=== PATIENT | female | born 1940 | race Caucasian/White ===

== ENCOUNTER → 2017-02-08 | Outpatient (CLI) | payer MEDICARE ==
[~2017-02-08] MED LIST: ACET325T49 PO; ALLP100T PO; ASPI81TA57 PO; ATOV750O PO; AZIT-21 PO; BACL10TA PO; CALC-80 PO; CHOL500019 PO; CYAN100053 IJ; CYCL25CA11 PO; CYCL50CA3 PO; DCS100C PO; DIPH25TA82 PO; EYE DROPS OU; FISH400C2 PO; FURO20TA4 PO; GEMF600T3 PO; GLUC-113 PO; HDRL25T GT; HYDR-3714 PO; INSU100I14 SQ; LEVE1U SQ; LEVO75TA6 PO; LISI20TA PO; LVT.05T PO; MAG355OR22 PO; MECL-124 PO; METF-144 PO; METO-272 PO; METO50TA2 PO; MTF500T PO; MULT-974 PO; NIAC-4 PO; ONDA-42 SL; PANT40TA PO; POTA25TA PO; PRED20TA PO; PRED50TA PO; PROC-1 PO; PSYL1PAC10 PO; VITAMINS
--- NOTE | 2017-02-08 20:09 | Diagnostic Imaging Report ---
EXAMINATION: DEXA scan. INDICATION: osteopenia TECHNIQUE: Bone mineral density estimated based on dual energy radiography over the lumbar spine and femoral necks, was performed. FINDINGS: The lumbar spine T-score is 3. This is exaggerated by the sclerotic degenerative changes. This is 1.6% decreased measurement density from 12/10/14. T score over the left femoral neck is -1.3 and on the right side is -1.1. This is 2.2% decreased density measurement compared to 2015. IMPRESSION: Osteopenia. Dictated by: Dictated on workstation # [id number]
== END ==
LOC: RAD 10:02
PROVIDERS: ATTEND Internal Medicine
DX: M85.80 Other specified disorders of bone density and structure, unspecified site (principal); Z79.52 Long term (current) use of systemic steroids
CPT/HCPCS: 77080

== ENCOUNTER → 2018-11-28 | Outpatient (CLI) | payer MEDICARE ==
--- NOTE | 2018-11-28 18:54 | Diagnostic Imaging Report ---
INDICATION: Routine screening. COMPARISON: Comparison is made with prior mammograms from 10/14/2013 and 10/11/2012. TECHNIQUE: 2-D and 3-D bilateral screening mammography was performed. The current study was also evaluated with a Computer Aided Detection (CAD) system. 3-D tomosynthesis was also performed and reviewed. FINDINGS: Both breasts remain heterogeneously dense, limiting the sensitivity of mammography. Benign calcifications are noted. No mass or malignant-appearing microcalcifications are seen. The axillae are unremarkable. IMPRESSION: No mammographic features suspicious for malignancy are identified. ACR BI-RADS Category 2: Benign findings. Result letter will be mailed to the patient. Note: At least 10% of breast cancer is not imaged by mammography. Dictated by: Dictated on workstation # [id number]
== END ==
LOC: RAD 10:41
PROVIDERS: ATTEND Internal Medicine
DX: Z12.31 Encounter for screening mammogram for malignant neoplasm of breast (principal)
CPT/HCPCS: 77067

== ENCOUNTER 2018-12-11 11:11 | Inpatient (IN) | payer MEDICARE | END 2018-12-14 09:31 | LOC: ER 11:11 → 4TH 13:31 | PROC: 0SSB34Z Reposition Left Hip Joint with Internal Fixation Device, Percutaneous Approach (ICD-10-PCS; principal; 2018-12-12 16:26) | DX: S72.142A Displaced intertrochanteric fracture of left femur, initial encounter for closed fracture (principal); W01.0XXA Fall on same level from slipping, tripping and stumbling without subsequent striking against object, initial encounter; Y92.008 Other place in unspecified non-institutional (private) residence as the place of occurrence of the external cause; M31.7 Microscopic polyangiitis; I12.9 Hypertensive chronic kidney disease with stage 1 through stage 4 chronic kidney disease, or unspecified chronic kidney disease; N18.4 Chronic kidney disease, stage 4 (severe); R07.81 Pleurodynia; E11.9 Type 2 diabetes mellitus without complications; E78.00 Pure hypercholesterolemia, unspecified; G47.30 Sleep apnea, unspecified; R42 Dizziness and giddiness; M06.9 Rheumatoid arthritis, unspecified; M19.91 Primary osteoarthritis, unspecified site; M10.9 Gout, unspecified; E03.9 Hypothyroidism, unspecified; Z98.1 Arthrodesis status; Z79.899 Other long term (current) drug therapy; K21.9 Gastro-esophageal reflux disease without esophagitis ==

== ENCOUNTER 2018-12-14 09:20 | Inpatient (IN) | payer MEDICARE ==
[~2018-12-14] VITALS: Ht 170.2 cm; Wt 86.0 kg
[~2018-12-14 09:20] MED LIST changes: +ACET-2267 PO; +ACETAMINOPHEN 500 MG TAB (TYLENOL) PO PRN; +ALLO100T PO; +ALPRAZolam 0.25 MG (XANAX) TAB PO PRN; +CALC300T4 PO; +CALCIUM CARBONATE 500 MG (TUMS) TAB.CHEW PO PRN; +CHOL10007 PO; +CNC1KV IM; +DIPH25CA79 PO; +DOCUSATE SODIUM 100 MG (COLACE) CAP PO PRN; +HYDROcodone/APAP 5 MG/325 MG (LORTAB) TAB PO PRN; +INSU100I29 SC; +LOPERAMIDE 2 MG (IMODIUM) TABLET PO PRN; +MELA3TAB PO; +MELATONIN 3 MG TABLET PO PRN; +METO-333 PO; +ONDA4TAB11 PO; +ONDANSETRON 4 MG (ZOFRAN) ORAL DISSOLVE TAB PO PRN; +PANT40TA3 PO; +RTX10V10 IV; +SENN-109 PO; +SODI650T PO; +VITA1CAP19 PO; +diphenhydrAMINE 25 MG TAB (BENADRYL) PO PRN
--- NOTE | 2018-12-14 09:20 | NUR ---
Admitted to room 228, with an admitting diagnosis of debility, on 12-14-18 from 4th via , accompanied by therapy and ].CASH LACEY introduced to surroundings, call light, bed controls, phone, TV, temperature control, lights, meal times, smoking policy, visitor policy, side rail policy, bathrooms and showers. Patient Rights given to patient in the handbook.CASH LACEY verbalizes understanding that [facility] is not responsible for the loss or damage to any personal effects or valuables that are kept in the patients posession during their hospitalization. The following Patient Care Plans were discussed with the : Discharge Planning, ,, and . CASH LACEY verbalizes understanding of Interdisciplinary Patient Education. Patient and/or family were informed about the Rapid Response Team and its purpose. Patient received Patient Rights Booklet, which includes Privacy Act Statement and Data Collection Information Summary.
[2018-12-14] MEDS: SENNA W/DOCUSATE (SENOKOT S) TABLET PO SCH ×2 (10:01→21:33)
--- NOTE | 2018-12-14 10:44 | Occupational Therapy Eval ---
OT Evaluation-General/PLF Medical Diagnosis Admission Date Dec 14, 2018 at 09:20 Medical Diagnosis: left hip fracture Onset Date: Dec 11, 2018 Therapy Diagnosis Therapy Diagnosis: decreased self care skills Height/Weight Height (Feet): 5 Height (Inches): 7.00 Weight (Pounds): 190 Weight (Ounces): 9.6 Weight Bear Status Weight Bearing Restriction: Weight Bearing/Tolerated Medical History Pertinent Medical History: DM, GERD, HTN, Hypothroidism, Rheumatoid Arthritis Additional Medical History chronic kidney disease, high cholesterol Current History pt had fall resulting in left hip fracture. Now s/p surgical fixation Social History Home: Single Level Current Living Status: Spouse ADL-Prior Level of Function Therapy Code Descriptions/Definitions Functional [place] Measure: 0=Not Assessed/NA 4=Minimal Assistance 1=Total Assistance 5=Supervision or Setup 2=Maximal Assistance 6=Modified [place] 3=Moderate Assistance 7=Complete [place] Therapy Quality Codes: 6 Independent with activity with or without an assistive device 5 Patient requires set up or clean up by helper. Patient completes activity by themselves 4 Supervision or touching assist (CGA). [place] provide cues , steadying assist 3 The helper provides less than half the effort to complete the activity 2 The helper provides more than half the effort to complete the activity 1 Dependent. The helper does all the effort to complete an activity 7 Patient refused to complete or attempt activity 9 The patient did not perform the activity before the current illness or injury 88 Not attempted due to Medical conditions or safety concerns Functional Abilities and Goals: Independent: Patient completed the activities by him/herself, with or without an assistive device, with no assistance from a helper. Needed Some Help: Patient needed partial assistance from another person to complete activities. Dependent: A helper completed the activities for the patient. Unknown: Not Applicable: ADL PLOF Comments Pt reports being independent prior to fall. Uses 4WW or cane for mobility. Has director data processing 6 hrs/wk Self Care: Independent DME/Equipment: Bath Chair, Grab Bars, Shower, Tall Toilet Drive Self: Yes OT Current Status Subjective Pt agreeable to therapy. Reports 8/10 left hip pain with movement. Mental Status/Objective Patient Orientation: Person, Place, Situation Current Glasses/Contacts: Yes Hearing Aids: No Dentures/Partials: No Hand Dominance: Right Upper Extremity ROM Grossly WFL Upper Extremity Coordination Intact Upper Extremity Sensation Intact per pt report Upper Extremity Strength Grossly 4/5 ADL-Treatment ADL-Current Total assist required to don socks. Pt completed grooming tasks while seated at sink. Pt brushed teeth, combed hair, and washed face with set up. Transfer to [facility] over toilet with mod assist and increased time. Pt has difficulty advancing left LE, requires assist. Skilled cues for transfer technique and safety. Pt required assist to manage Depends up/down and to complete toileting hygiene. Pt moves very slowly and requires increased time for mobility tasks. Fatigues with activity and requires rest breaks. Pt declined dressing at this time, states she does not have clothes here, but spouse will bring some later today. Pt sitting in w/c with needs met and spouse present after session. Eating (FIM): 7 (Pt reports feeding self and managing containers without assist.) Eating (QC): 6 Grooming (FIM): 5 Oral Hygiene (QC): 5 On/Off Footwear (QC): 1 Toileting (FIM): 1 Toilet/Commode Transfer (FIM): 3 Toilet Transfer (QC): 3 Education OT Patient Education: Rehab process Teaching Recipient: Patient Teaching Methods: Discussion Response to Teaching: Verbalize Understanding OT Short Term Goals Short Term Goals Time Frame: Dec 21, 2018 Bathing(FIM): 4 Lower Body Dressing(FIM): 3 Toileting(FIM): 3 Toilet/Commode Transfer(FIM): 4 Additional Short Term Goals: 1-Demonstrate ADL Tasks, 2-Verbalize Understanding, 3-ImproveStrength/Lucy 1=Demonstrate adherence to instructed precautions during ADL tasks. 2=Patient will verbalize/demonstrate understanding of assistive devices/modifications for ADL. 3=Patient will improve strength/tolerance for activity to enable patient to perform ADL's. OT Field Observer Goals Snf Goals Time Frame: Jan 04, 2019 Eating (FIM): 7 Eating (QC): 6 Groomin Oral Hygiene (QC): 6 Bathing(FIM): 5 Shower/Bathe Self (QC): 5 Upper Body Dressing(FIM): 6 Upper Body Dressing (QC): 6 Lower Body Dressing(FIM): 5 Lower Body Dressing (QC): 5 On/Off Footwear (QC): 5 Toileting(FIM): 6 Toileting Hygiene (QC): 6 Toilet/Commode Transfer(FIM): 6 Toilet/Commode Transfer (QC): 6 Shower Transfer(FIM): 5 Additional Goals: 1-Demonstrate ADL Tasks, 2-Verbalize Understanding, 3- ImproveStrength/Lucy 1=Demonstrate adherence to instructed precautions during ADL tasks. 2=Patient will verbalize/demonstrate understanding of assistive devices/modifications for ADL. 3=Patient will improve strength/tolerance for activity to enable patient to perform ADL's. OT Education/Plan Problem List/Assessment Assessment: Decreased Activ Tolerance, Decreased UE Strength, Dependent Transfers, Impaired I ADL's, Impaired Self-Care Skills Pt admitted to ARU after fall resulting in left hip fracture. S/p surgical intervention. Pt demonstrates decreased mobility, strength, activity tolerance, and ADL functioning. Pt to benefit from skilled OT intervention for ADL training, transfers, strengthening, adaptive equipment training, and home safety education to increase level of independence and allow safe discharge home. Discharge Recommendations Plan/Recommendations: Continue POC Treatment Plan/Plan of Care Treatment,Training & Education: Yes Patient would benefit from OT for education, treatment and training to promote independence in ADL's, mobility, safety and/or upper extremity function for ADL's. Plan of Care: ADL Retraining, Functional Mobility, Group Exercise/Act as Ind, UE Funct Exercise/Act Treatment Duration: Jan 04, 2019 Frequency: At least 5 of 7 days/Wk (IRF) Estimated Hrs Per Day: 1.5 hours per day Rehab Potential: Fair Time/GCodes Start Time: 09:30 Stop Time: 10:00 Total Time Billed (hr/min): 30 Billed Treatment Time 1 visit, EVM(10minutes), ADL(20minutes) MARCIA ALAMO OT Dec 14, 2018 10:44
[2018-12-14] MEDS ORDERED: SENNA W/DOCUSATE (SENOKOT S) TABLET PO ONE (11:45)
[2018-12-14] MEDS ORDERED: POLYETHYLENE GLYCOL 17 GM (MIRALAX) PACK PO ONE (11:45)
[2018-12-14] MEDS ORDERED: CATHETER FLUSH 10 ML SYR IV PRN (11:45)
[2018-12-14] MEDS ORDERED: ONDANSETRON 4 MG (ZOFRAN) ORAL DISSOLVE TAB PO PRN (11:45)
[2018-12-14] MEDS ORDERED: MELATONIN 3 MG TABLET PO PRN (11:45)
[2018-12-14] MEDS ORDERED: diphenhydrAMINE 25 MG TAB (BENADRYL) PO PRN (11:45)
[2018-12-14] MEDS ORDERED: BACLOFEN 10 MG (LIORESAL) TAB PO PRN (11:45)
[2018-12-14] MEDS ORDERED: BISACODYL 10 MG SUPP (DULCOLAX) PR PRN (11:45)
[2018-12-14] MEDS ORDERED: ONDANSETRON 4 MG/2 ML (SDV) Z0FRAN IV PRN (11:45)
--- NOTE | 2018-12-14 12:23 | PM&R H&P / Post Admit Assess ---
History of Present Illness HPI/Chief Complaint Chief complaint: Debility following left intertrochanteric hip fracture History of present illness: This is a 70-year-old white female clinic patient of Dr. Wills who presents following a fall at home resulted in intertrochanteric left hip fracture undergoing an uncomplicated repair the following day. 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 Her hemoglobin remains low at 7.7 but did not require a transfusion while on fourth floor. She has not had a bowel movement since she was admitted. Most medications from home were restarted and at this current time her son and bulk receiver are at the bedside. Apparently she was at home and went out to get her mail when 1 of her dogs knocked her over. She sees a transportation maintenance specialist at . She is insulin-dependent for her diabetes management. We took care of her for 3 weeks in inpatient rehab following an elective right shoulder replacement so she is familiar with the routine of rehab and will be monitored closely considering her significant comorbidities. Her prior level of functioning is sometimes use of a cane but is independent with her ADLs at home. Source: patient, old records Exam Limitations: no limitations Date Seen 12/14/18 Time Seen by a Provider: 12:10 Attending Physician Mayelin Hardy Mark D MD Referring Physician Date of Admission Dec 14, 2018 at 09:20 Home Medications & Allergies Home Medications Reviewed patient Home Medication Reconciliation performed by pharmacy medication reconciliations pipe organ technician and/or nursing. Patients Allergies have been reviewed. Allergies Allergies Coded Allergies Iodinated Contrast- Oral and IV Dye (Verified Allergy, Unknown, 12/11/18) Past [id number]-Jjayad Hx Past Med/Social Hx: Reviewed Nursing Past Med/Soc Hx, Reviewed and Corrections made Patient Social History Marrital Status: Employed/Student: retired Smoking Status: Never a Smoker Recent Foreign Travel: No Contact w/other who traveled: No Recent Infectious Disease Expo: No Immunizations Up To Date Tetanus Booster (TDap): Unknown Date of Pneumonia Vaccine: Feb 10, 2015 Date of Influenza Vaccine: Feb 19, 2014 Past Medical History Surgeries: Eye Surgery, Gallbladder, Hysterectomy, Orthopedic Cardiac: High Cholesterol, Hypertension Neurological: Vertigo Reproductive: No Gastrointestinal: Gastroesophageal Reflux Musculoskeletal: Arthritis, Rheumatoid Arthritis, Gout polyangitis Endocrine: Hypothyroidsim, Diabetes, Non-Insulin dep HEENT: Cataract History of Blood Disorders: No Adverse Reaction to Blood [place]: No Family History Patient reports no known family medical history. Review of Systems Constitutional: see HPI, weakness EENTM: no symptoms reported Respiratory: no symptoms reported Cardiovascular: no symptoms reported Gastrointestinal: constipation Genitourinary: no symptoms reported Musculoskeletal: joint pain (left leg) Skin: no symptoms reported Psychiatric/Neurological: No Symptoms Reported All Other Systems Reviewed Negative Unless Noted: Yes Physical Exam Exam Vital Signs Vital Signs Date Time Temp Pulse Resp B/P (MAP) Pulse Ox O2 Delivery O2 Flow Rate FiO2 12/14/18 17:12 101.0 105 18 189/70 (109) 95 Room Air Capillary Refill : General Appearance: No Apparent Distress, WD/WN, Chronically ill HEENT: PERRL/EOMI, Normal ENT Inspection, Pharynx Normal, Moist Mucous Membranes Neck: Full Range of Motion, Normal Inspection, Non Tender, Supple Respiratory: Chest Non Tender, Lungs Clear, Normal Breath Sounds, No Accessory Muscle Use, No Respiratory Distress Cardiovascular: Regular Rate, Rhythm, No Edema, No Gallop, No JVD, No Murmur Gastrointestinal: Normal Bowel Sounds, No Organomegaly, No Pulsatile Mass, Non Tender, Soft Back: Normal Inspection, No CVA Tenderness, No Vertebral Tenderness Extremity: Normal Capillary Refill, Normal Inspection, Normal Range of Motion (limited ROM left leg), Non Tender, No Calf Tenderness, No Pedal Edema Neurologic/Psychiatric: Alert, Oriented x3, No Motor/Sensory Deficits, Normal Mood/Affect, line producer II-XII Norm as Tested, Abnormal Gait Skin: Normal Color, Warm/Dry Lymphatic: No Adenopathy Results Results/Procedures Labs Patient resulted labs reviewed. 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 (4) CKD (chronic kidney disease) stage 4, GFR 15-29 ml/min Status: Chronic (5) MPA (microscopic polyangiitis) Status: Chronic (6) Type 2 diabetes mellitus Status: Chronic (7) GERD (gastroesophageal reflux disease) Status: Chronic (8) Essential hypertension Status: Chronic (9) Gout Status: Chronic (10) Constipation Status: Acute (11) CHF (congestive heart failure) Status: Acute (12) Anemia Status: Acute Post Admission Physician Asses Date seen by provider: Dec 14, 2018 Time seen by provider: 12:10 Admisison Dx: (1) Intertrochanteric fracture of left hip Status: Acute The preadmission screen agrees with the post admission assessment that the patient is a good candidate for inpatient rehabilitation. The patient will have a comprehensive program of inpatient rehabilitation with a goal of maximizing level of functional independence prior to discharge home with family. The patient will have PT/OT ninety minutes per day, each discipline, five days a week for gait, strengthening, conditioning, balance, ADLs, any patient/family/caregiver training as necessary. Speech therapy to do cognitive assessment and treat as indicated. Rehabilitation nursing to assist with bowel, bladder, skin, wound care, medication administration, pain management. Advertising Specialist to assist with discharge planning, community reentry. SCD's for DVT prophylaxis. She appears to be well motivated to participate in three hours of therapy a day. She should be able to tolerate three hours of therapy a day from a medical standpoint. She should benefit from the three hours of therapy a day. She has a reasonable discharge plan, reasonable discharge rehabilitation goals and a supportive family. She has various comorbidities that need to be closely monitored with medications and treatments adjusted on a daily basis as needed. These include: see list Barriers to discharge for this patient who had been independent prior to this are for her to be modified independent to supervision for ADLs and mobility skills prior to discharge home with family, so as to lessen the burden of the caregivers. Risks for this patient include: 1. Fall 2. Fracture 3. DVT 4. Pulmonary embolism 5. Wound infection 6. Skin breakdown 7. Contractures 8. Poorly controlled pain 9. Urinary retention 10. UTI 11. Respiratory infection 12. Aspiration Estimated Length of Stay: 14 days Prognosis: Rehab prognosis appears good for goal of discharge home with family modified independent to supervision for ADLs and mobility skills. MAYELIN HARDY DO Dec 14, 2018 12:23
--- NOTE | 2018-12-14 12:31 | Physical Therapy Evaluation ---
PT Evaluation-General Medical Diagnosis Admission Date Dec 14, 2018 at 09:20 Medical Diagnosis: left hip fracture Onset Date: Dec 11, 2018 Therapy Diagnosis Therapy Diagnosis: abnormal gait Height/Weight Height (Feet): 5 Height (Inches): 0.00 Weight (Pounds): 180 Weight (Ounces): 0.0 Precautions Precautions/Isolations: Standard Precautions Weight Bear Status Right Lower Extremity: Right Full Weight Bearing Left Lower Extremity: Left Weight Bearing/Tolerated Referral Physician: Antony Reason for Referral: Evaluation/Treatment Medical History Pertinent Medical History: DM, GERD, HTN, Hypothroidism, Rheumatoid Arthritis Additional Medical History Acute renal failure--CKD; acute respiratory failure, microscopic polyangitis Current History Pt tripped over her dog on 12/11/18 and sustained a left hip fx; repaired with IM nail Reviewed History: Yes Social History Home: Single Level Current Living Status: Spouse Prior/Core FIM Prior Level of Function Therapy Code Descriptions/Definitions Functional [place] Measure: 0=Not Assessed/NA 4=Minimal Assistance 1=Total Assistance 5=Supervision or Setup 2=Maximal Assistance 6=Modified [place] 3=Moderate Assistance 7=Complete [place] Therapy Quality Codes: 6 Independent with activity with or without an assistive device 5 Patient requires set up or clean up by helper. Patient completes activity by themselves 4 Supervision or touching assist (CGA). [place] provide cues , steadying assist 3 The helper provides less than half the effort to complete the activity 2 The helper provides more than half the effort to complete the activity 1 Dependent. The helper does all the effort to complete an activity 7 Patient refused to complete or attempt activity 9 The patient did not perform the activity before the current illness or injury 88 Not attempted due to Medical conditions or safety concerns Functional Abilities and Goals: Independent: Patient completed the activities by him/herself, with or without an assistive device, with no assistance from a helper. Needed Some Help: Patient needed partial assistance from another person to complete activities. Dependent: A helper completed the activities for the patient. Unknown: Not Applicable: Bed Mobility: 7 Transfers (B,C,W/C) (FIM): 7 Gait: 6 (occas use of walker or cane) Stairs: 6 Indoor Mobility (Ambulation): Independent Stairs: Independent Prior Devices Use: Walker (and/or cane) pt was mod indep with mobility and a community ambulator. PT Evaluation-Current Subjective Agrees to PT. Reports she knows she is allowed to put weight through her left LE but reports she is having difficulty doing so. Pain Numeric Pain Scale: 6 Location: Left Location Body Site: Hip Pain Description: Ache Pt/Family Goals Return home with spouse when able to care for herself. Objective Patient Orientation: Person, Place, Time, Situation ROM/Strength ROM Lower Extremities WFL Strenght Lower Extremities Right LE WFL Left LE grossly 3/5 ; limited by painful movement. Integumentary/Posture Integumentary intact Bowel Incontinence: No Bladder Incontinence: No Posture slightly rounded shoulders. Neuromuscular (Tone, Coordination, Reflexes) intact and functional Sensory Vision: Wears Glasses Hearing: Functional Hand Dominance: Right Sensation Right Lower Extremit: Intact Sensation Left Lower Extremity: Intact Transfers Therapy Code Descriptions/Definitions Functional [place] Measure: 0=Not Assessed/NA 4=Minimal Assistance 1=Total Assistance 5=Supervision or Setup 2=Maximal Assistance 6=Modified [place] 3=Moderate Assistance 7=Complete [place] Therapy Quality Codes: 6 Independent with activity with or without an assistive device 5 Patient requires set up or clean up by helper. Patient completes activity by themselves 4 Supervision or touching assist (CGA). [place] provide cues , steadying assist 3 The helper provides less than half the effort to complete the activity 2 The helper provides more than half the effort to complete the activity 1 Dependent. The helper does all the effort to complete an activity 7 Patient refused to complete or attempt activity 9 The patient did not perform the activity before the current illness or injury 88 Not attempted due to Medical conditions or safety concerns Transfers (B, C, W/C) (FIM): 2 Scootin Rollin Roll Left to Right (QC): 3 Supine to/from Sit: 3 (assist with both legs and light assist with trunk to steady her during transisiton. ) Sit to/from Stand: 2 (max assist to come to astand with cues for sequencing. ) Sit to Lying (QC): 3 Lying to Sitting/Side of Bed(Q: 3 Sit to Stand (QC): 2 Chair/Cbk-hs-Wexri Xfer(QC): 3 (mod assist; assist to weight shift and take steps to turn) Car Transfer (QC): 88 (unable to tolerate attempting this visit) Gait Does the Patient Walk?: No and Walking Goal IS indicated Mode of Locomotion: Walk Anticipated Mode of Locomotion: Walk Gait (FIM): 0 Distance (FIM): 0=does not occure Walk 10 feet (QC): 88 Walk 50 ft with 2 Turns(QC): 88 Walk 150 ft (QC): 88 Walking 10ft/uneven surface-QC: 88 Gait Assistive Device: FWW Comments/Gait Description Pt only able to perform SPT at this time and requires assist to weight shift for the transfer; difficulty WB through the left LE due to pain and guarding. Wheelchair Training Does the Pt Use a Wheelchair?: No Stairs Stairs (FIM): 0 1 Step (curb) (QC): 88 4 Steps (QC): 88 12 Steps (QC): 88 If not tested on admit;explain Pt unable to effectively walk at this time; therefore unable to attempt steps Balance Sitting Static: Good Sitting Dynamic: Good Standing Static: Fair Standing Dynamic: Fair Picking up an Object (QC): 88 Assessment/Needs POst fall that resulted in a left hip fracture. She demonstrates decreased ability to perform functional transfers and bed mobility and is unable to effectively ambulate at this time. She will benefit from skilled PT to address functional mobility and progress her gait and transfers to a mod indep level. She is slow with transitional movements at this time and transfers due to guarding and pain. Rehab Potential: Good PT Short Term Goals Short Term Goals Time Frame: Dec 25, 2018 Transfers (B,C,W/C) (FIM): 4 Gait (FIM): 4 PT Fci Goals Fci Goals PT Client Services Manager Goals Time Frame: Jan 03, 2019 Transfers (B,C,W/C) (FIM): 7 Sit to Lying (QC): 6 Lying-Sitting on Side/Bed(QC): 6 Sit to Stand (QC): 6 Roll Left to Right (QC): 6 Chair/Okj-uz-Lqcdj Xfer(QC): 6 Car Transfer (QC): 6 Does the Patient Walk: Yes Gait (FIM): 6 Gait distance (FIM): 3=150 ft Walk 10 feet (QC): 6 Walk 10ft-Uneven Surface(QC): 6 Walk 50ft with 2 Turns (QC): 6 Walk 150 ft (QC): 6 Gait Assistive Device: FWW Does the Pt use WC or Scooter?: No Stairs (FIM): 5 # of Steps: 4 (household distance) 1 Step (curb) (QC): 6 4 Steps (QC): 6 12 Steps (QC): 6 Picking up an Object (QC): 88 PT Plan Problem List Problem List: Activity Tolerance, Functional Strength, Safety, Balance, Gait, Transfer, Bed Mobility Treatment/Plan Treatment Plan: Continue Plan of Care Treatment Plan: Bed Mobility, Education, Functional Activity Lucy, Functional Strength, Group Therapy, Gait, Safety, Therapeutic Exercise, Transfers Treatment Duration: Jan 03, 2019 Frequency: At least 5 of 7 days/Wk (IRF) Estimated Hrs Per Day: 1.5 hours per day Patient and/or Family Agrees t: Yes Safety Risks/Education Patient Education: Gait Training, Safety Issues Teaching Recipient: Patient Teaching Methods: Demonstration, Discussion Response to Teaching: Reinforcement Needed Discharge Recommendations Therapy D/C Recommendations: Physical Therapy Home Care Time/GCodes Time In: 920 Time Out: 930 Total Billed Treatment Time: 10 Total Billed Treatment visit EVM 10 MEHRAN MARTINEZ PT Dec 14, 2018 12:31
--- NOTE | 2018-12-14 12:40 | Physical Therapy Daily Note ---
PT Daily Note-Current Subjective Requests to return to bed. Transfers Therapy Code Descriptions/Definitions Functional [place] Measure: 0=Not Assessed/NA 4=Minimal Assistance 1=Total Assistance 5=Supervision or Setup 2=Maximal Assistance 6=Modified [place] 3=Moderate Assistance 7=Complete [place] Therapy Quality Codes: 6 Independent with activity with or without an assistive device 5 Patient requires set up or clean up by helper. Patient completes activity by themselves 4 Supervision or touching assist (CGA). [place] provide cues , steadying assist 3 The helper provides less than half the effort to complete the activity 2 The helper provides more than half the effort to complete the activity 1 Dependent. The helper does all the effort to complete an activity 7 Patient refused to complete or attempt activity 9 The patient did not perform the activity before the current illness or injury 88 Not attempted due to Medical conditions or safety concerns Weight Bearing Right Lower Extremity: Right Full Weight Bearing Left Lower Extremity: Left Weight Bearing/Tolerated Treatments Sit to stand with mod assist and SPT wc to bed with mod assist with FWW WBAT with heavy cues for sequencing and assist to weight shift. Mod assist sit to supine. Pt in bed with left heel elevated and SCD's in place post treatment. Assessment New admit to this unit. will benefit from aggressive skilled intervention to allow her to return home as before. PT Short Term Goals Short Term Goals Time Frame: Dec 25, 2018 Transfers (B,C,W/C) (FIM): 4 Gait (FIM): 4 PT Frozen Food Department Manager Goals Frozen Food Department Manager Goals PT [facility] Goals Time Frame: Jan 03, 2019 Transfers (B,C,W/C) (FIM): 7 Sit to Lying (QC): 6 Lying-Sitting on Side/Bed(QC): 6 Sit to Stand (QC): 6 Rollin Roll Left to Right (QC): 6 Chair/Rlp-ve-Scvpu Xfer(QC): 6 Car Transfer (QC): 6 Does the Patient Walk: Yes Gait (FIM): 6 Gait distance (FIM): 3=150 ft Walk 10 feet (QC): 6 Walk 10ft-Uneven Surface(QC): 6 Walk 50ft with 2 Turns (QC): 6 Walk 150 ft (QC): 6 Gait Assistive Device: FWW Does the Pt use WC or Scooter?: No Stairs (FIM): 5 # of Steps: 4 (household distance) 1 Step (curb) (QC): 6 4 Steps (QC): 6 12 Steps (QC): 6 Picking up an Object (QC): 88 PT Plan Problem List Problem List: Activity Tolerance, Functional Strength, Safety, Balance, Gait, Transfer, Bed Mobility Treatment/Plan Treatment Plan: Continue Plan of Care Treatment Plan: Bed Mobility, Education, Functional Activity Lucy, Functional Strength, Group Therapy, Gait, Safety, Therapeutic Exercise, Transfers Treatment Duration: Jan 03, 2019 Frequency: At least 5 of 7 days/Wk (IRF) Estimated Hrs Per Day: 1.5 hours per day Patient and/or Family Agrees t: Yes Safety Risks/Education Patient Education: Transfer Techniques Teaching Recipient: Patient Teaching Methods: Demonstration, Discussion Response to Teaching: Reinforcement Needed Time/GCodes Time In: 1105 Time Out: 1130 Total Billed Treatment Time: 25 Total Billed Treatment visit FA 25 MEHRAN MARTINEZ PT Dec 14, 2018 12:39
[2018-12-14 12:43] VITALS: BP 129/72
[2018-12-14] MEDS: inSUlin ASPART (NovoLOG) 1 UNIT/0.01 ML (CHARGE PER UNIT) SC SCH ×2 (16:45→21:00)
[2018-12-14 17:12] VITALS: BP 189/70
[2018-12-14] MEDS: SODIUM BICARBONATE 650 MG TABLET (NON-FORMULARY) PO SCH (18:30)
[2018-12-14] MEDS: ACETAMINOPHEN 325 MG TABLET PO PRN (18:30)
--- NOTE | 2018-12-14 19:16 | NUR ---
bedside report received from ANTONIO CHINCHILLA, assume care of pt
[2018-12-14 21:30] VITALS: BP 161/71
[2018-12-14] MEDS: PANTOPRAZOLE 40 MG (PROTONIX) TAB PO SCH (21:33)
[2018-12-14] MEDS: meTOprolol TARTRATE 25 MG (LOPRESSOR) TABLET PO SCH (21:34)
[2018-12-14] MEDS: DOCUSATE SODIUM 100 MG (COLACE) CAP PO SCH (21:34)
--- NOTE | 2018-12-14 21:34 | NUR ---
c/o pain level 8/10 on numeric scale, oxyir 5mg po given
--- NOTE | 2018-12-14 21:34 | NUR ---
pt took Colace & Senokot 1 tab refused miralax, fsbs 186 no ss insulin req
--- NOTE | 2018-12-14 21:35 | NUR ---
assessments & interventions completed see assessments & interventions
[2018-12-14] MEDS: POLYETHYLENE GLYCOL 17 GM (MIRALAX) PACK PO SCH (21:36)
--- NOTE | 2018-12-14 22:15 | NUR ---
resting quietly in bed, pain level 0/10 on flacc scale
[2018-12-15 06:00] VITALS: BP 154/72
[2018-12-15] MEDS: inSUlin ASPART (NovoLOG) 1 UNIT/0.01 ML (CHARGE PER UNIT) SC SCH ×4 (06:00→21:00)
[2018-12-15 06:01] LABS: BASOPHILS % (AUTO) 0 % (0-10); EOSINOPHILS # (AUTO) 0.2 10^3/uL (0.0-0.3); EOSINOPHILS % (AUTO) 3 % (0-10); HEMATOCRIT 23 % (35-52); HEMOGLOBIN 7.3 G/DL (11.5-16.0); LYMPHOCYTES # (AUTO) 0.9 X 10^3 (1.0-4.0); LYMPHOCYTES % (AUTO) 12 % (12-44); MEAN CORPUSCULAR HEMOGLOBIN 32 PG (25-34); MEAN CORPUSCULAR HGB CONC 32 G/DL (32-36); MEAN CORPUSCULAR VOLUME 100 FL (80-99); MEAN PLATELET VOLUME 10.5 FL (7.4-10.4); MONOCYTES % (AUTO) 13 % (0-12); NEUTROPHILS # (AUTO) 5.3 X 10^3 (1.8-7.8); NEUTROPHILS % (AUTO) 72 % (42-75); PLATELET COUNT 161 10^3/uL (130-400); RED CELL DISTRIBUTION WIDTH 13.8 % (10.0-14.5); WHITE BLOOD COUNT 7.4 10^3/uL (4.3-11.0)
[2018-12-15 06:30] LABS: ALANINE AMINOTRANSFERASE < 6 U/L (0-55); ALBUMIN 3.2 GM/DL (3.2-4.5); ALKALINE PHOSPHATASE 102 U/L (40-136); BILIRUBIN,TOTAL 0.5 MG/DL (0.1-1.0); BUN/CREATININE RATIO 15; CALCIUM 9.1 MG/DL (8.5-10.1); CARBON DIOXIDE 19 MMOL/L (21-32); CHLORIDE 106 MMOL/L (98-107); CREATININE SERUM 2.62 MG/DL (0.60-1.30); GFR ESTIMATED 18; GLUCOSE 114 MG/DL (70-105); POTASSIUM 3.7 MMOL/L (3.6-5.0); SODIUM 139 MMOL/L (135-145); TOTAL PROTEIN 5.6 GM/DL (6.4-8.2)
[2018-12-15] MEDS: LEVOTHYROXINE 75 MCG (LEVOTHROID) TABLET PO SCH (06:39)
[2018-12-15] MEDS: SODIUM BICARBONATE 650 MG TABLET (NON-FORMULARY) PO SCH ×2 (06:40→16:45)
--- NOTE | 2018-12-15 06:40 | NUR ---
c/o pain level 8/10 on numeric scale, oxyir 5mg po given
--- NOTE | 2018-12-15 07:23 | NUR ---
rates pain level 2/10 on numeric scale, bedside report given to ИВАН CHINCHILLA
[2018-12-15] MEDS: ALLOPURINOL 100 MG (ZYLOPRIM) TAB PO SCH (09:42)
[2018-12-15] MEDS: SENNA W/DOCUSATE (SENOKOT S) TABLET PO SCH ×2 (09:42→21:54)
[2018-12-15] MEDS: PANTOPRAZOLE 40 MG (PROTONIX) TAB PO SCH ×2 (09:43→21:54)
[2018-12-15] MEDS: meTOprolol TARTRATE 25 MG (LOPRESSOR) TABLET PO SCH ×2 (09:43→21:54)
[2018-12-15] MEDS: DOCUSATE SODIUM 100 MG (COLACE) CAP PO SCH ×2 (09:44→21:57)
[2018-12-15] MEDS: FUROSEMIDE 40 MG (LASIX) TAB PO SCH (09:44)
[2018-12-15] MEDS: POLYETHYLENE GLYCOL 17 GM (MIRALAX) PACK PO SCH ×2 (09:44→21:57)
[2018-12-15] MEDS ORDERED: BISACODYL 10 MG SUPP (DULCOLAX) PR ONE (11:45)
[2018-12-15] MEDS ORDERED: IRON SUCROSE 200 MG/10 ML (VENOFER) VIAL IV ONE (11:45)
--- NOTE | 2018-12-15 12:00 | PM&R Progress Note ---
Subjective HPI/CC On Admission Date Seen by Provider: Dec 15, 2018 Time Seen by Provider: 11:45 Chief complaint: Debility following left intertrochanteric hip fracture History of present illness: This is a 70-year-old white female clinic patient of Dr. Wills who presents following a fall at home resulted in intertrochanteric left hip fracture undergoing an uncomplicated repair the following day. 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 Her hemoglobin remains low at 7.7 but did not require a transfusion while on fourth floor. She has not had a bowel movement since she was admitted. Most medications from home were restarted and at this current time her son and jalousie installer are at the bedside. Apparently she was at home and went out to get her mail when 1 of her dogs knocked her over. She sees a rug cutter helper at . She is insulin-dependent for her diabetes management. We took care of her for 3 weeks in inpatient rehab following an elective right shoulder replacement so she is familiar with the routine of rehab and will be monitored closely considering her significant comorbidities. Her prior level of functioning is sometimes use of a cane but is independent with her ADLs at home. Subjective/Events-last exam Patient doing better Her sister is at the bedside visiting Htg 7.7 and her normal hgb is 10 so will check iron level and start Venofer every other day and she agrees with the plan No BM yet and she reports this in no unusual and she is not eating well so I suggested her to work on her nutrition and she agrees Suppository will be ordered Checked meds and labs Conferred with RN Reviewed therapy notes Review of Systems General: Fatigue Gastrointestinal: Constipation Musculoskeletal: leg pain Objective Exam Vital Signs Vital Signs Date Time Temp Pulse Resp B/P (MAP) Pulse Ox O2 Delivery O2 Flow Rate FiO2 12/15/18 06:00 99.1 89 18 154/72 (99) 96 Room Air Capillary Refill : Less Than 3 Seconds General Appearance: No Apparent Distress, WD/WN, Chronically ill HEENT: PERRL/EOMI, Normal ENT Inspection, Pharynx Normal, Moist Mucous Membranes Neck: Full Range of Motion, Normal Inspection, Non Tender, Supple Respiratory: Chest Non Tender, Lungs Clear, Normal Breath Sounds, No Accessory Muscle Use, No Respiratory Distress Cardiovascular: Regular Rate, Rhythm, No Edema, No Gallop, No JVD, No Murmur Gastrointestinal: Normal Bowel Sounds, No Organomegaly, No Pulsatile Mass, Non Tender, Soft Back: Normal Inspection, No CVA Tenderness, No Vertebral Tenderness Extremity: Normal Capillary Refill, Normal Inspection, Normal Range of Motion (limited ROM left leg), Non Tender, No Calf Tenderness, No Pedal Edema Neurologic/Psychiatric: Alert, Oriented x3, No Motor/Sensory Deficits, Normal Mood/Affect, boat cleaning supervisor II-XII Norm as Tested, Abnormal Gait Skin: Normal Color, Warm/Dry Lymphatic: No Adenopathy Results/Procedures Lab Laboratory Tests 12/15/18 05:50 Patient resulted labs reviewed. FIM Transfers Therapy Code Descriptions/Definitions Functional [place] Measure: 0=Not Assessed/NA 4=Minimal Assistance 1=Total Assistance 5=Supervision or Setup 2=Maximal Assistance 6=Modified [place] 3=Moderate Assistance 7=Complete [place] Therapy Quality Codes: 6 Independent with activity with or without an assistive device 5 Patient requires set up or clean up by helper. Patient completes activity by themselves 4 Supervision or touching assist (CGA). [place] provide cues , steadying assist 3 The helper provides less than half the effort to complete the activity 2 The helper provides more than half the effort to complete the activity 1 Dependent. The helper does all the effort to complete an activity 7 Patient refused to complete or attempt activity 9 The patient did not perform the activity before the current illness or injury 88 Not attempted due to Medical conditions or safety concerns Transfers (B, C, W/C) (FIM): 2 Scootin Rollin Roll Left to Right (QC): 3 Supine to/from Sit: 3 (assist with both legs and light assist with trunk to steady her during transisiton. ) Sit to/from Stand: 2 (max assist to come to astand with cues for sequencing. ) Sit to Lying (QC): 3 Sit to Stand (QC): 2 Chair/Qat-fe-Uqwok Xfer(QC): 3 (mod assist; assist to weight shift and take steps to turn) Car Transfer (QC): 88 (unable to tolerate attempting this visit) Gait Training Does the Patient Walk?: No and Walking Goal IS indicated Gait (FIM): 0 Distance (FIM): 0=does not occure Walk 10 feet (QC): 88 Walk 50 ft with 2 Turns(QC): 88 Walk 150 ft (QC): 88 Walking 10ft/uneven surface-QC: 88 Gait Assistive Device: FWW Wheelchair Training Does the Pt Use a Wheelchair?: No Stair Training Stairs (FIM): 0 1 Step (curb) (QC): 88 4 Steps (QC): 88 12 Steps (QC): 88 Balance Picking up an Object (QC): 88 ADL-Treatment Feedin (Pt reports feeding self and managing containers without assist.) Eating (QC): 6 Groomin Oral Hygiene (QC): 5 On/Off Footwear (QC): 1 Toiletin Toilet/Commode Transfer: 3 Toilet Transfer (QC): 3 Assessment/Plan Assessment and Plan Assess & Plan/Chief Complaint Plan: IRF protocol Pain meds to continue BM regimen to intensify Home meds Monitor for fever IS DM management ADA diet Heparin for DVT PPx Venofer Iron level drawn (1) Intertrochanteric fracture of left femur Status: Acute (2) Fall from ground level Status: Acute (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
[2018-12-15] MEDS: ACETAMINOPHEN 325 MG TABLET PO PRN (16:43)
[2018-12-15 17:24] VITALS: BP 192/76
--- NOTE | 2018-12-15 19:18 | NUR ---
bedside report received from ИВАН CHINCHILLA, assume care of pt
[2018-12-15 21:50] VITALS: BP 161/73
--- NOTE | 2018-12-15 21:54 | NUR ---
c/o pain level 5/10 on numeric scale, oxyir 5mg po given, pt requesting only 1 Senokot & refused Colace & miralax, fsbs 180 no ss insulin required
--- NOTE | 2018-12-15 21:55 | NUR ---
assessments & interventions completed, see assessments & interventions
--- NOTE | 2018-12-15 22:35 | NUR ---
resting quietly in bed, pain level 0/10 on flacc scale
[2018-12-16 05:19] VITALS: BP 153/72
[2018-12-16 05:23] LABS: BASOPHILS % (AUTO) 0 % (0-10); EOSINOPHILS # (AUTO) 0.2 10^3/uL (0.0-0.3); EOSINOPHILS % (AUTO) 3 % (0-10); HEMATOCRIT 23 % (35-52); HEMOGLOBIN 7.2 G/DL (11.5-16.0); LYMPHOCYTES # (AUTO) 0.9 X 10^3 (1.0-4.0); LYMPHOCYTES % (AUTO) 13 % (12-44); MEAN CORPUSCULAR HEMOGLOBIN 32 PG (25-34); MEAN CORPUSCULAR HGB CONC 32 G/DL (32-36); MEAN CORPUSCULAR VOLUME 100 FL (80-99); MONOCYTES % (AUTO) 14 % (0-12); NEUTROPHILS # (AUTO) 4.7 X 10^3 (1.8-7.8); NEUTROPHILS % (AUTO) 70 % (42-75); PLATELET COUNT 175 10^3/uL (130-400); RED CELL DISTRIBUTION WIDTH 13.6 % (10.0-14.5); WHITE BLOOD COUNT 6.8 10^3/uL (4.3-11.0)
[2018-12-16 05:49] LABS: ALBUMIN 3.2 GM/DL (3.2-4.5); BILIRUBIN,TOTAL 0.6 MG/DL (0.1-1.0); CALCIUM 9.2 MG/DL (8.5-10.1); CREATININE SERUM 2.5 MG/DL (0.60-1.30); TOTAL PROTEIN 5.5 GM/DL (6.4-8.2)
[2018-12-16] MEDS: inSUlin ASPART (NovoLOG) 1 UNIT/0.01 ML (CHARGE PER UNIT) SC SCH ×4 (06:00→22:18)
[2018-12-16] MEDS: LEVOTHYROXINE 75 MCG (LEVOTHROID) TABLET PO SCH (06:47)
[2018-12-16] MEDS: SODIUM BICARBONATE 650 MG TABLET (NON-FORMULARY) PO SCH ×2 (06:48→17:43)
--- NOTE | 2018-12-16 06:48 | NUR ---
c/o pain level 4/10 on numeric scale, oxyir 5mg po given
--- NOTE | 2018-12-16 07:28 | NUR ---
bedside report given to TERA CHINCHILLA
[2018-12-16 08:00] VITALS: BP 161/74
--- NOTE | 2018-12-16 08:04 | PM&R Progress Note ---
Subjective HPI/CC On Admission Date Seen by Provider: Dec 16, 2018 Time Seen by Provider: 08:00 Chief complaint: Debility following left intertrochanteric hip fracture History of present illness: This is a 70-year-old white female clinic patient of Dr. Wills who presents following a fall at home resulted in intertrochanteric left hip fracture undergoing an uncomplicated repair the following day. 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 Her hemoglobin remains low at 7.7 but did not require a transfusion while on fourth floor. She has not had a bowel movement since she was admitted. Most medications from home were restarted and at this current time her son and pole inspector are at the bedside. Apparently she was at home and went out to get her mail when 1 of her dogs knocked her over. She sees a education managers at . She is insulin-dependent for her diabetes management. We took care of her for 3 weeks in inpatient rehab following an elective right shoulder replacement so she is familiar with the routine of rehab and will be monitored closely considering her significant comorbidities. Her prior level of functioning is sometimes use of a cane but is independent with her ADLs at home. Subjective/Events-last exam Bowels are now moving Low grade fever as expected Hgb remains 7.[address] Rebolledo for Aranesp she has had that in the past Venefor for Iron deficiency started Pain is much improved Appetite is improving Bowels moved two time yesterday Checked meds and labs Conferred with RN Reviewed therapy notes Review of Systems General: Fatigue Musculoskeletal: leg pain Objective Exam Vital Signs Vital Signs Date Time Temp Pulse Resp B/P (MAP) Pulse Ox O2 Delivery O2 Flow Rate FiO2 12/16/18 18:00 99.6 97 20 174/79 (110) 99 Room Air Capillary Refill : Less Than 3 Seconds General Appearance: No Apparent Distress, WD/WN, Chronically ill HEENT: PERRL/EOMI, Normal ENT Inspection, Pharynx Normal, Moist Mucous Membranes Neck: Full Range of Motion, Normal Inspection, Non Tender, Supple Respiratory: Chest Non Tender, Lungs Clear, Normal Breath Sounds, No Accessory Muscle Use, No Respiratory Distress Cardiovascular: Regular Rate, Rhythm, No Edema, No Gallop, No JVD, No Murmur Gastrointestinal: Normal Bowel Sounds, No Organomegaly, No Pulsatile Mass, Non Tender, Soft Back: Normal Inspection, No CVA Tenderness, No Vertebral Tenderness Extremity: Normal Capillary Refill, Normal Inspection, Normal Range of Motion (limited ROM left leg), Non Tender, No Calf Tenderness, No Pedal Edema Neurologic/Psychiatric: Alert, Oriented x3, No Motor/Sensory Deficits, Normal Mood/Affect, literacy coach II-XII Norm as Tested, Abnormal Gait Skin: Normal Color, Warm/Dry Lymphatic: No Adenopathy Results/Procedures Lab Laboratory Tests 12/16/18 04:43 12/16/18 04:45 Patient resulted labs reviewed. FIM Transfers Therapy Code Descriptions/Definitions Functional [place] Measure: 0=Not Assessed/NA 4=Minimal Assistance 1=Total Assistance 5=Supervision or Setup 2=Maximal Assistance 6=Modified [place] 3=Moderate Assistance 7=Complete [place] Therapy Quality Codes: 6 Independent with activity with or without an assistive device 5 Patient requires set up or clean up by helper. Patient completes activity by themselves 4 Supervision or touching assist (CGA). [place] provide cues , steadying assist 3 The helper provides less than half the effort to complete the activity 2 The helper provides more than half the effort to complete the activity 1 Dependent. The helper does all the effort to complete an activity 7 Patient refused to complete or attempt activity 9 The patient did not perform the activity before the current illness or injury 88 Not attempted due to Medical conditions or safety concerns Transfers (B, C, W/C) (FIM): 2 Scootin Rollin Roll Left to Right (QC): 3 Supine to/from Sit: 3 (assist with both legs and light assist with trunk to steady her during transisiton. ) Sit to/from Stand: 2 (max assist to come to astand with cues for sequencing. ) Sit to Lying (QC): 3 Sit to Stand (QC): 2 Chair/Cyy-fx-Vthmc Xfer(QC): 3 (mod assist; assist to weight shift and take steps to turn) Car Transfer (QC): 88 (unable to tolerate attempting this visit) Gait Training Does the Patient Walk?: No and Walking Goal IS indicated Gait (FIM): 0 Distance (FIM): 0=does not occure Walk 10 feet (QC): 88 Walk 50 ft with 2 Turns(QC): 88 Walk 150 ft (QC): 88 Walking 10ft/uneven surface-QC: 88 Gait Assistive Device: FWW Wheelchair Training Does the Pt Use a Wheelchair?: No Stair Training Stairs (FIM): 0 1 Step (curb) (QC): 88 4 Steps (QC): 88 12 Steps (QC): 88 Balance Picking up an Object (QC): 88 ADL-Treatment Feedin (Pt reports feeding self and managing containers without assist.) Eating (QC): 6 Groomin Oral Hygiene (QC): 5 On/Off Footwear (QC): 1 Toiletin Toilet/Commode Transfer: 3 Toilet Transfer (QC): 3 Assessment/Plan Assessment and Plan Assess & Plan/Chief Complaint Plan: IRF protocol Pain meds to continue BM regimen to be maintained Home meds Monitor for fever recurrence IS DM management ADA diet Heparin for DVT PPx Venofer Iron level drawn Consult Dr Rebolledo for Aranesp? 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
--- NOTE | 2018-12-16 08:13 | NUR ---
REVIEWED MED REC IT WAS REPORTED UPON ADMISSION TO 4TH FLOOR. NO CHANGES WERE MADE WHEN THE PATIENT DISCHARGED TO REHAB.
--- NOTE | 2018-12-16 08:48 | ST Cognitive Linguistic Eval ---
Speech Evaluation-General Medical Diagnosis left hip fracture Onset Date: Dec 11, 2018 Therapy Diagnosis Therapy Diagnosis: Cognitive-communication Precautions Precautions: Fall Precautions/Isolations: Fall Prevention, Standard Precautions Referral Referring Physician: Dr. Hardy Reason for Referral: Evaluation/Treatment Medical History Pertinent Medical History: DM, GERD, HTN, Hypothroidism, Rheumatoid Arthritis DM, RA, HTN, GERD and Hypothyroidism Current History Left hip fracture Reviewed History: Yes Social History Home: Single Level Current Living Status: Spouse Speech PLF-Current Status Prior Level of Function Patient lives at home with her . She was independent within the home for her daily needs prior to this accident. Subjective The patient was very pleasant and cooperative with the evaluation. Language Eval: Auditory Comprehends Simple Yes/No Ques: Functional Indent/Objects [place]: Functional Ident/Pics in [place]: Functional Follows 1-Step Commands: Functional Follows Complex Directions: Functional Follows General Conversations: Functional Language Eval: Verbal Language Completes Spontaneous Greeting: Functional Produces Auto, Serial Info: Functional Imitates Simple Words/Phrases: Functional Word Finding: Functional Requests Basic Needs: Functional States Basic Personal Info: Functional Expresses Complex Ideas: Mild Objective Cognitive Domain Attention: WNL Memory: WNL Problem Solving: Functional Executive Functions: WNL Visuospatial Skills: WNL Composite Severity Rating: WNL Clock Drawing Severity Rating: WNL Score: 28/30 Range: Normal Objective Formal/Standardized Tests [facility] Results 28/30, within normal range of function Oral Motor/Speech Production Within Functional Limits Impression The patient is a pleasant 78 year old female who was admitted to the ARU s/p fractured hip from a fall. The patient was given the SLUMS at bedside with scores in the normal range. The patient does not require skilled ST at this time. Communication/Social Cognition Comprehension: 7 Expression: 7 Social Interaction: 7 Problem Solvin Memory: 7 Speech Patient Assess Expression of Ideas/Wants: Expression (4) Understanding Verbal Content: Understands (4) Brief Interview-Mental Status: Yes Repetition of Three Words: Three (3) Temporal Orientation: Year: Correct (3) Temporal Orientation: Month: Accurate within 5 days(2) Temporal Orientation: Day: Correct (1) Recall : Wear to say "Sock": Yes, no cue required (2) Recall : Color: Yes, after cueing (1) Recall : Bed: Yes,after cueing (1) Memory/Recall Ability: Current season, Location of own room, That he or she is in a hsp/hsp unit Speech-Plan Patient/Family Goals Patient/Family Goals: The patient plans on returning home post rehab. Treatment Plan Speech Therapy Treatment Plan: Discontinue ST The patient does not require skilled ST at this time. Treatment Duration: Dec 16, 2018 Frequency: 1 time per week Estimated Hrs Per Day: .25 hour per day Rehab Potential: Good Barriers to Learning: None identified Pt/Family Agrees to Plan: Yes Safety Risks/Education Teaching Recipient: Patient Teaching Methods: Discussion Response to Teaching: Verbalize Understanding Education Topics Provided: Safety within her room and communication of wants/needs Time Speech Therapy Time In: 08:30 Speech Therapy Time Out: 08:45 Total Billed Time: 15 Billed Treatment Time 1, ZACH Paula Dec 16, 2018 08:48
[2018-12-16] MEDS: PANTOPRAZOLE 40 MG (PROTONIX) TAB PO SCH ×2 (08:57→22:18)
[2018-12-16] MEDS: FUROSEMIDE 40 MG (LASIX) TAB PO SCH (08:57)
[2018-12-16] MEDS: meTOprolol TARTRATE 25 MG (LOPRESSOR) TABLET PO SCH ×2 (08:57→22:17)
[2018-12-16] MEDS: ALLOPURINOL 100 MG (ZYLOPRIM) TAB PO SCH (08:57)
[2018-12-16] MEDS: SENNA W/DOCUSATE (SENOKOT S) TABLET PO SCH ×2 (09:02→22:17)
[2018-12-16] MEDS: POLYETHYLENE GLYCOL 17 GM (MIRALAX) PACK PO SCH ×2 (09:02→21:00)
[2018-12-16] MEDS: DOCUSATE SODIUM 100 MG (COLACE) CAP PO SCH ×2 (09:03→21:00)
--- NOTE | 2018-12-16 09:49 | Occupational Ther Daily Note ---
OT Current Status-Daily Note Subjective Pt laying in bed at start of session, agreed to OT tx focusing on ADLS. Pt reported pain in L hip / post ADLs Mental Status/Objective Therapy Code Descriptions/Definitions Functional Shoshone Measure: 0=Not Assessed/NA 4=Minimal Assistance 1=Total Assistance 5=Supervision or Setup 2=Maximal Assistance 6=Modified Shoshone 3=Moderate Assistance 7=Complete Shoshone Attachments: IV ADL-Treatment Therapy Code Descriptions/Definitions Functional [place]one Measure: 0=Not Assessed/NA 4=Minimal Assistance 1=Total Assistance 5=Supervision or Setup 2=Maximal Assistance 6=Modified [place]one 3=Moderate Assistance 7=Complete Shoshone Therapy Quality Codes: 6 Independent with activity with or without an assistive device 5 Patient requires set up or clean up by helper. Patient completes activity by themselves 4 Supervision or touching assist (CGA). [place] provide cues , steadying assist 3 The helper provides less than half the effort to complete the activity 2 The helper provides more than half the effort to complete the activity 1 Dependent. The helper does all the effort to complete an activity 7 Patient refused to complete or attempt activity 9 The patient did not perform the activity before the current illness or injury 88 Not attempted due to Medical conditions or safety concerns Grooming (FIM): 5 (Set up, pt completed task seated in w/c at sink. Pt brushed hair/teeth, washed face and hands.) Oral Hygiene (QC): 5 Bathing (FIM): 5 (10/30 complete. Pt performed sponge bath, seated on commode over toilet.) Bathing Location: L Arm, R Arm, L Upper Leg, R Upper Leg, Chest, Abdomen, Perineal Area Shower/Bathe Self (QC): 3 Upper Body (FIM): 5 (set up assist, pt able to doff/don bra and machine puller shirt.) Upper Body Dressing (QC): 5 Lower Body Dressing (FIM): 2 (Pt completed 05/31 parts. OT educated pt on using boardmarker & sock aid. Pt attempted to use boardmarker to hayes underwear/pants but required assistance threading LLE into underwear & pant leg, pt able to thread RLE. Pt required assistance pulling up pants/underwear once standing. Pt able to thread sock onto sock aid but required assistance threading onto L foot. ) Lower Body Dressing (QC): 2 On/Off Footwear (QC): 2 Toileting (FIM): 1 (0/3 complete, pt required assistance managing pants up/down and with hygiene.) Toileting Hygiene (QC): 1 Transfers (B, C, W/C) (FIM): 3 (Mod A sit to/from stand from bed & w/c. Mod A bed mobility sit to supine & supine to sit. Pt required assistance advancing LLE during stand pivot transfers.) Toilet/Commode Transfer (FIM): 3 (Mod A, pt able to lower self to toilet but required assistance standing.) Toilet Transfer (QC): 3 Other Treatment Pt transferred to w/c and then to commode over toilet. Pt completed toileting, sponge bath, and dressing on toilet. Pt transferred back to w/c to complete grooming sitting at sink. Pt taken to therapy gym in w/c. In order to increase UE strength and endurance for ADLs and functional activities, pt completed arm bike X10 mins, mod resistance. Pt returned to room where she transferred back to bed. Pt laying in bed, call light in reach and needs met at end of session. Education OT Patient Education: Correct positioning, Energy conservation, Exercise program, Modified ADL techniques, Progress toward Goal/Update tx plan, Purpose of tx/functional activities, Transfer techniques, Use of adapted equipment Teaching Recipient: Patient Teaching Methods: Demonstration, Discussion Response to Teaching: Verbalize Understanding, Return Demonstration OT Short Term Goals Short Term Goals Time Frame: Dec 21, 2018 Bathing(FIM): 4 Lower Body Dressing(FIM): 3 Toileting(FIM): 3 Transfers (B,C,W/C) (FIM): 4 Toilet/Commode Transfer(FIM): 4 Additional Short Term Goals: 1-Demonstrate ADL Tasks, 2-Verbalize Understanding, 3-ImproveStrength/Lucy 1=Demonstrate adherence to instructed precautions during ADL tasks. 2=Patient will verbalize/demonstrate understanding of assistive devices/modifications for ADL. 3=Patient will improve strength/tolerance for activity to enable patient to perform ADL's. OT Nursing Home Goals Adjunct Trainer Goals Time Frame: Jan 04, 2019 Eating (FIM): 7 Eating (QC): 6 Groomin Oral Hygiene (QC): 6 Bathing(FIM): 5 Shower/Bathe Self (QC): 5 Upper Body Dressing(FIM): 6 Upper Body Dressing (QC): 6 Lower Body Dressing(FIM): 5 Lower Body Dressing (QC): 5 On/Off Footwear (QC): 5 Toileting(FIM): 6 Toileting Hygiene (QC): 6 Toilet/Commode Transfer(FIM): 6 Toilet/Commode Transfer (QC): 6 Shower Transfer(FIM): 5 Additional Goals: 1-Demonstrate ADL Tasks, 2-Verbalize Understanding, 3- ImproveStrength/Lucy 1=Demonstrate adherence to instructed precautions during ADL tasks. 2=Patient will verbalize/demonstrate understanding of assistive devices/modifications for ADL. 3=Patient will improve strength/tolerance for activity to enable patient to perform ADL's. OT Education/Plan Problem List/Assessment Assessment: Decreased Activ Tolerance, Decreased UE Strength, Impaired Funct Balance, Impaired I ADL's, Impaired Self-Care Skills Pt admitted to ARU after fall resulting in left hip fracture. S/p surgical intervention. Pt demonstrates decreased mobility, strength, activity tolerance, and ADL functioning. Pt to benefit from skilled OT intervention for ADL training, transfers, strengthening, adaptive equipment training, and home safety education to increase level of independence and allow safe discharge home. Discharge Recommendations Plan/Recommendations: Continue POC Treatment Plan/Plan of Care Patient would benefit from OT for education, treatment and training to promote independence in ADL's, mobility, safety and/or upper extremity function for ADL's. Plan of Care: ADL Retraining, Functional Mobility, Group Exercise/Act as Ind, UE Funct Exercise/Act Treatment Duration: Jan 04, 2019 Frequency: At least 5 of 7 days/Wk (IRF) Estimated Hrs Per Day: 1.5 hours per day Rehab Potential: Good Time/GCodes Start Time: 09:00 Stop Time: 10:00 Total Time Billed (hr/min): 60 Billed Treatment Time 1, ADL 3 X50 min, EX X10 min YOLANDE COURTNEY OT Dec 16, 2018 09:49
--- NOTE | 2018-12-16 09:50 | NUR ---
DR. LOPEZ NOTIFIED OF CONSULT. PATIENT STATES PAIN ADEQUATELY CONTROLLED WITH PAIN MEDIATION AND FEELS APPETITE IS IMPROVED. AT BEDSIDE.
--- NOTE | 2018-12-16 12:05 | Physical Therapy Daily Note ---
PT Daily Note-Current Subjective Patient is in bed and reluctantly agrees to PT. Pain Numeric Pain Scale: 8 Location: Left Location Body Site: Hip Pain Description: Acute Mental Status Patient Orientation: Normal For Age Transfers Therapy Code Descriptions/Definitions Functional [place] Measure: 0=Not Assessed/NA 4=Minimal Assistance 1=Total Assistance 5=Supervision or Setup 2=Maximal Assistance 6=Modified Ke[place] 3=Moderate Assistance 7=Complete Keo Therapy Quality Codes: 6 Independent with activity with or without an assistive device 5 Patient requires set up or clean up by helper. Patient completes activity by themselves 4 Supervision or touching assist (CGA). [place] provide cues , steadying assist 3 The helper provides less than half the effort to complete the activity 2 The helper provides more than half the effort to complete the activity 1 Dependent. The helper does all the effort to complete an activity 7 Patient refused to complete or attempt activity 9 The patient did not perform the activity before the current illness or injury 88 Not attempted due to Medical conditions or safety concerns Transfers (B, C, W/C) (FIM): 4 Scootin Supine to/from Sit: 4 Sit to/from Stand: 4 Sit to Lying (QC): 4 Sit to Stand (QC): 4 Chair/Qgr-hv-Giuis Xfer(QC): 4 Bed to/from Chair: 4 Weight Bearing Right Lower Extremity: Right Full Weight Bearing Left Lower Extremity: Left Weight Bearing/Tolerated Gait Training Does the Patient Walk?: No and Walking Goal IS indicated Gait (FIM): 1 Distance (FIM): 1=up to 49 ft Distance: 15' x 4 Walk 10 feet (QC): 4 Gait Level of Assist: 3 Gait Persons Needed: 1 Gait Assistive Device: FWW PT advanced patient's left LE 80% of time during gait training. Patient resists all left LE mobility due to pain Exercises Supine Ex: Ankle pumps, Quad Set, Heel Slides, Short Arc Quads, Straight leg raise (right LE only) Supine Reps: 15 (2 sets) Seated Therapy Exercises: Ankle pumps, Long arc quads Seated Reps: 15 (2 sets) NuStep Minutes: 15 NuStep Workload: 4 (to increase strength and mobility) Assessment Patient is very emotional during treatment due to left hip pain with meds issued. Patient demonstrates ability to ambulate, however, does appear to self limit due to anxiety with pain. PT to increase activity as patient tolerates. PT Short Term Goals Short Term Goals Time Frame: Dec 25, 2018 Transfers (B,C,W/C) (FIM): 4 Gait (FIM): 4 PT Intermediate Goals Recycle Coordinator Goals PT Recycle Coordinator Goals Time Frame: Jan 03, 2019 Transfers (B,C,W/C) (FIM): 7 Sit to Lying (QC): 6 Lying-Sitting on Side/Bed(QC): 6 Sit to Stand (QC): 6 Rollin Roll Left to Right (QC): 6 Chair/Hlw-ku-Epfek Xfer(QC): 6 Car Transfer (QC): 6 Does the Patient Walk: Yes Gait (FIM): 6 Gait distance (FIM): 3=150 ft Walk 10 feet (QC): 6 Walk 10ft-Uneven Surface(QC): 6 Walk 50ft with 2 Turns (QC): 6 Walk 150 ft (QC): 6 Gait Assistive Device: FWW Does the Pt use WC or Scooter?: No Stairs (FIM): 5 # of Steps: 4 (household distance) 1 Step (curb) (QC): 6 4 Steps (QC): 6 12 Steps (QC): 6 Picking up an Object (QC): 88 PT Plan Treatment/Plan Treatment Plan: Continue Plan of Care Treatment Plan: Bed Mobility, Education, Functional Activity Lucy, Functional Strength, Group Therapy, Gait, Safety, Therapeutic Exercise, Transfers Treatment Duration: Jan 03, 2019 Frequency: At least 5 of 7 days/Wk (IRF) Estimated Hrs Per Day: 1.5 hours per day Patient and/or Family Agrees t: Yes Time/GCodes Time In: 1100 Time Out: 1202 Total Billed Treatment Time: 62 Total Billed Treatment 1 visit GT x 2 32 min EX x 2 30 min TERRENCE ORTEGA PT Dec 16, 2018 12:05
--- NOTE | 2018-12-16 12:58 | NUR ---
CASE MANAGEMENT ASSOCIATE met with patient to complete initial assessment. Patient is known to CASE MANAGEMENT ASSOCIATE as her was an ARU patient in September 2018. Patient was alert and oriented and agreeable to assessment. Patient admitted to ARU from internally with debility following a L hip fracture. Fracture was sustained after her dog ran at full speed into her and knocked her over. Prior to hospitalization patient and spouse reside in a one level, entry level paralegal home in [place], [place]. The home is handicap accessible. Patient possess a single-point cane, standard walker, Rollator walker and shower chair. Primary contact identified as spouse, RODOLFO at [phone] and secondary contact as son, Manny at [phone]. PCP identified as Dr. Greg Wills, business development manager as Dr. Garcia of [facility] in [place], grain sampler as Dr. Christie and new establishment with Dr. Raya for acute anemia . Insurance verified as Medicare and BCBS with [employer] prescription coverage and preferred pharmacy as [facility] CASE MANAGEMENT ASSOCIATE reviewed typical ARU length of stay and weekly team conferences. Patient and family expressed no other concerns at this time. CASE MANAGEMENT ASSOCIATE will continue to follow.
--- NOTE | 2018-12-16 13:16 | Physical Therapy Daily Note ---
PT Daily Note-Current Subjective Patient continues to c/o 11/30 left hip pain. RN notified. Pain Numeric Pain Scale: 8 Location: Left Location Body Site: Hip Pain Description: Acute Mental Status Patient Orientation: Normal For Age Transfers Therapy Code Descriptions/Definitions Functional [place] Measure: 0=Not Assessed/NA 4=Minimal Assistance 1=Total Assistance 5=Supervision or Setup 2=Maximal Assistance 6=Modified [place] 3=Moderate Assistance 7=Complete [place] Therapy Quality Codes: 6 Independent with activity with or without an assistive device 5 Patient requires set up or clean up by helper. Patient completes activity by themselves 4 Supervision or touching assist (CGA). [place] provide cues , steadying assist 3 The helper provides less than half the effort to complete the activity 2 The helper provides more than half the effort to complete the activity 1 Dependent. The helper does all the effort to complete an activity 7 Patient refused to complete or attempt activity 9 The patient did not perform the activity before the current illness or injury 88 Not attempted due to Medical conditions or safety concerns Transfers (B, C, W/C) (FIM): 4 Scootin Sit to/from Stand: 4 Sit to Stand (QC): 4 Weight Bearing Right Lower Extremity: Right Full Weight Bearing Left Lower Extremity: Left Weight Bearing/Tolerated Exercises Seated Therapy Exercises: Ankle pumps, Long arc quads, Hip flexion Seated Reps: 15 (2 sets) NuStep Minutes: 12 NuStep Workload: 4 Assessment Patient tolerated treatment well and remains up in w/c for OT. Patient continues have difficulty with advancing left LE with mobility due to pain. PT Short Term Goals Short Term Goals Time Frame: Dec 25, 2018 Transfers (B,C,W/C) (FIM): 4 Gait (FIM): 4 PT Mcc Goals Mcc Goals PT Mcc Goals Time Frame: Jan 03, 2019 Transfers (B,C,W/C) (FIM): 7 Sit to Lying (QC): 6 Lying-Sitting on Side/Bed(QC): 6 Sit to Stand (QC): 6 Rollin Roll Left to Right (QC): 6 Chair/Xau-bv-Ezcql Xfer(QC): 6 Car Transfer (QC): 6 Does the Patient Walk: Yes Gait (FIM): 6 Gait distance (FIM): 3=150 ft Walk 10 feet (QC): 6 Walk 10ft-Uneven Surface(QC): 6 Walk 50ft with 2 Turns (QC): 6 Walk 150 ft (QC): 6 Gait Assistive Device: FWW Does the Pt use WC or Scooter?: No Stairs (FIM): 5 # of Steps: 4 (household distance) 1 Step (curb) (QC): 6 4 Steps (QC): 6 12 Steps (QC): 6 Picking up an Object (QC): 88 PT Plan Treatment/Plan Treatment Plan: Continue Plan of Care Treatment Plan: Bed Mobility, Education, Functional Activity Lucy, Functional Strength, Group Therapy, Gait, Safety, Therapeutic Exercise, Transfers Treatment Duration: Jan 03, 2019 Frequency: At least 5 of 7 days/Wk (IRF) Estimated Hrs Per Day: 1.5 hours per day Patient and/or Family Agrees t: Yes Time/GCodes Time In: 1240 Time Out: 1310 Total Billed Treatment Time: 30 Total Billed Treatment 1 visit EX x 2 30 min TERRENCE ORTEGA PT Dec 16, 2018 13:16
--- NOTE | 2018-12-16 13:23 | Occupational Ther Daily Note ---
OT Current Status-Daily Note Subjective Pt upright in w/c in therapy gym post PT session. Pt agreed to OT tx, stated her pain in L hip is 8/10 Mental Status/Objective Patient Orientation: Normal For Age Therapy Code Descriptions/Definitions Functional [place] Measure: 0=Not Assessed/NA 4=Minimal Assistance 1=Total Assistance 5=Supervision or Setup 2=Maximal Assistance 6=Modified [place] 3=Moderate Assistance 7=Complete Ellis ADL-Treatment Therapy Code Descriptions/Definitions Functional [place] Measure: 0=Not Assessed/NA 4=Minimal Assistance 1=Total Assistance 5=Supervision or Setup 2=Maximal Assistance 6=Modified Ellis 3=Moderate Assistance 7=Complete Ellis Therapy Quality Codes: 6 Independent with activity with or without an assistive device 5 Patient requires set up or clean up by helper. Patient completes activity by themselves 4 Supervision or touching assist (CGA). [place] provide cues , steadying assist 3 The helper provides less than half the effort to complete the activity 2 The helper provides more than half the effort to complete the activity 1 Dependent. The helper does all the effort to complete an activity 7 Patient refused to complete or attempt activity 9 The patient did not perform the activity before the current illness or injury 88 Not attempted due to Medical conditions or safety concerns Transfers (B, C, W/C) (FIM): 3 (Mod A sit to stand from w/c, and Mod A bed mobility.) Other Treatment In order to increase UE strength and endurance for ADLs and functional activities, pt completed the followin) arm bike X10 mins, mod resistance. 2) Pegboard, X64 pegs, alternating R/L hand in 6 mins. Pt returned to room, transferred to bed. Post OT session, pt laying in bed, call light and phone in reach and needs met. Education OT Patient Education: Correct positioning, Energy conservation, Exercise program, Progress toward Goal/Update tx plan, Purpose of tx/functional activities, Transfer techniques Teaching Recipient: Patient Teaching Methods: Demonstration OT Short Term Goals Short Term Goals Time Frame: Dec 21, 2018 Bathing(FIM): 4 Lower Body Dressing(FIM): 3 Toileting(FIM): 3 Transfers (B,C,W/C) (FIM): 4 Toilet/Commode Transfer(FIM): 4 Additional Short Term Goals: 1-Demonstrate ADL Tasks, 2-Verbalize Understanding, 3-ImproveStrength/Lucy 1=Demonstrate adherence to instructed precautions during ADL tasks. 2=Patient will verbalize/demonstrate understanding of assistive de vices/modifications for ADL. 3=Patient will improve strength/tolerance for activity to enable patient to perform ADL's. OT Experimental Machining Lab Manager Goals Experimental Machining Lab Manager Goals Time Frame: Jan 04, 2019 Eating (FIM): 7 Eating (QC): 6 Groomin Oral Hygiene (QC): 6 Bathing(FIM): 5 Shower/Bathe Self (QC): 5 Upper Body Dressing(FIM): 6 Upper Body Dressing (QC): 6 Lower Body Dressing(FIM): 5 Lower Body Dressing (QC): 5 On/Off Footwear (QC): 5 Toileting(FIM): 6 Toileting Hygiene (QC): 6 Toilet/Commode Transfer(FIM): 6 Toilet/Commode Transfer (QC): 6 Shower Transfer(FIM): 5 Additional Goals: 1-Demonstrate ADL Tasks, 2-Verbalize Understanding, 3- ImproveStrength/Lucy 1=Demonstrate adherence to instructed precautions during ADL tasks. 2=Patient will verbalize/demonstrate understanding of assistive devices/modifications for ADL. 3=Patient will improve strength/tolerance for activity to enable patient to perform ADL's. OT Education/Plan Problem List/Assessment Assessment: Decreased Activ Tolerance, Decreased UE Strength, Impaired Funct Balance, Impaired Self-Care Skills Pt admitted to ARU after fall resulting in left hip fracture. S/p surgical intervention. Pt demonstrates decreased mobility, strength, activity tolerance, and ADL functioning. Pt to benefit from skilled OT intervention for ADL training, transfers, strengthening, adaptive equipment training, and home safety education to increase level of independence and allow safe discharge home. Discharge Recommendations Plan/Recommendations: Continue POC Treatment Plan/Plan of Care Treatment,Training & Education: Yes Patient would benefit from OT for education, treatment and training to promote independence in ADL's, mobility, safety and/or upper extremity function for ADL's. Plan of Care: ADL Retraining, Functional Mobility, Group Exercise/Act as Ind, UE Funct Exercise/Act Treatment Duration: Jan 04, 2019 Frequency: At least 5 of 7 days/Wk (IRF) Estimated Hrs Per Day: 1.5 hours per day Rehab Potential: Good Time/GCodes Start Time: 13:10 Stop Time: 13:40 Total Time Billed (hr/min): 30 Billed Treatment Time 1, EX X10min, FA X20min YOLANDE COURTNEY OT Dec 16, 2018 13:23
[2018-12-16] MEDS ORDERED: CATHETER FLUSH 10 ML SYR IV PRN (14:00)
[2018-12-16] MEDS: CATHETER FLUSH 10 ML SYR IV SCH ×2 (15:21→22:29)
--- NOTE | 2018-12-16 16:30 | NUR ---
DR. LOPEZ HERE TO SEE PATIENT.
--- NOTE | 2018-12-16 17:00 | NUR ---
[facility] WILL NOT SCAN OR LET NURSE PUT IN BAR CODE. PHARMACY NOTIFIED AND STATES WILL WORK ON IT.
[2018-12-16 18:00] VITALS: BP 174/79
--- NOTE | 2018-12-16 18:05 | Consultation ---
HPI History of Present Illness: HPI/Chief Complaint Chief complaint: Debility following left intertrochanteric hip fracture History of present illness: This is a 70-year-old white female clinic patient of Dr. Wills who presents following a fall at home resulted in intertrochanteric left hip fracture undergoing an uncomplicated repair the following day. 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 Her hemoglobin remains low at 7.7 but did not require a transfusion while on fourth floor. She has not had a bowel movement since she was admitted. Most medications from home were restarted and at this current time her son and engine repairer production are at the bedside. Apparently she was at home and went out to get her mail when 1 of her dogs knocked her over. She sees a roughing mill operator at . She is insulin-dependent for her diabetes management. We took care of her for 3 weeks in inpatient rehab following an elective right shoulder replacement so she is familiar with the routine of rehab and will be monitored closely considering her significant comorbidities. Her prior level of functioning is sometimes use of a cane but is independent with her ADLs at home. Date Seen 12/16/18 Attending Physician Mayelin Hardy Mark D MD Referring Physician Date of Admission Dec 14, 2018 at 09:20 Home Medications & Allergies Home Medications Reviewed patient Home Medication Reconciliation performed by pharmacy medication reconciliations geological technician and/or nursing. Patients Allergies have been reviewed. Allergies Allergies Coded Allergies Iodinated Contrast- Oral and IV Dye (Verified Allergy, Unknown, 12/11/18) Past Acehcsi-Eijoay-Zmhshy Hx Past Med/Social Hx: Reviewed Nursing Past Med/Soc Hx, Reviewed and Corrections made Patient Social History Marrital Status: Number of Children: 2 Number of living children: 2 Employed/Student: retired Alcohol Use: Denies Use Recreational Drug Use: No Smoking Status: Never a Smoker Physical Abuse Screen: No Sexual Abuse: No Recent Foreign Travel: No Contact w/other who traveled: No Recent Hopitalizations: Yes Recent Infectious Disease Expo: No Social History Patient denies any alcohol use, tobacco use, and recreational drug use. Patient was employed previously at a [employer] with no exposure to inks, dyes, or chemicals. Patient denies other occupational exposures to chemicals and pesticides. Patient is currently and has two living children. Immunizations Up To Date Tetanus Booster (TDap): Unknown Pediatric: Yes Date of Pneumonia Vaccine: Feb 10, 2015 Date of Influenza Vaccine: Feb 19, 2014 Seasonal Allergies Seasonal Allergies: Yes Past Medical History Surgeries: Dialysis (Patient was put on dialysis after episode of renal failure secondary to microscopic polyangitis in 2014), Eye Surgery, Gallbladder, Hysterectomy, Orthopedic Currently Using CPAP: Yes Currently Using BIPAP: No Cardiac: High Cholesterol, Hypertension Neurological: Vertigo : No Reproductive: No Hysterectomy Gastrointestinal: Gastroesophageal Reflux, Diverticulosis Musculoskeletal: Arthritis, Rheumatoid Arthritis, Fractures, Gout polyangitis Endocrine: Diabetes, Insulin dep, Hypothyroidsim Are Your Blood Sugars Over 250: No HEENT: Cataract Hearing Impairment: Denies History of Blood Disorders: No Adverse Reaction to Blood Jiménez: No 78 year old female patient with PMH of microscopic polyangiitis that caused secondary renal failure requiring dialysis in 2014, insulin dependent diabetes for over 15 years, and diverticulosis that has resulted in two episodes of diverticulitis with no further flare ups or complications. Patient underwent hysterectomy many years ago. Patient denies history of cancer or chemical exposure. Patient is currently on Rituxan q6mo to treat her vasculitis. CBC is monitored every 4 weeks with a target hemoglobin of 10g/dL. Family History Patient reports no known family medical history. Review of Systems Constitutional: see HPI Physical Exam Physical Exam Vital Signs Vital Signs - First Documented 12/14/18 12/14/18 12:43 17:12 Temp 99.9 Pulse 108 Resp 18 B/P (MAP) 129/72 Pulse Ox 95 O2 Delivery Room Air Capillary Refill : Less Than 3 Seconds Height, Weight, BMI Height: 5'7.00" Weight: 183lbs. 1.6oz. 83.318273av; 35.2 BMI Method:Stated General Appearance: No Apparent Distress, WD/WN, Chronically ill HEENT: PERRL/EOMI, Normal ENT Inspection, Pharynx Normal, Moist Mucous Membranes Neck: Full Range of Motion, Normal Inspection, Non Tender, Supple Respiratory: Chest Non Tender, Lungs Clear, Normal Breath Sounds, No Accessory Muscle Use, No Respiratory Distress Cardiovascular: Regular Rate, Rhythm, No Edema, No Gallop, No JVD, No Murmur Gastrointestinal: Normal Bowel Sounds, No Organomegaly, No Pulsatile Mass, Non Tender, Soft Back: Normal Inspection, No CVA Tenderness, No Vertebral Tenderness Extremity: Normal Capillary Refill, Normal Inspection, Normal Range of Motion (limited ROM left leg), Non Tender, No Calf Tenderness, No Pedal Edema Neurologic/Psychiatric: Alert, Oriented x3, No Motor/Sensory Deficits, Normal Mood/Affect, cable tower operator II-XII Norm as Tested, Abnormal Gait Skin: Normal Color, Warm/Dry Lymphatic: No Adenopathy Results Results/Procedures Labs Laboratory Tests 12/16/18 04:43 12/16/18 04:45 12/17/18 04:48 Patient resulted labs reviewed. Assessment/Plan Assessment and Plan Assess & Plan/Chief Complaint Impressions 1. L intratrochanteric fracture after fall. Status post repair. Patient underwent closed reduction and cephalomedullary nail placement on December 12, 2018. 2. Anemia of chronic disease secondary to chronic kidney disease stage IV with current eGFR of 19 mL/min 3. Other comorbidities include insulin dependent diabetes. Recommendation 1. Rehabilitation 2. Will start on 50 mcg weekly of Aranesp with weekly CBC monitoring. Target hemoglobin will be between 10-11 g/dL 3. Continue all medical care 4. Follow up to clinic Clinical Quality Measures DVT/VTE Risk/Contraindication: Risk Factor Score Per Nursin RFS Level Per Nursing on Admit: 4+=Very High Supervisory-Addendum Brief Verification & Attestation Participated in pt care: history Personally performed: other Care discussed with: Medical Student Procedures: n/a Results interpretation: Verified all documentation / SAMUEL LUNA Dec 16, 2018 18:05
--- NOTE | 2018-12-16 19:23 | NUR ---
bedside report received from TERA CHINCHILLA, assume care of pt
--- NOTE | 2018-12-16 20:53 | Individualized Plan of Care ---
Individualized Plan of Care Rehab Nursing IPOC Order Admission Date Dec 14, 2018 at 09:20 Current Orders Orders Admission Order(Inpt,Obs,Sdc) (12/13/18 21:13) Vital Signs: Per Unit Policy ( 08,16,00 (12/13/18 21:13) Tube Pusher-Inpt Rehab Con (12/13/18 21:13) Rehab Nursing Orders-Ipoc (12/13/18 21:13) Physical Therapy Rehab Orders (12/13/18 21:13) Occupational Therapy Rehab Ord (12/13/18 21:13) Speech Therapy Rehab Orders (12/13/18 21:13) General/Regular (12/14/18 Breakfast) Intake & Output 06,14,22 (12/13/18 21:13) Precautions (Aru) (12/13/18 21:13) Weekly Weight (Lbs) WEEK (12/13/18 21:13) Rehab-Intensity Of Therapy (12/13/18 21:13) Initiate Admission Nursing Pro .admission (12/13/18 21:13) Initiate Admission Nursing Pro .admission (12/13/18 21:13) Acetaminophen Tablet (Tylenol Tablet) (12/13/18 21:15) Alprazolam Tablet (Xanax Tablet) (12/13/18 21:15) Calcium Carbonate Chew Tablet (Antacid C (12/13/18 21:15) Diphenhydramine Tablet (Benadryl Tablet) (12/13/18 21:15) Docusate Sodium Capsule (Colace Capsule) (12/13/18 21:15) Hydrocodone/Apap 5/325 Tablet (Lortab 5 (12/13/18 21:15) Loperamide Tablet (Imodium Tablet) (12/13/18 21:15) Melatonin Tablet (Melatonin Tablet) (12/13/18 21:15) Ondansetron Oral Dissolve Tab (Zofran (12/13/18 21:15) Senna S Tablet (Senokot S Tablet) (12/14/18 09:00) Patient Visit (12/14/18 ) Pt Eval Moderate Complexity (12/14/18 ) Functional Activities, Ea 15 (12/14/18 ) Code/Resuscitation (12/14/18 11:36) Accucheck Achs ACHS (12/14/18 11:36) Iv Maintain (Order) (12/14/18 11:36) Incentive Spirometry (Nursing) Q2H (12/14/18 11:36) Initiate Admission Nursing Pro .admission (12/14/18 11:36) Oxygen-Administer (12/14/18 11:36) Sequential Compression Device (12/14/18 11:36) Fredi Hose (12/14/18 11:36) Acetaminophen Tablet/Caplet (Tylenol T (12/14/18 11:45) Allopurinol Tablet (Zyloprim Tablet) (12/15/18 09:00) Baclofen Tablet (Lioresal Tablet) (12/14/18 11:45) Bisacodyl Suppository (Dulcolax Supposit (12/14/18 11:45) Docusate Sodium Capsule (Colace Capsule) (12/14/18 21:00) Furosemide Tablet (Lasix Tablet) (12/15/18 09:00) Heparin Injection (Heparin Injection) (12/14/18 15:00) Levothyroxine Tablet (Synthroid Tablet) (12/15/18 06:30) Melatonin Tablet (Melatonin Tablet) (12/14/18 11:45) Ondansetron Injection (Zofran Injectio (12/14/18 11:45) Ondansetron Oral Dissolve Tab (Zofran (12/14/18 11:45) Pantoprazole Tablet (Protonix Tablet) (12/14/18 21:00) Senna S Tablet (Senokot S Tablet) (12/14/18 11:45) Sodium Bicarbonate Tablet (Nf) (Sodium B (12/14/18 17:00) Sodium Chloride Flush (Catheter Flush Sy (12/14/18 11:45) Diphenhydramine Tablet (Benadryl Tablet) (12/14/18 11:45) Insulin Aspart (Novolog) (Novolog (Charg (12/14/18 16:00) Insulin Determir (Per Unit) (Levemir (Pe (12/15/18 09:00) Metoprolol Tartrate (Ir) Tab (Lopressor (12/14/18 21:00) Oxycodone Immediate Rel Tablet (Oxyir Ta (12/14/18 11:45) Consult Orthopedic Surgery (12/14/18 11:36) Incentive Spirometry Initial (12/14/18 11:36) Oxygen Delivery Set Up (12/14/18 11:36) Pt Evaluate/Treat Request (12/14/18 11:36) Physical Therapy Order (12/14/18 11:36) Request Ot Evaluate & Treat (12/14/18 11:36) Incentive Spirometry Initial (12/14/18 11:36) Incentive Spirometry (Nursing) Q2H (12/14/18 11:36) Polyethylene Glycol Powder Pkt (Miralax (12/14/18 11:45) Polyethylene Glycol Powder Pkt (Miralax (12/14/18 21:00) Cbc With Automated Diff (12/15/18 06:00) Comprehensive Metabolic Panel (12/15/18 06:00) Bisacodyl Suppository (Dulcolax Supposit (12/15/18 11:45) Iron Test (Fe) (12/15/18 11:33) Iron Sucrose Injection (Venofer Injectio (12/15/18 11:45) Iron Sucrose Injection (Venofer Injectio (12/17/18 09:00) Cbc With Automated Diff (12/16/18 06:00) Comprehensive Metabolic Panel (12/16/18 06:00) Consult Oncology/Hematology (12/16/18 09:48) Sodium Chloride Flush (Catheter Flush Sy (12/16/18 14:00) Sodium Chloride Flush (Catheter Flush Sy (12/16/18 14:00) Patient Visit (12/16/18 ) Gait Training, Ea 15 Min (12/16/18 ) Exercise Therap, Ea 15 Min (12/16/18 ) Patient Visit (12/16/18 ) Speech Sound Lang Comp (12/16/18 ) Darbepoetin Noel (Hospital) (Aranesp Non (12/17/18 09:00) Darbepoetin Noel (Hospital) (Aranesp Non (12/17/18 09:00) Cbc No Diff (12/17/18 06:00) Amlodipine Tablet (Norvasc Tablet) (12/17/18 09:00) Venous Access Request Order (12/17/18 11:49) Patient Visit (12/17/18 ) Gait Training, Ea 15 Min (12/17/18 ) Exercise Therap, Ea 15 Min (12/17/18 ) Rehab Nursing Orders: Ongoing Assess. of Cognitive Status, Ongoing Assess. of F unction Status, Bowel Training, Disease Management & Educaiton, DVT Prophylaxis, Fall Prevention, Fluid/Electrolyte/Nutrition Mgmt, Infection Prevention, Medication Management & Education, Management of Risks & Complications, Management of Skin Intergrity, Nutrition Management, Pain Management, Patient/Family Support, Safety Management Intensity of Therapy to be met Patient to be seen: Min.3h per day/5 of 7d PT IPOC Problem List: Activity Tolerance, Functional Strength, Safety, Balance, Gait, Transfer, Bed Mobility Treatment Plan: Continue Plan of Care Bed Mobility, Education, Functional Activity Lucy, Functional Strength, Group Therapy, Gait, Safety, Therapeutic Exercise, Transfers Treatment Duration: Jan 03, 2019 Frequency: At least 5 of 7 days/Wk (IRF) Estimated Hrs Per Day: 1.5 hours per day OT IPOC Problems: Decreased Activ Tolerance, Decreased UE Strength, Impaired Funct Balance, Impaired Self-Care Skills OT Treatment, Training and Edu: Yes OT Problems Pt admitted to ARU after fall resulting in left hip fracture. S/p surgical intervention. Pt demonstrates decreased mobility, strength, activity tolerance, and ADL functioning. Pt to benefit from skilled OT intervention for ADL training, transfers, strengthening, adaptive equipment training, and home safety education to increase level of independence and allow safe discharge home. Plan of Care: ADL Retraining, Functional Mobility, Group Exercise/Act as Ind, UE Funct Exercise/Act Treatment Duration: Jan 04, 2019 Frequency: At least 5 of 7 days/Wk (IRF) Estimated Hrs Per Day: 1.[address] IPOC Speech Therapy Treatment Plan: Discontinue ST Treatment Duration: Dec 16, 2018 Frequency: 1 time per week Estimated Hrs Per Day: .25 hour per day Tube Pusher/Case Mgmt Tube Pusher/Case Managemen: Discharge Planning Dietitian/Promotions Associate Dietitian/Promotions Associate to monitor nutritional status and make changes and/or recommendations as needed and work with speech pathology on dietary upgrades as the occur. 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
--- NOTE | 2018-12-16 22:15 | NUR ---
assessments & interventions completed, see assessments & interventions
--- NOTE | 2018-12-16 22:18 | NUR ---
c/o pain level 4/10 on numeric scale, oxyir 5mg po, pt took Senokot 1 tab refused miralax & Colace, fsbs 227 NovoLog 3 units given
--- NOTE | 2018-12-16 23:00 | NUR ---
resting quietly in bed, pain level 0/10 on flacc scale
[2018-12-17 05:25] LABS: HEMOGLOBIN 7.2 G/DL (11.5-16.0); MEAN PLATELET VOLUME 10.8 FL (7.4-10.4); RED CELL DISTRIBUTION WIDTH 13.8 % (10.0-14.5); WHITE BLOOD COUNT 6.7 10^3/uL (4.3-11.0)
[2018-12-17 06:00] VITALS: BP 162/71
[2018-12-17] MEDS: CATHETER FLUSH 10 ML SYR IV SCH ×3 (06:00→22:10)
[2018-12-17] MEDS: inSUlin ASPART (NovoLOG) 1 UNIT/0.01 ML (CHARGE PER UNIT) SC SCH ×4 (06:00→21:54)
[2018-12-17] MEDS: LEVOTHYROXINE 75 MCG (LEVOTHROID) TABLET PO SCH (06:33)
[2018-12-17] MEDS: SODIUM BICARBONATE 650 MG TABLET (NON-FORMULARY) PO SCH ×2 (06:34→18:18)
--- NOTE | 2018-12-17 06:35 | NUR ---
c/o pain level 5/10 on numeric scale, oxyir 5mg po given
--- NOTE | 2018-12-17 07:15 | NUR ---
rates pain at 2/10 on numeric scale
--- NOTE | 2018-12-17 07:30 | NUR ---
bedside report given to BETTY CHINCHILLA
--- NOTE | 2018-12-17 08:43 | PM&R Progress Note ---
Subjective HPI/CC On Admission Date Seen by Provider: Dec 17, 2018 Time Seen by Provider: 08:30 Chief complaint: Debility following left intertrochanteric hip fracture History of present illness: This is a 70-year-old white female clinic patient of Dr. Wills who presents following a fall at home resulted in intertrochanteric left hip fracture undergoing an uncomplicated repair the following day. 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 Her hemoglobin remains low at 7.7 but did not require a transfusion while on fourth floor. She has not had a bowel movement since she was admitted. Most medications from home were restarted and at this current time her son and machinist class b are at the bedside. Apparently she was at home and went out to get her mail when 1 of her dogs knocked her over. She sees a eyelet operator at . She is insulin-dependent for her diabetes management. We took care of her for 3 weeks in inpatient rehab following an elective right shoulder replacement so she is familiar with the routine of rehab and will be monitored closely considering her significant comorbidities. Her prior level of functioning is sometimes use of a cane but is independent with her ADLs at home. Subjective/Events-last exam Pt much improved. Appetite is improved. Dr. Raya was consulted and will initiate Aranesp. Checked meds and labs. Bowels are moving. Hip pain is improved. Really liked to work the recumbent bike. Less short of breath. Hgb stable. Conferred with RN Reviewed therapy notes Review of Systems General: Fatigue Musculoskeletal: leg pain Objective Exam Vital Signs Vital Signs Date Time Temp Pulse Resp B/P (MAP) Pulse Ox O2 Delivery O2 Flow Rate FiO2 12/17/18 17:53 100.4 90 18 157/75 (102) 94 Room Air Capillary Refill : Less Than 3 Seconds General Appearance: No Apparent Distress, WD/WN, Chronically ill HEENT: PERRL/EOMI, Normal ENT Inspection, Pharynx Normal, Moist Mucous Membranes Neck: Full Range of Motion, Normal Inspection, Non Tender, Supple Respiratory: Chest Non Tender, Lungs Clear, Normal Breath Sounds, No Accessory Muscle Use, No Respiratory Distress Cardiovascular: Regular Rate, Rhythm, No Edema, No Gallop, No JVD, No Murmur Gastrointestinal: Normal Bowel Sounds, No Organomegaly, No Pulsatile Mass, Non Tender, Soft Back: Normal Inspection, No CVA Tenderness, No Vertebral Tenderness Extremity: Normal Capillary Refill, Normal Inspection, Normal Range of Motion (limited ROM left leg), Non Tender, No Calf Tenderness, No Pedal Edema Neurologic/Psychiatric: Alert, Oriented x3, No Motor/Sensory Deficits, Normal Mood/Affect, child specialist II-XII Norm as Tested, Abnormal Gait Skin: Normal Color, Warm/Dry Lymphatic: No Adenopathy Results/Procedures Lab Laboratory Tests 12/17/18 04:48 Patient resulted labs reviewed. FIM Transfers Therapy Code Descriptions/Definitions Functional Glynn Measure: 0=Not Assessed/NA 4=Minimal Assistance 1=Total Assistance 5=Supervision or Setup 2=Maximal Assistance 6=Modified Glynn 3=Moderate Assistance 7=Complete Glynn Therapy Quality Codes: 6 Independent with activity with or without an assistive device 5 Patient requires set up or clean up by helper. Patient completes activity by themselves 4 Supervision or touching assist (CGA). [place] provide cues , steadying assist 3 The helper provides less than half the effort to complete the activity 2 The helper provides more than half the effort to complete the activity 1 Dependent. The helper does all the effort to complete an activity 7 Patient refused to complete or attempt activity 9 The patient did not perform the activity before the current illness or injury 88 Not attempted due to Medical conditions or safety concerns Transfers (B, C, W/C) (FIM): 3 (Mod A sit to stand from w/c, and Mod A bed mobility.) Scootin Rollin Roll Left to Right (QC): 3 Supine to/from Sit: 4 Sit to/from Stand: 4 Sit to Lying (QC): 4 Sit to Stand (QC): 4 Chair/[id number] Xfer(QC): 4 Bed to/from Chair: 4 Car Transfer (QC): 88 (unable to tolerate attempting this visit) Gait Training Does the Patient Walk?: No and Walking Goal IS indicated Gait (FIM): 1 Distance (FIM): 1=up to 49 ft Distance: 15' x 4 Walk 10 feet (QC): 4 Walk 50 ft with 2 Turns(QC): 88 Walk 150 ft (QC): 88 Walking 10ft/uneven surface-QC: 88 Gait Level of Assist: 3 Gait Persons Needed: 1 Gait Assistive Device: FWW Wheelchair Training Does the Pt Use a Wheelchair?: No Stair Training Stairs (FIM): 0 1 Step (curb) (QC): 88 4 Steps (QC): 88 12 Steps (QC): 88 Balance Picking up an Object (QC): 88 Mental Status/Objective Comprehension: 7 Expression: 7 Social Interaction: 7 Problem Solvin Memory: 7 ADL-Treatment Feedin (Pt reports feeding self and managing containers without assist.) Eating (QC): 6 Groomin (Set up, pt completed task seated in w/c at sink. Pt brushed hair/teeth, washed face and hands.) Oral Hygiene (QC): 5 Bathin (10/30 complete. Pt performed sponge bath, seated on commode over toilet.) Bathing Location: L Arm, R Arm, L Upper Leg, R Upper Leg, Chest, Abdomen, Perineal Area Shower/Bathe Self (QC): 3 Upper Extremity Dressin (set up assist, pt able to doff/don bra and tub puller shirt.) Upper Body Dressing (QC): 5 Lower Extremity Dressin (Pt completed 05/31 parts. OT educated pt on using event organizer & sock aid. Pt attempted to use event organizer to hayes underwear/pants but required assistance threading LLE into underwear & pant leg, pt able to thread RLE. Pt required assistance pulling up pants/underwear once standing. Pt able to thread sock onto sock aid but required assistance threading onto L foot. ) Lower Body Dressing (QC): 2 On/Off Footwear (QC): 2 Toiletin (0/3 complete, pt required assistance managing pants up/down and with hygiene.) Toileting Hygiene (QC): 1 Toilet/Commode Transfer: 3 (Mod A, pt able to lower self to toilet but required assistance standing.) Toilet Transfer (QC): 3 Assessment/Plan Assessment and Plan Assess & Plan/Chief Complaint Plan: IRF protocol Pain meds to continue BM regimen to be maintained Home meds Monitor for fever recurrence IS DM management ADA diet Heparin for DVT PPx Venofer Iron level drawn Consult Dr Rebolledo for Araindyp and his expertise is appreciated (1) Intertrochanteric fracture of left femur Status: Acute (2) Fall from ground level Status: Acute (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
[2018-12-17] MEDS ORDERED: DARBEPOETIN 100 MCG/ML (ARANESP) 1 ML HOSPITAL SC SCH (09:00)
[2018-12-17] MEDS: POLYETHYLENE GLYCOL 17 GM (MIRALAX) PACK PO SCH ×2 (09:00→22:11)
--- NOTE | 2018-12-17 10:07 | Occupational Ther Daily Note ---
OT Current Status-Daily Note Subjective Pt laying in bed at start of session, agreeable to OT tx. Pt reported having a "little bit" of pain in her L hip today, and that she "feels good today". Mental Status/Objective Patient Orientation: Normal For Age Therapy Code Descriptions/Definitions Functional [place] Measure: 0=Not Assessed/NA 4=Minimal Assistance 1=Total Assistance 5=Supervision or Setup 2=Maximal Assistance 6=Modified [place] 3=Moderate Assistance 7=Complete [place] Attachments: IV ADL-Treatment Therapy Code Descriptions/Definitions Functional [place] Measure: 0=Not Assessed/NA 4=Minimal Assistance 1=Total Assistance 5=Supervision or Setup 2=Maximal Assistance 6=Modified [place] 3=Moderate Assistance 7=Complete [place] Therapy Quality Codes: 6 Independent with activity with or without an assistive device 5 Patient requires set up or clean up by helper. Patient completes activity by themselves 4 Supervision or touching assist (CGA). [place] provide cues , steadying assist 3 The helper provides less than half the effort to complete the activity 2 The helper provides more than half the effort to complete the activity 1 Dependent. The helper does all the effort to complete an activity 7 Patient refused to complete or attempt activity 9 The patient did not perform the activity before the current illness or injury 88 Not attempted due to Medical conditions or safety concerns Grooming (FIM): 5 (set up, seated in w/c at sink. Pt combed hair, brushed teeth, washed hands, and washed face.) Oral Hygiene (QC): 5 Bathing (FIM): 3 (Pt completed sponge bath, seated on commode over toilet. Pt able to wash all parts, although Mod A required while standing at GB and FWW. OT educated pt on using long handled sponge, and pt was able to demo use to wash lower legs/feet.) Bathing Location: L Arm, R Arm, L Upper Leg, R Upper Leg, L Lower Leg (including foot), R Lower Leg (including foot), Chest, Abdomen, Buttocks, Perineal Area Shower/Bathe Self (QC): 3 Upper Body (FIM): 5 (set up, pt able to don/doff bra and trap puller shirt) Upper Body Dressing (QC): 5 Lower Body Dressing (FIM): 3 (Pt completed 6/8 parts. Pt required assistance threading LLE into underwear and assistance donning L sock. Pt required Mod A for balance standing at GB and FWW. Min verbal cues required to use lead oracle developer and sock aid.) Lower Body Dressing (QC): 3 On/Off Footwear (QC): 3 Toileting (FIM): 3 (Pt able to complete 3/3 parts, required Mod A for balance standing at GB/FWW during clothing management.) Toileting Hygiene (QC): 3 Transfers (B, C, W/C) (FIM): 3 (Mod A stand from bed & w/c. Pt is able to lower self ) Toilet/Commode Transfer (FIM): 3 (Mod A required standing from toilet using GB and FWW. Pt is able to lower herself to the toilet using GB.) Toilet Transfer (QC): 3 Other Treatment Pt completed ADLs in room then taken to therapy gym in w/c. In order to increase UE strength/endurance and fine motor strength for ADLs and functional activities, pt completed the followin) arm bike X15 min, mod resistance 2) peg board. Pt placed X100 pegs in 6 mins, 51 seconds. Pt taken back to room. Post OT session, pt upright in w/c, call light and phone in reach and all needs met. Education OT Patient Education: Correct positioning, Energy conservation, Exercise program, Modified ADL techniques, Progress toward Goal/Update tx plan, Purpose of tx/functional activities, Transfer techniques, Use of adapted equipment (long handled sponge, sock aid, lead oracle developer,) Teaching Recipient: Patient Teaching Methods: Demonstration, Discussion Response to Teaching: Verbalize Understanding, Return Demonstration OT Short Term Goals Short Term Goals Time Frame: Dec 21, 2018 Bathing(FIM): 4 Lower Body Dressing(FIM): 3 Toileting(FIM): 3 Transfers (B,C,W/C) (FIM): 4 Toilet/Commode Transfer(FIM): 4 Additional Short Term Goals: 1-Demonstrate ADL Tasks, 2-Verbalize Understanding, 3-ImproveStrength/Lucy 1=Demonstrate adherence to instructed precautions during ADL tasks. 2=Patient will verbalize/demonstrate understanding of assistive devices/modifications for ADL. 3=Patient will improve strength/tolerance for activity to enable patient to perform ADL's. OT Field Sales Specialist Goals Care Home Goals Time Frame: Jan 04, 2019 Eating (FIM): 7 Eating (QC): 6 Groomin Oral Hygiene (QC): 6 Bathing(FIM): 5 Shower/Bathe Self (QC): 5 Upper Body Dressing(FIM): 6 Upper Body Dressing (QC): 6 Lower Body Dressing(FIM): 5 Lower Body Dressing (QC): 5 On/Off Footwear (QC): 5 Toileting(FIM): 6 Toileting Hygiene (QC): 6 Toilet/Commode Transfer(FIM): 6 Toilet/Commode Transfer (QC): 6 Shower Transfer(FIM): 5 Additional Goals: 1-Demonstrate ADL Tasks, 2-Verbalize Understanding, 3- ImproveStrength/Lucy 1=Demonstrate adherence to instructed precautions during ADL tasks. 2=Patient will verbalize/demonstrate understanding of assistive devices/modifications for ADL. 3=Patient will improve strength/tolerance for activity to enable patient to perform ADL's. OT Education/Plan Problem List/Assessment Assessment: Decreased Activ Tolerance, Decreased UE Strength, Impaired Funct Balance, Impaired I ADL's, Impaired Self-Care Skills Pt admitted to ARU after fall resulting in left hip fracture. S/p surgical intervention. Pt demonstrates decreased mobility, strength, activity tolerance, and ADL functioning. Pt to benefit from skilled OT intervention for ADL training, transfers, strengthening, adaptive equipment training, and home safety education to increase level of independence and allow safe discharge home. Discharge Recommendations Plan/Recommendations: Continue POC Equpiment Recommendations-D/C: Hip Kit Treatment Plan/Plan of Care Patient would benefit from OT for education, treatment and training to promote independence in ADL's, mobility, safety and/or upper extremity function for ADL's. Plan of Care: ADL Retraining, Functional Mobility, Group Exercise/Act as Ind, UE Funct Exercise/Act Treatment Duration: Jan 04, 2019 Frequency: At least 5 of 7 days/Wk (IRF) Estimated Hrs Per Day: 1.5 hours per day Rehab Potential: Good Time/GCodes Start Time: 08:45 Stop Time: 10:15 Total Time Billed (hr/min): 90 Billed Treatment Time 1, ADL 4 X60 mins, FA X10 min, EX X20 min YOLANDE COURTNEY OT Dec 17, 2018 10:07
--- NOTE | 2018-12-17 10:35 | NUR ---
Pastoral care visit, pt shared she was member of local [employer] and [employer] is supportive.
[2018-12-17] MEDS: FUROSEMIDE 40 MG (LASIX) TAB PO SCH (10:54)
[2018-12-17] MEDS: meTOprolol TARTRATE 25 MG (LOPRESSOR) TABLET PO SCH ×2 (10:54→22:01)
[2018-12-17] MEDS: DOCUSATE SODIUM 100 MG (COLACE) CAP PO SCH ×2 (10:54→22:01)
[2018-12-17] MEDS: ALLOPURINOL 100 MG (ZYLOPRIM) TAB PO SCH (10:54)
[2018-12-17] MEDS: PANTOPRAZOLE 40 MG (PROTONIX) TAB PO SCH ×2 (10:54→22:01)
[2018-12-17] MEDS: amLODIPine 5 MG (NORVASC) TAB PO SCH (10:54)
[2018-12-17] MEDS: IRON SUCROSE 200 MG/10 ML (VENOFER) VIAL IV SCH ×2 (10:55→16:13)
[2018-12-17] MEDS: SENNA W/DOCUSATE (SENOKOT S) TABLET PO SCH ×2 (10:55→22:01)
[2018-12-17] MEDS: DARBEPOETIN 25 MCG/ML (ARANESP) 1 ML HOSPITAL SC SCH (11:06)
--- NOTE | 2018-12-17 12:15 | Physical Therapy Daily Note ---
PT Daily Note-Current Subjective Patient agrees to PT. Pain Numeric Pain Scale: 8 Location: Left Location Body Site: Hip Pain Description: Acute Comment: pain meds issued Mental Status Patient Orientation: Normal For Age Transfers Therapy Code Descriptions/Definitions Functional [place] Measure: 0=Not Assessed/NA 4=Minimal Assistance 1=Total Assistance 5=Supervision or Setup 2=Maximal Assistance 6=Modified [place] 3=Moderate Assistance 7=Complete [place] Therapy Quality Codes: 6 Independent with activity with or without an assistive device 5 Patient requires set up or clean up by helper. Patient completes activity by themselves 4 Supervision or touching assist (CGA). [place] provide cues , steadying assist 3 The helper provides less than half the effort to complete the activity 2 The helper provides more than half the effort to complete the activity 1 Dependent. The helper does all the effort to complete an activity 7 Patient refused to complete or attempt activity 9 The patient did not perform the activity before the current illness or injury 88 Not attempted due to Medical conditions or safety concerns Transfers (B, C, W/C) (FIM): 4 Scootin Sit to/from Stand: 4 Sit to Stand (QC): 4 Chair/Vjv-nr-Xtijh Xfer(QC): 4 Bed to/from Chair: 4 Car Transfer (QC): 4 assist with left LE Weight Bearing Right Lower Extremity: Right Full Weight Bearing Left Lower Extremity: Left Weight Bearing/Tolerated Gait Training Does the Patient Walk?: Yes Gait (FIM): 1 Distance (FIM): 1=up to 49 ft Distance: 20' x 4 Walk 10 feet (QC): 4 Walk 50 ft with 2 Turns(QC): 88 Walk 150 ft (QC): 88 Gait Level of Assist: 4 Gait Assistive Device: FWW very slow, antalgic gait/patient requires time to complete this task due to pain left LE Exercises Seated Therapy Exercises: Ankle pumps, Long arc quads, Hip flexion Seated Reps: 15 (3 sets) NuStep Minutes: 15 NuStep Workload: 4 (to increase strength and mobility) Assessment Patient is improving slowly with treatment with noted increase in ambulation. Patient does appear to self limit due to left LE pain. PT to increase activity as patient tolerates and allows. PT Short Term Goals Short Term Goals Time Frame: Dec 25, 2018 Transfers (B,C,W/C) (FIM): 4 Gait (FIM): 4 PT [facility] Goals [facility] Goals PT Sustainability Engineer Goals Time Frame: Jan 03, 2019 Transfers (B,C,W/C) (FIM): 7 Sit to Lying (QC): 6 Lying-Sitting on Side/Bed(QC): 6 Sit to Stand (QC): 6 Rollin Roll Left to Right (QC): 6 Chair/Pqa-pq-Oaphm Xfer(QC): 6 Car Transfer (QC): 6 Does the Patient Walk: Yes Gait (FIM): 6 Gait distance (FIM): 3=150 ft Walk 10 feet (QC): 6 Walk 10ft-Uneven Surface(QC): 6 Walk 50ft with 2 Turns (QC): 6 Walk 150 ft (QC): 6 Gait Assistive Device: FWW Does the Pt use WC or Scooter?: No Stairs (FIM): 5 # of Steps: 4 (household distance) 1 Step (curb) (QC): 6 4 Steps (QC): 6 12 Steps (QC): 6 Picking up an Object (QC): 88 PT Plan Treatment/Plan Treatment Plan: Continue Plan of Care Treatment Plan: Bed Mobility, Education, Functional Activity Lucy, Functional Strength, Group Therapy, Gait, Safety, Therapeutic Exercise, Transfers Treatment Duration: Jan 03, 2019 Frequency: At least 5 of 7 days/Wk (IRF) Estimated Hrs Per Day: 1.5 hours per day Patient and/or Family Agrees t: Yes Time/GCodes Time In: 1100 Time Out: 1200 Total Billed Treatment Time: 60 Total Billed Treatment 1 visit GT x 2 33 min EX x 2 27 min TERRENCE ORTEGA PT Dec 17, 2018 12:15
--- NOTE | 2018-12-17 13:03 | Physical Therapy Daily Note ---
PT Daily Note-Current Subjective Patient agrees to PT. Patient reports extreme fatigue. Pain Numeric Pain Scale: 8 Location: Left Location Body Site: Hip Pain Description: Acute Mental Status Patient Orientation: Normal For Age Transfers Therapy Code Descriptions/Definitions Functional [place] Measure: 0=Not Assessed/NA 4=Minimal Assistance 1=Total Assistance 5=Supervision or Setup 2=Maximal Assistance 6=Modified [place] 3=Moderate Assistance 7=Complete [place] Therapy Quality Codes: 6 Independent with activity with or without an assistive device 5 Patient requires set up or clean up by helper. Patient completes activity by themselves 4 Supervision or touching assist (CGA). [place] provide cues , steadying assist 3 The helper provides less than half the effort to complete the activity 2 The helper provides more than half the effort to complete the activity 1 Dependent. The helper does all the effort to complete an activity 7 Patient refused to complete or attempt activity 9 The patient did not perform the activity before the current illness or injury 88 Not attempted due to Medical conditions or safety concerns Transfers (B, C, W/C) (FIM): 3 Scootin Supine to/from Sit: 3 Sit to/from Stand: 4 Sit to Lying (QC): 3 Sit to Stand (QC): 4 Chair/Zbf-wu-Iqgoi Xfer(QC): 4 Bed to/from Chair: 4 assist with bilateral LE with bed mobility Weight Bearing Right Lower Extremity: Right Full Weight Bearing Left Lower Extremity: Left Weight Bearing/Tolerated Exercises Supine Ex: Ankle pumps, Quad Set, Heel Slides Supine Reps: 10 Seated Therapy Exercises: Ankle pumps, Long arc quads Seated Reps: 15 Assessment Patient appears very fatigued and returned to bed. SCD's placed bilaterally. PT to increase activity as tolerated by patient. PT Short Term Goals Short Term Goals Time Frame: Dec 25, 2018 Transfers (B,C,W/C) (FIM): 4 Gait (FIM): 4 PT Wind Turbine Design Engineer Goals Wind Turbine Design Engineer Goals PT Long-Term Goals Time Frame: Jan 03, 2019 Transfers (B,C,W/C) (FIM): 7 Sit to Lying (QC): 6 Lying-Sitting on Side/Bed(QC): 6 Sit to Stand (QC): 6 Rollin Roll Left to Right (QC): 6 Chair/Nxo-cd-Eydeh Xfer(QC): 6 Car Transfer (QC): 6 Does the Patient Walk: Yes Gait (FIM): 6 Gait distance (FIM): 3=150 ft Walk 10 feet (QC): 6 Walk 10ft-Uneven Surface(QC): 6 Walk 50ft with 2 Turns (QC): 6 Walk 150 ft (QC): 6 Gait Assistive Device: FWW Does the Pt use WC or Scooter?: No Stairs (FIM): 5 # of Steps: 4 (household distance) 1 Step (curb) (QC): 6 4 Steps (QC): 6 12 Steps (QC): 6 Picking up an Object (QC): 88 PT Plan Treatment/Plan Treatment Plan: Continue Plan of Care Treatment Plan: Bed Mobility, Education, Functional Activity Lucy, Functional Strength, Group Therapy, Gait, Safety, Therapeutic Exercise, Transfers Treatment Duration: Jan 03, 2019 Frequency: At least 5 of 7 days/Wk (IRF) Estimated Hrs Per Day: 1.5 hours per day Patient and/or Family Agrees t: Yes Time/GCodes Time In: 1230 Time Out: 1300 Total Billed Treatment Time: 30 Total Billed Treatment 1 visit EX 16 min GT 14 min TERRENCE ORTEGA PT Dec 17, 2018 13:03
--- NOTE | 2018-12-17 16:52 | Progress Note ---
Standard Progress Note Progress Notes/Assess & Plan Date Seen by a Provider: Dec 17, 2018 Time Seen by a Provider: 16:48 Progress/Assessment & Plan 78-year-old female admitted with left intertrochanteric fracture, status post closed reduction and nail placement. She was noted to have anemia of chronic disease with chronic kidney disease stage IV. 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 She was noted to have significant anemia during the current admission and hematology consultation obtained. Consultation completed yesterday by medical student in my presence. Patient received Aranesp 50 g today. She is feeling better and is participating in physical therapy. Continue to monitor hemoglobin levels 2-3 times per week. I will plan on continuing the Aranesp on a weekly basis. If she develops symptomatic anemia, I would recommend transfusion with 1 unit of packed red blood cells. Will follow patient with you. EDWIN LOPEZ Dec 17, 2018 16:52
[2018-12-17 17:53] VITALS: BP 157/75
[2018-12-18] MEDS: SODIUM BICARBONATE 650 MG TABLET (NON-FORMULARY) PO SCH ×2 (05:50→17:00)
[2018-12-18] MEDS: CATHETER FLUSH 10 ML SYR IV SCH ×3 (05:50→22:08)
[2018-12-18] MEDS: LEVOTHYROXINE 75 MCG (LEVOTHROID) TABLET PO SCH (05:50)
[2018-12-18 06:04] VITALS: BP 169/73
[2018-12-18] MEDS: inSUlin ASPART (NovoLOG) 1 UNIT/0.01 ML (CHARGE PER UNIT) SC SCH ×4 (06:04→22:11)
[2018-12-18 07:48] VITALS: BP 163/74
[2018-12-18] MEDS: POLYETHYLENE GLYCOL 17 GM (MIRALAX) PACK PO SCH ×2 (07:49→20:34)
[2018-12-18] MEDS: FUROSEMIDE 40 MG (LASIX) TAB PO SCH (07:50)
[2018-12-18] MEDS: PANTOPRAZOLE 40 MG (PROTONIX) TAB PO SCH ×2 (07:50→20:34)
[2018-12-18] MEDS: DOCUSATE SODIUM 100 MG (COLACE) CAP PO SCH ×2 (07:50→20:34)
[2018-12-18] MEDS: meTOprolol TARTRATE 25 MG (LOPRESSOR) TABLET PO SCH ×2 (07:50→20:34)
[2018-12-18] MEDS: SENNA W/DOCUSATE (SENOKOT S) TABLET PO SCH ×2 (07:50→20:34)
[2018-12-18] MEDS: amLODIPine 5 MG (NORVASC) TAB PO SCH (07:50)
[2018-12-18] MEDS: ALLOPURINOL 100 MG (ZYLOPRIM) TAB PO SCH (07:50)
--- NOTE | 2018-12-18 09:04 | Physical Therapy Daily Note ---
PT Daily Note-Current Subjective Pt. agrees to Rx. States she is feeling stiff in the morning but feels she is doing better slowly. Pain Numeric Pain Scale: 4 Location: Left Location Body Site: Hip Pain Description: Ache Mental Status Patient Orientation: Normal For Age Transfers Therapy Code Descriptions/Definitions Functional [place] Measure: 0=Not Assessed/NA 4=Minimal Assistance 1=Total Assistance 5=Supervision or Setup 2=Maximal Assistance 6=Modified [place] 3=Moderate Assistance 7=Complete [place] Therapy Quality Codes: 6 Independent with activity with or without an assistive device 5 Patient requires set up or clean up by helper. Patient completes activity by themselves 4 Supervision or touching assist (CGA). [place] provide cues , steadying assist 3 The helper provides less than half the effort to complete the activity 2 The helper provides more than half the effort to complete the activity 1 Dependent. The helper does all the effort to complete an activity 7 Patient refused to complete or attempt activity 9 The patient did not perform the activity before the current illness or injury 88 Not attempted due to Medical conditions or safety concerns Transfers (B, C, W/C) (FIM): 4 Scootin Rollin Supine to/from Sit: 4 Sit to/from Stand: 4 Bed to/from Chair: 4 needs higher surface on bed, w/c and toilet for safe more comfortable TRFs Weight Bearing Right Lower Extremity: Right Full Weight Bearing Left Lower Extremity: Left Weight Bearing/Tolerated Gait Training Does the Patient Walk?: Yes Gait (FIM): 1 Distance (FIM): 1=up to 49 ft (20ftx4) Gait Level of Assist: 4 Gait Persons Needed: 1 Gait Assistive Device: FWW needs instruction for broader CIEAR and sequence Wheelchair Training Does the Pt Use a Wheelchair?: Yes Wheelchair (FIM): 5 Wheelchair Distance: 3=150 ft (160x2) Wheelchair Level of Assist: 5 Type of Wheelchair: Manual Exercises Supine Ex: Ankle pumps, Quad Set, Rolling, Glut sets, Heel Slides (assisted), Short Arc Quads (assisted), Hip abd/add (assited) Seated Therapy Exercises: Ankle pumps, Sit to stand, Long arc quads (assisted) Seated Reps: 10 seated reciprocal U&L extremity strengthening x 6 mins Treatments toileted min to mod assist pants up down, hand washing indep SBA Assessment Current Status: Good Progress pain and stiffness limit movement at times PT Short Term Goals Short Term Goals Time Frame: Dec 25, 2018 Transfers (B,C,W/C) (FIM): 4 Gait (FIM): 4 PT Chief Operator Synthesis Goals Chief Operator Synthesis Goals PT Chief Operator Synthesis Goals Time Frame: Jan 03, 2019 Transfers (B,C,W/C) (FIM): 7 Sit to Lying (QC): 6 Lying-Sitting on Side/Bed(QC): 6 Sit to Stand (QC): 6 Rollin Roll Left to Right (QC): 6 Chair/Ltx-py-Xsjbm Xfer(QC): 6 Car Transfer (QC): 6 Does the Patient Walk: Yes Gait (FIM): 6 Gait distance (FIM): 3=150 ft Walk 10 feet (QC): 6 Walk 10ft-Uneven Surface(QC): 6 Walk 50ft with 2 Turns (QC): 6 Walk 150 ft (QC): 6 Gait Assistive Device: FWW Does the Pt use WC or Scooter?: No Stairs (FIM): 5 # of Steps: 4 (household distance) 1 Step (curb) (QC): 6 4 Steps (QC): 6 12 Steps (QC): 6 Picking up an Object (QC): 88 PT Plan Treatment/Plan Treatment Plan: Bed Mobility, Education, Functional Activity Lucy, Functional Strength, Group Therapy, Gait, Safety, Therapeutic Exercise, Transfers Treatment Duration: Jan 03, 2019 Frequency: At least 5 of 7 days/Wk (IRF) Estimated Hrs Per Day: 1.5 hours per day Patient and/or Family Agrees t: Yes Safety Risks/Education Patient Education: Gait Training, Transfer Techniques, Correct Positioning, W/C Management, Disease Process, Safety Issues Teaching Recipient: Patient Teaching Methods: Demonstration, Discussion Response to Teaching: Verbalize Understanding, Return Demonstration, Reinforcement Needed Time/GCodes Time In: 800 Time Out: 900 Total Billed Treatment Time: 60 Total Billed Treatment 1,FA15m,wc15m,GT15m,EX15m KATT MARIA STAFF DEVELOPMENT COORDINATOR Dec 18, 2018 09:04
--- NOTE | 2018-12-18 09:54 | PM&R Progress Note ---
Subjective HPI/CC On Admission Date Seen by Provider: Dec 18, 2018 Time Seen by Provider: 09:00 Chief complaint: Debility following left intertrochanteric hip fracture History of present illness: This is a 70-year-old white female clinic patient of Dr. Wills who presents following a fall at home resulted in intertrochanteric left hip fracture undergoing an uncomplicated repair the following day. 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 Her hemoglobin remains low at 7.7 but did not require a transfusion while on fourth floor. She has not had a bowel movement since she was admitted. Most medications from home were restarted and at this current time her son and load out supervisor are at the bedside. Apparently she was at home and went out to get her mail when 1 of her dogs knocked her over. She sees a ethanol quality leader at . She is insulin-dependent for her diabetes management. We took care of her for 3 weeks in inpatient rehab following an elective right shoulder replacement so she is familiar with the routine of rehab and will be monitored closely considering her significant comorbidities. Her prior level of functioning is sometimes use of a cane but is independent with her ADLs at home. Subjective/Events-last exam Sugars are okay. Pain control is good. Therapy is working well for her although slow recovery. Mid-line was placed for IV infusions per Dr. Figueroa order. PT and OT working with her to regain independence. Hgb will be checked 1-2x per week. Aranesp ordered by Dr. Raya. Less short of breath. Hgb stable. Conferred with RN Reviewed therapy notes Review of Systems General: Fatigue Musculoskeletal: leg pain Objective Exam Vital Signs Vital Signs Date Time Temp Pulse Resp B/P (MAP) Pulse Ox O2 Delivery O2 Flow Rate FiO2 12/18/18 18:00 99.4 92 20 139/68 (91) 97 Room Air Capillary Refill : Less Than 3 Seconds General Appearance: No Apparent Distress, WD/WN, Chronically ill HEENT: PERRL/EOMI, Normal ENT Inspection, Pharynx Normal, Moist Mucous Membranes Neck: Full Range of Motion, Normal Inspection, Non Tender, Supple Respiratory: Chest Non Tender, Lungs Clear, Normal Breath Sounds, No Accessory Muscle Use, No Respiratory Distress Cardiovascular: Regular Rate, Rhythm, No Edema, No Gallop, No JVD, No Murmur Gastrointestinal: Normal Bowel Sounds, No Organomegaly, No Pulsatile Mass, Non Tender, Soft Back: Normal Inspection, No CVA Tenderness, No Vertebral Tenderness Extremity: Normal Capillary Refill, Normal Inspection, Normal Range of Motion (limited ROM left leg), Non Tender, No Calf Tenderness, No Pedal Edema Neurologic/Psychiatric: Alert, Oriented x3, No Motor/Sensory Deficits, Normal Mood/Affect, spool fixer II-XII Norm as Tested, Abnormal Gait Skin: Normal Color, Warm/Dry Lymphatic: No Adenopathy Results/Procedures Lab Patient resulted labs reviewed. FIM Transfers Therapy Code Descriptions/Definitions Functional [place] Measure: 0=Not Assessed/NA 4=Minimal Assistance 1=Total Assistance 5=Supervision or Setup 2=Maximal Assistance 6=Modified [place] 3=Moderate Assistance 7=Complete [place] Therapy Quality Codes: 6 Independent with activity with or without an assistive device 5 Patient requires set up or clean up by helper. Patient completes activity by themselves 4 Supervision or touching assist (CGA). [place] provide cues , steadying assist 3 The helper provides less than half the effort to complete the activity 2 The helper provides more than half the effort to complete the activity 1 Dependent. The helper does all the effort to complete an activity 7 Patient refused to complete or attempt activity 9 The patient did not perform the activity before the current illness or injury 88 Not attempted due to Medical conditions or safety concerns Transfers (B, C, W/C) (FIM): 4 Scootin Rollin Roll Left to Right (QC): 3 Supine to/from Sit: 4 Sit to/from Stand: 4 Sit to Lying (QC): 3 Sit to Stand (QC): 4 Chair/Otl-rh-Ancgh Xfer(QC): 4 Bed to/from Chair: 4 Car Transfer (QC): 4 Gait Training Does the Patient Walk?: Yes Gait (FIM): 1 Distance (FIM): 1=up to 49 ft (20ftx4) Distance: 20' x 4 Walk 10 feet (QC): 4 Walk 50 ft with 2 Turns(QC): 88 Walk 150 ft (QC): 88 Walking 10ft/uneven surface-QC: 88 Gait Level of Assist: 4 Gait Persons Needed: 1 Gait Assistive Device: FWW Wheelchair Training Does the Pt Use a Wheelchair?: Yes Wheelchair (FIM): 5 Wheelchair Distance: 3=150 ft (160x2) Wheelchair Level of Assist: 5 Type of Wheelchair: Manual Stair Training Stairs (FIM): 0 1 Step (curb) (QC): 88 4 Steps (QC): 88 12 Steps (QC): 88 Balance Picking up an Object (QC): 88 Mental Status/Objective Comprehension: 7 Expression: 7 Social Interaction: 7 Problem Solvin Memory: 7 ADL-Treatment Feedin (Pt reports feeding self and managing containers without assist.) Eating (QC): 6 Groomin (set up, seated in w/c at sink. Pt combed hair, brushed teeth, washed hands, and washed face.) Oral Hygiene (QC): 5 Bathin (Pt completed sponge bath, seated on commode over toilet. Pt able to wash all parts, although Mod A required while standing at GB and FWW. OT educated pt on using long handled sponge, and pt was able to demo use to wash lower legs/feet.) Bathing Location: L Arm, R Arm, L Upper Leg, R Upper Leg, L Lower Leg (including foot), R Lower Leg (including foot), Chest, Abdomen, Buttocks, Perineal Area Shower/Bathe Self (QC): 3 Upper Extremity Dressin (set up, pt able to don/doff bra and mold puller shirt) Upper Body Dressing (QC): 5 Lower Extremity Dressin (Pt completed 6/8 parts. Pt required assistance threading LLE into underwear and assistance donning L sock. Pt required Mod A for balance standing at GB and FWW. Min verbal cues required to use dairy processing equipment operator and sock aid.) Lower Body Dressing (QC): 3 On/Off Footwear (QC): 3 Toiletin (Pt able to complete 3/3 parts, required Mod A for balance standing at GB/FWW during clothing management.) Toileting Hygiene (QC): 3 Toilet/Commode Transfer: 3 (Mod A required standing from toilet using GB and FWW. 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
--- NOTE | 2018-12-18 10:23 | Occupational Ther Daily Note ---
OT Current Status-Daily Note Subjective Pt upright in w/c at start of session, agreed to OT tx. Pt stated she would like to take a sponge bath and change clothes during OT today. At end of session, pt stated her LLE was hurting and wanted a pain pill if possible, nursing notified. Mental Status/Objective Patient Orientation: Normal For Age Therapy Code Descriptions/Definitions Functional [place] Measure: 0=Not Assessed/NA 4=Minimal Assistance 1=Total Assistance 5=Supervision or Setup 2=Maximal Assistance 6=Modified [place] 3=Moderate Assistance 7=Complete [place] Attachments: IV ADL-Treatment Therapy Code Descriptions/Definitions Functional [place] Measure: 0=Not Assessed/NA 4=Minimal Assistance 1=Total Assistance 5=Supervision or Setup 2=Maximal Assistance 6=Modified [place] 3=Moderate Assistance 7=Complete [place] Therapy Quality Codes: 6 Independent with activity with or without an assistive device 5 Patient requires set up or clean up by helper. Patient completes activity by themselves 4 Supervision or touching assist (CGA). [place] provide cues , steadying assist 3 The helper provides less than half the effort to complete the activity 2 The helper provides more than half the effort to complete the activity 1 Dependent. The helper does all the effort to complete an activity 7 Patient refused to complete or attempt activity 9 The patient did not perform the activity before the current illness or injury 88 Not attempted due to Medical conditions or safety concerns Grooming (FIM): 5 (set up, seated at sink in w/c. Pt washed face/hands, brushed teeth, combed hair) Oral Hygiene (QC): 5 Bathing (FIM): 4 (Sponge bath on commode over toilet: Pt able to wash 10/10 parts with Min A for sit to stand and balance during standing at GB/FWW to wash perineal area and buttocks. ) Bathing Location: L Arm, R Arm, L Upper Leg, R Upper Leg, L Lower Leg (including foot), R Lower Leg (including foot), Chest, Abdomen, Buttocks, Perineal Area Shower/Bathe Self (QC): 3 Upper Body (FIM): 5 (set up, pt able to don/doff bra and pullman conductor shirt) Upper Body Dressing (QC): 5 Lower Body Dressing (FIM): 3 (Pt completed 5/8 parts. Pt educated on using dressing stick and exceptional student education aide to don pants/underwear. Pt required assistance threading LLE into pants/underwear and slip on shoe. Min A sit to stand/balance at GB and FWW during clothing management) Lower Body Dressing (QC): 3 On/Off Footwear (QC): 5 Toileting (FIM): 4 (3/3 complete, Min A balance during stand for clothing managment) Toileting Hygiene (QC): 3 Transfers (B, C, W/C) (FIM): 4 (Min A bed mobility (Assist with LLE in/out of bed), Min A sit to/from stand) Toilet/Commode Transfer (FIM): 4 (CGA, pt able to push up from commode handles and safely lower self) Toilet Transfer (QC): 4 Other Treatment Pt completed ADLs in room, then taken to therapy gym in w/c. In order to increase UE strength/endurance, and fine motor strength to increase independence in ADLs and functional activities, pt completed the following activity: Peg board with 2lb wrist weights BUE. Pt placed/removed X100 pegs, alternating R/L hands, pt completed task in 13 mins 30 seconds. Pt returned to room and transferred to bed. Post OT session, pt laying in bed, call light and phone in reach and all needs met. Education OT Patient Education: Correct positioning, Energy conservation, Exercise program, Progress toward Goal/Update tx plan, Purpose of tx/functional activities, Transfer techniques, Use of adapted equipment Teaching Recipient: Patient Teaching Methods: Demonstration Response to Teaching: Verbalize Understanding, Return Demonstration OT Short Term Goals Short Term Goals Time Frame: Dec 21, 2018 Bathing(FIM): 4 Lower Body Dressing(FIM): 3 Toileting(FIM): 3 Transfers (B,C,W/C) (FIM): 4 Toilet/Commode Transfer(FIM): 4 Additional Short Term Goals: 1-Demonstrate ADL Tasks, 2-Verbalize Understanding, 3-ImproveStrength/Lu[place] 1=Demonstrate adherence to instructed precautions during ADL tasks. 2=Patient will verbalize/demonstrate understanding of assistive devices/modifications for ADL. 3=Patient will improve strength/tolerance for activity to enable patient to perform ADL's. OT Coordinator Integrated Marketing Goals Shelter Goals Time Frame: Jan 04, 2019 Eating (FIM): 7 Eating (QC): 6 Groomin Oral Hygiene (QC): 6 Bathing(FIM): 5 Shower/Bathe Self (QC): 5 Upper Body Dressing(FIM): 6 Upper Body Dressing (QC): 6 Lower Body Dressing(FIM): 5 Lower Body Dressing (QC): 5 On/Off Footwear (QC): 5 Toileting(FIM): 6 Toileting Hygiene (QC): 6 Toilet/Commode Transfer(FIM): 6 Toilet/Commode Transfer (QC): 6 Shower Transfer(FIM): 5 Additional Goals: 1-Demonstrate ADL Tasks, 2-Verbalize Understanding, 3- ImproveStrength/[place] 1=Demonstrate adherence to instructed precautions during ADL tasks. 2=Patient will verbalize/demonstrate understanding of assistive devices/modifications for ADL. 3=Patient will improve strength/tolerance for activity to enable patient to perform ADL's. OT Education/Plan Problem List/Assessment Assessment: Decreased Activ Tolerance, Decreased UE Strength, Impaired Funct Balance, Impaired Self-Care Skills Pt admitted to ARU after fall resulting in left hip fracture. S/p surgical intervention. Pt demonstrates decreased mobility, strength, activity tolerance, and ADL functioning. Pt to benefit from skilled OT intervention for ADL training, transfers, strengthening, adaptive equipment training, and home safety education to increase level of independence and allow safe discharge home. Discharge Recommendations Plan/Recommendations: Continue POC Treatment Plan/Plan of Care Treatment,Training & Education: Yes Patient would benefit from OT for education, treatment and training to promote independence in ADL's, mobility, safety and/or upper extremity function for ADL's. Plan of Care: ADL Retraining, Functional Mobility, Group Exercise/Act as Ind, UE Funct Exercise/Act Treatment Duration: Jan 04, 2019 Frequency: At least 5 of 7 days/Wk (IRF) Estimated Hrs Per Day: 1.5 hours per day Rehab Potential: Good Time/GCodes Start Time: 09:15 Stop Time: 10:15 Total Time Billed (hr/min): 60 Billed Treatment Time 1, ADL 3 X45min, FA X15min YOLANDE COURTNEY OT Dec 18, 2018 10:23
--- NOTE | 2018-12-18 14:09 | Therapy Group Daily Note ---
Therapy Daily Group Note Patient Education Topic Home Safety, Incontinence, ADL Session Ratio (pt:therapist): 4:1 Goal of Session: Education on ARU Expectations, Energy Conservation Tech., Home Safety Strategies, Safety with Transfers, Use of Adaptive Equipment Goal Met for this Session: Yes Pt Benefit of Group: Contributions to Others, F/U Use of Strategies @Home, Increased Functional Safety, Recognition of Peers, Socialization Other/Notes Pt transported via w/c to [facility] for OT group. Group consisted of introductions (name, place living, and favorite invention), socialization, use of AE/ DME, and ARU expectations. Pt introduced self appropriately and actively listened to peers. Pt acknowledged understanding of educational topics of AE/ DME within the house including: shower chair vs. shower bench, buildup handle, basket for RW, rocker knife, leg fish icer, and maintaining a personal emergency card. pt engaged in session by listing example of how to personally use AE with in own daily live. After therapy, pt lying in bed with call light/phone in reach. All needs met in room. Start Time: 12:40 Stop Time: 13:50 Total Billed Treatment GRP 70 minutes, VLAD PINEDA OT Dec 18, 2018 14:09
--- NOTE | 2018-12-18 16:03 | NUR ---
SALES PLANNING ANALYST met with patient to review team conference summary. Patient is completing transfers with min assist, wheelchair mobility with standby assist, toilet and bathing with min assist, lower body ADLs with modified assist and ambulating only short distances of 20 feet. Patient also continues to complain of pain. Based on current functionality, team recommends patient be reevaluated at next team conference on 94. Patient is in agreement. SALES PLANNING ANALYST will continue to follow.
[2018-12-18 18:00] VITALS: BP 139/68
[2018-12-19] MEDS: inSUlin ASPART (NovoLOG) 1 UNIT/0.01 ML (CHARGE PER UNIT) SC SCH ×4 (05:48→21:12)
[2018-12-19] MEDS: SODIUM BICARBONATE 650 MG TABLET (NON-FORMULARY) PO SCH ×2 (05:50→17:52)
[2018-12-19] MEDS: LEVOTHYROXINE 75 MCG (LEVOTHROID) TABLET PO SCH (05:50)
[2018-12-19] MEDS: CATHETER FLUSH 10 ML SYR IV SCH ×3 (05:51→22:39)
[2018-12-19 06:21] VITALS: BP 147/71
[2018-12-19] MEDS: POLYETHYLENE GLYCOL 17 GM (MIRALAX) PACK PO SCH ×2 (08:37→20:33)
[2018-12-19] MEDS: FUROSEMIDE 40 MG (LASIX) TAB PO SCH (08:49)
[2018-12-19] MEDS: PANTOPRAZOLE 40 MG (PROTONIX) TAB PO SCH ×2 (08:49→20:31)
[2018-12-19] MEDS: meTOprolol TARTRATE 25 MG (LOPRESSOR) TABLET PO SCH ×2 (08:49→20:31)
[2018-12-19] MEDS: ALLOPURINOL 100 MG (ZYLOPRIM) TAB PO SCH (08:49)
[2018-12-19] MEDS: amLODIPine 5 MG (NORVASC) TAB PO SCH (08:49)
[2018-12-19] MEDS: SENNA W/DOCUSATE (SENOKOT S) TABLET PO SCH ×2 (08:50→20:33)
[2018-12-19] MEDS: DOCUSATE SODIUM 100 MG (COLACE) CAP PO SCH ×2 (08:50→20:33)
[2018-12-19] MEDS: IRON SUCROSE 200 MG/10 ML (VENOFER) VIAL IV SCH (08:51)
--- NOTE | 2018-12-19 09:03 | PM&R Progress Note ---
Subjective HPI/CC On Admission Date Seen by Provider: Dec 19, 2018 Time Seen by Provider: 08:30 Chief complaint: Debility following left intertrochanteric hip fracture History of present illness: This is a 70-year-old white female clinic patient of Dr. Wills who presents following a fall at home resulted in intertrochanteric left hip fracture undergoing an uncomplicated repair the following day. 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 Her hemoglobin remains low at 7.7 but did not require a transfusion while on fourth floor. She has not had a bowel movement since she was admitted. Most medications from home were restarted and at this current time her son and motor vehicle compliance analyst are at the bedside. Apparently she was at home and went out to get her mail when 1 of her dogs knocked her over. She sees a stockkeeper at . She is insulin-dependent for her diabetes management. We took care of her for 3 weeks in inpatient rehab following an elective right shoulder replacement so she is familiar with the routine of rehab and will be monitored closely considering her significant comorbidities. Her prior level of functioning is sometimes use of a cane but is independent with her ADLs at home. Subjective/Events-last exam Pt feels like she is doing much better. Was on commode an d had a large BM. Pain is tolerated with pain medication. Overall feels like she is progressing nicely. Participating in therapy. Is ready to participate an get herself stronger. Hgb will be monitored closely by Dr. Raya. Aranesp ordered by Dr. Raya. Less short of breath. Hgb stable. Conferred with RN Reviewed therapy notes Review of Systems General: Fatigue Musculoskeletal: leg pain Objective Exam Vital Signs Vital Signs Date Time Temp Pulse Resp B/P (MAP) Pulse Ox O2 Delivery O2 Flow Rate FiO2 12/19/18 17:39 99.3 88 18 156/73 (100) 94 Room Air Capillary Refill : Less Than 3 Seconds General Appearance: No Apparent Distress, WD/WN, Chronically ill HEENT: PERRL/EOMI, Normal ENT Inspection, Pharynx Normal, Moist Mucous Membranes Neck: Full Range of Motion, Normal Inspection, Non Tender, Supple Respiratory: Chest Non Tender, Lungs Clear, Normal Breath Sounds, No Accessory Muscle Use, No Respiratory Distress Cardiovascular: Regular Rate, Rhythm, No Edema, No Gallop, No JVD, No Murmur Gastrointestinal: Normal Bowel Sounds, No Organomegaly, No Pulsatile Mass, Non Tender, Soft Back: Normal Inspection, No CVA Tenderness, No Vertebral Tenderness Extremity: Normal Capillary Refill, Normal Inspection, Normal Range of Motion (limited ROM left leg), Non Tender, No Calf Tenderness, No Pedal Edema Neurologic/Psychiatric: Alert, Oriented x3, No Motor/Sensory Deficits, Normal Mood/Affect, wet crown blocking operator II-XII Norm as Tested, Abnormal Gait Skin: Normal Color, Warm/Dry Lymphatic: No Adenopathy Results/Procedures Lab Patient resulted labs reviewed. FIM Transfers Therapy Code Descriptions/Definitions Functional [place] Measure: 0=Not Assessed/NA 4=Minimal Assistance 1=Total Assistance 5=Supervision or Setup 2=Maximal Assistance 6=Modified [place] 3=Moderate Assistance 7=Complete [place] Therapy Quality Codes: 6 Independent with activity with or without an assistive device 5 Patient requires set up or clean up by helper. Patient completes activity by themselves 4 Supervision or touching assist (CGA). [place] provide cues , steadying assist 3 The helper provides less than half the effort to complete the activity 2 The helper provides more than half the effort to complete the activity 1 Dependent. The helper does all the effort to complete an activity 7 Patient refused to complete or attempt activity 9 The patient did not perform the activity before the current illness or injury 88 Not attempted due to Medical conditions or safety concerns Transfers (B, C, W/C) (FIM): 4 (Min A bed mobility (Assist with LLE in/out of bed), Min A sit to/from stand) Scootin Rollin Roll Left to Right (QC): 3 Supine to/from Sit: 4 Sit to/from Stand: 4 Sit to Lying (QC): 3 Sit to Stand (QC): 4 Chair/Cpq-mz-Zphpd Xfer(QC): 4 Bed to/from Chair: 4 Car Transfer (QC): 4 Gait Training Does the Patient Walk?: Yes Gait (FIM): 1 Distance (FIM): 1=up to 49 ft (20ftx4) Distance: 20' x 4 Walk 10 feet (QC): 4 Walk 50 ft with 2 Turns(QC): 88 Walk 150 ft (QC): 88 Walking 10ft/uneven surface-QC: 88 Gait Level of Assist: 4 Gait Persons Needed: 1 Gait Assistive Device: FWW Wheelchair Training Does the Pt Use a Wheelchair?: Yes Wheelchair (FIM): 5 Wheelchair Distance: 3=150 ft (160x2) Wheelchair Level of Assist: 5 Type of Wheelchair: Manual Stair Training Stairs (FIM): 0 1 Step (curb) (QC): 88 4 Steps (QC): 88 12 Steps (QC): 88 Balance Picking up an Object (QC): 88 Mental Status/Objective Comprehension: 7 Expression: 7 Social Interaction: 7 Problem Solvin Memory: 7 ADL-Treatment Feedin (Pt reports feeding self and managing containers without assist.) Eating (QC): 6 Groomin (set up, seated at sink in w/c. Pt washed face/hands, brushed teeth, combed hair) Oral Hygiene (QC): 5 Bathin (Sponge bath on commode over toilet: Pt able to wash 10/10 parts with Min A for sit to stand and balance during standing at GB/FWW to wash perineal area and buttocks. ) Bathing Location: L Arm, R Arm, L Upper Leg, R Upper Leg, L Lower Leg (including foot), R Lower Leg (including foot), Chest, Abdomen, Buttocks, Perineal Area Shower/Bathe Self (QC): 3 Upper Extremity Dressin (set up, pt able to don/doff bra and trap puller shirt) Upper Body Dressing (QC): 5 Lower Extremity Dressin (Pt completed 5/8 parts. Pt educated on using dressing stick and form tamping machine operator to don pants/underwear. Pt required assistance threading LLE into pants/underwear and slip on shoe. Min A sit to stand/balance at GB and FWW during clothing management) Lower Body Dressing (QC): 3 On/Off Footwear (QC): 5 Toiletin (3/3 complete, Min A balance during stand for clothing managment) Toileting Hygiene (QC): 3 Toilet/Commode Transfer: 4 (CGA, pt able to push up from commode handles and safely lower self) Toilet Transfer (QC): 4 Assessment/Plan Assessment and Plan Assess & Plan/Chief Complaint Plan: IRF protocol Pain meds to continue BM regimen to be maintained since resolved now Home meds IS DM management ADA diet Heparin for DVT PPx Venofer Iron level reviewed Consult Dr Amaury Browne and his expertise is appreciated (1) Intertrochanteric fracture of left femur Status: Acute (2) Fall from ground level Status: Acute (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
--- NOTE | 2018-12-19 10:08 | Occupational Ther Daily Note ---
OT Current Status-Daily Note Subjective Pt upright in recliner at start of session, pt agreeable to OT. Pt reports pain 5-6/10 in LLE. Mental Status/Objective Patient Orientation: Normal For Age Therapy Code Descriptions/Definitions Functional [place] Measure: 0=Not Assessed/NA 4=Minimal Assistance 1=Total Assistance 5=Supervision or Setup 2=Maximal Assistance 6=Modified [place] 3=Moderate Assistance 7=Complete [place] Attachments: IV ADL-Treatment Therapy Code Descriptions/Definitions Functional [place] Measure: 0=Not Assessed/NA 4=Minimal Assistance 1=Total Assistance 5=Supervision or Setup 2=Maximal Assistance 6=Modified [place] 3=Moderate Assistance 7=Complete [place] Therapy Quality Codes: 6 Independent with activity with or without an assistive device 5 Patient requires set up or clean up by helper. Patient completes activity by themselves 4 Supervision or touching assist (CGA). [place] provide cues , steadying assist 3 The helper provides less than half the effort to complete the activity 2 The helper provides more than half the effort to complete the activity 1 Dependent. The helper does all the effort to complete an activity 7 Patient refused to complete or attempt activity 9 The patient did not perform the activity before the current illness or injury 88 Not attempted due to Medical conditions or safety concerns Grooming (FIM): 5 (set up, pt seated in w/c at sink) Oral Hygiene (QC): 5 Bathing (FIM): 4 (Sponge bath, seated in recliner: pt completed 10/10 parts. Min A with balance standing at FWW for washing buttocks/periarea,) Bathing Location: L Arm, R Arm, L Upper Leg, R Upper Leg, L Lower Leg (including foot), R Lower Leg (including foot), Chest, Abdomen, Buttocks, Perineal Area Shower/Bathe Self (QC): 3 Upper Body (FIM): 5 (set up) Upper Body Dressing (QC): 5 Lower Body Dressing (FIM): 4 (Min A standing balance at FWW for clothing management. pt able to use dressing stick withotu cues to don pants, and pt educated on long handled shoe horn to hayes shoes. Pt completed 6/6 donning pants/shoes, and managing underwear up/down during bathing) Lower Body Dressing (QC): 3 On/Off Footwear (QC): 5 Transfers (B, C, W/C) (FIM): 4 (min A sit to/from stand from recliner & w/c) Other Treatment Pt completed dressing/bathing in recliner. Pt transferred to w/c and completed grooming seated at sink. Pt self propelled w/c to therapy gym. In order to increase UE strength/endurance, and fine motor coordination in order to increase independence in ADLs and functional mobility, pt completed the following activities: 1) pegboard, 2lb wrist cuffs BUE. Pt placed/removed x100 pegs, alternating R/L hand in 11 min 10 secs. 2) Arm bike, mod resistance [id number] Pt self propelled w/c back to room, pt laying in bed at end of session, call light and phone in reach, all needs met, with friends visiting in her room. Education OT Patient Education: Energy conservation, Exercise program, Modified ADL techniques, Progress toward Goal/Update tx plan, Purpose of tx/functional activities, Transfer techniques, Use of adapted equipment (long handled shoe horn) Teaching Recipient: Patient Teaching Methods: Demonstration, Discussion Response to Teaching: Verbalize Understanding, Return Demonstration OT Short Term Goals Short Term Goals Time Frame: Dec 21, 2018 Bathing(FIM): 4 Lower Body Dressing(FIM): 3 Toileting(FIM): 3 Transfers (B,C,W/C) (FIM): 4 Toilet/Commode Transfer(FIM): 4 Additional Short Term Goals: 1-Demonstrate ADL Tasks, 2-Verbalize Understanding, 3-ImproveStrength/Lucy 1=Demonstrate adherence to instructed precautions during ADL tasks. 2=Patient will verbalize/demonstrate understanding of assistive devices/modifications for ADL. 3=Patient will improve strength/tolerance for activity to enable patient to perform ADL's. OT Prison Goals [employer] Manager Goals Time Frame: Jan 04, 2019 Eating (FIM): 7 Eating (QC): 6 Groomin Oral Hygiene (QC): 6 Bathing(FIM): 5 Shower/Bathe Self (QC): 5 Upper Body Dressing(FIM): 6 Upper Body Dressing (QC): 6 Lower Body Dressing(FIM): 5 Lower Body Dressing (QC): 5 On/Off Footwear (QC): 5 Toileting(FIM): 6 Toileting Hygiene (QC): 6 Toilet/Commode Transfer(FIM): 6 Toilet/Commode Transfer (QC): 6 Shower Transfer(FIM): 5 Additional Goals: 1-Demonstrate ADL Tasks, 2-Verbalize Understanding, 3- ImproveStrength/Lucy 1=Demonstrate adherence to instructed precautions during ADL tasks. 2=Patient will verbalize/demonstrate understanding of assistive devices/m odifications for ADL. 3=Patient will improve strength/tolerance for activity to enable patient to perform ADL's. OT Education/Plan Problem List/Assessment Assessment: Decreased Activ Tolerance, Decreased UE Strength, Impaired Funct Balance, Impaired Self-Care Skills Pt admitted to ARU after fall resulting in left hip fracture. S/p surgical intervention. Pt demonstrates decreased mobility, strength, activity tolerance, and ADL functioning. Pt to benefit from skilled OT intervention for ADL training, transfers, strengthening, adaptive equipment training, and home safety education to increase level of independence and allow safe discharge home. Discharge Recommendations Plan/Recommendations: Continue POC Treatment Plan/Plan of Care Treatment,Training & Education: Yes Patient would benefit from OT for education, treatment and training to promote independence in ADL's, mobility, safety and/or upper extremity function for ADL's. Plan of Care: ADL Retraining, Functional Mobility, Group Exercise/Act as Ind, U E Funct Exercise/Act Treatment Duration: Jan 04, 2019 Frequency: At least 5 of 7 days/Wk (IRF) Estimated Hrs Per Day: 1.5 hours per day Rehab Potential: Good Time/GCodes Start Time: 09:00 Stop Time: 10:32 Total Time Billed (hr/min): 92 Billed Treatment Time 1, ADL 4 x55min, FA x20, Ex X17 YOLANDE COURTNEY OT Dec 19, 2018 10:08
--- NOTE | 2018-12-19 12:02 | Physical Therapy Daily Note ---
PT Daily Note-Current Subjective Pt agreeable to PT this am. States feeling pretty good. No pain laying still, just back aches some. Pain Numeric Pain Scale: 0-No Pain (increases to 8/10 with WB) Appearance Pt in bed with daughter present in room upon arrival. At end of session, pt's dtr present, pt sitting up in recliner with call light, phone and bedside table within reach as lunch arrived Mental Status Patient Orientation: Person, Place, Time, Eyes Open, Situation Attachments: [place] Transfers Therapy Code Descriptions/Definitions Functional [place] Measure: 0=Not Assessed/NA 4=Minimal Assistance 1=Total Assistance 5=Supervision or Setup 2=Maximal Assistance 6=Modified [place] 3=Moderate Assistance 7=Complete [place] Therapy Quality Codes: 6 Independent with activity with or without an assistive device 5 Patient requires set up or clean up by helper. Patient completes activity by themselves 4 Supervision or touching assist (CGA). [place] provide cues , steadying assist 3 The helper provides less than half the effort to complete the activity 2 The helper provides more than half the effort to complete the activity 1 Dependent. The helper does all the effort to complete an activity 7 Patient refused to complete or attempt activity 9 The patient did not perform the activity before the current illness or injury 88 Not attempted due to Medical conditions or safety concerns Transfers (B, C, W/C) (FIM): 4 Supine to/from Sit: 4 (min A with LLE. Pt was able to follow skilled inst for techniques but unable to physically follow through at this times) Sit to/from Stand: 5 (from elevated bed, cushion in w/c, NuStep, raised toilet seat) Bed to/from Chair: 5 Weight Bearing Right Lower Extremity: Right Full Weight Bearing Left Lower Extremity: Left Weight Bearing/Tolerated Gait Training Does the Patient Walk?: Yes Gait (FIM): 2 Distance (FIM): 7=675-24 ft Distance: 70 x2 Gait Level of Assist: 5 Gait Persons Needed: 1 Gait Assistive Device: FWW skilled instruction and encouragement required to increase distance, with gait quality and increasing WB LLE. Slight antalgic gait, heavily relying on walker at times, decreased step length and height Exercises Supine Ex: Ankle pumps, Quad Set, Heel Slides, Scooting, Straight leg raise, Hip abd/add Supine Reps: 20 Seated Therapy Exercises: Sit to stand Standing: Heel/toe raises, Marching, Sit to Stand, Unilateral stance Standing Reps: 10 (10-15) NuStep Minutes: 15 NuStep Workload: 5 (Seat 11, arms 7) Treatments bed mobility, transfers, safety, gait, functional mobility, toileting, activity tolerance, balance, strength, ROM Assessment Current Status: Good Progress Pt requiring skilled instruction and encouragement to increase reps, distance walked, etc PT Short Term Goals Short Term Goals Time Frame: Dec 25, 2018 Transfers (B,C,W/C) (FIM): 4 Gait (FIM): 4 PT Shredding Specialist Goals Shredding Specialist Goals PT Shredding Specialist Goals Time Frame: Jan 03, 2019 Transfers (B,C,W/C) (FIM): 7 Sit to Lying (QC): 6 Lying-Sitting on Side/Bed(QC): 6 Sit to Stand (QC): 6 Rollin Roll Left to Right (QC): 6 Chair/Ccp-xl-Aqvgh Xfer(QC): 6 Car Transfer (QC): 6 Does the Patient Walk: Yes Gait (FIM): 6 Gait distance (FIM): 3=150 ft Walk 10 feet (QC): 6 Walk 10ft-Uneven Surface(QC): 6 Walk 50ft with 2 Turns (QC): 6 Walk 150 ft (QC): 6 Gait Assistive Device: FWW Does the Pt use WC or Scooter?: No Stairs (FIM): 5 # of Steps: 4 (household distance) 1 Step (curb) (QC): 6 4 Steps (QC): 6 12 Steps (QC): 6 Picking up an Object (QC): 88 PT Plan Treatment/Plan Treatment Plan: Continue Plan of Care Treatment Plan: Bed Mobility, Education, Functional Activity Lucy, Functional Strength, Group Therapy, Gait, Safety, Therapeutic Exercise, Transfers Treatment Duration: Jan 03, 2019 Frequency: At least 5 of 7 days/Wk (IRF) Estimated Hrs Per Day: 1.5 hours per day Patient and/or Family Agrees t: Yes Safety Risks/Education Patient Education: Gait Training, Transfer Techniques, Reviewed Precautions, W/C Management, Instructions to Caregiver, Safety Issues discussed with pt and pt's dtr bed and chair ex's to perform on her own Time/GCodes Time In: 1115 Time Out: 1230 Total Billed Treatment Time: 75 Total Billed Treatment 1 visit, EX x30 min, GT x25 min, FA x20 min NAEEM SPANGLER PTA Dec 19, 2018 12:02
--- NOTE | 2018-12-19 14:00 | Physical Therapy Daily Note ---
PT Daily Note-Current Subjective Patient agrees to PT. She report her left hip pain is becoming more tolerable. Pain Numeric Pain Scale: 5-Moderate Pain Location: Left Location Body Site: Hip Pain Description: Acute Mental Status Patient Orientation: Normal For Age Transfers Therapy Code Descriptions/Definitions Functional [place] Measure: 0=Not Assessed/NA 4=Minimal Assistance 1=Total Assistance 5=Supervision or Setup 2=Maximal Assistance 6=Modified [place] 3=Moderate Assistance 7=Complete [place] Therapy Quality Codes: 6 Independent with activity with or without an assistive device 5 Patient requires set up or clean up by helper. Patient completes activity by themselves 4 Supervision or touching assist (CGA). [place] provide cues , steadying assist 3 The helper provides less than half the effort to complete the activity 2 The helper provides more than half the effort to complete the activity 1 Dependent. The helper does all the effort to complete an activity 7 Patient refused to complete or attempt activity 9 The patient did not perform the activity before the current illness or injury 88 Not attempted due to Medical conditions or safety concerns Transfers (B, C, W/C) (FIM): 4 Scootin Rollin Roll Left to Right (QC): 5 Supine to/from Sit: 4 Sit to/from Stand: 5 Sit to Lying (QC): 4 Sit to Stand (QC): 5 Chair/Ini-xl-Cpjkf Xfer(QC): 5 Bed to/from Chair: 5 minimal assist with sit to supine with assist of left LE/Education with patient on use of right LE to assist left LE with bed mobility Weight Bearing Right Lower Extremity: Right Full Weight Bearing Left Lower Extremity: Left Weight Bearing/Tolerated Gait Training Does the Patient Walk?: Yes Gait (FIM): 1 Distance (FIM): 1=up to 49 ft Distance: 20' x 2 Walk 10 feet (QC): 5 Gait Level of Assist: 5 Gait Assistive Device: FWW slow, antalgic gait sequence (however, much improved) Assessment Patient returned to bed with SCD's in place and call light in hand. Patient is progressing with treatment with much improved gait sequence. PT Short Term Goals Short Term Goals Time Frame: Dec 25, 2018 Transfers (B,C,W/C) (FIM): 4 Gait (FIM): 4 PT [place] Goals [place] Goals PT Senior Living Goals Time Frame: Jan 03, 2019 Transfers (B,C,W/C) (FIM): 7 Sit to Lying (QC): 6 Lying-Sitting on Side/Bed(QC): 6 Sit to Stand (QC): 6 Rollin Roll Left to Right (QC): 6 Chair/Pny-kp-Ltahe Xfer(QC): 6 Car Transfer (QC): 6 Does the Patient Walk: Yes Gait (FIM): 6 Gait distance (FIM): 3=150 ft Walk 10 feet (QC): 6 Walk 10ft-Uneven Surface(QC): 6 Walk 50ft with 2 Turns (QC): 6 Walk 150 ft (QC): 6 Gait Assistive Device: FWW Does the Pt use WC or Scooter?: No Stairs (FIM): 5 # of Steps: 4 (household distance) 1 Step (curb) (QC): 6 4 Steps (QC): 6 12 Steps (QC): 6 Picking up an Object (QC): 88 PT Plan Treatment/Plan Treatment Plan: Continue Plan of Care Treatment Plan: Bed Mobility, Education, Functional Activity Lucy, Functional Strength, Group Therapy, Gait, Safety, Therapeutic Exercise, Transfers Treatment Duration: Jan 03, 2019 Frequency: At least 5 of 7 days/Wk (IRF) Estimated Hrs Per Day: 1.5 hours per day Patient and/or Family Agrees t: Yes Time/GCodes Time In: 1340 Time Out: 1356 Total Billed Treatment Time: 16 Total Billed Treatment 1 visit FA 16 min TERRENCE ORTEGA PT Dec 19, 2018 14:00
[2018-12-19 17:39] VITALS: BP 156/73
[2018-12-20] MEDS: SODIUM BICARBONATE 650 MG TABLET (NON-FORMULARY) PO SCH ×2 (06:19→18:32)
[2018-12-20] MEDS: CATHETER FLUSH 10 ML SYR IV SCH ×3 (06:19→20:21)
[2018-12-20] MEDS: LEVOTHYROXINE 75 MCG (LEVOTHROID) TABLET PO SCH (06:19)
[2018-12-20 06:47] VITALS: BP 159/79
[2018-12-20 07:23] LABS: BASOPHILS # (AUTO) 0.1 10^3/uL (0.0-0.1); BASOPHILS % (AUTO) 1 % (0-10); EOSINOPHILS # (AUTO) 0.3 10^3/uL (0.0-0.3); EOSINOPHILS % (AUTO) 4 % (0-10); HEMATOCRIT 25 % (35-52); HEMOGLOBIN 7.7 G/DL (11.5-16.0); LYMPHOCYTES # (AUTO) 1.2 X 10^3 (1.0-4.0); LYMPHOCYTES % (AUTO) 17 % (12-44); MEAN CORPUSCULAR HEMOGLOBIN 32 PG (25-34); MEAN CORPUSCULAR HGB CONC 31 G/DL (32-36); MEAN CORPUSCULAR VOLUME 102 FL (80-99); MONOCYTES # (AUTO) 1.1 X 10^3 (0.0-1.0); MONOCYTES % (AUTO) 15 % (0-12); NEUTROPHILS # (AUTO) 4.6 X 10^3 (1.8-7.8); NEUTROPHILS % (AUTO) 64 % (42-75); PLATELET COUNT 284 10^3/uL (130-400); RED CELL DISTRIBUTION WIDTH 13.9 % (10.0-14.5); WHITE BLOOD COUNT 7.2 10^3/uL (4.3-11.0)
[2018-12-20] MEDS: inSUlin ASPART (NovoLOG) 1 UNIT/0.01 ML (CHARGE PER UNIT) SC SCH ×3 (08:00→15:33)
--- NOTE | 2018-12-20 08:40 | Occupational Ther Daily Note ---
OT Current Status-Daily Note Subjective Pt laying in bed finishing breakfast at start of session, agreeable to OT tx focusing on changing clothes. Pain Numeric Pain Scale: 4 Mental Status/Objective Patient Orientation: Normal For Age Therapy Code Descriptions/Definitions Functional [place] Measure: 0=Not Assessed/NA 4=Minimal Assistance 1=Total Assistance 5=Supervision or Setup 2=Maximal Assistance 6=Modified [place] 3=Moderate Assistance 7=Complete [place] Attachments: IV ADL-Treatment Therapy Code Descriptions/Definitions Functional [place] Measure: 0=Not Assessed/NA 4=Minimal Assistance 1=Total Assistance 5=Supervision or Setup 2=Maximal Assistance 6=Modified [place] 3=Moderate Assistance 7=Complete [place] Therapy Quality Codes: 6 Independent with activity with or without an assistive device 5 Patient requires set up or clean up by helper. Patient completes activity by themselves 4 Supervision or touching assist (CGA). [place] provide cues , steadying assist 3 The helper provides less than half the effort to complete the activity 2 The helper provides more than half the effort to complete the activity 1 Dependent. The helper does all the effort to complete an activity 7 Patient refused to complete or attempt activity 9 The patient did not perform the activity before the current illness or injury 88 Not attempted due to Medical conditions or safety concerns Eating (FIM): 7 Eating (QC): 6 Grooming (FIM): 5 (set up at sink, pt able to wash hands and brush hair) Upper Body (FIM): 5 (setup) Upper Body Dressing (QC): 5 Lower Body Dressing (FIM): 3 (pt completed 08/28, pt required assistance threading LLE into underwear/pants/shoe using dressing stick. Min A standing balance for management of clothing.) Lower Body Dressing (QC): 3 On/Off Footwear (QC): 3 Toileting (FIM): 4 (3/3 complete, pt required min A for balance standing at GB & FWW during hygiene.) Toileting Hygiene (QC): 3 Transfers (B, C, W/C) (FIM): 4 (Min A required sit to stand from w/c, pt able to sit from stand controlled using UEs with CGA. Min A bed mobility supine to sit with assistance with LLE.) Toilet/Commode Transfer (FIM): 4 (Commode over toilet: Min A stand using GB and FWW, CGA to sit ) Toilet Transfer (QC): 3 Other Treatment Pt completed ADL tx in room. Post OT session, pt seated in w/c with call light in reach and all needs met. Education OT Patient Education: Correct positioning, Energy conservation, Progress toward Goal/Update tx plan, Purpose of tx/functional activities Teaching Recipient: Patient Teaching Methods: Demonstration, Discussion Response to Teaching: Verbalize Understanding, Return Demonstration OT Short Term Goals Short Term Goals Time Frame: Dec 21, 2018 Bathing(FIM): 4 Lower Body Dressing(FIM): 3 Toileting(FIM): 3 Transfers (B,C,W/C) (FIM): 4 Toilet/Commode Transfer(FIM): 4 Additional Short Term Goals: 1-Demonstrate ADL Tasks, 2-Verbalize Understanding, 3-ImproveStrength/Lucy 1=Demonstrate adherence to instructed precautions during ADL tasks. 2=Patient will verbalize/demonstrate understanding of assistive devices/modifications for ADL. 3=Patient will improve strength/tolerance for activity to enable patient to perform ADL's. OT Table Filler Goals Table Filler Goals Time Frame: Jan 04, 2019 Eating (FIM): 7 Eating (QC): 6 Groomin Oral Hygiene (QC): 6 Bathing(FIM): 5 Shower/Bathe Self (QC): 5 Upper Body Dressing(FIM): 6 Upper Body Dressing (QC): 6 Lower Body Dressing(FIM): 5 Lower Body Dressing (QC): 5 On/Off Footwear (QC): 5 Toileting(FIM): 6 Toileting Hygiene (QC): 6 Toilet/Commode Transfer(FIM): 6 Toilet/Commode Transfer (QC): 6 Shower Transfer(FIM): 5 Additional Goals: 1-Demonstrate ADL Tasks, 2-Verbalize Understanding, 3- ImproveStrength/Lucy 1=Demonstrate adherence to instructed precautions during ADL tasks. 2=Patient will verbalize/demonstrate understanding of assistive dev ices/modifications for ADL. 3=Patient will improve strength/tolerance for activity to enable patient to perform ADL's. OT Education/Plan Problem List/Assessment Assessment: Decreased Activ Tolerance, Decreased UE Strength, Impaired Funct Balance, Impaired Self-Care Skills Pt admitted to ARU after fall resulting in left hip fracture. S/p surgical intervention. Pt demonstrates decreased mobility, strength, activity tolerance, and ADL functioning. Pt to benefit from skilled OT intervention for ADL training, transfers, strengthening, adaptive equipment training, and home safety education to increase level of independence and allow safe discharge home. Discharge Recommendations Plan/Recommendations: Continue POC Treatment Plan/Plan of Care Treatment,Training & Education: Yes Patient would benefit from OT for education, treatment and training to promote independence in ADL's, mobility, safety and/or upper extremity function for ADL's. Plan of Care: ADL Retraining, Functional Mobility, Group Exercise/Act as Ind, UE Funct Exercise/Act Treatment Duration: Jan 04, 2019 Frequency: At least 5 of 7 days/Wk (IRF) Estimated Hrs Per Day: 1.5 hours per day Rehab Potential: Good Time/GCodes Start Time: 08:00 Stop Time: 08:30 Total Time Billed (hr/min): 30 Billed Treatment Time 1, ADL 2 [id number] YOLANDE COURTNEY OT Dec 20, 2018 08:40
--- NOTE | 2018-12-20 09:31 | Physical Therapy Daily Note ---
PT Daily Note-Current Subjective c/o pain left hip at 8/10, requested pain meds at end of Rx. Pain Numeric Pain Scale: 8 Location: Left Location Body Site: Hip Pain Description: Ache Mental Status Patient Orientation: Normal For Age Transfers Therapy Code Descriptions/Definitions Functional [place] Measure: 0=Not Assessed/NA 4=Minimal Assistance 1=Total Assistance 5=Supervision or Setup 2=Maximal Assistance 6=Modified [place] 3=Moderate Assistance 7=Complete [place] Therapy Quality Codes: 6 Independent with activity with or without an assistive device 5 Patient requires set up or clean up by helper. Patient completes activity by themselves 4 Supervision or touching assist (CGA). [place] provide cues , steadying assist 3 The helper provides less than half the effort to complete the activity 2 The helper provides more than half the effort to complete the activity 1 Dependent. The helper does all the effort to complete an activity 7 Patient refused to complete or attempt activity 9 The patient did not perform the activity before the current illness or injury 88 Not attempted due to Medical conditions or safety concerns Transfers (B, C, W/C) (FIM): 4 Scootin Rollin Supine to/from Sit: 4 Sit to/from Stand: 5 Weight Bearing Right Lower Extremity: Right Full Weight Bearing Left Lower Extremity: Left Weight Bearing/Tolerated Gait Training Does the Patient Walk?: Yes Gait (FIM): 5 Distance (FIM): 3=150 ft (150x1, 75x2) Gait Level of Assist: 5 Gait Persons Needed: 1 Gait Assistive Device: FWW difficulty advancing LLE hip at times Exercises Supine Ex: Ankle pumps, Quad Set, Glut sets, Heel Slides, Short Arc Quads, Scooting, Straight leg raise (assist), Hip abd/add (assist) Supine Reps: 15 Seated Therapy Exercises: Ankle pumps, Sit to stand, Long arc quads, Hip abd/add Seated Reps: 10 Assessment Current Status: Good Progress pain and fatigue limit pt PT Short Term Goals Short Term Goals Time Frame: Dec 25, 2018 Transfers (B,C,W/C) (FIM): 4 Gait (FIM): 4 PT Senior Care Goals First Officer Goals PT Senior Care Goals Time Frame: Jan 03, 2019 Transfers (B,C,W/C) (FIM): 7 Sit to Lying (QC): 6 Lying-Sitting on Side/Bed(QC): 6 Sit to Stand (QC): 6 Rollin Roll Left to Right (QC): 6 Chair/Kpy-yn-Afkdu Xfer(QC): 6 Car Transfer (QC): 6 Does the Patient Walk: Yes Gait (FIM): 6 Gait distance (FIM): 3=150 ft Walk 10 feet (QC): 6 Walk 10ft-Uneven Surface(QC): 6 Walk 50ft with 2 Turns (QC): 6 Walk 150 ft (QC): 6 Gait Assistive Device: FWW Does the Pt use WC or Scooter?: No Stairs (FIM): 5 # of Steps: 4 (household distance) 1 Step (curb) (QC): 6 4 Steps (QC): 6 12 Steps (QC): 6 Picking up an Object (QC): 88 PT Plan Treatment/Plan Treatment Plan: Continue Plan of Care Treatment Plan: Bed Mobility, Education, Functional Activity Lucy, Functional Strength, Group Therapy, Gait, Safety, Therapeutic Exercise, Transfers Treatment Duration: Jan 03, 2019 Frequency: At least 5 of 7 days/Wk (IRF) Estimated Hrs Per Day: 1.5 hours per day Patient and/or Family Agrees t: Yes Safety Risks/Education Patient Education: Gait Training, Transfer Techniques, Correct Positioning, Di sease Process, Safety Issues Teaching Recipient: Patient Teaching Methods: Demonstration, Discussion Response to Teaching: Verbalize Understanding, Return Demonstration, Reinforcement Needed Time/GCodes Time In: 845 Time Out: 930 Total Billed Treatment Time: 45 Total Billed Treatment 1,GT15m,EX15m,FA15m KATT MARIA PTA Dec 20, 2018 09:31
--- NOTE | 2018-12-20 09:37 | PM&R Progress Note ---
Subjective HPI/CC On Admission Date Seen by Provider: Dec 20, 2018 Time Seen by Provider: 09:00 Chief complaint: Debility following left intertrochanteric hip fracture History of present illness: This is a 70-year-old white female clinic patient of Dr. Wills who presents following a fall at home resulted in intertrochanteric left hip fracture undergoing an uncomplicated repair the following day. 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 Her hemoglobin remains low at 7.7 but did not require a transfusion while on fourth floor. She has not had a bowel movement since she was admitted. Most medications from home were restarted and at this current time her son and tunnel heading supervisor are at the bedside. Apparently she was at home and went out to get her mail when 1 of her dogs knocked her over. She sees a mainframe applications developer at . She is insulin-dependent for her diabetes management. We took care of her for 3 weeks in inpatient rehab following an elective right shoulder replacement so she is familiar with the routine of rehab and will be monitored closely considering her significant comorbidities. Her prior level of functioning is sometimes use of a cane but is independent with her ADLs at home. Subjective/Events-last exam Had a bowel movement yesterday with complete evacuation Sugars are doing very well so we will change that to twice daily for Accu-Cheks Pain is still an issue but overall she is doing very well with pain medication Witnessed her walking with a walker with therapy today and she looks really good and strong and confident but slowed Continues to be a fall risk Check meds and labs Reviewed therapy notes Conferred with material cutter of Systems General: Fatigue Musculoskeletal: leg pain Objective Exam Vital Signs Vital Signs Date Time Temp Pulse Resp B/P (MAP) Pulse Ox O2 Delivery O2 Flow Rate FiO2 12/20/18 08:20 Room Air 12/20/18 06:47 98.6 83 18 159/79 (105) 96 Capillary Refill : Less Than 3 Seconds General Appearance: No Apparent Distress, WD/WN, Chronically ill HEENT: PERRL/EOMI, Normal ENT Inspection, Pharynx Normal, Moist Mucous Membranes Neck: Full Range of Motion, Normal Inspection, Non Tender, Supple Respiratory: Chest Non Tender, Lungs Clear, Normal Breath Sounds, No Accessory Muscle Use, No Respiratory Distress Cardiovascular: Regular Rate, Rhythm, No Edema, No Gallop, No JVD, No Murmur Gastrointestinal: Normal Bowel Sounds, No Organomegaly, No Pulsatile Mass, Non Tender, Soft Back: Normal Inspection, No CVA Tenderness, No Vertebral Tenderness Extremity: Normal Capillary Refill, Normal Inspection, Normal Range of Motion (limited ROM left leg), Non Tender, No Calf Tenderness, No Pedal Edema Neurologic/Psychiatric: Alert, Oriented x3, No Motor/Sensory Deficits, Normal Mood/Affect, radio interference trouble shooter II-XII Norm as Tested, Abnormal Gait Skin: Normal Color, Warm/Dry Lymphatic: No Adenopathy Results/Procedures Lab Laboratory Tests 12/20/18 07:15 Patient resulted labs reviewed. FIM Transfers Therapy Code Descriptions/Definitions Functional [place] Measure: 0=Not Assessed/NA 4=Minimal Assistance 1=Total Assistance 5=Supervision or Setup 2=Maximal Assistance 6=Modified [place] 3=Moderate Assistance 7=Complete [place] Therapy Quality Codes: 6 Independent with activity with or without an assistive device 5 Patient requires set up or clean up by helper. Patient completes activity by themselves 4 Supervision or touching assist (CGA). [place] provide cues , steadying assist 3 The helper provides less than half the effort to complete the activity 2 The helper provides more than half the effort to complete the activity 1 Dependent. The helper does all the effort to complete an activity 7 Patient refused to complete or attempt activity 9 The patient did not perform the activity before the current illness or injury 88 Not attempted due to Medical conditions or safety concerns Transfers (B, C, W/C) (FIM): 4 Scootin Rollin Roll Left to Right (QC): 5 Supine to/from Sit: 4 Sit to/from Stand: 5 Sit to Lying (QC): 4 Sit to Stand (QC): 5 Chair/Xgy-wm-Dezar Xfer(QC): 5 Bed to/from Chair: 5 Car Transfer (QC): 4 Gait Training Does the Patient Walk?: Yes Gait (FIM): 5 Distance (FIM): 3=150 ft (150x1, 75x2) Distance: 20' x 2 Walk 10 feet (QC): 5 Walk 50 ft with 2 Turns(QC): 88 Walk 150 ft (QC): 88 Walking 10ft/uneven surface-QC: 88 Gait Level of Assist: 5 Gait Persons Needed: 1 Gait Assistive Device: FWW Wheelchair Training Does the Pt Use a Wheelchair?: Yes Wheelchair (FIM): 5 Wheelchair Distance: 3=150 ft (160x2) Wheelchair Level of Assist: 5 Type of Wheelchair: Manual Stair Training Stairs (FIM): 0 1 Step (curb) (QC): 88 4 Steps (QC): 88 12 Steps (QC): 88 Balance Picking up an Object (QC): 88 Mental Status/Objective Comprehension: 7 Expression: 7 Social Interaction: 7 Problem Solvin Memory: 7 ADL-Treatment Feedin Eating (QC): 6 Groomin (set up at sink, pt able to wash hands and brush hair) Oral Hygiene (QC): 5 Bathin (Sponge bath, seated in recliner: pt completed 01/30 parts. Min A with balance standing at FWW for washing buttocks/periarea,) Bathing Location: L Arm, R Arm, L Upper Leg, R Upper Leg, L Lower Leg (i ncluding foot), R Lower Leg (including foot), Chest, Abdomen, Buttocks, Perineal Area Shower/Bathe Self (QC): 3 Upper Extremity Dressin (setup) Upper Body Dressing (QC): 5 Lower Extremity Dressin (pt completed 08/28, pt required assistance threading LLE into underwear/pants/shoe using dressing stick. Min A standing balance for management of clothing.) Lower Body Dressing (QC): 3 On/Off Footwear (QC): 3 Toiletin (3/3 complete, pt required min A for balance standing at GB & FWW during hygiene.) Toileting Hygiene (QC): 3 Toilet/Commode Transfer: 4 (Commode over toilet: Min A stand using GB and FWW, CGA to sit ) Toilet Transfer (QC): 3 Assessment/Plan Assessment and Plan Assess & Plan/Chief Complaint Plan: IRF protocol Pain meds to continue BM regimen to be maintained since resolved now Home meds IS DM management ADA diet Heparin for DVT PPx Venofer Iron level reviewed Consult Dr Amaury Browne and his expertise is appreciated (1) Intertrochanteric fracture of left femur Status: Acute (2) Fall from ground level Status: Acute (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
[2018-12-20] MEDS: meTOprolol TARTRATE 25 MG (LOPRESSOR) TABLET PO SCH ×2 (10:46→20:20)
[2018-12-20] MEDS: ACETAMINOPHEN 325 MG TABLET PO PRN (10:46)
[2018-12-20] MEDS: DOCUSATE SODIUM 100 MG (COLACE) CAP PO SCH ×2 (10:47→21:47)
[2018-12-20] MEDS: PANTOPRAZOLE 40 MG (PROTONIX) TAB PO SCH ×2 (10:47→20:20)
[2018-12-20] MEDS: SENNA W/DOCUSATE (SENOKOT S) TABLET PO SCH ×2 (10:47→20:20)
[2018-12-20] MEDS: amLODIPine 5 MG (NORVASC) TAB PO SCH (10:47)
[2018-12-20] MEDS: ALLOPURINOL 100 MG (ZYLOPRIM) TAB PO SCH (10:47)
[2018-12-20] MEDS: FUROSEMIDE 40 MG (LASIX) TAB PO SCH (10:47)
[2018-12-20] MEDS: POLYETHYLENE GLYCOL 17 GM (MIRALAX) PACK PO SCH ×2 (10:48→21:47)
--- NOTE | 2018-12-20 11:13 | Occupational Ther Daily Note ---
OT Current Status-Daily Note Subjective Pt laying in bed at start of session, agreeable to OT tx. Pt reported she felt like she needed a Tylenol at the end of session, nursing notified. Pain Numeric Pain Scale: 5-Moderate Pain Mental Status/Objective Patient Orientation: Normal For Age Therapy Code Descriptions/Definitions Functional [place] Measure: 0=Not Assessed/NA 4=Minimal Assistance 1=Total Assistance 5=Supervision or Setup 2=Maximal Assistance 6=Modified [place] 3=Moderate Assistance 7=Complete [place] ADL-Treatment Therapy Code Descriptions/Definitions Functional [place] Measure: 0=Not Assessed/NA 4=Minimal Assistance 1=Total Assistance 5=Supervision or Setup 2=Maximal Assistance 6=Modified [place] 3=Moderate Assistance 7=Complete [place] Therapy Quality Codes: 6 Independent with activity with or without an assistive device 5 Patient requires set up or clean up by helper. Patient completes activity by themselves 4 Supervision or touching assist (CGA). [place] provide cues , steadying assist 3 The helper provides less than half the effort to complete the activity 2 The helper provides more than half the effort to complete the activity 1 Dependent. The helper does all the effort to complete an activity 7 Patient refused to complete or attempt activity 9 The patient did not perform the activity before the current illness or injury 88 Not attempted due to Medical conditions or safety concerns Grooming (FIM): 6 (Mod I seated in w/c at sink, pt brushed teeth, hair, washed face & hands) Oral Hygiene (QC): 6 Upper Body (FIM): 5 (OT handed pt sweater, pt able to don 3/3 parts) Transfers (B, C, W/C) (FIM): 3 (Min A sit to/from stand, Mod A bed mobility (Assist with BLE)) Other Treatment Pt transferred from bed to w/c and completed grooming in room. Pt self propelled w/c to therapy gym. In order to increase UE strength and endurance for ADLs, functional transfers and functional activities, pt completed arm bike [id number] at mod resistance. Pt self propelled w/c back to room and transferred back to bed. Post OT session, pt laying in bed, call light and phone in reach and needs met. Education OT Patient Education: Correct positioning, Energy conservation, Exercise program, Progress toward Goal/Update tx plan, Purpose of tx/functional activities, Transfer techniques Teaching Recipient: Patient Teaching Methods: Demonstration Response to Teaching: Verbalize Understanding OT Short Term Goals Short Term Goals Time Frame: Dec 21, 2018 Bathing(FIM): 4 Lower Body Dressing(FIM): 3 Toileting(FIM): 3 Transfers (B,C,W/C) (FIM): 4 Toilet/Commode Transfer(FIM): 4 Additional Short Term Goals: 1-Demonstrate ADL Tasks, 2-Verbalize Understanding, 3-ImproveStrength/Lucy 1=Demonstrate adherence to instructed precautions during ADL tasks. 2=Patient will verbalize/demonstrate understanding of assistive devices/modifications for ADL. 3=Patient will improve strength/tolerance for activity to enable patient to perf orm ADL's. OT Retirement Goals Retirement Goals Time Frame: Jan 04, 2019 Eating (FIM): 7 Eating (QC): 6 Groomin Oral Hygiene (QC): 6 Bathing(FIM): 5 Shower/Bathe Self (QC): 5 Upper Body Dressing(FIM): 6 Upper Body Dressing (QC): 6 Lower Body Dressing(FIM): 5 Lower Body Dressing (QC): 5 On/Off Footwear (QC): 5 Toileting(FIM): 6 Toileting Hygiene (QC): 6 Toilet/Commode Transfer(FIM): 6 Toilet/Commode Transfer (QC): 6 Shower Transfer(FIM): 5 Additional Goals: 1-Demonstrate ADL Tasks, 2-Verbalize Understanding, 3- ImproveStrength/Lucy 1=Demonstrate adherence to instructed precautions during ADL tasks. 2=Patient will verbalize/demonstrate understanding of assistive devices/modifications for ADL. 3=Patient will improve strength/tolerance for activity to enable patient to perform ADL's. OT Education/Plan Problem List/Assessment Assessment: Decreased Activ Tolerance, Decreased UE Strength, Impaired Funct Balance, Impaired I ADL's, Impaired Self-Care Skills Pt admitted to ARU after fall resulting in left hip fracture. S/p surgical intervention. Pt demonstrates decreased mobility, strength, activity tolerance, and ADL functioning. Pt to benefit from skilled OT intervention for ADL traini ng, transfers, strengthening, adaptive equipment training, and home safety education to increase level of independence and allow safe discharge home. Discharge Recommendations Plan/Recommendations: Continue POC Treatment Plan/Plan of Care Treatment,Training & Education: Yes Patient would benefit from OT for education, treatment and training to promote independence in ADL's, mobility, safety and/or upper extremity function for ADL's. Plan of Care: ADL Retraining, Functional Mobility, Group Exercise/Act as Ind, UE Funct Exercise/Act Treatment Duration: Jan 04, 2019 Frequency: At least 5 of 7 days/Wk (IRF) Estimated Hrs Per Day: 1.5 hours per day Rehab Potential: Good Time/GCodes Start Time: 10:06 Stop Time: 10:38 Total Time Billed (hr/min): 32 Billed Treatment Time 1, ADL [id number], EX [id number] YOLANDE COURTNEY OT Dec 20, 2018 11:13
--- NOTE | 2018-12-20 14:34 | Therapy Group Daily Note ---
Therapy Daily Group Note Patient Education Topic Home Safety, Fall Prevention, Exercises Exercises LE Seated Exercise, UE Exercise Session Ratio (pt:therapist): 4:1 Goal of Session: Education on ARU Expectations, Energy Conservation Tech., Home Safety Strategies, UE/LE Strengthing, Safety with Transfers Goal Met for this Session: Yes Pt Benefit of Group: Contributions to Others, F/U Use of Strategies @Home, Increased Functional Safety, Increased Functional Strength, Improved Cognition, Recognition of Peers, Socialization Other/Notes Pt transported via w/c to [facility] for OT group. Group consisted of introductions (name and first car driven), socialization, home safety, and ARU expectations. Pt introduced self appropriately and actively listened to peers. Pt acknowledged understanding of educational topics of home safety consisting of Jeopardy game with categories on fall prevention, kitchen safety, bathroom safety, home modifications and home management supervisor. pt engaged in session by listing appropriate answers to the question and providing discussion on ways they stay safe in their own house. Pt completed UE/LE exercises within group session. Pt listed one thing learned in today's group session.. After therapy, pt seated in recliner with call light/phone in reach. All needs met in room. Start Time: 13:00 Stop Time: 14:15 Total Billed Treatment Time: 75 Total Billed Treatment 1, GRP YOLANDE COURTNEY OT Dec 20, 2018 14:34
[2018-12-20 17:27] VITALS: BP 160/78
[2018-12-21] MEDS: inSUlin ASPART (NovoLOG) 1 UNIT/0.01 ML (CHARGE PER UNIT) SC SCH ×2 (05:45→16:53)
[2018-12-21 05:49] VITALS: BP 170/78
[2018-12-21] MEDS: LEVOTHYROXINE 75 MCG (LEVOTHROID) TABLET PO SCH (06:35)
[2018-12-21] MEDS: SODIUM BICARBONATE 650 MG TABLET (NON-FORMULARY) PO SCH ×2 (06:35→16:45)
[2018-12-21] MEDS: CATHETER FLUSH 10 ML SYR IV SCH ×3 (06:36→20:13)
[2018-12-21] MEDS: DOCUSATE SODIUM 100 MG (COLACE) CAP PO SCH ×2 (08:06→21:17)
[2018-12-21] MEDS: meTOprolol TARTRATE 25 MG (LOPRESSOR) TABLET PO SCH ×2 (08:06→20:13)
[2018-12-21] MEDS: ALLOPURINOL 100 MG (ZYLOPRIM) TAB PO SCH (08:07)
[2018-12-21] MEDS: FUROSEMIDE 40 MG (LASIX) TAB PO SCH (08:07)
[2018-12-21] MEDS: PANTOPRAZOLE 40 MG (PROTONIX) TAB PO SCH ×2 (08:07→20:13)
[2018-12-21] MEDS: amLODIPine 5 MG (NORVASC) TAB PO SCH (08:07)
[2018-12-21] MEDS: SENNA W/DOCUSATE (SENOKOT S) TABLET PO SCH ×2 (08:07→21:17)
[2018-12-21] MEDS: POLYETHYLENE GLYCOL 17 GM (MIRALAX) PACK PO SCH ×2 (08:09→21:17)
[2018-12-21] MEDS: IRON SUCROSE 200 MG/10 ML (VENOFER) VIAL IV SCH (08:10)
--- NOTE | 2018-12-21 10:36 | PM&R Progress Note ---
Subjective HPI/CC On Admission Date Seen by Provider: Dec 21, 2018 Time Seen by Provider: 10:30 Chief complaint: Debility following left intertrochanteric hip fracture History of present illness: This is a 70-year-old white female clinic patient of Dr. Wills who presents following a fall at home resulted in intertrochanteric left hip fracture undergoing an uncomplicated repair the following day. 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 Her hemoglobin remains low at 7.7 but did not require a transfusion while on fourth floor. She has not had a bowel movement since she was admitted. Most medications from home were restarted and at this current time her son and roofing layer are at the bedside. Apparently she was at home and went out to get her mail when 1 of her dogs knocked her over. She sees a emd special education teacher at . She is insulin-dependent for her diabetes management. We took care of her for 3 weeks in inpatient rehab following an elective right shoulder replacement so she is familiar with the routine of rehab and will be monitored closely considering her significant comorbidities. Her prior level of functioning is sometimes use of a cane but is independent with her ADLs at home. Subjective/Events-last exam Had a bowel movement again today Sugars are doing very well so changed that to twice daily for Accu-Cheks Pain is still an issue but overall she is doing very well with pain medication Witnessed her walking with a walker with therapy today and she looks really good and strong and confident but slowed Continues to be a fall risk Incision looks good per RN Check meds and labs Reviewed therapy notes Conferred with fur dyer of Systems Musculoskeletal: leg pain Objective Exam Vital Signs Vital Signs Date Time Temp Pulse Resp B/P (MAP) Pulse Ox O2 Delivery O2 Flow Rate FiO2 12/21/18 16:33 98.2 83 16 132/72 (92) 92 Room Air Capillary Refill : Less Than 3 Seconds General Appearance: No Apparent Distress, WD/WN, Chronically ill HEENT: PERRL/EOMI, Normal ENT Inspection, Pharynx Normal, Moist Mucous Membranes Neck: Full Range of Motion, Normal Inspection, Non Tender, Supple Respiratory: Chest Non Tender, Lungs Clear, Normal Breath Sounds, No Accessory Muscle Use, No Respiratory Distress Cardiovascular: Regular Rate, Rhythm, No Edema, No Gallop, No JVD, No Murmur Gastrointestinal: Normal Bowel Sounds, No Organomegaly, No Pulsatile Mass, Non Tender, Soft Back: Normal Inspection, No CVA Tenderness, No Vertebral Tenderness Extremity: Normal Capillary Refill, Normal Inspection, Normal Range of Motion (limited ROM left leg), Non Tender, No Calf Tenderness, No Pedal Edema Neurologic/Psychiatric: Alert, Oriented x3, No Motor/Sensory Deficits, Normal Mood/Affect, mental health professional II-XII Norm as Tested, Abnormal Gait Skin: Normal Color, Warm/Dry Lymphatic: No Adenopathy Results/Procedures Lab Patient resulted labs reviewed. FIM Transfers Therapy Code Descriptions/Definitions Functional [place] Measure: 0=Not Assessed/NA 4=Minimal Assistance 1=Total Assistance 5=Supervision or Setup 2=Maximal Assistance 6=Modified [place] 3=Moderate Assistance 7=Complete [place] Therapy Quality Codes: 6 Independent with activity with or without an assistive device 5 Patient requires set up or clean up by helper. Patient completes activity by themselves 4 Supervision or touching assist (CGA). [place] provide cues , steadying assist 3 The helper provides less than half the effort to complete the activity 2 The helper provides more than half the effort to complete the activity 1 Dependent. The helper does all the effort to complete an activity 7 Patient refused to complete or attempt activity 9 The patient did not perform the activity before the current illness or injury 88 Not attempted due to Medical conditions or safety concerns Transfers (B, C, W/C) (FIM): 3 (Min A sit to/from stand, Mod A bed mobility (Assist with BLE)) Scootin Rollin Roll Left to Right (QC): 5 Supine to/from Sit: 4 Sit to/from Stand: 5 Sit to Lying (QC): 4 Sit to Stand (QC): 5 Chair/Vsp-aw-Yvrrr Xfer(QC): 5 Bed to/from Chair: 5 Car Transfer (QC): 4 Gait Training Does the Patient Walk?: Yes Gait (FIM): 5 Distance (FIM): 3=150 ft (150x1, 75x2) Distance: 20' x 2 Walk 10 feet (QC): 5 Walk 50 ft with 2 Turns(QC): 88 Walk 150 ft (QC): 88 Walking 10ft/uneven surface-QC: 88 Gait Level of Assist: 5 Gait Persons Needed: 1 Gait Assistive Device: FWW Wheelchair Training Does the Pt Use a Wheelchair?: Yes Wheelchair (FIM): 5 Wheelchair Distance: 3=150 ft (160x2) Wheelchair Level of Assist: 5 Type of Wheelchair: Manual Stair Training Stairs (FIM): 0 1 Step (curb) (QC): 88 4 Steps (QC): 88 12 Steps (QC): 88 Balance Picking up an Object (QC): 88 Mental Status/Objective Comprehension: 7 Expression: 7 Social Interaction: 7 Problem Solvin Memory: 7 ADL-Treatment Feedin Eating (QC): 6 Groomin (Mod I seated in w/c at sink, pt brushed teeth, hair, washed face & hands) Oral Hygiene (QC): 6 Bathin (Sponge bath, seated in recliner: pt completed 10/10 parts. Min A with balance standing at FWW for washing buttocks/periarea,) Bathing Location: L Arm, R Arm, L Upper Leg, R Upper Leg, L Lower Leg (including foot), R Lower Leg (including foot), Chest, Abdomen, Buttocks, Perineal Area Shower/Bathe Self (QC): 3 Upper Extremity Dressin (OT handed pt sweater, pt able to don 3/3 parts) Upper Body Dressing (QC): 5 Lower Extremity Dressin (pt completed 08/28, pt required assistance threading LLE into underwear/pants/shoe using dressing stick. Min A standing balance for management of clothing.) Lower Body Dressing (QC): 3 On/Off Footwear (QC): 3 Toiletin (3/3 complete, pt required min A for balance standing at GB & FWW during hygiene.) Toileting Hygiene (QC): 3 Toilet/Commode Transfer: 4 (Commode over toilet: Min A stand using GB and FWW, CGA to sit ) Toilet Transfer (QC): 3 Assessment/Plan Assessment and Plan Assess & Plan/Chief Complaint Plan: IRF protocol Pain meds to continue BM regimen to be maintained since resolved now Home meds IS DM management ADA diet Heparin for DVT PPx Venofer Iron level reviewed Consult Dr Amaury Browne and his expertise is appreciated (1) Intertrochanteric fracture of left femur Status: Acute (2) Fall from ground level Status: Acute (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
--- NOTE | 2018-12-21 13:06 | Physical Therapy Daily Note ---
PT Daily Note-Current Subjective (L) hip weakness and soreness. (L) hip pain rated 6/10, with pt receiving pain meds during treatment. Pain Numeric Pain Scale: 6 Location: Left Location Body Site: Hip Pain Description: [place] Mental Status Patient Orientation: Person, Place, Time, Situation Transfers Therapy Code Descriptions/Definitions Functional [place] Measure: 0=Not Assessed/NA 4=Minimal Assistance 1=Total Assistance 5=Supervision or Setup 2=Maximal Assistance 6=Modified [place] 3=Moderate Assistance 7=Complete [place] Therapy Quality Codes: 6 Independent with activity with or without an assistive device 5 Patient requires set up or clean up by helper. Patient completes activity by themselves 4 Supervision or touching assist (CGA). [place] provide cues , steadying assist 3 The helper provides less than half the effort to complete the activity 2 The helper provides more than half the effort to complete the activity 1 Dependent. The helper does all the effort to complete an activity 7 Patient refused to complete or attempt activity 9 The patient did not perform the activity before the current illness or injury 88 Not attempted due to Medical conditions or safety concerns Transfers (B, C, W/C) (FIM): 6 Sit to/from Stand: 6 Weight Bearing Right Lower Extremity: Right Full Weight Bearing Left Lower Extremity: Left Weight Bearing/Tolerated Gait Training Does the Patient Walk?: Yes Distance (FIM): 3=150 ft Distance: 150ft x2 Gait Level of Assist: 5 Gait Assistive Device: FWW Exercises NuStep Minutes: 7 NuStep Workload: 5 Assessment Current Status: Fair Progress Good mobility despite increased (L) hip pain. Pt noted a reduction in (L) hip pain during NuStep. PT Short Term Goals Short Term Goals Time Frame: Dec 25, 2018 Transfers (B,C,W/C) (FIM): 4 Gait (FIM): 4 PT Planning Supervisor Goals Planning Supervisor Goals PT Planning Supervisor Goals Time Frame: Jan 03, 2019 Transfers (B,C,W/C) (FIM): 7 Sit to Lying (QC): 6 Lying-Sitting on Side/Bed(QC): 6 Sit to Stand (QC): 6 Rollin Roll Left to Right (QC): 6 Chair/Pkk-bc-Epkus Xfer(QC): 6 Car Transfer (QC): 6 Does the Patient Walk: Yes Gait (FIM): 6 Gait distance (FIM): 3=150 ft Walk 10 feet (QC): 6 Walk 10ft-Uneven Surface(QC): 6 Walk 50ft with 2 Turns (QC): 6 Walk 150 ft (QC): 6 Gait Assistive Device: FWW Does the Pt use WC or Scooter?: No Stairs (FIM): 5 # of Steps: 4 (household distance) 1 Step (curb) (QC): 6 4 Steps (QC): 6 12 Steps (QC): 6 Picking up an Object (QC): 88 PT Plan Treatment/Plan Treatment Plan: Continue Plan of Care Treatment Plan: Bed Mobility, Education, Functional Activity Lucy, Functional Strength, Group Therapy, Gait, Safety, Therapeutic Exercise, Transfers Treatment Duration: Jan 03, 2019 Frequency: At least 5 of 7 days/Wk (IRF) Estimated Hrs Per Day: 1.5 hours per day Patient and/or Family Agrees t: Yes Time/GCodes Time In: 1100 Time Out: 1125 Total Billed Treatment Time: 25 Total Billed Treatment 1, ex 10, gt 15 COURTNEY GUADALUPE PT Dec 21, 2018 13:06
[2018-12-21 16:33] VITALS: BP 132/72
[2018-12-22] MEDS: inSUlin ASPART (NovoLOG) 1 UNIT/0.01 ML (CHARGE PER UNIT) SC SCH ×2 (05:34→18:01)
[2018-12-22] MEDS: LEVOTHYROXINE 75 MCG (LEVOTHROID) TABLET PO SCH (06:39)
[2018-12-22] MEDS: SODIUM BICARBONATE 650 MG TABLET (NON-FORMULARY) PO SCH ×2 (06:39→18:02)
[2018-12-22] MEDS: CATHETER FLUSH 10 ML SYR IV SCH ×3 (06:40→22:27)
[2018-12-22 06:42] VITALS: BP 150/71
--- NOTE | 2018-12-22 08:00 | NUR ---
PATIENT COMPLAINED OF "ACHY" MIDLINE IV SITE. ATTEMPTED TO FLUSH SITE. PATIENT COMPLAINED OF PAIN WITH FLUSH AND SWELLING ABOVE THE INSERTION SITE WAS NOTED. MIDLINE IV REMOVED. PRESSURE DRESSING APPLIED. NO BLEEDING NOTED. PATIENT DENIED PAIN WITH REMOVAL OF MIDLINE. PATIENT TOLERATED WELL.
[2018-12-22] MEDS: PANTOPRAZOLE 40 MG (PROTONIX) TAB PO SCH ×2 (09:30→22:24)
[2018-12-22] MEDS: meTOprolol TARTRATE 25 MG (LOPRESSOR) TABLET PO SCH ×2 (09:30→22:25)
[2018-12-22] MEDS: ALLOPURINOL 100 MG (ZYLOPRIM) TAB PO SCH (09:30)
[2018-12-22] MEDS: FUROSEMIDE 40 MG (LASIX) TAB PO SCH (09:30)
[2018-12-22] MEDS: amLODIPine 5 MG (NORVASC) TAB PO SCH (09:30)
[2018-12-22] MEDS: DOCUSATE SODIUM 100 MG (COLACE) CAP PO SCH ×2 (09:30→22:23)
[2018-12-22] MEDS: POLYETHYLENE GLYCOL 17 GM (MIRALAX) PACK PO SCH ×2 (09:32→22:24)
[2018-12-22] MEDS: SENNA W/DOCUSATE (SENOKOT S) TABLET PO SCH ×2 (09:47→22:26)
--- NOTE | 2018-12-22 13:28 | PM&R Progress Note ---
Subjective HPI/CC On Admission Date Seen by Provider: Dec 22, 2018 Time Seen by Provider: 11:15 Chief complaint: Debility following left intertrochanteric hip fracture History of present illness: This is a 70-year-old white female clinic patient of Dr. Wills who presents following a fall at home resulted in intertrochanteric left hip fracture undergoing an uncomplicated repair the following day. 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 Her hemoglobin remains low at 7.7 but did not require a transfusion while on fourth floor. She has not had a bowel movement since she was admitted. Most medications from home were restarted and at this current time her son and public relations supervisor are at the bedside. Apparently she was at home and went out to get her mail when 1 of her dogs knocked her over. She sees a hand router operator at . She is insulin-dependent for her diabetes management. We took care of her for 3 weeks in inpatient rehab following an elective right shoulder replacement so she is familiar with the routine of rehab and will be monitored closely considering her significant comorbidities. Her prior level of functioning is sometimes use of a cane but is independent with her ADLs at home. Subjective/Events-last exam Patient is doing very well Has her sister visiting and her daughter Denies any significant pain and pain medication does help when she takes it Really progressing nicely and really walking around with a walker and doing very well Denies any nausea Appetite is improved Hemoglobin will be monitored closely Check meds and labs Reviewed therapy notes Conferred with mental health counselor of Systems Musculoskeletal: leg pain Objective Exam Vital Signs Vital Signs Date Time Temp Pulse Resp B/P (MAP) Pulse Ox O2 Delivery O2 Flow Rate FiO2 12/22/18 18:00 Room Air 12/22/18 15:50 98.0 91 16 163/73 (103) 98 Capillary Refill : Less Than 3 Seconds General Appearance: No Apparent Distress, WD/WN, Chronically ill HEENT: PERRL/EOMI, Normal ENT Inspection, Pharynx Normal, Moist Mucous Membranes Neck: Full Range of Motion, Normal Inspection, Non Tender, Supple Respiratory: Chest Non Tender, Lungs Clear, Normal Breath Sounds, No Accessory Muscle Use, No Respiratory Distress Cardiovascular: Regular Rate, Rhythm, No Edema, No Gallop, No JVD, No Murmur Gastrointestinal: Normal Bowel Sounds, No Organomegaly, No Pulsatile Mass, Non Tender, Soft Back: Normal Inspection, No CVA Tenderness, No Vertebral Tenderness Extremity: Normal Capillary Refill, Normal Inspection, Normal Range of Motion (limited ROM left leg), Non Tender, No Calf Tenderness, No Pedal Edema Neurologic/Psychiatric: Alert, Oriented x3, No Motor/Sensory Deficits, Normal Mood/Affect, identity management developer II-XII Norm as Tested, Abnormal Gait Skin: Normal Color, Warm/Dry Lymphatic: No Adenopathy Results/Procedures Lab Patient resulted labs reviewed. FIM Transfers Therapy Code Descriptions/Definitions Functional [place] Measure: 0=Not Assessed/NA 4=Minimal Assistance 1=Total Assistance 5=Supervision or Setup 2=Maximal Assistance 6=Modified [place] 3=Moderate Assistance 7=Complete [place] Therapy Quality Codes: 6 Independent with activity with or without an assistive device 5 Patient requires set up or clean up by helper. Patient completes activity by themselves 4 Supervision or touching assist (CGA). [place] provide cues , steadying assist 3 The helper provides less than half the effort to complete the activity 2 The helper provides more than half the effort to complete the activity 1 Dependent. The helper does all the effort to complete an activity 7 Patient refused to complete or attempt activity 9 The patient did not perform the activity before the current illness or injury 88 Not attempted due to Medical conditions or safety concerns Transfers (B, C, W/C) (FIM): 6 Scootin Rollin Roll Left to Right (QC): 5 Supine to/from Sit: 4 Sit to/from Stand: 6 Sit to Lying (QC): 4 Sit to Stand (QC): 5 Chair/Scj-gj-Illwh Xfer(QC): 5 Bed to/from Chair: 5 Car Transfer (QC): 4 Gait Training Does the Patient Walk?: Yes Gait (FIM): 5 Distance (FIM): 3=150 ft Distance: 150ft x2 Walk 10 feet (QC): 5 Walk 50 ft with 2 Turns(QC): 88 Walk 150 ft (QC): 88 Walking 10ft/uneven surface-QC: 88 Gait Level of Assist: 5 Gait Persons Needed: 1 Gait Assistive Device: FWW Wheelchair Training Does the Pt Use a Wheelchair?: Yes Wheelchair (FIM): 5 Wheelchair Distance: 3=150 ft (160x2) Wheelchair Level of Assist: 5 Type of Wheelchair: Manual Stair Training Stairs (FIM): 0 1 Step (curb) (QC): 88 4 Steps (QC): 88 12 Steps (QC): 88 Balance Picking up an Object (QC): 88 Mental Status/Objective Comprehension: 7 Expression: 7 Social Interaction: 7 Problem Solvin Memory: 7 ADL-Treatment Feedin Eating (QC): 6 Groomin (Mod I seated in w/c at sink, pt brushed teeth, hair, washed face & hands) Oral Hygiene (QC): 6 Bathin (Sponge bath, seated in recliner: pt completed 10/10 parts. Min A with balance standing at FWW for washing buttocks/periarea,) Bathing Location: L Arm, R Arm, L Upper Leg, R Upper Leg, L Lower Leg (includi ng foot), R Lower Leg (including foot), Chest, Abdomen, Buttocks, Perineal Area Shower/Bathe Self (QC): 3 Upper Extremity Dressin (OT handed pt sweater, pt able to don 3/3 parts) Upper Body Dressing (QC): 5 Lower Extremity Dressin (pt completed 08/28, pt required assistance threading LLE into underwear/pants/shoe using dressing stick. Min A standing balance for management of clothing.) Lower Body Dressing (QC): 3 On/Off Footwear (QC): 3 Toiletin (3/3 complete, pt required min A for balance standing at GB & FWW during hygiene.) Toileting Hygiene (QC): 3 Toilet/Commode Transfer: 4 (Commode over toilet: Min A stand using GB and FWW, CGA to sit ) Toilet Transfer (QC): 3 Assessment/Plan Assessment and Plan Assess & Plan/Chief Complaint Plan: IRF protocol Pain meds to continue BM regimen to be maintained since resolved now Home meds IS DM management ADA diet Heparin for DVT PPx Venofer Iron level reviewed Consult Dr Amaury Browne and his expertise is appreciated (1) Intertrochanteric fracture of left femur Status: Acute (2) Fall from ground level Status: Acute (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
[2018-12-22 15:50] VITALS: BP 163/73
[2018-12-23 05:40] VITALS: BP 151/71
[2018-12-23] MEDS: inSUlin ASPART (NovoLOG) 1 UNIT/0.01 ML (CHARGE PER UNIT) SC SCH ×2 (05:57→16:28)
[2018-12-23] MEDS: CATHETER FLUSH 10 ML SYR IV SCH ×3 (05:58→23:18)
[2018-12-23] MEDS: LEVOTHYROXINE 75 MCG (LEVOTHROID) TABLET PO SCH (06:03)
[2018-12-23] MEDS: SODIUM BICARBONATE 650 MG TABLET (NON-FORMULARY) PO SCH ×2 (06:03→16:27)
[2018-12-23 07:51] LABS: BASOPHILS % (AUTO) 1 % (0-10); EOSINOPHILS # (AUTO) 0.2 10^3/uL (0.0-0.3); EOSINOPHILS % (AUTO) 2 % (0-10); HEMATOCRIT 25 % (35-52); HEMOGLOBIN 7.8 G/DL (11.5-16.0); LYMPHOCYTES # (AUTO) 1.3 X 10^3 (1.0-4.0); LYMPHOCYTES % (AUTO) 16 % (12-44); MEAN CORPUSCULAR HEMOGLOBIN 32 PG (25-34); MEAN CORPUSCULAR HGB CONC 31 G/DL (32-36); MEAN CORPUSCULAR VOLUME 104 FL (80-99); MONOCYTES % (AUTO) 12 % (0-12); NEUTROPHILS # (AUTO) 5.8 X 10^3 (1.8-7.8); NEUTROPHILS % (AUTO) 70 % (42-75); PLATELET COUNT 348 10^3/uL (130-400); RED CELL DISTRIBUTION WIDTH 14.4 % (10.0-14.5); WHITE BLOOD COUNT 8.4 10^3/uL (4.3-11.0)
[2018-12-23] MEDS: FUROSEMIDE 40 MG (LASIX) TAB PO SCH (08:25)
[2018-12-23] MEDS: amLODIPine 5 MG (NORVASC) TAB PO SCH (08:25)
[2018-12-23] MEDS: PANTOPRAZOLE 40 MG (PROTONIX) TAB PO SCH ×2 (08:25→20:25)
[2018-12-23] MEDS: meTOprolol TARTRATE 25 MG (LOPRESSOR) TABLET PO SCH ×2 (08:25→20:25)
[2018-12-23] MEDS: ALLOPURINOL 100 MG (ZYLOPRIM) TAB PO SCH (08:26)
[2018-12-23] MEDS: DOCUSATE SODIUM 100 MG (COLACE) CAP PO SCH ×2 (08:26→20:23)
[2018-12-23] MEDS: SENNA W/DOCUSATE (SENOKOT S) TABLET PO SCH ×2 (08:26→20:25)
[2018-12-23 08:28] LABS: ALBUMIN 3.4 GM/DL (3.2-4.5); BILIRUBIN,TOTAL 0.6 MG/DL (0.1-1.0); CALCIUM 9.7 MG/DL (8.5-10.1); CREATININE SERUM 2.52 MG/DL (0.60-1.30); POTASSIUM 4.2 MMOL/L (3.6-5.0)
--- NOTE | 2018-12-23 09:14 | Occupational Ther Daily Note ---
OT Current Status-Daily Note Subjective Pt laying in bed at start of therapy, agreed to OT Mental Status/Objective Patient Orientation: Normal For Age Therapy Code Descriptions/Definitions Functional [place] Measure: 0=Not Assessed/NA 4=Minimal Assistance 1=Total Assistance 5=Supervision or Setup 2=Maximal Assistance 6=Modified [place] 3=Moderate Assistance 7=Complete [place] ADL-Treatment Therapy Code Descriptions/Definitions Functional [place] Measure: 0=Not Assessed/NA 4=Minimal Assistance 1=Total Assistance 5=Supervision or Setup 2=Maximal Assistance 6=Modified [place] 3=Moderate Assistance 7=Complete [place] Therapy Quality Codes: 6 Independent with activity with or without an assistive device 5 Patient requires set up or clean up by helper. Patient completes activity by themselves 4 Supervision or touching assist (CGA). [place] provide cues , steadying assist 3 The helper provides less than half the effort to complete the activity 2 The helper provides more than half the effort to complete the activity 1 Dependent. The helper does all the effort to complete an activity 7 Patient refused to complete or attempt activity 9 The patient did not perform the activity before the current illness or injury 88 Not attempted due to Medical conditions or safety concerns Grooming (FIM): 6 (Mod I in w/c at sink) Oral Hygiene (QC): 6 Bathing (FIM): 4 (CGA during stand from SC at GB. Pt completed 01/30 parts. ) Bathing Location: L Arm, R Arm, L Upper Leg, R Upper Leg, L Lower Leg (including foot), R Lower Leg (including foot), Chest, Abdomen, Buttocks, Perineal Area Shower/Bathe Self (QC): 4 Upper Body (FIM): 6 Upper Body Dressing (QC): 6 Lower Body Dressing (FIM): 4 (Pt required assistance threading LLE into pants/underwear. Pt completed 09/28 using dressing stick & long handled shoe horn) Lower Body Dressing (QC): 3 On/Off Footwear (QC): 6 Toileting (FIM): 4 (CGA during stand for clothing management) Toileting Hygiene (QC): 4 Transfers (B, C, W/C) (FIM): 4 (Min A sit to stand) Toilet/Commode Transfer (FIM): 4 (CGA sit to stand using GB and FWW) Toilet Transfer (QC): 4 Shower Transfer(FIM): 4 (CGA into shower, Min A stand from SC using GB and FWW) Other Treatment Pt laying in bed at start of session, completed ADLs in room. Pt taken to therapy gym in w/c. In order to increase UE strength and endurance, and fine motor strength/coordination for ADLs and functional activities, pt completed the following activity: Pt placed/removed X100 pegs, 2lb wrist weights BUE, alternating R/L hands in 12 min 30 secs. Pt returned to room. Post OT session, pt seated in recliner, call light in reach and all needs met awaiting breakfast. Education OT Patient Education: Correct positioning, Energy conservation, Exercise program, Transfer techniques, Use of adapted equipment Teaching Recipient: Patient Teaching Methods: Demonstration Response to Teaching: Verbalize Understanding OT Short Term Goals Short Term Goals Time Frame: Dec 21, 2018 Bathing(FIM): 4 Lower Body Dressing(FIM): 3 Toileting(FIM): 3 Transfers (B,C,W/C) (FIM): 4 Toilet/Commode Transfer(FIM): 4 Additional Short Term Goals: 1-Demonstrate ADL Tasks, 2-Verbalize Understanding, 3-ImproveStrength/Lucy 1=Demonstrate adherence to instructed precautions during ADL tasks. 2=Patient will verbalize/demonstrate understanding of assistive devices/modifications for ADL. 3=Patient will improve strength/tolerance for activity to enable patient to perform ADL's. OT Research Program Internship Goals Snf Goals Time Frame: Jan 04, 2019 Eating (FIM): 7 Eating (QC): 6 Groomin Oral Hygiene (QC): 6 Bathing(FIM): 5 Shower/Bathe Self (QC): 5 Upper Body Dressing(FIM): 6 Upper Body Dressing (QC): 6 Lower Body Dressing(FIM): 5 Lower Body Dressing (QC): 5 On/Off Footwear (QC): 5 Toileting(FIM): 6 Toileting Hygiene (QC): 6 Toilet/Commode Transfer(FIM): 6 Toilet/Commode Transfer (QC): 6 Shower Transfer(FIM): 5 Additional Goals: 1-Demonstrate ADL Tasks, 2-Verbalize Understanding, 3-ImproveStrength/Lucy 1=Demonstrate adherence to instructed precautions during ADL tasks. 2=Patient will verbalize/demonstrate understanding of assistive devices/modifications for ADL. 3=Patient will improve strength/tolerance for activity to enable patient to perform ADL's. OT Education/Plan Problem List/Assessment Assessment: Decreased Activ Tolerance, Decreased UE Strength, Impaired Funct Balance, Impaired Self-Care Skills Pt admitted to ARU after fall resulting in left hip fracture. S/p surgical intervention. Pt demonstrates decreased mobility, strength, activity tolerance, and ADL functioning. Pt to benefit from skilled OT intervention for ADL training, transfers, strengthening, adaptive equipment training, and home safety education to increase level of independence and allow safe discharge home. Discharge Recommendations Plan/Recommendations: Continue POC Treatment Plan/Plan of Care Treatment,Training & Education: Yes Patient would benefit from OT for education, treatment and training to promote independence in ADL's, mobility, safety and/or upper extremity function for ADL's. Plan of Care: ADL Retraining, Functional Mobility, Group Exercise/Act as Ind, UE Funct Exercise/Act Treatment Duration: Jan 04, 2019 Frequency: At least 5 of 7 days/Wk (IRF) Estimated Hrs Per Day: 1.5 hours per day Rehab Potential: Good Time/GCodes Start Time: 08:00 Stop Time: 09:00 Total Time Billed (hr/min): 60 Billed Treatment Time 1, ADL 3 [id number], FA [id number] YOLANDE COURTNEY OT Dec 23, 2018 09:14
--- NOTE | 2018-12-23 09:15 | Physical Therapy Daily Note ---
PT Daily Note-Current Subjective Pt agreeable to PT session. States she has already had her OT tx session Pain Numeric Pain Scale: 4 Comment: L hip and L>R low back a little achy Appearance Upon arrival, Pt sitting up in w/c with with her in room awake and alert. During session, pt requested and assisted to restroom. At end of session, pt sitting up in recliner with call light, phone and bedside table within reach. Mental Status Patient Orientation: Person, Place, Time, Eyes Open, Situation Transfers Therapy Code Descriptions/Definitions Functional [place] Measure: 0=Not Assessed/NA 4=Minimal Assistance 1=Total Assistance 5=Supervision or Setup 2=Maximal Assistance 6=Modified [place] 3=Moderate Assistance 7=Complete [place] Therapy Quality Codes: 6 Independent with activity with or without an assistive device 5 Patient requires set up or clean up by helper. Patient completes activity by themselves 4 Supervision or touching assist (CGA). [place] provide cues , steadying assist 3 The helper provides less than half the effort to complete the activity 2 The helper provides more than half the effort to complete the activity 1 Dependent. The helper does all the effort to complete an activity 7 Patient refused to complete or attempt activity 9 The patient did not perform the activity before the current illness or injury 88 Not attempted due to Medical conditions or safety concerns Transfers (B, C, W/C) (FIM): 5 Sit to/from Stand: 5 (good hand placement and safety during all transitions. Effort required but pt able to complete without physical A) Weight Bearing Right Lower Extremity: Right Full Weight Bearing Left Lower Extremity: Left Weight Bearing/Tolerated Gait Training Does the Patient Walk?: Yes Gait (FIM): 5 Distance (FIM): 3=150 ft Distance: 175, 139 Gait Level of Assist: 5 Gait Persons Needed: 1 Gait Assistive Device: FWW slight antalgic, slow and cautious, no LOB or unsteadiness, occasional verb inst to walk closer to walker Exercises NuStep Minutes: 15 NuStep Workload: 4 (Seat 8, Arms 8) Treatments transfers, safety, toileting, gait, activity tolerance, strength, balance, functional mobility Assessment Current Status: Good Progress PT Short Term Goals Short Term Goals Time Frame: Dec 25, 2018 Transfers (B,C,W/C) (FIM): 4 Gait (FIM): 4 PT Retirement Goals Skydiving Instructor Goals PT Retirement Goals Time Frame: Jan 03, 2019 Transfers (B,C,W/C) (FIM): 7 Sit to Lying (QC): 6 Lying-Sitting on Side/Bed(QC): 6 Sit to Stand (QC): 6 Rollin Roll Left to Right (QC): 6 Chair/Ylp-ad-Kwwhn Xfer(QC): 6 Car Transfer (QC): 6 Does the Patient Walk: Yes Gait (FIM): 6 Gait distance (FIM): 3=150 ft Walk 10 feet (QC): 6 Walk 10ft-Uneven Surface(QC): 6 Walk 50ft with 2 Turns (QC): 6 Walk 150 ft (QC): 6 Gait Assistive Device: FWW Does the Pt use WC or Scooter?: No Stairs (FIM): 5 # of Steps: 4 (household distance) 1 Step (curb) (QC): 6 4 Steps (QC): 6 12 Steps (QC): 6 Picking up an Object (QC): 88 PT Plan Treatment/Plan Treatment Plan: Continue Plan of Care Treatment Plan: Bed Mobility, Education, Functional Activity Lucy, Functional Strength, Group Therapy, Gait, Safety, Therapeutic Exercise, Transfers Treatment Duration: Jan 03, 2019 Frequency: At least 5 of 7 days/Wk (IRF) Estimated Hrs Per Day: 1.5 hours per day Patient and/or Family Agrees t: Yes Safety Risks/Education Patient Education: Gait Training, Transfer Techniques, Safety Issues Teaching Recipient: Patient Teaching Methods: Demonstration, Discussion Response to Teaching: Verbalize Understanding, Return Demonstration Time/GCodes Time In: 900 Time Out: 1000 Total Billed Treatment Time: 60 Total Billed Treatment 1 visit, FA x15 min, EX x15 min, GT x30 NAEEM SPANGLER WHITING CAN WORKER Dec 23, 2018 09:15
--- NOTE | 2018-12-23 10:09 | PM&R Progress Note ---
Subjective HPI/CC On Admission Date Seen by Provider: Dec 23, 2018 Time Seen by Provider: 10:30 Chief complaint: Debility following left intertrochanteric hip fracture History of present illness: This is a 70-year-old white female clinic patient of Dr. Wills who presents following a fall at home resulted in intertrochanteric left hip fracture undergoing an uncomplicated repair the following day. 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 Her hemoglobin remains low at 7.7 but did not require a transfusion while on fourth floor. She has not had a bowel movement since she was admitted. Most medications from home were restarted and at this current time her son and sales planning analyst are at the bedside. Apparently she was at home and went out to get her mail when 1 of her dogs knocked her over. She sees a junk removal specialist at . She is insulin-dependent for her diabetes management. We took care of her for 3 weeks in inpatient rehab following an elective right shoulder replacement so she is familiar with the routine of rehab and will be monitored closely considering her significant comorbidities. Her prior level of functioning is sometimes use of a cane but is independent with her ADLs at home. Subjective/Events-last exam Patient is doing very well Sleeping much better Denies any significant pain and pain medication does help when she takes it Really progressing nicely and really walking around with a walker and doing very well Denies any nausea Appetite is improved and eating more each day Hemoglobin reported to the patient at 7.8 on Aranesp Creat 2.58 her baseline Right arm ok after midline infiltrated Check meds and labs Reviewed therapy notes Conferred with gas distribution supervisor of Systems General: Fatigue Musculoskeletal: leg pain Objective Exam Vital Signs Vital Signs Date Time Temp Pulse Resp B/P (MAP) Pulse Ox O2 Delivery O2 Flow Rate FiO2 12/23/18 05:40 98.8 77 18 151/71 (97) 97 Room Air Capillary Refill : Less Than 3 Seconds General Appearance: No Apparent Distress, WD/WN, Chronically ill HEENT: PERRL/EOMI, Normal ENT Inspection, Pharynx Normal, Moist Mucous Membranes Neck: Full Range of Motion, Normal Inspection, Non Tender, Supple Respiratory: Chest Non Tender, Lungs Clear, Normal Breath Sounds, No Accessory Muscle Use, No Respiratory Distress Cardiovascular: Regular Rate, Rhythm, No Edema, No Gallop, No JVD, No Murmur Gastrointestinal: Normal Bowel Sounds, No Organomegaly, No Pulsatile Mass, Non Tender, Soft Back: Normal Inspection, No CVA Tenderness, No Vertebral Tenderness Extremity: Normal Capillary Refill, Normal Inspection, Normal Range of Motion (limited ROM left leg), Non Tender, No Calf Tenderness, No Pedal Edema Neurologic/Psychiatric: Alert, Oriented x3, No Motor/Sensory Deficits, Normal Mood/Affect, hotel director II-XII Norm as Tested, Abnormal Gait Skin: Normal Color, Warm/Dry Lymphatic: No Adenopathy Results/Procedures Lab Laboratory Tests 12/23/18 07:19 Patient resulted labs reviewed. FIM Transfers Therapy Code Descriptions/Definitions Functional [place] Measure: 0=Not Assessed/NA 4=Minimal Assistance 1=Total Assistance 5=Supervision or Setup 2=Maximal Assistance 6=Modified [place] 3=Moderate Assistance 7=Complete [place] Therapy Quality Codes: 6 Independent with activity with or without an assistive device 5 Patient requires set up or clean up by helper. Patient completes activity by themselves 4 Supervision or touching assist (CGA). [place] provide cues , steadying assist 3 The helper provides less than half the effort to complete the activity 2 The helper provides more than half the effort to complete the activity 1 Dependent. The helper does all the effort to complete an activity 7 Patient refused to complete or attempt activity 9 The patient did not perform the activity before the current illness or injury 88 Not attempted due to Medical conditions or safety concerns Transfers (B, C, W/C) (FIM): 6 Scootin Rollin Roll Left to Right (QC): 5 Supine to/from Sit: 4 Sit to/from Stand: 6 Sit to Lying (QC): 4 Sit to Stand (QC): 5 Chair/Ira-ng-Nuhph Xfer(QC): 5 Bed to/from Chair: 5 Car Transfer (QC): 4 Gait Training Does the Patient Walk?: Yes Gait (FIM): 5 Distance (FIM): 3=150 ft Distance: 150ft x2 Walk 10 feet (QC): 5 Walk 50 ft with 2 Turns(QC): 88 Walk 150 ft (QC): 88 Walking 10ft/uneven surface-QC: 88 Gait Level of Assist: 5 Gait Persons Needed: 1 Gait Assistive Device: FWW Wheelchair Training Does the Pt Use a Wheelchair?: Yes Wheelchair (FIM): 5 Wheelchair Distance: 3=150 ft (160x2) Wheelchair Level of Assist: 5 Type of Wheelchair: Manual Stair Training Stairs (FIM): 0 1 Step (curb) (QC): 88 4 Steps (QC): 88 12 Steps (QC): 88 Balance Picking up an Object (QC): 88 Mental Status/Objective Comprehension: 7 Expression: 7 Social Interaction: 7 Problem Solvin Memory: 7 ADL-Treatment Feedin Eating (QC): 6 Groomin (Mod I in w/c at sink) Oral Hygiene (QC): 6 Bathin (CGA during stand from SC at GB. Pt completed 01/30 parts. ) Bathing Location: L Arm, R Arm, L Upper Leg, R Upper Leg, L Lower Leg (including foot), R Lower Leg (including foot), Chest, Abdomen, Buttocks, Perineal Area Shower/Bathe Self (QC): 3 Upper Extremity Dressin (OT handed pt sweater, pt able to don 3/3 parts) Upper Body Dressing (QC): 5 Lower Extremity Dressin (pt completed 08/28, pt required assistance threading LLE into underwear/pants/shoe using dressing stick. Min A standing balance for management of clothing.) Lower Body Dressing (QC): 3 On/Off Footwear (QC): 3 Toiletin (3/3 complete, pt required min A for balance standing at GB & FWW during hygiene.) Toileting Hygiene (QC): 3 Toilet/Commode Transfer: 4 (Commode over toilet: Min A stand using GB and FWW, CGA to sit ) Toilet Transfer (QC): 3 Assessment/Plan Assessment and Plan Assess & Plan/Chief Complaint Plan: IRF protocol Pain meds to continue BM regimen to be maintained since resolved now Home meds IS DM management ADA diet Heparin for DVT PPx Venofer Iron level reviewed Consult Dr Amaury Browne and his expertise is appreciated Monitor right arm midline infiltration site (1) Intertrochanteric fracture of left femur Status: Acute (2) Fall from ground level Status: Acute (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
[2018-12-23] MEDS: POLYETHYLENE GLYCOL 17 GM (MIRALAX) PACK PO SCH ×2 (13:54→20:23)
--- NOTE | 2018-12-23 14:24 | Therapy Group Daily Note ---
Therapy Daily Group Note Patient Education Topic Exercises Exercises LE Seated Exercise, UE Exercise Session Ratio (pt:therapist): 3:1 Goal of Session: Education on ARU Expectations, UE/LE Strengthing Goal Met for this Session: Yes Pt Benefit of Group: Contributions to Others, Increased Functional Strength, Improved Cognition, Recognition of Peers, Socialization Other/Notes Pt ambulated using FWW to ARU commons for OT/PT group. Group consisted of introductions (name, place living, first job), socialization, description/expectations of ARU, benefits of exercise and pt lead exercises. Pt able to introduced self appropriately and actively listened to peers. Pt acknowledged understanding of educational topics by leading own exercise and giving personal experiences. Pt tolerated exercises well and actively participated when other pt's led exercises. Pt acknowledged understanding of ARU description by affirmative gestures. After therapy, pt lying in bed. Call light/phone in reach. All needs met in room. Start Time: 12:40 Stop Time: 13:50 Total Billed Treatment Time: 70 Total Billed Treatment 1-MEHRAN TAN Dec 23, 2018 14:24
[2018-12-23 17:00] VITALS: BP 149/79
[2018-12-23] MEDS: IRON SUCROSE 200 MG/10 ML (VENOFER) VIAL IV SCH (18:18)
--- NOTE | 2018-12-23 18:19 | NUR ---
IV Venofer given at this time d/t midline was removed yesterday, Pt was busy w therapies all morning & afternoon. SL was started by [employer] REPRESENTATIVE in Lt forearm #20, after unsuccessful attempts x 2 other RN's.
--- NOTE | 2018-12-23 19:06 | NUR ---
bedside report received from ISAAC CHINCHILLA, assume care of pt
[2018-12-23 20:20] VITALS: BP 147/69
--- NOTE | 2018-12-23 20:25 | NUR ---
c/o pain level 7/10 on numeric scale, oxyir 5mg po given
--- NOTE | 2018-12-23 20:28 | NUR ---
assessments & interventions completed, see assessments & interventions pt refused roxanne & Christopher, took 1 Senokot
--- NOTE | 2018-12-23 21:15 | NUR ---
rates pain 2/10 on numeric scale
[2018-12-24 06:01] VITALS: BP 134/65
[2018-12-24] MEDS: CATHETER FLUSH 10 ML SYR IV SCH ×3 (06:49→21:36)
[2018-12-24] MEDS: LEVOTHYROXINE 75 MCG (LEVOTHROID) TABLET PO SCH (06:49)
--- NOTE | 2018-12-24 06:49 | NUR ---
c/o pain level 3/10 on numeric scale, oxyir 5mg po given
[2018-12-24] MEDS: SODIUM BICARBONATE 650 MG TABLET (NON-FORMULARY) PO SCH ×2 (06:50→17:22)
[2018-12-24] MEDS: inSUlin ASPART (NovoLOG) 1 UNIT/0.01 ML (CHARGE PER UNIT) SC SCH ×2 (07:00→15:35)
--- NOTE | 2018-12-24 07:08 | NUR ---
bedside report given to LEO CHINCHILLA
[2018-12-24 07:46] LABS: HEMOGLOBIN 7.8 G/DL (11.5-16.0); MEAN PLATELET VOLUME 10.4 FL (7.4-10.4); WHITE BLOOD COUNT 7.8 10^3/uL (4.3-11.0)
[2018-12-24] MEDS: POLYETHYLENE GLYCOL 17 GM (MIRALAX) PACK PO SCH ×2 (08:50→16:39)
[2018-12-24] MEDS: SENNA W/DOCUSATE (SENOKOT S) TABLET PO SCH ×3 (08:50→21:36)
--- NOTE | 2018-12-24 08:51 | Occupational Ther Daily Note ---
OT Current Status-Daily Note Subjective Pt seated on BS over toilet at start of session with nurse present. Pt agreeable to OT tx this AM focusing on ADLs. Pt did not report any pain this session. Mental Status/Objective Patient Orientation: Normal For Age Therapy Code Descriptions/Definitions Functional [place] Measure: 0=Not Assessed/NA 4=Minimal Assistance 1=Total Assistance 5=Supervision or Setup 2=Maximal Assistance 6=Modified [place] 3=Moderate Assistance 7=Complete [place] Attachments: IV ADL-Treatment Therapy Code Descriptions/Definitions Functional [place] Measure: 0=Not Assessed/NA 4=Minimal Assistance 1=Total Assistance 5=Supervision or Setup 2=Maximal Assistance 6=Modified [place] 3=Moderate Assistance 7=Complete [place] Therapy Quality Codes: 6 Independent with activity with or without an assistive device 5 Patient requires set up or clean up by helper. Patient completes activity by themselves 4 Supervision or touching assist (CGA). [place] provide cues , steadying assist 3 The helper provides less than half the effort to complete the activity 2 The helper provides more than half the effort to complete the activity 1 Dependent. The helper does all the effort to complete an activity 7 Patient refused to complete or attempt activity 9 The patient did not perform the activity before the current illness or injury 88 Not attempted due to Medical conditions or safety concerns Grooming (FIM): 6 (Mod I standing at sink with FWW ) Oral Hygiene (QC): 6 Bathing (FIM): 4 (Sponge bath on [facility] over toilet. Pt completed 10/10 parts, CGA during stand for washing buttocks and periarea.) Shower/Bathe Self (QC): 4 Upper Body (FIM): 6 (Pt donned/doffed bra and clod puller shirt) Upper Body Dressing (QC): 6 Lower Body Dressing (FIM): 4 (Pt completed 7/8 parts(underwear, pants, socks), requiring assistance with threading LLE into underwear using dressing stick. ) Lower Body Dressing (QC): 3 On/Off Footwear (QC): 6 Toileting (FIM): 4 (CGA during stand for clothing management) Toileting Hygiene (QC): 4 Transfers (B, C, W/C) (FIM): 4 (CGA during sit to stand from w/c,) Toilet/Commode Transfer (FIM): 4 (CGA stand from BSC over toilet.) Other Treatment Pt seated on BSC over toilet at start of session, pt completed ADL session in room. Pt taken to therapy gym in w/c. In order to increase BUE strength and endurance to increase independence in ADLs and functional tasks, pt placed /removed X100 pegs into pegboard, alternating R/L hands, 2lb wrist cuff placed on RUE only (Pt has IV in left wrist so no weight placed on LUE). Pt placed and removed X100 pegs in 12 mins, 30 seconds. Post OT session, pt seated upright in w/c in therapy gym, PT present to begin PT tx. Education OT Patient Education: Correct positioning, Energy conservation, Exercise program, Progress toward Goal/Update tx plan, Purpose of tx/functional activities, Transfer techniques, Use of adapted equipment Teaching Recipient: Patient Teaching Methods: Demonstration Response to Teaching: Verbalize Understanding OT Short Term Goals Short Term Goals Time Frame: Dec 21, 2018 Bathing(FIM): 4 Lower Body Dressing(FIM): 3 Toileting(FIM): 3 Transfers (B,C,W/C) (FIM): 4 Toilet/Commode Transfer(FIM): 4 Additional Short Term Goals: 1-Demonstrate ADL Tasks, 2-Verbalize Understanding, 3-ImproveStrength/Lucy 1=Demonstrate adherence to instructed precautions during ADL tasks. 2=Patient will verbalize/demonstrate understanding of assistive devices/modifications for ADL. 3=Patient will improve strength/tolerance for activity to enable patient to perform ADL's. OT Folder Inspector Goals Alf Goals Time Frame: Jan 04, 2019 Eating (FIM): 7 Eating (QC): 6 Groomin Oral Hygiene (QC): 6 Bathing(FIM): 5 Shower/Bathe Self (QC): 5 Upper Body Dressing(FIM): 6 Upper Body Dressing (QC): 6 Lower Body Dressing(FIM): 5 Lower Body Dressing (QC): 5 On/Off Footwear (QC): 5 Toileting(FIM): 6 Toileting Hygiene (QC): 6 Toilet/Commode Transfer(FIM): 6 Toilet/Commode Transfer (QC): 6 Shower Transfer(FIM): 5 Additional Goals: 1-Demonstrate ADL Tasks, 2-Verbalize Understanding, 3- ImproveStrength/Lucy 1=Demonstrate adherence to instructed precautions during ADL tasks. 2=Patient will verbalize/demonstrate understanding of assistive devices/modifications for ADL. 3=Patient will improve strength/tolerance for activity to enable patient to perform ADL's. OT Education/Plan Problem List/Assessment Assessment: Decreased Activ Tolerance, Decreased UE Strength, Impaired Self- Care Skills Pt admitted to ARU after fall resulting in left hip fracture. S/p surgical intervention. Pt demonstrates decreased mobility, strength, activity tolerance, and ADL functioning. Pt to benefit from skilled OT intervention for ADL training, transfers, strengthening, adaptive equipment training, and home safety education to increase level of independence and allow safe discharge home. Discharge Recommendations Plan/Recommendations: Continue POC Treatment Plan/Plan of Care Treatment,Training & Education: Yes Patient would benefit from OT for education, treatment and training to promote independence in ADL's, mobility, safety and/or upper extremity function for ADL's. Plan of Care: ADL Retraining, Functional Mobility, Group Exercise/Act as Ind, UE Funct Exercise/Act Treatment Duration: Jan 04, 2019 Frequency: At least 5 of 7 days/Wk (IRF) Estimated Hrs Per Day: 1.5 hours per day Agreement: Yes Rehab Potential: Good Time/GCodes Start Time: 08:15 Stop Time: 08:59 Total Time Billed (hr/min): 44 Billed Treatment Time 1, ADL 2 [id number], FA [id number] YOLANDE COURTNEY OT Dec 24, 2018 08:51
[2018-12-24] MEDS: DOCUSATE SODIUM 100 MG (COLACE) CAP PO SCH ×2 (09:00→16:39)
[2018-12-24] MEDS: meTOprolol TARTRATE 25 MG (LOPRESSOR) TABLET PO SCH ×2 (09:03→21:36)
[2018-12-24] MEDS: PANTOPRAZOLE 40 MG (PROTONIX) TAB PO SCH ×2 (09:03→21:36)
[2018-12-24] MEDS: amLODIPine 5 MG (NORVASC) TAB PO SCH (09:03)
[2018-12-24] MEDS: FUROSEMIDE 40 MG (LASIX) TAB PO SCH (09:03)
[2018-12-24] MEDS: ALLOPURINOL 100 MG (ZYLOPRIM) TAB PO SCH (09:03)
[2018-12-24] MEDS: DARBEPOETIN 25 MCG/ML (ARANESP) 1 ML HOSPITAL SC SCH (09:08)
--- NOTE | 2018-12-24 09:51 | PM&R Progress Note ---
Subjective HPI/CC On Admission Date Seen by Provider: Dec 24, 2018 Time Seen by Provider: 09:00 Chief complaint: Debility following left intertrochanteric hip fracture History of present illness: This is a 70-year-old white female clinic patient of Dr. Wills who presents following a fall at home resulted in intertrochanteric left hip fracture undergoing an uncomplicated repair the following day. 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 Her hemoglobin remains low at 7.7 but did not require a transfusion while on fourth floor. She has not had a bowel movement since she was admitted. Most medications from home were restarted and at this current time her son and public policy mediator are at the bedside. Apparently she was at home and went out to get her mail when 1 of her dogs knocked her over. She sees a rolled ham lacer at . She is insulin-dependent for her diabetes management. We took care of her for 3 weeks in inpatient rehab following an elective right shoulder replacement so she is familiar with the routine of rehab and will be monitored closely considering her significant comorbidities. Her prior level of functioning is sometimes use of a cane but is independent with her ADLs at home. Subjective/Events-last exam Pt doing very well. Hgb 7. 8 yesterday and stable. Incision looks good. Having bowel movements everyday. Doing well overall and participating in all therapy. Check meds and labs Reviewed therapy notes Conferred with diamond cleaner of Systems General: Fatigue Musculoskeletal: leg pain Objective Exam Vital Signs Vital Signs Date Time Temp Pulse Resp B/P (MAP) Pulse Ox O2 Delivery O2 Flow Rate FiO2 12/24/18 17:30 98.9 80 18 130/73 (92) 99 Room Air Capillary Refill : Less Than 3 Seconds General Appearance: No Apparent Distress, WD/WN, Chronically ill HEENT: PERRL/EOMI, Normal ENT Inspection, Pharynx Normal, Moist Mucous Membranes Neck: Full Range of Motion, Normal Inspection, Non Tender, Supple Respiratory: Chest Non Tender, Lungs Clear, Normal Breath Sounds, No Accessory Muscle Use, No Respiratory Distress Cardiovascular: Regular Rate, Rhythm, No Edema, No Gallop, No JVD, No Murmur Gastrointestinal: Normal Bowel Sounds, No Organomegaly, No Pulsatile Mass, Non Tender, Soft Back: Normal Inspection, No CVA Tenderness, No Vertebral Tenderness Extremity: Normal Capillary Refill, Normal Inspection, Normal Range of Motion (limited ROM left leg), Non Tender, No Calf Tenderness, No Pedal Edema Neurologic/Psychiatric: Alert, Oriented x3, No Motor/Sensory Deficits, Normal Mood/Affect, backroom associate II-XII Norm as Tested, Abnormal Gait Skin: Normal Color, Warm/Dry Lymphatic: No Adenopathy Results/Procedures Lab Laboratory Tests 12/24/18 07:07 Patient resulted labs reviewed. FIM Transfers Therapy Code Descriptions/Definitions Functional [place] Measure: 0=Not Assessed/NA 4=Minimal Assistance 1=Total Assistance 5=Supervision or Setup 2=Maximal Assistance 6=Modified [place] 3=Moderate Assistance 7=Complete [place] Therapy Quality Codes: 6 Independent with activity with or without an assistive device 5 Patient requires set up or clean up by helper. Patient completes activity by themselves 4 Supervision or touching assist (CGA). [place] provide cues , steadying assist 3 The helper provides less than half the effort to complete the activity 2 The helper provides more than half the effort to complete the activity 1 Dependent. The helper does all the effort to complete an activity 7 Patient refused to complete or attempt activity 9 The patient did not perform the activity before the current illness or injury 88 Not attempted due to Medical conditions or safety concerns Transfers (B, C, W/C) (FIM): 4 (CGA during sit to stand from w/c,) Scootin Rollin Roll Left to Right (QC): 5 Supine to/from Sit: 4 Sit to/from Stand: 5 (good hand placement and safety during all transitions. Effort required but pt able to complete without physical A) Sit to Lying (QC): 4 Sit to Stand (QC): 5 Chair/[id number]-Xpwzk Xfer(QC): 5 Bed to/from Chair: 5 Car Transfer (QC): 4 Gait Training Does the Patient Walk?: Yes Gait (FIM): 5 Distance (FIM): 3=150 ft Distance: 175, 139 Walk 10 feet (QC): 5 Walk 50 ft with 2 Turns(QC): 88 Walk 150 ft (QC): 88 Walking 10ft/uneven surface-QC: 88 Gait Level of Assist: 5 Gait Persons Needed: 1 Gait Assistive Device: FWW Wheelchair Training Does the Pt Use a Wheelchair?: Yes Wheelchair (FIM): 5 Wheelchair Distance: 3=150 ft (160x2) Wheelchair Level of Assist: 5 Type of Wheelchair: Manual Stair Training Stairs (FIM): 0 1 Step (curb) (QC): 88 4 Steps (QC): 88 12 Steps (QC): 88 Balance Picking up an Object (QC): 88 Mental Status/Objective Comprehension: 7 Expression: 7 Social Interaction: 7 Problem Solvin Memory: 7 ADL-Treatment Feedin Eating (QC): 6 Groomin (Mod I standing at sink with FWW ) Oral Hygiene (QC): 6 Bathin (Sponge bath on [facility] over toilet. Pt completed 10/10 parts, CGA during stand for washing buttocks and periarea.) Bathing Location: L Arm, R Arm, L Upper Leg, R Upper Leg, L Lower Leg (including foot), R Lower Leg (including foot), Chest, Abdomen, Buttocks, Perineal Area Shower/Bathe Self (QC): 4 Upper Extremity Dressin (Pt donned/doffed bra and pulley worker shirt) Upper Body Dressing (QC): 6 Lower Extremity Dressin (Pt completed 7/8 parts(underwear, pants, socks), requiring assistance with threading LLE into underwear using dressing stick. ) Lower Body Dressing (QC): 3 On/Off Footwear (QC): 6 Toiletin (CGA during stand for clothing management) Toileting Hygiene (QC): 4 Toilet/Commode Transfer: 4 (CGA stand from [facility] over toilet.) Toilet Transfer (QC): 4 Shower: 4 (CGA into shower, Min A stand from OR using GB and FWW) Assessment/Plan Assessment and Plan Assess & Plan/Chief Complaint Plan: IRF protocol Pain meds to continue BM regimen to be maintained since resolved now Home meds IS DM management ADA diet Heparin for DVT PPx Venofer Iron level reviewed Consult Dr Amaury Browne and his expertise is appreciated Monitor right arm midline infiltration site (1) Intertrochanteric fracture of left femur Status: Acute (2) Fall from ground level Status: Acute (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
--- NOTE | 2018-12-24 09:59 | Physical Therapy Daily Note ---
PT Daily Note-Current Subjective Pt reports she is getting better slowly. She wants to make sure she can take care of herself before discharging to home. Mental Status Patient Orientation: Normal For Age Transfers Therapy Code Descriptions/Definitions Functional [place] Measure: 0=Not Assessed/NA 4=Minimal Assistance 1=Total Assistance 5=Supervision or Setup 2=Maximal Assistance 6=Modified [place] 3=Moderate Assistance 7=Complete [place] Therapy Quality Codes: 6 Independent with activity with or without an assistive device 5 Patient requires set up or clean up by helper. Patient completes activity by themselves 4 Supervision or touching assist (CGA). [place] provide cues , steadying assist 3 The helper provides less than half the effort to complete the activity 2 The helper provides more than half the effort to complete the activity 1 Dependent. The helper does all the effort to complete an activity 7 Patient refused to complete or attempt activity 9 The patient did not perform the activity before the current illness or injury 88 Not attempted due to Medical conditions or safety concerns Transfers (B, C, W/C) (FIM): 5 Supine to/from Sit: 5 Sit to/from Stand: 5 Sit to Lying (QC): 3 Provided education on sequence for sit to supine and supine to sit. Requires Moderate assist to raise the left leg into and out of bed. Pt educated on sequence for sit to stand including wt transfer and use of hands. Able to perfarm with supervision and intermittent verbal cues. Performed sit to stand x 8 trials Weight Bearing Right Lower Extremity: Right Full Weight Bearing Left Lower Extremity: Left Weight Bearing/Tolerated Gait Training Distance: 150 Gait Level of Assist: 4 Gait Persons Needed: 1 Gait Assistive Device: FWW Gait training with FWW. Edcucation and tactile cues to shift equal wt to the (L) extremity during stance phase in order to facilitate glute contraction and normalize gait pattern. Exercises Supine Ex: Bridging, Rolling, Glut sets, Lower trunk rotation, Heel Slides, Knee to chest, Short Arc Quads, Resisted flex/ext, Straight leg raise, Hip abd/add Supine Reps: 20 Seated Therapy Exercises: Sit to stand Seated Reps: 8 Assessment Current Status: Good Progress (Pt responded well to sit to stand training. She had increased ease of movement with improved balance.) PT Short Term Goals Short Term Goals Time Frame: Dec 25, 2018 Transfers (B,C,W/C) (FIM): 4 Gait (FIM): 4 PT Paint Spray Inspector Goals Shelter Goals PT Paint Spray Inspector Goals Time Frame: Jan 03, 2019 Transfers (B,C,W/C) (FIM): 7 Sit to Lying (QC): 6 Lying-Sitting on Side/Bed(QC): 6 Sit to Stand (QC): 6 Rollin Roll Left to Right (QC): 6 Chair/[id number] Xfer(QC): 6 Car Transfer (QC): 6 Does the Patient Walk: Yes Gait (FIM): 6 Gait distance (FIM): 3=150 ft Walk 10 feet (QC): 6 Walk 10ft-Uneven Surface(QC): 6 Walk 50ft with 2 Turns (QC): 6 Walk 150 ft (QC): 6 Gait Assistive Device: FWW Does the Pt use WC or Scooter?: No Stairs (FIM): 5 # of Steps: 4 (household distance) 1 Step (curb) (QC): 6 4 Steps (QC): 6 12 Steps (QC): 6 Picking up an Object (QC): 88 PT Plan Problem List Problem List: Gait, Bed Mobility Treatment/Plan Treatment Plan: Continue Plan of Care Treatment Plan: Bed Mobility, Education, Functional Activity Lucy, Functional Strength, Group Therapy, Gait, Safety, Therapeutic Exercise, Transfers Treatment Duration: Jan 03, 2019 Frequency: At least 5 of 7 days/Wk (IRF) Estimated Hrs Per Day: 1.5 hours per day Patient and/or Family Agrees t: Yes Time/GCodes Time In: 0850 Time Out: 0950 Total Billed Treatment Time: 60 Total Billed Treatment visit, gait 15 min, ex 30 min, FA 15 min JUAN MERCADO PT Dec 24, 2018 09:59
--- NOTE | 2018-12-24 12:03 | Occupational Ther Daily Note ---
OT Current Status-Daily Note Subjective Pt sitting in chair, agrees to treatment. Mental Status/Objective Therapy Code Descriptions/Definitions Functional [place] Measure: 0=Not Assessed/NA 4=Minimal Assistance 1=Total Assistance 5=Supervision or Setup 2=Maximal Assistance 6=Modified [place] 3=Moderate Assistance 7=Complete [place] ADL-Treatment Pt sit to stand from chair with supervision. Gait to restroom with FWW. Transfer to [facility] over toilet with supervision. Pt able to complete toileting hygiene and clothing management with SBA. Stood at sink to wash hands with supervision. When exiting the restroom with FWW, pt had a LOB requiring assist to correct. Gait to therapy gym with FWW, slow pace. One seated rest break secondary to fatigue. Arm bike x10 minutes to increase overall strength needed for functional task completion. Pt completed activity with moderate resistance and slow pace. No rest breaks needed. Pt completed fine motor task with nuts and bolts with 2# weights in place to increase strength and coordination skills. Pt returned to room via w/c. Transferred to chair with SBA using FWW. Pt sitting in chair with needs met after session. Therapy Code Descriptions/Definitions Functional [place] Measure: 0=Not Assessed/NA 4=Minimal Assistance 1=Total Assistance 5=Supervision or Setup 2=Maximal Assistance 6=Modified [place] 3=Moderate Assistance 7=Complete [place] Therapy Quality Codes: 6 Independent with activity with or without an assistive device 5 Patient requires set up or clean up by helper. Patient completes activity by themselves 4 Supervision or touching assist (CGA). [place] provide cues , steadying assist 3 The helper provides less than half the effort to complete the activity 2 The helper provides more than half the effort to complete the activity 1 Dependent. The helper does all the effort to complete an activity 7 Patient refused to complete or attempt activity 9 The patient did not perform the activity before the current illness or injury 88 Not attempted due to Medical conditions or safety concerns OT Short Term Goals Short Term Goals Time Frame: Dec 21, 2018 Bathing(FIM): 4 Lower Body Dressing(FIM): 3 Toileting(FIM): 3 Transfers (B,C,W/C) (FIM): 4 Toilet/Commode Transfer(FIM): 4 Additional Short Term Goals: 1-Demonstrate ADL Tasks, 2-Verbalize [place] ding, 3-ImproveStrength/Lucy 1=Demonstrate adherence to instructed precautions during ADL tasks. 2=Patient will verbalize/demonstrate understanding of assistive devices/modifications for ADL. 3=Patient will improve strength/tolerance for activity to enable patient to perform ADL's. OT Spinner Tender Goals Spinner Tender Goals Time Frame: Jan 04, 2019 Eating (FIM): 7 Eating (QC): 6 Groomin Oral Hygiene (QC): 6 Bathing(FIM): 5 Shower/Bathe Self (QC): 5 Upper Body Dressing(FIM): 6 Upper Body Dressing (QC): 6 Lower Body Dressing(FIM): 5 Lower Body Dressing (QC): 5 On/Off Footwear (QC): 5 Toileting(FIM): 6 Toileting Hygiene (QC): 6 Toilet/Commode Transfer(FIM): 6 Toilet/Commode Transfer (QC): 6 Shower Transfer(FIM): 5 Additional Goals: 1-Demonstrate ADL Tasks, 2-Verbalize Understanding, 3- ImproveStrength/Lucy 1=Demonstrate adherence to instructed precautions during ADL tasks. 2=Patient will verbalize/demonstrate understanding of assistive devices/modifications for ADL. 3=Patient will improve strength/tolerance for activity to enable patient to perform ADL's. OT Education/Plan Problem List/Assessment Pt admitted to ARU after fall resulting in left hip fracture. S/p surgical intervention. Pt demonstrates decreased mobility, strength, activity tolerance, and ADL functioning. Pt to benefit from skilled OT intervention for ADL tra ining, transfers, strengthening, adaptive equipment training, and home safety education to increase level of independence and allow safe discharge home. Discharge Recommendations Plan/Recommendations: Continue POC Treatment Plan/Plan of Care Patient would benefit from OT for education, treatment and training to promote independence in ADL's, mobility, safety and/or upper extremity function for ADL's. Plan of Care: ADL Retraining, Functional Mobility, Group Exercise/Act as Ind, UE Funct Exercise/Act Treatment Duration: Jan 04, 2019 Frequency: At least 5 of 7 days/Wk (IRF) Estimated Hrs Per Day: 1.5 hours per day Agreement: Yes Rehab Potential: Good Time/GCodes Start Time: 11:00 Stop Time: 11:46 Total Time Billed (hr/min): 46 Billed Treatment Time 1 visit, ADL(15minutes), EXx2(30minutes) MARCIA ALAMO OT Dec 24, 2018 12:03
[2018-12-24] MEDS: ACETAMINOPHEN 325 MG TABLET PO PRN (13:17)
--- NOTE | 2018-12-24 14:33 | Physical Therapy Daily Note ---
PT Daily Note-Current Subjective Pt reports her hip is stiff after then new exercises that she performed in the am. Transfers Therapy Code Descriptions/Definitions Functional [place] Measure: 0=Not Assessed/NA 4=Minimal Assistance 1=Total Assistance 5=Supervision or Setup 2=Maximal Assistance 6=Modified [place] 3=Moderate Assistance 7=Complete [place] Therapy Quality Codes: 6 Independent with activity with or without an assistive device 5 Patient requires set up or clean up by helper. Patient completes activity by themselves 4 Supervision or touching assist (CGA). [place] provide cues , steadying assist 3 The helper provides less than half the effort to complete the activity 2 The helper provides more than half the effort to complete the activity 1 Dependent. The helper does all the effort to complete an activity 7 Patient refused to complete or attempt activity 9 The patient did not perform the activity before the current illness or injury 88 Not attempted due to Medical conditions or safety concerns Weight Bearing Right Lower Extremity: Right Full Weight Bearing Left Lower Extremity: Left Weight Bearing/Tolerated Gait Training Does the Patient Walk?: Yes Gait (FIM): 5 Distance (FIM): 3=150 ft Distance: 150 Gait Level of Assist: 5 Gait Assistive Device: FWW Amb 150ft x 2 trials with SBA and verbal cues for symmetrical wt shift. Exercises NuStep Minutes: 10 NuStep Workload: 4 Assessment Progressed ambulation training this session with emphasis on wt shift and stride to normalize gait pattern. PT Short Term Goals Short Term Goals Time Frame: Dec 25, 2018 Transfers (B,C,W/C) (FIM): 4 Gait (FIM): 4 PT Senior Living Goals Land Clearer Goals PT Senior Living Goals Time Frame: Jan 03, 2019 Transfers (B,C,W/C) (FIM): 7 Sit to Lying (QC): 6 Lying-Sitting on Side/Bed(QC): 6 Sit to Stand (QC): 6 Rollin Roll Left to Right (QC): 6 Chair/Tee-xo-Khuxb Xfer(QC): 6 Car Transfer (QC): 6 Does the Patient Walk: Yes Gait (FIM): 6 Gait distance (FIM): 3=150 ft Walk 10 feet (QC): 6 Walk 10ft-Uneven Surface(QC): 6 Walk 50ft with 2 Turns (QC): 6 Walk 150 ft (QC): 6 Gait Assistive Device: FWW Does the Pt use WC or Scooter?: No Stairs (FIM): 5 # of Steps: 4 (household distance) 1 Step (curb) (QC): 6 4 Steps (QC): 6 12 Steps (QC): 6 Picking up an Object (QC): 88 PT Plan Treatment/Plan Treatment Plan: Continue Plan of Care Treatment Plan: Bed Mobility, Education, Functional Activity Lucy, Functional Strength, Group Therapy, Gait, Safety, Therapeutic Exercise, Transfers Treatment Duration: Jan 03, 2019 Frequency: At least 5 of 7 days/Wk (IRF) Estimated Hrs Per Day: 1.5 hours per day Patient and/or Family Agrees t: Yes Time/GCodes Time In: 1400 Time Out: 1430 Total Billed Treatment Time: 30 Total Billed Treatment visit, gait 20 min, ex 10 min JUAN MERCADO PT Dec 24, 2018 14:33
--- NOTE | 2018-12-24 15:35 | NUR ---
pt currently drinking a pumpkin spice latte and stated that she thinks that why her sugar is high. She stated that she would like to wait to treat her glucose if it is high the next time as she does not want to drop her blood sugar.
--- NOTE | 2018-12-24 16:45 | NUR ---
REPORT RECEIVED FROM RENÉE BAILEY. ASSUMED CARE OF PATIENT AT THIS TIME
[2018-12-24 17:30] VITALS: BP 130/73
--- NOTE | 2018-12-25 05:47 | Progress Note - Hospitalist ---
[facility] 12/25/18 0547: Progress Note Pt is 78 y.o white female who is here at inpatient [facility] s/p a fall at home after she tripped on her dog which resulted in intertrochanteric left hip fracture. 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 Denies using the walker for walking about the house or when she went out otherwise. Pt has found a new home for her dog to prevent a recurrence of this incidence in the future. Pt reports she has a walk-in shower with grab-rails and has been receiving assistance from home health and her grandchildren for heavier chores around the house. She states her does not possess enough strength to help her up if she ever fell again and so she keeps her phone in her pocket at all times in case of a new fall. Pt hopes to be able to drive as soon as possible. MAYELIN BLOCK DO 12/25/18 1126: Supervisory-Addendum Brief Verification & Attestation Participated in pt care: history, MDM, physical Personally performed: exam, history, MDM, supervision of care Care discussed with: Medical Student Procedures: n/a Results interpretation: Verified all documentation Verification and Attestation of Medical Student E/M Service A medical student performed and documented this service in my presence. I reviewed and verified all information documented by the medical student and made modifications to such information, when appropriate. I personally performed the physical exam and medical decision making. Mayelin Block Dec 25, 2018,11:25 [facility] Dec 25, 2018 05:47 MAYELIN BLOCK DO Dec 25, 2018 11:26
[2018-12-25] MEDS: inSUlin ASPART (NovoLOG) 1 UNIT/0.01 ML (CHARGE PER UNIT) SC SCH (05:58)
[2018-12-25 06:02] VITALS: BP 142/68
[2018-12-25] MEDS: LEVOTHYROXINE 75 MCG (LEVOTHROID) TABLET PO SCH (06:30)
[2018-12-25] MEDS: SODIUM BICARBONATE 650 MG TABLET (NON-FORMULARY) PO SCH ×2 (06:30→17:30)
[2018-12-25] MEDS: CATHETER FLUSH 10 ML SYR IV SCH ×3 (06:30→20:21)
[2018-12-25] MEDS: amLODIPine 5 MG (NORVASC) TAB PO SCH (09:36)
[2018-12-25] MEDS: PANTOPRAZOLE 40 MG (PROTONIX) TAB PO SCH ×2 (09:36→20:21)
[2018-12-25] MEDS: DOCUSATE SODIUM 100 MG (COLACE) CAP PO SCH ×2 (09:36→20:21)
[2018-12-25] MEDS: meTOprolol TARTRATE 25 MG (LOPRESSOR) TABLET PO SCH ×2 (09:36→20:21)
[2018-12-25] MEDS: FUROSEMIDE 40 MG (LASIX) TAB PO SCH (09:36)
[2018-12-25] MEDS: SENNA W/DOCUSATE (SENOKOT S) TABLET PO SCH ×2 (09:36→20:21)
[2018-12-25] MEDS: ALLOPURINOL 100 MG (ZYLOPRIM) TAB PO SCH (09:36)
[2018-12-25] MEDS: ACETAMINOPHEN 325 MG TABLET PO PRN ×2 (09:37→14:23)
[2018-12-25] MEDS: POLYETHYLENE GLYCOL 17 GM (MIRALAX) PACK PO SCH ×2 (09:43→20:21)
--- NOTE | 2018-12-25 10:31 | Occupational Ther Daily Note ---
OT Current Status-Daily Note Subjective Pt seated upright in recliner at start of session, agreed to OT stating she would like to shower today. Pt reported her pain had increased at the end of the session, but was not too bad. Mental Status/Objective Patient Orientation: Normal For Age Therapy Code Descriptions/Definitions Functional [place] Measure: 0=Not Assessed/NA 4=Minimal Assistance 1=Total Assistance 5=Supervision or Setup 2=Maximal Assistance 6=Modified [place] 3=Moderate Assistance 7=Complete [place] ADL-Treatment Therapy Code Descriptions/Definitions Functional [place] Measure: 0=Not Assessed/NA 4=Minimal Assistance 1=Total Assistance 5=Supervision or Setup 2=Maximal Assistance 6=Modified [place] 3=Moderate Assistance 7=Complete [place] Therapy Quality Codes: 6 Independent with activity with or without an assistive device 5 Patient requires set up or clean up by helper. Patient completes activity by themselves 4 Supervision or touching assist (CGA). [place] provide cues , steadying assist 3 The helper provides less than half the effort to complete the activity 2 The helper provides more than half the effort to complete the activity 1 Dependent. The helper does all the effort to complete an activity 7 Patient refused to complete or attempt activity 9 The patient did not perform the activity before the current illness or injury 88 Not attempted due to Medical conditions or safety concerns Grooming (FIM): 6 (Mod I standing at sink with FWW) Oral Hygiene (QC): 6 Bathing (FIM): 4 (CGA during stand at grab bars for washing periarea and buttocks. Pt completed 10/10 parts using SC and long handled sponge) Bathing Location: L Arm, R Arm, L Upper Leg, R Upper Leg, L Lower Leg (including foot), R Lower Leg (including foot), Chest, Abdomen, Buttocks, Perineal Area Shower/Bathe Self (QC): 4 Upper Body (FIM): 6 (Pt donned/doffed bra and loin puller shirt) Upper Body Dressing (QC): 6 Lower Body Dressing (FIM): 4 (Pt completed 10/28, requiring assistance threading LLE into pant leg. Pt used dressing stick for donning pants/underwear and long handled shoe horn to don shoes) Lower Body Dressing (QC): 3 On/Off Footwear (QC): 6 Toileting (FIM): 5 (SBA for safety during clothing management. Pt completed 3/3 parts.) Toileting Hygiene (QC): 4 Transfers (B, C, W/C) (FIM): 5 (SBA during sit to/from stand from chair and w/c) Toilet/Commode Transfer (FIM): 5 (SBA during sit to/from stand, pt utilized gra b bars and FWW during transfer) Toilet Transfer (QC): 4 Shower Transfer(FIM): 4 (CGA into shower, Min A to stand from shower chair, using grab bars.) Other Treatment Pt completed ADL session in room this AM (see comments above). Pt taken to therapy gym, in order to increase UE strength and endurance in order to be more indpendent in functional tasks, functional mobility, and ADLs, pt completed arm bike X3 mins, mod resistance. Pt taken back to room and transferred to recliner. Post OT session, pt seated upright in recliner, call light and phone in reach and all needs met. Education OT Patient Education: Correct positioning, Energy conservation, Exercise progra m, Modified ADL techniques, Progress toward Goal/Update tx plan, Purpose of tx/functional activities, Transfer techniques Teaching Recipient: Patient Teaching Methods: Demonstration Response to Teaching: Verbalize Understanding OT Short Term Goals Short Term Goals Time Frame: Dec 21, 2018 Bathing(FIM): 4 Lower Body Dressing(FIM): 3 Toileting(FIM): 3 Transfers (B,C,W/C) (FIM): 4 Toilet/Commode Transfer(FIM): 4 Additional Short Term Goals: 1-Demonstrate ADL Tasks, 2-Verbalize Understanding, 3-ImproveStrength/Lucy 1=Demonstrate adherence to instructed precautions during ADL tasks. 2=Patient will verbalize/demonstrate understanding of assistive de vices/modifications for ADL. 3=Patient will improve strength/tolerance for activity to enable patient to perform ADL's. OT Mcfp Goals Research Worker Kitchen Goals Time Frame: Jan 04, 2019 Eating (FIM): 7 Eating (QC): 6 Groomin Oral Hygiene (QC): 6 Bathing(FIM): 5 Shower/Bathe Self (QC): 5 Upper Body Dressing(FIM): 6 Upper Body Dressing (QC): 6 Lower Body Dressing(FIM): 5 Lower Body Dressing (QC): 5 On/Off Footwear (QC): 5 Toileting(FIM): 6 Toileting Hygiene (QC): 6 Toilet/Commode Transfer(FIM): 6 Toilet/Commode Transfer (QC): 6 Shower Transfer(FIM): 5 Additional Goals: 1-Demonstrate ADL Tasks, 2-Verbalize Understanding, 3- ImproveStrength/Lucy 1=Demonstrate adherence to instructed precautions during ADL tasks. 2=Patient will verbalize/demonstrate understanding of assistive devices/modifications for ADL. 3=Patient will improve strength/tolerance for activity to enable patient to perform ADL's. OT Education/Plan Problem List/Assessment Assessment: Decreased Activ Tolerance, Decreased UE Strength, Impaired Funct Balance, Impaired I ADL's, Impaired Self-Care Skills Pt admitted to ARU after fall resulting in left hip fracture. S/p surgical intervention. Pt demonstrates decreased mobility, strength, activity tolerance, and ADL functioning. Pt to benefit from skilled OT intervention for ADL training, transfers, strengthening, adaptive equipment training, and home safety education to increase level of independence and allow safe discharge home. Discharge Recommendations Plan/Recommendations: Continue POC Equpiment Recommendations-D/C: Hip Kit, Long Shoe Horn Treatment Plan/Plan of Care Treatment,Training & Education: Yes Patient would benefit from OT for education, treatment and training to promote independence in ADL's, mobility, safety and/or upper extremity function for ADL's. Plan of Care: ADL Retraining, Functional Mobility, Group Exercise/Act as Ind, UE Funct Exercise/Act Treatment Duration: Jan 04, 2019 Frequency: At least 5 of 7 days/Wk (IRF) Estimated Hrs Per Day: 1.5 hours per day Agreement: Yes Rehab Potential: Good Time/GCodes Start Time: 08:05 Stop Time: 09:05 Total Time Billed (hr/min): 60 Billed Treatment Time 1, ADL 4 YOLANDE COURTNEY OT Dec 25, 2018 10:31
--- NOTE | 2018-12-25 11:08 | PM&R Progress Note ---
Subjective HPI/CC On Admission Date Seen by Provider: Dec 25, 2018 Time Seen by Provider: 09:30 Chief complaint: Debility following left intertrochanteric hip fracture History of present illness: This is a 70-year-old white female clinic patient of Dr. Wills who presents following a fall at home resulted in intertrochanteric left hip fracture undergoing an uncomplicated repair the following day. 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 Her hemoglobin remains low at 7.7 but did not require a transfusion while on fourth floor. She has not had a bowel movement since she was admitted. Most medications from home were restarted and at this current time her son and cleaner assistant are at the bedside. Apparently she was at home and went out to get her mail when 1 of her dogs knocked her over. She sees a gold wheel blocker and polisher at . She is insulin-dependent for her diabetes management. We took care of her for 3 weeks in inpatient rehab following an elective right shoulder replacement so she is familiar with the routine of rehab and will be monitored closely considering her significant comorbidities. Her prior level of functioning is sometimes use of a cane but is independent with her ADLs at home. Subjective/Events-last exam Pt will have a BM today she feels like Maintain on bowel regimen Incision looks good Accu checks will be discontinued since numbers are good Left leg is slow but she is able to walk 150 feet Day pass this weekend and likely DC on Sunday Venofer x5 doses has been completed and Dr. Rebolledo was updated Check meds and labs Reviewed therapy notes Conferred with 3d designer of Systems Gastrointestinal: Constipation Musculoskeletal: leg pain Objective Exam Vital Signs Vital Signs Date Time Temp Pulse Resp B/P (MAP) Pulse Ox O2 Delivery O2 Flow Rate FiO2 12/25/18 20:05 100 Room Air 12/25/18 17:05 98.0 77 18 150/69 (96) Capillary Refill : Less Than 3 Seconds General Appearance: No Apparent Distress, WD/WN, Chronically ill HEENT: PERRL/EOMI, Normal ENT Inspection, Pharynx Normal, Moist Mucous Membranes Neck: Full Range of Motion, Normal Inspection, Non Tender, Supple Respiratory: Chest Non Tender, Lungs Clear, Normal Breath Sounds, No Accessory Muscle Use, No Respiratory Distress Cardiovascular: Regular Rate, Rhythm, No Edema, No Gallop, No JVD, No Murmur Gastrointestinal: Normal Bowel Sounds, No Organomegaly, No Pulsatile Mass, Non Tender, Soft Back: Normal Inspection, No CVA Tenderness, No Vertebral Tenderness Extremity: Normal Capillary Refill, Normal Inspection, Normal Range of Motion (limited ROM left leg), Non Tender, No Calf Tenderness, No Pedal Edema Neurologic/Psychiatric: Alert, Oriented x3, No Motor/Sensory Deficits, Normal Mood/Affect, drill sharpener II-XII Norm as Tested, Abnormal Gait Skin: Normal Color, Warm/Dry Lymphatic: No Adenopathy Results/Procedures Lab Patient resulted labs reviewed. FIM Transfers Therapy Code Descriptions/Definitions Functional [place] Measure: 0=Not Assessed/NA 4=Minimal Assistance 1=Total Assistance 5=Supervision or Setup 2=Maximal Assistance 6=Modified [place] 3=Moderate Assistance 7=Complete [place] Therapy Quality Codes: 6 Independent with activity with or without an assistive device 5 Patient requires set up or clean up by helper. Patient completes activity by themselves 4 Supervision or touching assist (CGA). [place] provide cues , steadying assist 3 The helper provides less than half the effort to complete the activity 2 The helper provides more than half the effort to complete the activity 1 Dependent. The helper does all the effort to complete an activity 7 Patient refused to complete or attempt activity 9 The patient did not perform the activity before the current illness or injury 88 Not attempted due to Medical conditions or safety concerns Transfers (B, C, W/C) (FIM): 5 (SBA during sit to/from stand from chair and w/c) Scootin Rollin Roll Left to Right (QC): 5 Supine to/from Sit: 5 Sit to/from Stand: 5 Sit to Lying (QC): 3 Sit to Stand (QC): 5 Chair/Grn-hu-Xqhzh Xfer(QC): 5 Bed to/from Chair: 5 Car Transfer (QC): 4 Gait Training Does the Patient Walk?: Yes Gait (FIM): 5 Distance (FIM): 3=150 ft Distance: 150 Walk 10 feet (QC): 5 Walk 50 ft with 2 Turns(QC): 88 Walk 150 ft (QC): 88 Walking 10ft/uneven surface-QC: 88 Gait Level of Assist: 5 Gait Persons Needed: 1 Gait Assistive Device: FWW Wheelchair Training Does the Pt Use a Wheelchair?: Yes Wheelchair (FIM): 5 Wheelchair Distance: 3=150 ft (160x2) Wheelchair Level of Assist: 5 Type of Wheelchair: Manual Stair Training Stairs (FIM): 0 1 Step (curb) (QC): 88 4 Steps (QC): 88 12 Steps (QC): 88 Balance Picking up an Object (QC): 88 Mental Status/Objective Comprehension: 7 Expression: 7 Social Interaction: 7 Problem Solvin Memory: 7 ADL-Treatment Feedin Eating (QC): 6 Groomin (Mod I standing at sink with FWW) Oral Hygiene (QC): 6 Bathin (CGA during stand at grab bars for washing periarea and buttocks. Pt completed 01/30 parts using SC and long handled sponge) Bathing Location: L Arm, R Arm, L Upper Leg, R Upper Leg, L Lower Leg (including foot), R Lower Leg (including foot), Chest, Abdomen, Buttocks, Perineal Area Shower/Bathe Self (QC): 4 Upper Extremity Dressin (Pt donned/doffed bra and gum puller shirt) Upper Body Dressing (QC): 6 Lower Extremity Dressin (Pt completed 10/28, requiring assistance threading LLE into pant leg. Pt used dressing stick for donning pants/underwear and long handled shoe horn to don shoes) Lower Body Dressing (QC): 3 On/Off Footwear (QC): 6 Toiletin (SBA for safety during clothing management. Pt completed 3/3 parts.) Toileting Hygiene (QC): 4 Toilet/Commode Transfer: 5 (SBA during sit to/from stand, pt utilized grab bars and FWW during transfer) Toilet Transfer (QC): 4 Shower: 4 (CGA into shower, Min A to stand from shower chair, using grab bars.) Assessment/Plan Assessment and Plan Assess & Plan/Chief Complaint Plan: IRF protocol Pain meds to continue BM regimen to be maintained since resolved now Home meds IS DM management ADA diet Heparin for DVT PPx Venofer Iron level reviewed Consult Dr Amaury Browne and his expertise is appreciated Monitor right arm midline infiltration site Review progress Sunday (1) Intertrochanteric fracture of left femur Status: Acute (2) Fall from ground level Status: Acute (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
--- NOTE | 2018-12-25 12:03 | Physical Therapy Daily Note ---
PT Daily Note-Current Subjective Pt sitting in recliner upon arrival. Pt agrees to PT. Pain Numeric Pain Scale: 5-Moderate Pain Location: Left Location Body Site: Hip Pain Description: Ache, Tightness Mental Status Patient Orientation: Person, Place, Time, Situation Transfers Therapy Code Descriptions/Definitions Functional [place] Measure: 0=Not Assessed/NA 4=Minimal Assistance 1=Total Assistance 5=Supervision or Setup 2=Maximal Assistance 6=Modified [place] 3=Moderate Assistance 7=Complete [place] Therapy Quality Codes: 6 Independent with activity with or without an assistive device 5 Patient requires set up or clean up by helper. Patient completes activity by themselves 4 Supervision or touching assist (CGA). [place] provide cues , steadying assist 3 The helper provides less than half the effort to complete the activity 2 The helper provides more than half the effort to complete the activity 1 Dependent. The helper does all the effort to complete an activity 7 Patient refused to complete or attempt activity 9 The patient did not perform the activity before the current illness or injury 88 Not attempted due to Medical conditions or safety concerns Scootin Sit to/from Stand: 5 Sit to Stand (QC): 5 Weight Bearing Right Lower Extremity: Right Full Weight Bearing Left Lower Extremity: Left Weight Bearing/Tolerated Gait Training Does the Patient Walk?: Yes Gait (FIM): 5 Distance (FIM): 3=150 ft Distance: 150' Walk 10 feet (QC): 5 Walk 50 ft with 2 Turns(QC): 5 Walk 150 ft (QC): 5 Gait Level of Assist: 5 Gait Persons Needed: 1 Gait Assistive Device: FWW Pt walks with slow helio and antalgic gait pattern. Wheelchair Training Does the Pt Use a Wheelchair?: No Exercises NuStep Minutes: 15 NuStep Workload: 4 Treatments Pt transfers from chair to standing. Pt uses restroom then ambulates in hallway using FWW. Pt uses NuStep for 15m at WL 4 then short RB before completing Seated Ex. Pt returns to room to rest at end of tx with all needs met, call light next to pt. Assessment Current Status: Good Progress Pt is improving with transfers and mobility but still reports pain in L hip. PT Short Term Goals Short Term Goals Time Frame: Dec 25, 2018 Transfers (B,C,W/C) (FIM): 4 Gait (FIM): 4 PT Shipping Lead Goals [place] Goals PT Shipping Lead Goals Time Frame: Jan 03, 2019 Transfers (B,C,W/C) (FIM): 7 Sit to Lying (QC): 6 Lying-Sitting on Side/Bed(QC): 6 Sit to Stand (QC): 6 Rollin Roll Left to Right (QC): 6 Chair/Vxi-eo-Ftnsq Xfer(QC): 6 Car Transfer (QC): 6 Does the Patient Walk: Yes Gait (FIM): 6 Gait distance (FIM): 3=150 ft Walk 10 feet (QC): 6 Walk 10ft-Uneven Surface(QC): 6 Walk 50ft with 2 Turns (QC): 6 Walk 150 ft (QC): 6 Gait Assistive Device: FWW Does the Pt use WC or Scooter?: No Stairs (FIM): 5 # of Steps: 4 (household distance) 1 Step (curb) (QC): 6 4 Steps (QC): 6 12 Steps (QC): 6 Picking up an Object (QC): 88 PT Plan Problem List Problem List: Activity Tolerance, Functional Strength, Gait Treatment/Plan Treatment Plan: Continue Plan of Care Treatment Plan: Bed Mobility, Education, Functional Activity Lucy, Functional Strength, Group Therapy, Gait, Safety, Therapeutic Exercise, Transfers Treatment Duration: Jan 03, 2019 Frequency: At least 5 of 7 days/Wk (IRF) Estimated Hrs Per Day: 1.5 hours per day Patient and/or Family Agrees t: Yes Safety Risks/Education Patient Education: Gait Training, Transfer Techniques, Correct Positioning, Safety Issues Teaching Recipient: Patient Teaching Methods: Discussion Response to Teaching: Verbalize Understanding Time/GCodes Time In: 945 Time Out: 1045 Total Billed Treatment Time: 60 Total Billed Treatment 1, GT (15m), EX x2 (30m) & FA (15m) PHAN KOVACS NUT SHELLER Dec 25, 2018 12:03
--- NOTE | 2018-12-25 15:09 | Therapy Group Daily Note ---
Therapy Daily Group Note Patient Education Topic Other List Below (memory) Exercises LE Seated Exercise, UE Exercise Session Ratio (pt:therapist): 4:1 Goal of Session: Memory Strategies, UE/LE Strengthing Goal Met for this Session: Yes Pt Benefit of Group: Contributions to Others, Increased Functional Strength, Improved Cognition, Recognition of Peers, Socialization Other/Notes Pt ambulated using FWW to OT group. Group consisted of introductions (name, place living, worst thing forgot then remembered), socialization, seated UE/LE seated exercises, review of ARU, memory activity/exercises and education on memory strategies. Pt introduced self appropriately and actively listened to peers. Pt was able to participate in group effectively and engaged in peer conversations. Memory activity completed and pt was able to match 2 of 2 withou t difficulty. Pt tolerated UE/LE seated exercises well, 1 set 10 reps of each exercise. Pt acknowledged understanding of educational topic verbally by giving personal strategies and activities to strengthen memory. After therapy, pt sitting in recliner with call light/phone in reach. All needs met in room. Start Time: 13:00 Stop Time: 14:20 Total Billed Treatment Time: 80 Total Billed Treatment 1-GRP MEHRAN GARCIA Dec 25, 2018 15:09
--- NOTE | 2018-12-25 16:55 | NUR ---
MELT DOWN FURNACE OPERATOR met with patient to review team conference summary. As patient is ambulating 120 feet with contact-guard to minimal assist, transferring with standby assist and min assist, bathing with contact-guard assist and min assist for lower body dressing team has recommended patient complete a day pass to trial home and for progress to be discussed on Sunday, . Patient is apprehensive about day pass, but will speak with family in regards to this. Patient is agreeable for team to discuss progress on Sunday. MELT DOWN FURNACE OPERATOR will continue to follow
[2018-12-25 17:05] VITALS: BP 150/69
[2018-12-26 05:44] VITALS: BP 159/71
[2018-12-26] MEDS: SODIUM BICARBONATE 650 MG TABLET (NON-FORMULARY) PO SCH ×2 (05:50→17:28)
[2018-12-26] MEDS: LEVOTHYROXINE 75 MCG (LEVOTHROID) TABLET PO SCH (05:50)
[2018-12-26] MEDS: CATHETER FLUSH 10 ML SYR IV SCH ×3 (05:50→22:11)
--- NOTE | 2018-12-26 07:01 | Progress Note ---
MARCIAL LEMUS [facility] 12/26/18 0701: Subjective Date Seen by a Provider: Dec 26, 2018 Time Seen by a Provider: 07:00 Subjective/Events-last exam Pt was seen today at 0700. She is pleasant, smiling, eating breakfast and interacting with her at this time. Her vitals were stable. Denies any new or increased pain. She has only been taking tylenol x3 per day; after PT/showering and before bed. Denies any other MSK sx. She has been doing well with PT and has been making progress with ambulating around the Rehab facility. She has had no trouble with urination and has had a Normal BM since yesterday. She does not complain of any other sx at this time. Review of Systems General: No Chills, No Night Sweats, No Fatigue, No Malaise, No Appetite, No Other HEENT: No Head Aches, No Sore Throat Pulmonary: No Dyspnea, No Cough, No Pleuritic Chest Pain Cardiovascular: No: Chest Pain, Palpitations, Edema, Lt Headedness Gastrointestinal: No: Nausea, Vomiting, Diarrhea, Constipation Genitourinary: No Dysuria, No Frequency, No Incontinence, No Hematuria, No Retention Musculoskeletal: leg pain (s/p L hip surgery); No: shoulder pain, arm pain, yolanda k pain Neurological: Weakness (Mild, recovering from surgery); No: Numbness, Change in speech Objective Exam Last Set of Vital Signs Vital Signs Date Time Temp Pulse Resp B/P (MAP) Pulse Ox O2 Delivery O2 Flow Rate FiO2 12/26/18 05:44 98.8 80 20 159/71 (100) 97 Room Air Capillary Refill : Less Than 3 Seconds I&O Intake and Output 12/26/18 00:00 Intake Total 1400 ml Balance 1400 ml Intake Oral 1400 ml # Voids 5 # Bowel Movements 1 General: Alert, Oriented X3, Cooperative, No Acute Distress HEENT: Atraumatic, Mucous Memb Moist/[place] Neck: Supple Lungs: Clear to Auscultation, Normal Air Movement Heart: Regular Rate, Normal S1, Normal S2, No Murmurs Extremities: No Clubbing, No Cyanosis, No Edema, Normal Pulses, No Tenderness/Swelling Skin: No Rashes, No Breakdown Psych/Mental Status: Mental Status NL Results Lab Glucose 12/26/2018: 175 Assessment/Plan Assessment/Plan Assess & Plan/Chief Complaint Plan: IRF protocol Pain meds to continue Maintain BM regimen Home meds IS DM management ADA diet Heparin for DVT PPx Venofer Continue with OT, Group Therapy, and PT, and monitor progress Review progress Sunday Clinical Quality Measures DVT/VTE Risk/Contraindication: Risk Factor Score Per Nursin RFS Level Per Nursing on Admit: 4+=Very High MAYELIN BLOCK DO 12/26/182109: Supervisory-Addendum Brief Verification & Attestation Participated in pt care: history, MDM, physical Personally performed: exam, history, MDM, supervision of care Care discussed with: Medical Student Procedures: n/a Results interpretation: Verified all documentation Verification and Attestation of Medical Student E/M Service A medical student performed and documented this service in my presence. I reviewed and verified all information documented by the medical student and made modifications to such information, when appropriate. I personally performed the physical exam and medical decision making. Mayelin Block Dec 26, 2018,21:10 MARCIAL LEMUS MED STUD Dec 26, 2018 07:01 MAYELIN BLOCK DO Dec 26, 2018 21:10
--- NOTE | 2018-12-26 08:33 | Occupational Ther Daily Note ---
OT Current Status-Daily Note Subjective Pt upright in recliner at start of session. Pt agreeable to OT session. Pain Numeric Pain Scale: 3 Mental Status/Objective Patient Orientation: Normal For Age Therapy Code Descriptions/Definitions Functional [place] Measure: 0=Not Assessed/NA 4=Minimal Assistance 1=Total Assistance 5=Supervision or Setup 2=Maximal Assistance 6=Modified [place] 3=Moderate Assistance 7=Complete [place] Attachments: IV ADL-Treatment Therapy Code Descriptions/Definitions Functional [place] Measure: 0=Not Assessed/NA 4=Minimal Assistance 1=Total Assistance 5=Supervision or Setup 2=Maximal Assistance 6=Modified [place] 3=Moderate Assistance 7=Complete [place] Therapy Quality Codes: 6 Independent with activity with or without an assistive device 5 Patient requires set up or clean up by helper. Patient completes activity by themselves 4 Supervision or touching assist (CGA). [place] provide cues , steadying assist 3 The helper provides less than half the effort to complete the activity 2 The helper provides more than half the effort to complete the activity 1 Dependent. The helper does all the effort to complete an activity 7 Patient refused to complete or attempt activity 9 The patient did not perform the activity before the current illness or injury 88 Not attempted due to Medical conditions or safety concerns Grooming (FIM): 6 (mod I seated in w/c at sink. Pt washed face, brushed hair, washed hands, brushed teeth) Oral Hygiene (QC): 6 Bathing (FIM): 5 (SBA sponge bath, on BSC over toilet. Pt completed 10/10 parts, ) Bathing Location: L Arm, R Arm, L Upper Leg, R Upper Leg, L Lower Leg (including foot), R Lower Leg (including foot), Chest, Abdomen, Buttocks, Perineal Area Shower/Bathe Self (QC): 4 Upper Body (FIM): 5 (set up) Upper Body Dressing (QC): 5 Lower Body Dressing (FIM): 4 (pt completed 10/28, requiring assist threading LLE into underwear. Pt completed LE dressing using dressing stick and long handled shoe horn) Lower Body Dressing (QC): 3 On/Off Footwear (QC): 6 Toileting (FIM): 5 (SBA for safety/balance, pt completed 3/3 parts) Toileting Hygiene (QC): 4 Transfers (B, C, W/C) (FIM): 5 (SBA using FWW, sit to/from stand from recliner and w/c.) Toilet/Commode Transfer (FIM): 5 (SBA using FWW and grab bars.) Toilet Transfer (QC): 4 Other Treatment Pt completed ADLs in her room, performed functional mobility to bathroom using FWW, performed toileting/bathing/dressing on BSC over toilet, then transferred to w/c to complete grooming at the sink secondary to pt saying she is not as thorough with brushing her teeth when she is standing. Pt then taken to therapy gym. In order increase UE strength and endurance, and fine motor strength for functional activities and ALDs, pt completed the followin) Pegboard, pt placed and removed X100 pegs, alternating R/L hands, 2lb wrist cuff placed on R hand only (weight not placed on L wrist secondary to IV). Pt completed task in 11 mins 33 seconds. 2) Arm bike, [id number], mod resistance. Pt required 1 rest break during activity secondary to decreased activity tolerance. 3) Nuts and bolts fine motor task. Pt placed and removed x16 nuts & bolts, dropping 2 nuts, 1 washer during task. Pt completed activity in 6 Mins 30 secs Pt performed functional mobility from gym to room using FWW with SBA for safety/balance. Post OT session, pt seated in recliner, call light in reach and all needs met. Education OT Patient Education: Correct positioning, Energy conservation, Exercise program, Modified ADL techniques, Progress toward Goal/Update tx plan, Purpose of tx/functional activities, Transfer techniques, Use of adapted equipment Teaching Recipient: Patient Teaching Methods: Demonstration Response to Teaching: Verbalize Understanding OT Short Term Goals Short Term Goals Time Frame: Dec 21, 2018 Bathing(FIM): 4 Lower Body Dressing(FIM): 3 Toileting(FIM): 3 Transfers (B,C,W/C) (FIM): 4 Toilet/Commode Transfer(FIM): 4 Additional Short Term Goals: 1-Demonstrate ADL Tasks, 2-Verbalize Understanding, 3-ImproveStrength/Lucy 1=Demonstrate adherence to instructed precautions during ADL tasks. 2=Patient will verbalize/demonstrate understanding of assistive devices/modifications for ADL. 3=Patient will improve strength/tolerance for activity to enable patient to perform ADL's. OT Detention Goals Detention Goals Time Frame: Jan 04, 2019 Eating (FIM): 7 Eating (QC): 6 Groomin Oral Hygiene (QC): 6 Bathing(FIM): 5 Shower/Bathe Self (QC): 5 Upper Body Dressing(FIM): 6 Upper Body Dressing (QC): 6 Lower Body Dressing(FIM): 5 Lower Body Dressing (QC): 5 On/Off Footwear (QC): 5 Toileting(FIM): 6 Toileting Hygiene (QC): 6 Toilet/Commode Transfer(FIM): 6 Toilet/Commode Transfer (QC): 6 Shower Transfer(FIM): 5 Additional Goals: 1-Demonstrate ADL Tasks, 2-Verbalize Understanding, 3-ImproveStrength/Lucy 1=Demonstrate adherence to instructed precautions during ADL tasks. 2=Patient will verbalize/demonstrate understanding of assistive devices/modifications for ADL. 3=Patient will improve strength/tolerance for activity to enable patient to perform ADL's. OT Education/Plan Problem List/Assessment Assessment: Decreased Activ Tolerance, Decreased UE Strength, Impaired Funct Balance, Impaired I ADL's, Impaired Self-Care Skills Pt admitted to ARU after fall resulting in left hip fracture. S/p surgical intervention. Pt demonstrates decreased mobility, strength, activity tolerance, and ADL functioning. Pt to benefit from skilled OT intervention for ADL training, transfers, strengthening, adaptive equipment training, and home safety education to increase level of independence and allow safe discharge home. Discharge Recommendations Plan/Recommendations: Continue POC Treatment Plan/Plan of Care Treatment,Training & Education: Yes Patient would benefit from OT for education, treatment and training to promote independence in ADL's, mobility, safety and/or upper extremity function for ADL's. Plan of Care: ADL Retraining, Functional Mobility, Group Exercise/Act as Ind, UE Funct Exercise/Act Treatment Duration: Jan 04, 2019 Frequency: At least 5 of 7 days/Wk (IRF) Estimated Hrs Per Day: 1.5 hours per day Agreement: Yes Rehab Potential: Good Time/GCodes Start Time: 07:50 Stop Time: 09:20 Total Time Billed (hr/min): 90 Billed Treatment Time 1, ADL 2 [id number], EX [id number], FA 3 [id number] YOLANDE COURTNEY OT Dec 26, 2018 08:33
[2018-12-26] MEDS: DOCUSATE SODIUM 100 MG (COLACE) CAP PO SCH ×2 (09:25→21:09)
[2018-12-26] MEDS: ALLOPURINOL 100 MG (ZYLOPRIM) TAB PO SCH (09:26)
[2018-12-26] MEDS: ACETAMINOPHEN 325 MG TABLET PO PRN ×3 (09:26→22:11)
[2018-12-26] MEDS: SENNA W/DOCUSATE (SENOKOT S) TABLET PO SCH ×2 (09:26→21:09)
[2018-12-26] MEDS: amLODIPine 5 MG (NORVASC) TAB PO SCH (09:26)
[2018-12-26] MEDS: FUROSEMIDE 40 MG (LASIX) TAB PO SCH (09:26)
[2018-12-26] MEDS: PANTOPRAZOLE 40 MG (PROTONIX) TAB PO SCH ×2 (09:26→21:09)
[2018-12-26] MEDS: meTOprolol TARTRATE 25 MG (LOPRESSOR) TABLET PO SCH ×2 (09:26→21:09)
[2018-12-26] MEDS: POLYETHYLENE GLYCOL 17 GM (MIRALAX) PACK PO SCH ×2 (09:27→21:09)
--- NOTE | 2018-12-26 09:27 | PM&R Progress Note ---
Subjective HPI/CC On Admission Date Seen by Provider: Dec 26, 2018 Time Seen by Provider: 09:00 Chief complaint: Debility following left intertrochanteric hip fracture History of present illness: This is a 70-year-old white female clinic patient of Dr. Wills who presents following a fall at home resulted in intertrochanteric left hip fracture undergoing an uncomplicated repair the following day. 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 Her hemoglobin remains low at 7.7 but did not require a transfusion while on fourth floor. She has not had a bowel movement since she was admitted. Most medications from home were restarted and at this current time her son and kitchen work supervisor are at the bedside. Apparently she was at home and went out to get her mail when 1 of her dogs knocked her over. She sees a exhibition carver at . She is insulin-dependent for her diabetes management. We took care of her for 3 weeks in inpatient rehab following an elective right shoulder replacement so she is familiar with the routine of rehab and will be monitored closely considering her significant comorbidities. Her prior level of functioning is sometimes use of a cane but is independent with her ADLs at home. Subjective/Events-last exam Day pass for this weekend and then Sunday night for her granddaughters birthday democrat. No major issues. Had a BM last night. No new pain reported. Now relying on Tylenol TID. Check meds and labs Reviewed therapy notes Conferred with assistant housekeeping manager of Systems General: Fatigue Musculoskeletal: leg pain Objective Exam Vital Signs Vital Signs Date Time Temp Pulse Resp B/P (MAP) Pulse Ox O2 Delivery O2 Flow Rate FiO2 12/26/18 16:40 98.4 82 16 148/70 (96) 94 Room Air Capillary Refill : Less Than 3 Seconds General Appearance: No Apparent Distress, WD/WN, Chronically ill HEENT: PERRL/EOMI, Normal ENT Inspection, Pharynx Normal, Moist Mucous Membranes Neck: Full Range of Motion, Normal Inspection, Non Tender, Supple Respiratory: Chest Non Tender, Lungs Clear, Normal Breath Sounds, No Accessory Muscle Use, No Respiratory Distress Cardiovascular: Regular Rate, Rhythm, No Edema, No Gallop, No JVD, No Murmur Gastrointestinal: Normal Bowel Sounds, No Organomegaly, No Pulsatile Mass, Non Tender, Soft Back: Normal Inspection, No CVA Tenderness, No Vertebral Tenderness Extremity: Normal Capillary Refill, Normal Inspection, Normal Range of Motion (limited ROM left leg), Non Tender, No Calf Tenderness, No Pedal Edema Neurologic/Psychiatric: Alert, Oriented x3, No Motor/Sensory Deficits, Normal Mood/Affect, dressage instructor II-XII Norm as Tested, Abnormal Gait Skin: Normal Color, Warm/Dry Lymphatic: No Adenopathy Results/Procedures Lab Patient resulted labs reviewed. FIM Transfers Therapy Code Descriptions/Definitions Functional [place] Measure: 0=Not Assessed/NA 4=Minimal Assistance 1=Total Assistance 5=Supervision or Setup 2=Maximal Assistance 6=Modified [place] 3=Moderate Assistance 7=Complete [place] Therapy Quality Codes: 6 Independent with activity with or without an assistive device 5 Patient requires set up or clean up by helper. Patient completes activity by themselves 4 Supervision or touching assist (CGA). [place] provide cues , steadying assist 3 The helper provides less than half the effort to complete the activity 2 The helper provides more than half the effort to complete the activity 1 Dependent. The helper does all the effort to complete an activity 7 Patient refused to complete or attempt activity 9 The patient did not perform the activity before the current illness or injury 88 Not attempted due to Medical conditions or safety concerns Transfers (B, C, W/C) (FIM): 5 (SBA using FWW, sit to/from stand from recliner and w/c.) Scootin Rollin Roll Left to Right (QC): 5 Supine to/from Sit: 5 Sit to/from Stand: 5 Sit to Lying (QC): 3 Sit to Stand (QC): 5 Chair/Mmo-lx-[id number] Xfer(QC): 5 Bed to/from Chair: 5 Car Transfer (QC): 4 Gait Training Does the Patient Walk?: Yes Gait (FIM): 5 Distance (FIM): 3=150 ft Distance: 150' Walk 10 feet (QC): 5 Walk 50 ft with 2 Turns(QC): 5 Walk 150 ft (QC): 5 Walking 10ft/uneven surface-QC: 88 Gait Level of Assist: 5 Gait Persons Needed: 1 Gait Assistive Device: FWW Wheelchair Training Does the Pt Use a Wheelchair?: No Wheelchair (FIM): 5 Wheelchair Distance: 3=150 ft (160x2) Wheelchair Level of Assist: 5 Type of Wheelchair: Manual Stair Training Stairs (FIM): 0 1 Step (curb) (QC): 88 4 Steps (QC): 88 12 Steps (QC): 88 Balance Picking up an Object (QC): 88 Mental Status/Objective Comprehension: 7 Expression: 7 Social Interaction: 7 Problem Solvin Memory: 7 ADL-Treatment Feedin Eating (QC): 6 Groomin (mod I seated in w/c at sink. Pt washed face, brushed hair, washed hands, brushed teeth) Oral Hygiene (QC): 6 Bathin (SBA sponge bath, on BSC over toilet. Pt completed 01/30 parts, ) Bathing Location: L Arm, R Arm, L Upper Leg, R Upper Leg, L Lower Leg (including foot), R Lower Leg (including foot), Chest, Abdomen, Buttocks, Perineal Area Shower/Bathe Self (QC): 4 Upper Extremity Dressin (set up) Upper Body Dressing (QC): 5 Lower Extremity Dressin (pt completed 10/28, requiring assist threading LLE into underwear. Pt completed LE dressing using dressing stick and long handled shoe horn) Lower Body Dressing (QC): 3 On/Off Footwear (QC): 6 Toiletin (SBA for safety/balance, pt completed 3/3 parts) Toileting Hygiene (QC): 4 Toilet/Commode Transfer: 5 (SBA using FWW and grab bars.) Toilet Transfer (QC): 4 Shower: 4 (CGA into shower, Min A to stand from shower chair, using grab bars.) Assessment/Plan Assessment and Plan Assess & Plan/Chief Complaint Plan: IRF protocol Pain meds to continue BM regimen to be maintained since resolved now Home meds IS DM management ADA diet Heparin for DVT PPx Venofer Iron level reviewed Consult Dr Amaury Browne and his expertise is appreciated Monitor right arm midline infiltration site Review progress Sunday pass (1) Intertrochanteric fracture of left femur Status: Acute (2) Fall from ground level Status: Acute (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
--- NOTE | 2018-12-26 12:23 | Physical Therapy Daily Note ---
PT Daily Note-Current Subjective Pt sitting in recliner upon arrival. Pt agrees to PT. Pain Numeric Pain Scale: 5-Moderate Pain Location: Left Location Body Site: Hip Pain Description: Ache, Tightness Mental Status Patient Orientation: Person, Place, Time, Situation Transfers Therapy Code Descriptions/Definitions Functional [place] Measure: 0=Not Assessed/NA 4=Minimal Assistance 1=Total Assistance 5=Supervision or Setup 2=Maximal Assistance 6=Modified [place] 3=Moderate Assistance 7=Complete [place] Therapy Quality Codes: 6 Independent with activity with or without an assistive device 5 Patient requires set up or clean up by helper. Patient completes activity by themselves 4 Supervision or touching assist (CGA). [place] provide cues , steadying assist 3 The helper provides less than half the effort to complete the activity 2 The helper provides more than half the effort to complete the activity 1 Dependent. The helper does all the effort to complete an activity 7 Patient refused to complete or attempt activity 9 The patient did not perform the activity before the current illness or injury 88 Not attempted due to Medical conditions or safety concerns Scootin Sit to/from Stand: 5 Sit to Stand (QC): 5 Weight Bearing Right Lower Extremity: Right Full Weight Bearing Left Lower Extremity: Left Weight Bearing/Tolerated Gait Training Does the Patient Walk?: Yes Gait (FIM): 5 Distance (FIM): 3=150 ft Distance: 150' Walk 10 feet (QC): 5 Walk 50 ft with 2 Turns(QC): 5 Walk 150 ft (QC): 5 Gait Level of Assist: 5 Gait Persons Needed: 1 Gait Assistive Device: FWW Pt walks with slow antalgic gait. Pt starts out stiff but loosens as pt ambulates. Wheelchair Training Does the Pt Use a Wheelchair?: No Exercises Standing: Heel/toe raises, Unilateral stance, Weight shifts NuStep Minutes: 15 NuStep Workload: 4 Treatments Pt transfers from recliner to standing then uses restroom. Pt then ambulates in hallway before using NuStep for 15m at WL 4. Pt completes Standing EX at //bars including toe taps on single step. This is discontinued when pt reports increased pain. Pt returns to room at end of tx with all needs met, call light next to pt. Assessment Current Status: Good Progress Pt's mobility & transfers are improving but still limited by stiffness and pain. PT Short Term Goals Short Term Goals Time Frame: Dec 25, 2018 Transfers (B,C,W/C) (FIM): 4 Gait (FIM): 4 PT Shelter Goals Shelter Goals PT Hand Picker Goals Time Frame: Jan 03, 2019 Transfers (B,C,W/C) (FIM): 7 Sit to Lying (QC): 6 Lying-Sitting on Side/Bed(QC): 6 Sit to Stand (QC): 6 Rollin Roll Left to Right (QC): 6 Chair/Kqp-zo-Ufqwj Xfer(QC): 6 Car Transfer (QC): 6 Does the Patient Walk: Yes Gait (FIM): 6 Gait distance (FIM): 3=150 ft Walk 10 feet (QC): 6 Walk 10ft-Uneven Surface(QC): 6 Walk 50ft with 2 Turns (QC): 6 Walk 150 ft (QC): 6 Gait Assistive Device: FWW Does the Pt use WC or Scooter?: No Stairs (FIM): 5 # of Steps: 4 (household distance) 1 Step (curb) (QC): 6 4 Steps (QC): 6 12 Steps (QC): 6 Picking up an Object (QC): 88 PT Plan Problem List Problem List: Activity Tolerance, Functional Strength, Gait Treatment/Plan Treatment Plan: Continue Plan of Care Treatment Plan: Bed Mobility, Education, Functional Activity Lucy, Functional Strength, Group Therapy, Gait, Safety, Therapeutic Exercise, Transfers Treatment Duration: Jan 03, 2019 Frequency: At least 5 of 7 days/Wk (IRF) Estimated Hrs Per Day: 1.5 hours per day Patient and/or Family Agrees t: Yes Safety Risks/Education Patient Education: Gait Training, Transfer Techniques, Reviewed Precautions, Correct Positioning, Safety Issues Teaching Recipient: Patient Teaching Methods: Discussion Response to Teaching: Verbalize Understanding Time/GCodes Time In: 1045 Time Out: 1130 Total Billed Treatment Time: 45 Total Billed Treatment 1, EX (20m), GT (15m) & FA (10m) PHAN KOVACS PTA Dec 26, 2018 12:23
--- NOTE | 2018-12-26 16:21 | Physical Therapy Daily Note ---
PT Daily Note-Current Subjective Pt sitting in recliner visiting with Sp & friend upon arrival. Pt agrees to PT. Transfers Therapy Code Descriptions/Definitions Functional [place] Measure: 0=Not Assessed/NA 4=Minimal Assistance 1=Total Assistance 5=Supervision or Setup 2=Maximal Assistance 6=Modified [place] 3=Moderate Assistance 7=Complete [place] Therapy Quality Codes: 6 Independent with activity with or without an assistive device 5 Patient requires set up or clean up by helper. Patient completes activity by themselves 4 Supervision or touching assist (CGA). [place] provide cues , steadying assist 3 The helper provides less than half the effort to complete the activity 2 The helper provides more than half the effort to complete the activity 1 Dependent. The helper does all the effort to complete an activity 7 Patient refused to complete or attempt activity 9 The patient did not perform the activity before the current illness or injury 88 Not attempted due to Medical conditions or safety concerns Scootin Sit to/from Stand: 5 Sit to Stand (QC): 5 Weight Bearing Right Lower Extremity: Right Full Weight Bearing Left Lower Extremity: Left Weight Bearing/Tolerated Gait Training Does the Patient Walk?: Yes Gait (FIM): 5 Distance (FIM): 3=150 ft Distance: 150' Walk 10 feet (QC): 5 Walk 50 ft with 2 Turns(QC): 5 Walk 150 ft (QC): 5 Gait Level of Assist: 5 Gait Persons Needed: 1 Gait Assistive Device: FWW Pt practices walking in room with 4WW although both pt & ENAMEL SHADER agree this is too difficult for pt to control at this time. Pt will use FWW for right now. Wheelchair Training Does the Pt Use a Wheelchair?: No Treatments Pt practices ambulation with and w/o 4WW. ENAMEL SHADER & pt agree to use FWW for pt at this time. Pt returns to room to rest at end of tx. Pt has all needs met, Sp present & call light next to pt. Assessment Current Status: Good Progress Pt is gaining strength & mobility although still limited by stiffness and pain in L hip. PT Short Term Goals Short Term Goals Time Frame: Dec 25, 2018 Transfers (B,C,W/C) (FIM): 4 Gait (FIM): 4 PT Detention Goals Human Resources Officer Goals PT Detention Goals Time Frame: Jan 03, 2019 Transfers (B,C,W/C) (FIM): 7 Sit to Lying (QC): 6 Lying-Sitting on Side/Bed(QC): 6 Sit to Stand (QC): 6 Rollin Roll Left to Right (QC): 6 Chair/Tve-vu-Oqicv Xfer(QC): 6 Car Transfer (QC): 6 Does the Patient Walk: Yes Gait (FIM): 6 Gait distance (FIM): 3=150 ft Walk 10 feet (QC): 6 Walk 10ft-Uneven Surface(QC): 6 Walk 50ft with 2 Turns (QC): 6 Walk 150 ft (QC): 6 Gait Assistive Device: FWW Does the Pt use WC or Scooter?: No Stairs (FIM): 5 # of Steps: 4 (household distance) 1 Step (curb) (QC): 6 4 Steps (QC): 6 12 Steps (QC): 6 Picking up an Object (QC): 88 PT Plan Problem List Problem List: Activity Tolerance, Functional Strength, Gait Treatment/Plan Treatment Plan: Continue Plan of Care Treatment Plan: Bed Mobility, Education, Functional Activity Lucy, Functional Strength, Group Therapy, Gait, Safety, Therapeutic Exercise, Transfers Treatment Duration: Jan 03, 2019 Frequency: At least 5 of 7 days/Wk (IRF) Estimated Hrs Per Day: 1.5 hours per day Patient and/or Family Agrees t: Yes Safety Risks/Education Patient Education: Gait Training, Transfer Techniques, Correct Positioning, Safety Issues Teaching Recipient: Patient Teaching Methods: Discussion Response to Teaching: Verbalize Understanding Time/GCodes Time In: 1500 Time Out: 1530 Total Billed Treatment Time: 30 Total Billed Treatment 1, GT x2 (30m) PHAN KOVACS ENAMEL SHADER Dec 26, 2018 16:21
[2018-12-26 16:40] VITALS: BP 148/70
[2018-12-27 05:32] VITALS: BP 149/81
[2018-12-27] MEDS: SODIUM BICARBONATE 650 MG TABLET (NON-FORMULARY) PO SCH ×2 (06:11→16:35)
[2018-12-27] MEDS: CATHETER FLUSH 10 ML SYR IV SCH ×3 (06:11→19:59)
[2018-12-27] MEDS: LEVOTHYROXINE 75 MCG (LEVOTHROID) TABLET PO SCH (06:11)
[2018-12-27] MEDS: PANTOPRAZOLE 40 MG (PROTONIX) TAB PO SCH ×2 (07:43→19:58)
[2018-12-27] MEDS: POLYETHYLENE GLYCOL 17 GM (MIRALAX) PACK PO SCH ×2 (07:43→19:59)
[2018-12-27] MEDS: SENNA W/DOCUSATE (SENOKOT S) TABLET PO SCH ×2 (07:43→19:59)
[2018-12-27] MEDS: FUROSEMIDE 40 MG (LASIX) TAB PO SCH (07:43)
[2018-12-27] MEDS: meTOprolol TARTRATE 25 MG (LOPRESSOR) TABLET PO SCH ×2 (07:43→19:59)
[2018-12-27] MEDS: amLODIPine 5 MG (NORVASC) TAB PO SCH (07:43)
[2018-12-27] MEDS: ALLOPURINOL 100 MG (ZYLOPRIM) TAB PO SCH (07:43)
[2018-12-27] MEDS: DOCUSATE SODIUM 100 MG (COLACE) CAP PO SCH ×2 (07:44→19:59)
--- NOTE | 2018-12-27 08:25 | Progress Note ---
[facility] 12/27/18 0825: Subjective Date Seen by a Provider: Dec 27, 2018 Time Seen by a Provider: 06:30 Subjective/Events-last exam She is pleasant, smiling, eating breakfast and interacting with her at this time. Her vitals were stable. Denies any new or increased pain. She has only been taking tylenol x3 per day; after PT/showering and before bed. Denies any other MSK sx. She has had 5 BMs yesterday so she did not take her Miralax dose last night. She does not complain of any other sx at this time. Review of Systems General: No Chills, No Night Sweats HEENT: No Head Aches Pulmonary: No Dyspnea, No Cough, No Pleuritic Chest Pain Cardiovascular: No: Chest Pain, Palpitations, Orthopnea, Paroxysmal Noc. Dyspnea, Edema, Lt Headedness Gastrointestinal: No: Nausea, Vomiting Genitourinary: No Dysuria, No Frequency, No Incontinence, No Hematuria, No Retention Objective Exam Last Set of Vital Signs Vital Signs Date Time Temp Pulse Resp B/P (MAP) Pulse Ox O2 Delivery O2 Flow Rate FiO2 12/27/18 05:32 98.0 74 18 149/81 (103) 98 Room Air Capillary Refill : Less Than 3 Seconds I&O Intake and Output 12/27/18 00:00 Intake Total 1610 ml Balance 1610 ml Intake Oral 1610 ml # Voids 7 # Bowel Movements 4 Results Lab Laboratory Tests 12/26/18 09:33: Glucometer 175H Assessment/Plan Assessment/Plan Assess & Plan/Chief Complaint Plan: IRF protocol Pain meds to continue Maintain BM regimen Home meds IS DM management ADA diet Heparin for DVT PPx Venofer Continue with OT, Group Therapy, and PT, and monitor progress Review progress Sunday Clinical Quality Measures DVT/VTE Risk/Contraindication: Risk Factor Score Per Nursin RFS Level Per Nursing on Admit: 4+=Very High MAYELIN BLOCK DO 12/28/18 0802: Supervisory-Addendum Brief Verification & Attestation Participated in pt care: history, MDM, physical Personally performed: exam, history, MDM, supervision of care Care discussed with: Medical Student Procedures: n/a Results interpretation: Verified all documentation Verification and Attestation of Medical Student E/M Service A medical student performed and documented this service in my presence. I reviewed and verified all information documented by the medical student and made modifications to such information, when appropriate. I personally performed the physical exam and medical decision making. Mayelin Block, Dec 28, 2018,08:02 [facility] Dec 27, 2018 08:25 MAYELIN BOLCK DO Dec 28, 2018 08:02
--- NOTE | 2018-12-27 08:44 | NUR ---
Patient will complete day pass on Sunday evening and report back with needed areas of improvement.
[2018-12-27] MEDS: ACETAMINOPHEN 325 MG TABLET PO PRN ×2 (09:08→22:06)
--- NOTE | 2018-12-27 09:10 | Occupational Ther Daily Note ---
OT Current Status-Daily Note Subjective Pt upright in recliner at start of session, agreed to OT stating she would like to take a sponge bath secondary to her skin drying out if she showers too often. Pt did not verbalize pain rating but nursing notified post OT session that pt would like a Tylenol. Mental Status/Objective Patient Orientation: Normal For Age Therapy Code Descriptions/Definitions Functional [place] Measure: 0=Not Assessed/NA 4=Minimal Assistance 1=Total Assistance 5=Supervision or Setup 2=Maximal Assistance 6=Modified [place] 3=Moderate Assistance 7=Complete [place] Attachments: IV ADL-Treatment Therapy Code Descriptions/Definitions Functional [place] Measure: 0=Not Assessed/NA 4=Minimal Assistance 1=Total Assistance 5=Supervision or Setup 2=Maximal Assistance 6=Modified [place] 3=Moderate Assistance 7=Complete [place] Therapy Quality Codes: 6 Independent with activity with or without an assistive device 5 Patient requires set up or clean up by helper. Patient completes activity by themselves 4 Supervision or touching assist (CGA). [place] provide cues , steadying assist 3 The helper provides less than half the effort to complete the activity 2 The helper provides more than half the effort to complete the activity 1 Dependent. The helper does all the effort to complete an activity 7 Patient refused to complete or attempt activity 9 The patient did not perform the activity before the current illness or injury 88 Not attempted due to Medical conditions or safety concerns Grooming (FIM): 6 (Mod I seated at w/c. Pt performed teeth brushing, hair brushing, face washing, and hand washing) Oral Hygiene (QC): 6 Bathing (FIM): 5 (Set up assistance, pt completed sponge bath seated on BSC over toilet. Pt completed 01/30 using long handled sponge for LEs) Bathing Location: L Arm, R Arm, L Upper Leg, R Upper Leg, L Lower Leg (including foot), R Lower Leg (including foot), Chest, Abdomen, Buttocks, Perineal Area Shower/Bathe Self (QC): 5 Upper Body (FIM): 6 (Mod I, pt gathered clothes out of dresser using FWW and video conference specialist. Pt donned/doffed bra and pulley maintainer shirt) Upper Body Dressing (QC): 6 Lower Body Dressing (FIM): 5 (SBA secondary to min verbal cues to reposition dressing stick to thread underwear on LLE. Pt donned 8/8 using video conference specialist, dressing stick and long handled shoe horn ) Lower Body Dressing (QC): 4 On/Off Footwear (QC): 6 Toileting (FIM): 6 (Pt completed 3/3 on BSC over toilet.) Toileting Hygiene (QC): 6 Transfers (B, C, W/C) (FIM): 6 (Mod I sit to/from stand from w/c and recliner.) Toilet/Commode Transfer (FIM): 6 Toilet Transfer (QC): 6 Other Treatment Pt seated in recliner at start of session, performed functional mobility using FWW to bathroom to complete toileting/dressing/bathing. Pt then completed grooming at sink seated in w/c. Pt performed functional mobility to gym using FWW with SBA. In order to increase UE strength and endurance, and fine motor strength to increase independence in ADLs and functional activities, pt complete d the following activity: graded clothes pins (1#-5#) with 2lb weight placed on RUE (no weight placed on LUE secondary to IV placement on wrist), pt placed and removed x17 clothespins using RUE only, then repeated using LUE. Pt completed placing/removing pins X2 reps with each hand, averaging 2 min 30 seconds each trial. Pt performed functional mobility back to her room using FWW with SBA. Post OT session, pt seated in recliner, call light and phone in reach and all needs met. Education OT Patient Education: Correct positioning, Energy conservation, Exercise program, Progress toward Goal/Update tx plan, Purpose of tx/functional activities, Transfer techniques, Use of adapted equipment Teaching Recipient: Patient Teaching Methods: Demonstration Response to Teaching: Verbalize Understanding OT Short Term Goals Short Term Goals Time Frame: Dec 21, 2018 Bathing(FIM): 4 Lower Body Dressing(FIM): 3 Toileting(FIM): 3 Transfers (B,C,W/C) (FIM): 4 Toilet/Commode Transfer(FIM): 4 Additional Short Term Goals: 1-Demonstrate ADL Tasks, 2-Verbalize Understanding, 3-ImproveStrength/Lucy 1=Demonstrate adherence to instructed precautions during ADL tasks. 2=Patient will verbalize/demonstrate understanding of assistive devices/modifications for ADL. 3=Patient will improve strength/tolerance for activity to enable patient to perform ADL's. OT Usp Goals Usp Goals Time Frame: Jan 04, 2019 Eating (FIM): 7 Eating (QC): 6 Groomin Oral Hygiene (QC): 6 Bathing(FIM): 5 Shower/Bathe Self (QC): 5 Upper Body Dressing(FIM): 6 Upper Body Dressing (QC): 6 Lower Body Dressing(FIM): 5 Lower Body Dressing (QC): 5 On/Off Footwear (QC): 5 Toileting(FIM): 6 Toileting Hygiene (QC): 6 Toilet/Commode Transfer(FIM): 6 Toilet/Commode Transfer (QC): 6 Shower Transfer(FIM): 5 Additional Goals: 1-Demonstrate ADL Tasks, 2-Verbalize Understanding, 3-ImproveStrength/Lucy 1=Demonstrate adherence to instructed precautions during ADL tasks. 2=Patient will verbalize/demonstrate understanding of assistive devices/modifications for ADL. 3=Patient will improve strength/tolerance for activity to enable patient to perform ADL's. OT Education/Plan Problem List/Assessment Assessment: Decreased Activ Tolerance, Decreased UE Strength, Impaired Funct Balance, Impaired Self-Care Skills Pt admitted to ARU after fall resulting in left hip fracture. S/p surgical intervention. Pt demonstrates decreased mobility, strength, activity tolerance, and ADL functioning. Pt to benefit from skilled OT intervention for ADL training, transfers, strengthening, adaptive equipment training, and home safety education to increase level of independence and allow safe discharge home. Discharge Recommendations Plan/Recommendations: Continue POC Treatment Plan/Plan of Care Treatment,Training & Education: Yes Patient would benefit from OT for education, treatment and training to promote independence in ADL's, mobility, safety and/or upper extremity function for ADL's. Plan of Care: ADL Retraining, Functional Mobility, Group Exercise/Act as Ind, UE Funct Exercise/Act Treatment Duration: Jan 04, 2019 Frequency: At least 5 of 7 days/Wk (IRF) Estimated Hrs Per Day: 1.5 hours per day Agreement: Yes Rehab Potential: Good Time/GCodes Start Time: 07:55 Stop Time: 08:55 Total Time Billed (hr/min): 60 Billed Treatment Time 1, ADL 3 x45 mins, FA [id number] YOLANDE COURTNEY OT Dec 27, 2018 09:10
--- NOTE | 2018-12-27 09:53 | PM&R Progress Note ---
Subjective HPI/CC On Admission Date Seen by Provider: Dec 27, 2018 Time Seen by Provider: 09:00 Chief complaint: Debility following left intertrochanteric hip fracture History of present illness: This is a 70-year-old white female clinic patient of Dr. Wills who presents following a fall at home resulted in intertrochanteric left hip fracture undergoing an uncomplicated repair the following day. 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 Her hemoglobin remains low at 7.7 but did not require a transfusion while on fourth floor. She has not had a bowel movement since she was admitted. Most medications from home were restarted and at this current time her son and ad operations specialist are at the bedside. Apparently she was at home and went out to get her mail when 1 of her dogs knocked her over. She sees a elevator mechanic at . She is insulin-dependent for her diabetes management. We took care of her for 3 weeks in inpatient rehab following an elective right shoulder replacement so she is familiar with the routine of rehab and will be monitored closely considering her significant comorbidities. Her prior level of functioning is sometimes use of a cane but is independent with her ADLs at home. Subjective/Events-last exam Pt overall doing very well Bowels are moving Asked about Baclofen for muscle spasms has had that for left sciatica so I will give her a low dose of 5mg TID prn No SOB or chest pain Will check labs periodically per Dr. Boyle recommendation Receiving Aranesp and completed the iron infusions Now relying on Tylenol TID. Check meds and labs Reviewed therapy notes Conferred with dredge runner of Systems General: Fatigue Musculoskeletal: leg pain Objective Exam Vital Signs Vital Signs Date Time Temp Pulse Resp B/P (MAP) Pulse Ox O2 Delivery O2 Flow Rate FiO2 12/28/18 05:30 98.3 71 16 157/66 (96) 96 Room Air Capillary Refill : Less Than 3 Seconds General Appearance: No Apparent Distress, WD/WN, Chronically ill HEENT: PERRL/EOMI, Normal ENT Inspection, Pharynx Normal, Moist Mucous Membranes Neck: Full Range of Motion, Normal Inspection, Non Tender, Supple Respiratory: Chest Non Tender, Lungs Clear, Normal Breath Sounds, No Accessory Muscle Use, No Respiratory Distress Cardiovascular: Regular Rate, Rhythm, No Edema, No Gallop, No JVD, No Murmur Gastrointestinal: Normal Bowel Sounds, No Organomegaly, No Pulsatile Mass, Non Tender, Soft Back: Normal Inspection, No CVA Tenderness, No Vertebral Tenderness Extremity: Normal Capillary Refill, Normal Inspection, Normal Range of Motion (limited ROM left leg), Non Tender, No Calf Tenderness, No Pedal Edema Neurologic/Psychiatric: Alert, Oriented x3, No Motor/Sensory Deficits, Normal Mood/Affect, agriculture worker II-XII Norm as Tested, Abnormal Gait Skin: Normal Color, Warm/Dry Lymphatic: No Adenopathy Results/Procedures Lab Patient resulted labs reviewed. FIM Transfers Therapy Code Descriptions/Definitions Functional [place] Measure: 0=Not Assessed/NA 4=Minimal Assistance 1=Total Assistance 5=Supervision or Setup 2=Maximal Assistance 6=Modified [place] 3=Moderate Assistance 7=Complete [place] Therapy Quality Codes: 6 Independent with activity with or without an assistive device 5 Patient requires set up or clean up by helper. Patient completes activity by themselves 4 Supervision or touching assist (CGA). [place] provide cues , steadying assist 3 The helper provides less than half the effort to complete the activity 2 The helper provides more than half the effort to complete the activity 1 Dependent. The helper does all the effort to complete an activity 7 Patient refused to complete or attempt activity 9 The patient did not perform the activity before the current illness or injury 88 Not attempted due to Medical conditions or safety concerns Transfers (B, C, W/C) (FIM): 6 (Mod I sit to/from stand from w/c and recliner.) Scootin Rollin Roll Left to Right (QC): 5 Supine to/from Sit: 5 Sit to/from Stand: 5 Sit to Lying (QC): 3 Sit to Stand (QC): 5 Chair/Eeo-gp-[place] Xfer(QC): 5 Bed to/from Chair: 5 Car Transfer (QC): 4 Gait Training Does the Patient Walk?: Yes Gait (FIM): 5 Distance (FIM): 3=150 ft Distance: 150' Walk 10 feet (QC): 5 Walk 50 ft with 2 Turns(QC): 5 Walk 150 ft (QC): 5 Walking 10ft/uneven surface-QC: 88 Gait Level of Assist: 5 Gait Persons Needed: 1 Gait Assistive Device: FWW Wheelchair Training Does the Pt Use a Wheelchair?: No Wheelchair (FIM): 5 Wheelchair Distance: 3=150 ft (160x2) Wheelchair Level of Assist: 5 Type of Wheelchair: Manual Stair Training Stairs (FIM): 0 1 Step (curb) (QC): 88 4 Steps (QC): 88 12 Steps (QC): 88 Balance Picking up an Object (QC): 88 Mental Status/Objective Comprehension: 7 Expression: 7 Social Interaction: 7 Problem Solvin Memory: 7 ADL-Treatment Feedin Eating (QC): 6 Groomin (Mod I seated at w/c. Pt performed teeth brushing, hair brushing, face washing, and hand washing) Oral Hygiene (QC): 6 Bathin (Set up assistance, pt completed sponge bath seated on BS over toilet. Pt completed 01/30 using long handled sponge for LEs) Bathing Location: L Arm, R Arm, L Upper Leg, R Upper Leg, L Lower Leg (including foot), R Lower Leg (including foot), Chest, Abdomen, Buttocks, Perineal Area Shower/Bathe Self (QC): 5 Upper Extremity Dressin (Mod I, pt gathered clothes out of dresser using FWW and color making supervisor. Pt donned/doffed bra and rack puller shirt) Upper Body Dressing (QC): 6 Lower Extremity Dressin (SBA secondary to min verbal cues to reposition dressing stick to thread underwear on LLE. Pt donned 8/8 using color making supervisor, dressing stick and long handled shoe horn ) Lower Body Dressing (QC): 4 On/Off Footwear (QC): 6 Toiletin (Pt completed 3/3 on BSC over toilet.) Toileting Hygiene (QC): 6 Toilet/Commode Transfer: 6 Toilet Transfer (QC): 6 Shower: 4 (CGA into shower, Min A to stand from shower chair, using grab bars.) Assessment/Plan Assessment and Plan Assess & Plan/Chief Complaint Plan: IRF protocol Pain meds to continue BM regimen to be maintained since resolved now Home meds IS DM management ADA diet Heparin for DVT PPx Venofer Iron level reviewed Consult Dr Rebolledo for Aranesp and his expertise is appreciated Monitor right arm midline infiltration site Review progress Sunday pass (1) Intertrochanteric fracture of left femur Status: Acute (2) Fall from ground level Status: Acute (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
--- NOTE | 2018-12-27 11:17 | Physical Therapy Daily Note ---
PT Daily Note-Current Subjective Pt. agrees to Rx, no c/o pain, states she feels she has finally turned a corner and is improving well Pain Location: No Pain Reported Mental Status Patient Orientation: Listless Transfers Therapy Code Descriptions/Definitions Functional [place] Measure: 0=Not Assessed/NA 4=Minimal Assistance 1=Total Assistance 5=Supervision or Setup 2=Maximal Assistance 6=Modified [place] 3=Moderate Assistance 7=Complete [place] Therapy Quality Codes: 6 Independent with activity with or without an assistive device 5 Patient requires set up or clean up by helper. Patient completes activity by themselves 4 Supervision or touching assist (CGA). [place] provide cues , steadying assist 3 The helper provides less than half the effort to complete the activity 2 The helper provides more than half the effort to complete the activity 1 Dependent. The helper does all the effort to complete an activity 7 Patient refused to complete or attempt activity 9 The patient did not perform the activity before the current illness or injury 88 Not attempted due to Medical conditions or safety concerns Transfers (B, C, W/C) (FIM): 4 Scootin Rollin Supine to/from Sit: 4 (needs assist LEs CGA) Sit to/from Stand: 5 Weight Bearing Right Lower Extremity: Right Full Weight Bearing Left Lower Extremity: Left Weight Bearing/Tolerated Gait Training Does the Patient Walk?: Yes Gait (FIM): 5 Distance (FIM): 3=150 ft (160x2) Gait Level of Assist: 5 Gait Persons Needed: 1 Gait Assistive Device: FWW slow, antalgic Exercises Supine Ex: Ankle pumps, Quad Set, Rolling (assist x 1), Glut sets, Heel Slides, Short Arc Quads, Scooting, Hip abd/add (assist left) Supine Reps: 12 Seated Therapy Exercises: Ankle pumps, Sit to stand, Long arc quads, Hip abd/add Seated Reps: 12 NuStep Minutes: 10 NuStep Workload: 3 Assessment Current Status: Good Progress PT Short Term Goals Short Term Goals Time Frame: Dec 25, 2018 Transfers (B,C,W/C) (FIM): 4 Gait (FIM): 4 PT Senior Care Goals Senior Care Goals PT Copy Worker Goals Time Frame: Jan 03, 2019 Transfers (B,C,W/C) (FIM): 7 Sit to Lying (QC): 6 Lying-Sitting on Side/Bed(QC): 6 Sit to Stand (QC): 6 Rollin Roll Left to Right (QC): 6 Chair/Xis-ji-Hbpkz Xfer(QC): 6 Car Transfer (QC): 6 Does the Patient Walk: Yes Gait (FIM): 6 Gait distance (FIM): 3=150 ft Walk 10 feet (QC): 6 Walk 10ft-Uneven Surface(QC): 6 Walk 50ft with 2 Turns (QC): 6 Walk 150 ft (QC): 6 Gait Assistive Device: FWW Does the Pt use WC or Scooter?: No Stairs (FIM): 5 # of Steps: 4 (household distance) 1 Step (curb) (QC): 6 4 Steps (QC): 6 12 Steps (QC): 6 Picking up an Object (QC): 88 PT Plan Treatment/Plan Treatment Plan: Bed Mobility, Education, Functional Activity Lucy, Functional Strength, Group Therapy, Gait, Safety, Therapeutic Exercise, Transfers Treatment Duration: Jan 03, 2019 Frequency: At least 5 of 7 days/Wk (IRF) Estimated Hrs Per Day: 1.5 hours per day Patient and/or Family Agrees t: Yes Safety Risks/Education Patient Education: Gait Training, Transfer Techniques, Correct Positioning, Disease Process, Safety Issues Teaching Recipient: Patient Teaching Methods: Demonstration, Discussion Response to Teaching: Verbalize Understanding, Return Demonstration, Reinforcement Needed Time/GCodes Time In: 1030 Time Out: 1115 Total Billed Treatment Time: 45 Total Billed Treatment 1,EX20m,FA10m,GT15m KATT MARIA FIRE CONTROL ASSISTANT Dec 27, 2018 11:17
--- NOTE | 2018-12-27 14:38 | Therapy Group Daily Note ---
Therapy Daily Group Note Patient Education Topic Exercises, Other List Below (benefits of exercise, ARU practices and protocols) Exercises LE Seated Exercise, Sit to/from Stand, UE Exercise Session Ratio (pt:therapist): 4:1 Goal of Session: Education on ARU Expectations, UE/LE Strengthing, Other (list) ("exercise anytime") Goal Met for this Session: Yes Pt Benefit of Group: Socialization, Other Other/Notes Pt. participated in group PT session. Pt. was active participant, walked to and from with SBA. Pt. shared name, hometown and some of her favorite activities. Pts. were educated in ARU practices, requirements, scheduling etc. Education regarding benefits of exercise and activity as well as exercise they can do any time, ie in bed or seated etc. Pts read and demonstrated exercises from illustrations and instructions on cards and lead others in group exercise for U&L extremities. Scooting forward and sit to stand TRFs were focus of TRF education with each participant progressing through to stance with good technique. Pt. to room after with SBA, tena at hand all needs met Start Time: 13:00 Stop Time: 14:15 Total Billed Treatment Time: 75 Total Billed Treatment 1,GRP KATT MARIA REVENUE AUDIT CLERK Dec 27, 2018 14:38
[2018-12-27 16:37] VITALS: BP 188/93
[2018-12-27] MEDS: BACLOFEN 10 MG (LIORESAL) TAB PO PRN (19:58)
[2018-12-28 05:30] VITALS: BP 157/66
[2018-12-28] MEDS: LEVOTHYROXINE 75 MCG (LEVOTHROID) TABLET PO SCH (06:39)
[2018-12-28] MEDS: SODIUM BICARBONATE 650 MG TABLET (NON-FORMULARY) PO SCH ×2 (06:39→16:48)
[2018-12-28] MEDS: CATHETER FLUSH 10 ML SYR IV SCH ×2 (06:40→14:13)
[2018-12-28 08:01] VITALS: BP 153/74
[2018-12-28] MEDS: PANTOPRAZOLE 40 MG (PROTONIX) TAB PO SCH ×2 (08:02→20:31)
[2018-12-28] MEDS: amLODIPine 5 MG (NORVASC) TAB PO SCH (08:02)
[2018-12-28] MEDS: ALLOPURINOL 100 MG (ZYLOPRIM) TAB PO SCH (08:02)
[2018-12-28] MEDS: meTOprolol TARTRATE 25 MG (LOPRESSOR) TABLET PO SCH ×2 (08:02→20:31)
[2018-12-28] MEDS: POLYETHYLENE GLYCOL 17 GM (MIRALAX) PACK PO SCH ×2 (08:03→20:04)
[2018-12-28] MEDS: SENNA W/DOCUSATE (SENOKOT S) TABLET PO SCH ×2 (08:03→20:01)
[2018-12-28] MEDS: DOCUSATE SODIUM 100 MG (COLACE) CAP PO SCH ×2 (08:03→20:01)
[2018-12-28] MEDS: FUROSEMIDE 40 MG (LASIX) TAB PO SCH (08:04)
--- NOTE | 2018-12-28 10:02 | Physical Therapy Daily Note ---
PT Daily Note-Current Subjective Pt reports she is slowly getting better. She still has difficulty lifting the (L) leg in and out of bed. Transfers Therapy Code Descriptions/Definitions Functional [place] Measure: 0=Not Assessed/NA 4=Minimal Assistance 1=Total Assistance 5=Supervision or Setup 2=Maximal Assistance 6=Modified [place] 3=Moderate Assistance 7=Complete [place] Therapy Quality Codes: 6 Independent with activity with or without an assistive device 5 Patient requires set up or clean up by helper. Patient completes activity by themselves 4 Supervision or touching assist (CGA). [place] provide cues , steadying assist 3 The helper provides less than half the effort to complete the activity 2 The helper provides more than half the effort to complete the activity 1 Dependent. The helper does all the effort to complete an activity 7 Patient refused to complete or attempt activity 9 The patient did not perform the activity before the current illness or injury 88 Not attempted due to Medical conditions or safety concerns Weight Bearing Right Lower Extremity: Right Full Weight Bearing Left Lower Extremity: Left Weight Bearing/Tolerated Gait Training Gait Assistive Device: FWW Gait training with emphasis on symmetrical stride and wt bearing. 150ft x 2 trials SBA with intermittent verbal cues. Exercises NuStep Minutes: 10 NuStep Workload: 5 Assessment Pt showing improved ease of movement and progressing toward assisted goals. PT Short Term Goals Short Term Goals Time Frame: Dec 25, 2018 Transfers (B,C,W/C) (FIM): 4 Gait (FIM): 4 PT Correction Goals Correction Goals PT Aircraft Pilot Goals Time Frame: Jan 03, 2019 Transfers (B,C,W/C) (FIM): 7 Sit to Lying (QC): 6 Lying-Sitting on Side/Bed(QC): 6 Sit to Stand (QC): 6 Rollin Roll Left to Right (QC): 6 Chair/Tsk-ti-Cwryy Xfer(QC): 6 Car Transfer (QC): 6 Does the Patient Walk: Yes Gait (FIM): 6 Gait distance (FIM): 3=150 ft Walk 10 feet (QC): 6 Walk 10ft-Uneven Surface(QC): 6 Walk 50ft with 2 Turns (QC): 6 Walk 150 ft (QC): 6 Gait Assistive Device: FWW Does the Pt use WC or Scooter?: No Stairs (FIM): 5 # of Steps: 4 (household distance) 1 Step (curb) (QC): 6 4 Steps (QC): 6 12 Steps (QC): 6 Picking up an Object (QC): 88 PT Plan Treatment/Plan Treatment Plan: Continue Plan of Care Treatment Plan: Bed Mobility, Education, Functional Activity Lucy, Functional Strength, Group Therapy, Gait, Safety, Therapeutic Exercise, Transfers Treatment Duration: Jan 03, 2019 Frequency: At least 5 of 7 days/Wk (IRF) Estimated Hrs Per Day: 1.5 hours per day Patient and/or Family Agrees t: Yes Time/GCodes Time In: 945 Time Out: 1005 Total Billed Treatment Time: 20 Total Billed Treatment visit, gait 10 min, nu step 10 min JUAN MERCADO PT Dec 28, 2018 10:02
[2018-12-28] MEDS: ACETAMINOPHEN 325 MG TABLET PO PRN ×2 (10:22→22:03)
--- NOTE | 2018-12-28 15:40 | PM&R Progress Note ---
Subjective HPI/CC On Admission Date Seen by Provider: Dec 28, 2018 Time Seen by Provider: 12:15 Chief complaint: Debility following left intertrochanteric hip fracture History of present illness: This is a 70-year-old white female clinic patient of Dr. Wills who presents following a fall at home resulted in intertrochanteric left hip fracture undergoing an uncomplicated repair the following day. 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 Her hemoglobin remains low at 7.7 but did not require a transfusion while on fourth floor. She has not had a bowel movement since she was admitted. Most medications from home were restarted and at this current time her son and aviation medicine specialist are at the bedside. Apparently she was at home and went out to get her mail when 1 of her dogs knocked her over. She sees a biometrics instructor at . She is insulin-dependent for her diabetes management. We took care of her for 3 weeks in inpatient rehab following an elective right shoulder replacement so she is familiar with the routine of rehab and will be monitored closely considering her significant comorbidities. Her prior level of functioning is sometimes use of a cane but is independent with her ADLs at home. Subjective/Events-last exam Pt overall doing very well Family is here visiting 3 great grandkids Bowels are moving well after Miralax Baclofen for muscle spasms low dose of 5mg TID prn is working well for her No SOB or chest pain Will check labs periodically per Dr. Boyle recommendation Receiving Aranesp and completed the iron infusions Now relying on Tylenol TID. Check meds and labs Reviewed therapy notes Conferred with refractive surgeon of Systems Musculoskeletal: leg pain Objective Exam Vital Signs Vital Signs Date Time Temp Pulse Resp B/P (MAP) Pulse Ox O2 Delivery O2 Flow Rate FiO2 12/29/18 09:00 Room Air 12/29/18 05:44 98.1 77 18 161/70 (100) 100 Capillary Refill : Less Than 3 Seconds General Appearance: No Apparent Distress, WD/WN, Chronically ill HEENT: PERRL/EOMI, Normal ENT Inspection, Pharynx Normal, Moist Mucous Membranes Neck: Full Range of Motion, Normal Inspection, Non Tender, Supple Respiratory: Chest Non Tender, Lungs Clear, Normal Breath Sounds, No Accessory Muscle Use, No Respiratory Distress Cardiovascular: Regular Rate, Rhythm, No Edema, No Gallop, No JVD, No Murmur Gastrointestinal: Normal Bowel Sounds, No Organomegaly, No Pulsatile Mass, Non Tender, Soft Back: Normal Inspection, No CVA Tenderness, No Vertebral Tenderness Extremity: Normal Capillary Refill, Normal Inspection, Normal Range of Motion (limited ROM left leg), Non Tender, No Calf Tenderness, No Pedal Edema Neurologic/Psychiatric: Alert, Oriented x3, No Motor/Sensory Deficits, Normal Mood/Affect, smokehouse worker II-XII Norm as Tested, Abnormal Gait Skin: Normal Color, Warm/Dry Lymphatic: No Adenopathy Results/Procedures Lab Patient resulted labs reviewed. FIM Transfers Therapy Code Descriptions/Definitions Functional [place] Measure: 0=Not Assessed/NA 4=Minimal Assistance 1=Total Assistance 5=Supervision or Setup 2=Maximal Assistance 6=Modified [place] 3=Moderate Assistance 7=Complete [place] Therapy Quality Codes: 6 Independent with activity with or without an assistive device 5 Patient requires set up or clean up by helper. Patient completes activity by themselves 4 Supervision or touching assist (CGA). [place] provide cues , steadying assist 3 The helper provides less than half the effort to complete the activity 2 The helper provides more than half the effort to complete the activity 1 Dependent. The helper does all the effort to complete an activity 7 Patient refused to complete or attempt activity 9 The patient did not perform the activity before the current illness or injury 88 Not attempted due to Medical conditions or safety concerns Transfers (B, C, W/C) (FIM): 4 Scootin Rollin Roll Left to Right (QC): 5 Supine to/from Sit: 4 (needs assist LEs CGA) Sit to/from Stand: 5 Sit to Lying (QC): 3 Sit to Stand (QC): 5 Chair/Eny-gk-Qjwle Xfer(QC): 5 Bed to/from Chair: 5 Car Transfer (QC): 4 Gait Training Does the Patient Walk?: Yes Gait (FIM): 5 Distance (FIM): 3=150 ft (160x2) Distance: 150' Walk 10 feet (QC): 5 Walk 50 ft with 2 Turns(QC): 5 Walk 150 ft (QC): 5 Walking 10ft/uneven surface-QC: 88 Gait Level of Assist: 5 Gait Persons Needed: 1 Gait Assistive Device: FWW Wheelchair Training Does the Pt Use a Wheelchair?: No Wheelchair (FIM): 5 Wheelchair Distance: 3=150 ft (160x2) Wheelchair Level of Assist: 5 Type of Wheelchair: Manual Stair Training Stairs (FIM): 0 1 Step (curb) (QC): 88 4 Steps (QC): 88 12 Steps (QC): 88 Balance Picking up an Object (QC): 88 Mental Status/Objective Comprehension: 7 Expression: 7 Social Interaction: 7 Problem Solvin Memory: 7 ADL-Treatment Feedin Eating (QC): 6 Groomin (Mod I seated at w/c. Pt performed teeth brushing, hair brushing, face washing, and hand washing) Oral Hygiene (QC): 6 Bathin (Set up assistance, pt completed sponge bath seated on BS over toilet. Pt completed 01/30 using long handled sponge for LEs) Bathing Location: L Arm, R Arm, L Upper Leg, R Upper Leg, L Lower Leg (including foot), R Lower Leg (including foot), Chest, Abdomen, Buttocks, Perineal Area Shower/Bathe Self (QC): 5 Upper Extremity Dressin (Mod I, pt gathered clothes out of dresser using FWW and building mover. Pt donned/doffed bra and dry chain puller shirt) Upper Body Dressing (QC): 6 Lower Extremity Dressin (SBA secondary to min verbal cues to reposition dressing stick to thread underwear on LLE. Pt donned 8/8 using building mover, dressing stick and long handled shoe horn ) Lower Body Dressing (QC): 4 On/Off Footwear (QC): 6 Toiletin (Pt completed 3/3 on BSC over toilet.) Toileting Hygiene (QC): 6 Toilet/Commode Transfer: 6 Toilet Transfer (QC): 6 Shower: 4 (CGA into shower, Min A to stand from shower chair, using grab bars.) Assessment/Plan Assessment and Plan Assess & Plan/Chief Complaint Plan: IRF protocol Pain meds to continue BM regimen to be maintained since resolved now but needs additional Miralax to day Home meds IS DM management ADA diet Heparin for DVT PPx Venofer Iron level reviewed and noted Consult Dr Amaury Browne and his expertise is appreciated Monitor right arm midline infiltration site Review progress Sunday pass (1) Intertrochanteric fracture of left femur Status: Acute (2) Fall from ground level Status: Acute (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
[2018-12-28 17:32] VITALS: BP 137/73
[2018-12-28] MEDS: BACLOFEN 10 MG (LIORESAL) TAB PO PRN (20:31)
[2018-12-29 05:44] VITALS: BP 161/70
[2018-12-29] MEDS: SODIUM BICARBONATE 650 MG TABLET (NON-FORMULARY) PO SCH ×2 (06:16→17:18)
[2018-12-29] MEDS: LEVOTHYROXINE 75 MCG (LEVOTHROID) TABLET PO SCH (06:16)
[2018-12-29 08:00] VITALS: BP 175/78
[2018-12-29] MEDS: amLODIPine 5 MG (NORVASC) TAB PO SCH (08:59)
[2018-12-29] MEDS: ALLOPURINOL 100 MG (ZYLOPRIM) TAB PO SCH (08:59)
[2018-12-29] MEDS: PANTOPRAZOLE 40 MG (PROTONIX) TAB PO SCH ×2 (08:59→21:11)
[2018-12-29] MEDS: meTOprolol TARTRATE 25 MG (LOPRESSOR) TABLET PO SCH ×2 (08:59→21:11)
[2018-12-29] MEDS: FUROSEMIDE 40 MG (LASIX) TAB PO SCH (08:59)
[2018-12-29] MEDS: SENNA W/DOCUSATE (SENOKOT S) TABLET PO SCH ×2 (09:01→21:12)
[2018-12-29] MEDS: DOCUSATE SODIUM 100 MG (COLACE) CAP PO SCH ×2 (09:01→21:31)
[2018-12-29] MEDS: POLYETHYLENE GLYCOL 17 GM (MIRALAX) PACK PO SCH ×2 (09:01→21:32)
--- NOTE | 2018-12-29 12:25 | PM&R Progress Note ---
Subjective HPI/CC On Admission Date Seen by Provider: Dec 29, 2018 Time Seen by Provider: 12:15 Chief complaint: Debility following left intertrochanteric hip fracture History of present illness: This is a 70-year-old white female clinic patient of Dr. Wills who presents following a fall at home resulted in intertrochanteric left hip fracture undergoing an uncomplicated repair the following day. 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 Her hemoglobin remains low at 7.7 but did not require a transfusion while on fourth floor. She has not had a bowel movement since she was admitted. Most medications from home were restarted and at this current time her son and automobile sales consultant are at the bedside. Apparently she was at home and went out to get her mail when 1 of her dogs knocked her over. She sees a customer service analyst at . She is insulin-dependent for her diabetes management. We took care of her for 3 weeks in inpatient rehab following an elective right shoulder replacement so she is familiar with the routine of rehab and will be monitored closely considering her significant comorbidities. Her prior level of functioning is sometimes use of a cane but is independent with her ADLs at home. Subjective/Events-last exam Pt overall doing very well and her family is visiting Bowels are moving a little too well Baclofen is very helpful No SOB or chest pain Right decubitus ulcer really had not healed completely but no drainage or open sore noted Will check labs periodically per Dr. Boyle recommendation Receiving Aranesp and completed the iron infusions Now relying on Tylenol TID. Check meds and labs Reviewed therapy notes Conferred with equal employment opportunity officer of Systems Musculoskeletal: leg pain Objective Exam Vital Signs Vital Signs Date Time Temp Pulse Resp B/P (MAP) Pulse Ox O2 Delivery O2 Flow Rate FiO2 12/29/18 09:00 Room Air 12/29/18 05:44 98.1 77 18 161/70 (100) 100 Capillary Refill : Less Than 3 Seconds General Appearance: No Apparent Distress, WD/WN, Chronically ill HEENT: PERRL/EOMI, Normal ENT Inspection, Pharynx Normal, Moist Mucous Membranes Neck: Full Range of Motion, Normal Inspection, Non Tender, Supple Respiratory: Chest Non Tender, Lungs Clear, Normal Breath Sounds, No Accessory Muscle Use, No Respiratory Distress Cardiovascular: Regular Rate, Rhythm, No Edema, No Gallop, No JVD, No Murmur Gastrointestinal: Normal Bowel Sounds, No Organomegaly, No Pulsatile Mass, Non Tender, Soft Back: Normal Inspection, No CVA Tenderness, No Vertebral Tenderness Extremity: Normal Capillary Refill, Normal Inspection, Normal Range of Motion (limited ROM left leg), Non Tender, No Calf Tenderness, No Pedal Edema Neurologic/Psychiatric: Alert, Oriented x3, No Motor/Sensory Deficits, Normal Mood/Affect, rug cleaner hand II-XII Norm as Tested, Abnormal Gait Skin: Normal Color, Warm/Dry Lymphatic: No Adenopathy Results/Procedures Lab Patient resulted labs reviewed. FIM Transfers Therapy Code Descriptions/Definitions Functional [place] Measure: 0=Not Assessed/NA 4=Minimal Assistance 1=Total Assistance 5=Supervision or Setup 2=Maximal Assistance 6=Modified [place] 3=Moderate Assistance 7=Complete [place] Therapy Quality Codes: 6 Independent with activity with or without an assistive device 5 Patient requires set up or clean up by helper. Patient completes activity by themselves 4 Supervision or touching assist (CGA). [place] provide cues , steadying assist 3 The helper provides less than half the effort to complete the activity 2 The helper provides more than half the effort to complete the activity 1 Dependent. The helper does all the effort to complete an activity 7 Patient refused to complete or attempt activity 9 The patient did not perform the activity before the current illness or injury 88 Not attempted due to Medical conditions or safety concerns Transfers (B, C, W/C) (FIM): 4 Scootin Rollin Roll Left to Right (QC): 5 Supine to/from Sit: 4 (needs assist LEs CGA) Sit to/from Stand: 5 Sit to Lying (QC): 3 Sit to Stand (QC): 5 Chair/Rdi-qa-Rzfqi Xfer(QC): 5 Bed to/from Chair: 5 Car Transfer (QC): 4 Gait Training Does the Patient Walk?: Yes Gait (FIM): 5 Distance (FIM): 3=150 ft (160x2) Distance: 150' Walk 10 feet (QC): 5 Walk 50 ft with 2 Turns(QC): 5 Walk 150 ft (QC): 5 Walking 10ft/uneven surface-QC: 88 Gait Level of Assist: 5 Gait Persons Needed: 1 Gait Assistive Device: FWW Wheelchair Training Does the Pt Use a Wheelchair?: No Wheelchair (FIM): 5 Wheelchair Distance: 3=150 ft (160x2) Wheelchair Level of Assist: 5 Type of Wheelchair: Manual Stair Training Stairs (FIM): 0 1 Step (curb) (QC): 88 4 Steps (QC): 88 12 Steps (QC): 88 Balance Picking up an Object (QC): 88 Mental Status/Objective Comprehension: 7 Expression: 7 Social Interaction: 7 Problem Solvin Memory: 7 ADL-Treatment Feedin Eating (QC): 6 Groomin (Mod I seated at w/c. Pt performed teeth brushing, hair brushing, face washing, and hand washing) Oral Hygiene (QC): 6 Bathin (Set up assistance, pt completed sponge bath seated on BSC over toilet. Pt completed 01/30 using long handled sponge for LEs) Bathing Location: L Arm, R Arm, L Upper Leg, R Upper Leg, L Lower Leg (including foot), R Lower Leg (including foot), Chest, Abdomen, Buttocks, Perineal Area Shower/Bathe Self (QC): 5 Upper Extremity Dressin (Mod I, pt gathered clothes out of dresser using FWW and histology specialist. Pt donned/doffed bra and mold puller shirt) Upper Body Dressing (QC): 6 Lower Extremity Dressin (SBA secondary to min verbal cues to reposition dressing stick to thread underwear on LLE. Pt donned 8/8 using histology specialist, dressing stick and long handled shoe horn ) Lower Body Dressing (QC): 4 On/Off Footwear (QC): 6 Toiletin (Pt completed 3/3 on BSC over toilet.) Toileting Hygiene (QC): 6 Toilet/Commode Transfer: 6 Toilet Transfer (QC): 6 Shower: 4 (CGA into shower, Min A to stand from shower chair, using grab bars.) Assessment/Plan Assessment and Plan Assess & Plan/Chief Complaint Plan: IRF protocol Pain meds to continue BM regimen to be maintained since resolved now Home meds IS DM management ADA diet Heparin for DVT PPx Venofer Iron level reviewed Consult Dr Rebolledo for Aranesp and his expertise is appreciated Monitor right arm midline infiltration site which appears resolved now Review progress Sunday for DC plans Day pass Sunday night (1) Intertrochanteric fracture of left femur Status: Acute (2) Fall from ground level Status: Acute (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
[2018-12-29] MEDS: ACETAMINOPHEN 325 MG TABLET PO PRN ×2 (14:39→22:12)
--- NOTE | 2018-12-29 18:00 | NUR ---
A GOOD DAY. CONTINUES TO IMPROVE DAILY. DIARRHEA STOOL FROM [facility] YESTERDAY. STATES IS GOING TO SON'S HOUSE TOMORROW ON DAY PASS FOR BIRTHDAY DEMOCRAT.
[2018-12-29 18:14] VITALS: BP 149/69
[2018-12-29] MEDS: BACLOFEN 10 MG (LIORESAL) TAB PO PRN (21:12)
--- NOTE | 2018-12-30 05:49 | Progress Note ---
[facility] 12/30/18 0549: Subjective Date Seen by a Provider: Dec 30, 2018 Time Seen by a Provider: 06:00 Subjective/Events-last exam Pt is doing well and improving alot everyday Pt will be visiting family in the afternoon on day pass Diarrhea improved, now having normal BMs Left LE muscle spasm has been responding well to Baclofen Continues taking Tylenol TID for pain, especially after therapy, after shower, and before bed Pt is still receiving Aranesp, monitoring labs for response Decubitus ulcer on R buttock seems a bit irritated from sleeping/warmth but no oozing or draining noted Pt's BUN:Cr is elevated today at 45:2.62 Elevated [place] at 168 Pt appears in no acute distress/pain/discomfort despite abnormal labs Have reviewed labs, notes, Meds, vitals Review of Systems General: No Chills, No Night Sweats, No Fatigue HEENT: No Head Aches Pulmonary: No Dyspnea, No Cough, No Pleuritic Chest Pain Cardiovascular: No: Chest Pain, Palpitations Gastrointestinal: Diarrhea; No: Nausea, Vomiting Genitourinary: No Dysuria; Incontinence (chronic) Neurological: No: Weakness, Numbness Objective Exam Last Set of Vital Signs Vital Signs Date Time Temp Pulse Resp B/P (MAP) Pulse Ox O2 Delivery O2 Flow Rate FiO2 12/29/18 20:50 Room Air 12/29/18 18:14 98.0 76 18 149/69 (95) 98 Capillary Refill : Less Than 3 Seconds I&O Intake and Output 12/30/18 00:00 Intake Total 1340 ml Balance 1340 ml Intake Oral 1340 ml # Voids 8 # Bowel Movements 1 General: Alert, Oriented X3, Cooperative, No Acute Distress HEENT: Atraumatic Neck: Supple Lungs: Clear to Auscultation, Normal Air Movement Heart: Regular Rate, Normal S1, Normal S2, No Murmurs Extremities: No Clubbing, No Cyanosis, No Edema, Normal Pulses, No Tenderness/Swelling Skin: No Rashes, No Breakdown, No Significant Lesion Assessment/Plan Assessment/Plan Assess & Plan/Chief Complaint IRF Protocol IVF for elevated BUN:Cr and Review meds Monitor BUN:Cr closely Continue with pain management w/ tylenol and baclofen Maintain BM regimen, Loperamide PRN for diarrheal episodes DM management ADA diet Continue with DVT PPx Venofer Pt to visit family on day pass today Continue with OT, Group Therapy, and PT, and monitor progress Evaluate pt for D/C plan Clinical Quality Measures DVT/VTE Risk/Contraindication: Risk Factor Score Per Nursin RFS Level Per Nursing on Admit: 4+=Very High MAYELIN BLOCK DO 12/30/18 2015: Supervisory-Addendum Brief Verification & Attestation Participated in pt care: history, MDM, physical Personally performed: exam, history, MDM, supervision of care Care discussed with: Medical Student Procedures: n/a Results interpretation: Verified all documentation Verification and Attestation of Medical Student E/M Service A medical student performed and documented this service in my presence. I reviewed and verified all information documented by the medical student and made modifications to such information, when appropriate. I personally performed the physical exam and medical decision making. Mayelin Block, Dec 30, 2018,20:14 [facility] Dec 30, 2018 05:49 MAYELIN BLOCK DO Dec 30, 2018 20:15
[2018-12-30 06:09] VITALS: BP 146/91
[2018-12-30] MEDS: LEVOTHYROXINE 75 MCG (LEVOTHROID) TABLET PO SCH (06:11)
[2018-12-30] MEDS: SODIUM BICARBONATE 650 MG TABLET (NON-FORMULARY) PO SCH ×2 (06:11→16:48)
[2018-12-30 06:31] LABS: BASOPHILS % (AUTO) 1 % (0-10); EOSINOPHILS # (AUTO) 0.2 10^3/uL (0.0-0.3); EOSINOPHILS % (AUTO) 5 % (0-10); HEMATOCRIT 28 % (35-52); HEMOGLOBIN 8.7 G/DL (11.5-16.0); LYMPHOCYTES # (AUTO) 1.1 X 10^3 (1.0-4.0); LYMPHOCYTES % (AUTO) 22 % (12-44); MEAN CORPUSCULAR HEMOGLOBIN 32 PG (25-34); MEAN CORPUSCULAR HGB CONC 31 G/DL (32-36); MEAN CORPUSCULAR VOLUME 104 FL (80-99); MEAN PLATELET VOLUME 9.9 FL (7.4-10.4); MONOCYTES # (AUTO) 0.6 X 10^3 (0.0-1.0); MONOCYTES % (AUTO) 13 % (0-12); NEUTROPHILS % (AUTO) 60 % (42-75); PLATELET COUNT 377 10^3/uL (130-400); RED CELL DISTRIBUTION WIDTH 13.9 % (10.0-14.5)
[2018-12-30 07:00] LABS: ALBUMIN 3.7 GM/DL (3.2-4.5); BILIRUBIN,TOTAL 0.3 MG/DL (0.1-1.0); CALCIUM 10.2 MG/DL (8.5-10.1); CREATININE SERUM 2.63 MG/DL (0.60-1.30); POTASSIUM 4.2 MMOL/L (3.6-5.0); TOTAL PROTEIN 6.1 GM/DL (6.4-8.2)
[2018-12-30] MEDS: meTOprolol TARTRATE 25 MG (LOPRESSOR) TABLET PO SCH ×2 (08:52→20:58)
[2018-12-30] MEDS: amLODIPine 5 MG (NORVASC) TAB PO SCH (08:52)
[2018-12-30] MEDS: ALLOPURINOL 100 MG (ZYLOPRIM) TAB PO SCH (08:52)
[2018-12-30] MEDS: FUROSEMIDE 40 MG (LASIX) TAB PO SCH (08:53)
[2018-12-30] MEDS: SENNA W/DOCUSATE (SENOKOT S) TABLET PO SCH ×2 (08:53→20:59)
[2018-12-30] MEDS: PANTOPRAZOLE 40 MG (PROTONIX) TAB PO SCH ×2 (08:53→20:58)
[2018-12-30] MEDS: DOCUSATE SODIUM 100 MG (COLACE) CAP PO SCH ×2 (08:53→21:25)
--- NOTE | 2018-12-30 09:17 | Occupational Ther Daily Note ---
OT Current Status-Daily Note Subjective Pt upright in recliner at start of session, agreed to OT tx with focus on ADLs. Pt's present at start of session, stating he has purchased a dressing stick and soft sock aid, and he has a long handled shoe horn at home for pt to use upon d/c. states he is looking into getting a manufacturing leader but he has not purchased one at this time. Pain Numeric Pain Scale: 2 Mental Status/Objective Patient Orientation: Normal For Age Therapy Code Descriptions/Definitions Functional [place] Measure: 0=Not Assessed/NA 4=Minimal Assistance 1=Total Assistance 5=Supervision or Setup 2=Maximal Assistance 6=Modified [place] 3=Moderate Assistance 7=Complete [place] ADL-Treatment Therapy Code Descriptions/Definitions Functional [place] Measure: 0=Not Assessed/NA 4=Minimal Assistance 1=Total Assistance 5=Supervision or Setup 2=Maximal Assistance 6=Modified [place] 3=Moderate Assistance 7=Complete [place] Therapy Quality Codes: 6 Independent with activity with or without an assistive device 5 Patient requires set up or clean up by helper. Patient completes activity by themselves 4 Supervision or touching assist (CGA). [place] provide cues , steadying assist 3 The helper provides less than half the effort to complete the activity 2 The helper provides more than half the effort to complete the activity 1 Dependent. The helper does all the effort to complete an activity 7 Patient refused to complete or attempt activity 9 The patient did not perform the activity before the current illness or injury 88 Not attempted due to Medical conditions or safety concerns Eating (FIM): 7 (Pt finishing breakfast at start of session. Pt reported she was able to open containers, cut food, and bring food to mouth independently.) Eating (QC): 6 Grooming (FIM): 6 (Mod I seated in w/c at sink. Pt washed face, brushed teeth, brushed hair, and washed hands.) Oral Hygiene (QC): 6 Bathing (FIM): 5 (SBA for safety during stand at grab bars. Min verbal cues for hand placement during stand. Pt completed shower seated on shower chair.) Bathing Location: L Arm, R Arm, L Upper Leg, R Upper Leg, L Lower Leg (including foot), R Lower Leg (including foot), Chest, Abdomen, Buttocks, Perineal Area Shower/Bathe Self (QC): 4 Upper Body (FIM): 6 (Mod I secondary to increased time required to gather clothes, pt gathered clothing and transported them to bathroom using FWW. Pt donned/doffed pack puller shirt and bra.) Upper Body Dressing (QC): 6 Lower Body Dressing (FIM): 5 (SBA for safety during standing for clothing management at grab bars. Pt donned/doffed 8/8 (pants/underwear/shoes). Pt demo'd correct use of dressing stick/manufacturing leader/long handled shoe horns without cues.) Lower Body Dressing (QC): 4 On/Off Footwear (QC): 6 Toileting (FIM): 6 (Mod I, pt completed /) Toileting Hygiene (QC): 6 Transfers (B, C, W/C) (FIM): 6 (Mod I sit to/from stand from recliner and w/c.) Toilet/Commode Transfer (FIM): 6 Toilet Transfer (QC): 6 Shower Transfer(FIM): 5 (SBA for safety, Pt used grab bars to sit to and stand from shower chair with min verbal cues for hand placement during stand.) Other Treatment Pt seated in recliner, performed functional mobility with FWW from bedroom to bathroom where pt completed toileting/bathing/dressing/grooming. Pt then performed functional mobility to therapy gym using FWW. In order to increase UE strength/endurance for ADLs and functional activities, pt performed arm bike [id number], mod resistance without rest breaks. To increase fine motor strength/coordination and UE strength/endurance to increase independece in ADLs and functional activities pt placed X80 pegs in pegboard with 2lb wrist cuffs on BUE, pt completed task in 6 mins 30 secs. Pt performed functional mobility with FWW to room with SBA. Post OT session, pt seated upright in recliner, call light in reach and all needs met. Education OT Patient Education: Correct positioning, Energy conservation, Exercise program, Progress toward Goal/Update tx plan, Purpose of tx/functional activities, Transfer techniques, Use of adapted equipment Teaching Recipient: Patient Teaching Methods: Demonstration Response to Teaching: Verbalize Understanding OT Short Term Goals Short Term Goals Time Frame: Dec 21, 2018 Bathing(FIM): 4 Lower Body Dressing(FIM): 3 Toileting(FIM): 3 Transfers (B,C,W/C) (FIM): 4 Toilet/Commode Transfer(FIM): 4 Additional Short Term Goals: 1-Demonstrate ADL Tasks, 2-Verbalize Understanding, 3-ImproveStrength/Lucy 1=Demonstrate adherence to instructed precautions during ADL tasks. 2=Patient will verbalize/demonstrate understanding of assistive devices/modifications for ADL. 3=Patient will improve strength/tolerance for activity to enable patient to perform ADL's. OT Fdc Goals Fdc Goals Time Frame: Jan 04, 2019 Eating (FIM): 7 Eating (QC): 6 Groomin Oral Hygiene (QC): 6 Bathing(FIM): 5 Shower/Bathe Self (QC): 5 Upper Body Dressing(FIM): 6 Upper Body Dressing (QC): 6 Lower Body Dressing(FIM): 5 Lower Body Dressing (QC): 5 On/Off Footwear (QC): 5 Toileting(FIM): 6 Toileting Hygiene (QC): 6 Toilet/Commode Transfer(FIM): 6 Toilet/Commode Transfer (QC): 6 Shower Transfer(FIM): 5 Additional Goals: 1-Demonstrate ADL Tasks, 2-Verbalize Understanding, 3- ImproveStrength/Lucy 1=Demonstrate adherence to instructed precautions during ADL tasks. 2=Patient will verbalize/demonstrate understanding of assistive devices/modifications for ADL. 3=Patient will improve strength/tolerance for activity to enable patient to perform ADL's. OT Education/Plan Problem List/Assessment Assessment: Decreased Activ Tolerance, Decreased UE Strength, Impaired Funct Balance, Impaired Self-Care Skills Pt admitted to ARU after fall resulting in left hip fracture. S/p surgical intervention. Pt demonstrates decreased mobility, strength, activity tolerance, and ADL functioning. Pt to benefit from skilled OT intervention for ADL training, transfers, strengthening, adaptive equipment training, and home safety education to increase level of independence and allow safe discharge home. Discharge Recommendations Plan/Recommendations: Continue POC Treatment Plan/Plan of Care Treatment,Training & Education: Yes Patient would benefit from OT for education, treatment and training to promote independence in ADL's, mobility, safety and/or upper extremity function for ADL's. Plan of Care: ADL Retraining, Functional Mobility, Group Exercise/Act as Ind, UE Funct Exercise/Act Treatment Duration: Jan 04, 2019 Frequency: At least 5 of 7 days/Wk (IRF) Estimated Hrs Per Day: 1.5 hours per day Agreement: Yes Rehab Potential: Good Time/GCodes Start Time: 08:00 Stop Time: 09:30 Total Time Billed (hr/min): 90 Billed Treatment Time 1, ADL 4 [id number], EX [id number], FA [id number] YOLANDE COURTNEY OT Dec 30, 2018 09:17
[2018-12-30] MEDS: POLYETHYLENE GLYCOL 17 GM (MIRALAX) PACK PO SCH ×2 (09:48→21:25)
[2018-12-30] MEDS: ACETAMINOPHEN 325 MG TABLET PO PRN ×3 (09:59→22:05)
--- NOTE | 2018-12-30 12:26 | Physical Therapy Daily Note ---
PT Daily Note-Current Subjective Pt. agrees to Rx and states she is excited to enjoy a pass to go out this evening with family. Feels she has made significant progress. Happy she can ascend and descend steps Pain Location: No Pain Reported Mental Status Patient Orientation: Normal For Age Transfers Therapy Code Descriptions/Definitions Functional [place] Measure: 0=Not Assessed/NA 4=Minimal Assistance 1=Total Assistance 5=Supervision or Setup 2=Maximal Assistance 6=Modified [place] 3=Moderate Assistance 7=Complete [place] Therapy Quality Codes: 6 Independent with activity with or without an assistive device 5 Patient requires set up or clean up by helper. Patient completes activity by themselves 4 Supervision or touching assist (CGA). [place] provide cues , steadying assist 3 The helper provides less than half the effort to complete the activity 2 The helper provides more than half the effort to complete the activity 1 Dependent. The helper does all the effort to complete an activity 7 Patient refused to complete or attempt activity 9 The patient did not perform the activity before the current illness or injury 88 Not attempted due to Medical conditions or safety concerns Transfers (B, C, W/C) (FIM): 5 Scootin Rollin Supine to/from Sit: 5 Sit to/from Stand: 6 Bed to/from Chair: 5 needs instruction for sup to sit and managing abduction etc Weight Bearing Right Lower Extremity: Right Full Weight Bearing Left Lower Extremity: Left Weight Bearing/Tolerated Gait Training Does the Patient Walk?: Yes Gait (FIM): 6 Distance (FIM): 3=150 ft (170x2) Gait Level of Assist: 6 Gait Persons Needed: 0 Gait Assistive Device: FWW no LOB noted, good , safe technique noted Exercises Standing: Hip Abduction, Hamstring curls, Heel/toe raises, Marching, Mini squats, Sit to Stand Standing Reps: 15 Treatments toileted indep Assessment Current Status: Good Progress PT Short Term Goals Short Term Goals Time Frame: Dec 25, 2018 Transfers (B,C,W/C) (FIM): 4 Gait (FIM): 4 PT Mcfp Goals Histotechnologist Goals PT Histotechnologist Goals Time Frame: Jan 03, 2019 Transfers (B,C,W/C) (FIM): 7 Sit to Lying (QC): 6 Lying-Sitting on Side/Bed(QC): 6 Sit to Stand (QC): 6 Rollin Roll Left to Right (QC): 6 Chair/Uex-up-Dwqoz Xfer(QC): 6 Car Transfer (QC): 6 Does the Patient Walk: Yes Gait (FIM): 6 Gait distance (FIM): 3=150 ft Walk 10 feet (QC): 6 Walk 10ft-Uneven Surface(QC): 6 Walk 50ft with 2 Turns (QC): 6 Walk 150 ft (QC): 6 Gait Assistive Device: FWW Does the Pt use WC or Scooter?: No Stairs (FIM): 5 # of Steps: 4 (household distance) 1 Step (curb) (QC): 6 4 Steps (QC): 6 12 Steps (QC): 6 Picking up an Object (QC): 88 PT Plan Treatment/Plan Treatment Plan: Continue Plan of Care Treatment Plan: Bed Mobility, Education, Functional Activity Lucy, Functional Strength, Group Therapy, Gait, Safety, Therapeutic Exercise, Transfers Treatment Duration: Jan 03, 2019 Frequency: At least 5 of 7 days/Wk (IRF) Estimated Hrs Per Day: 1.5 hours per day Patient and/or Family Agrees t: Yes Safety Risks/Education Patient Education: Gait Training, Transfer Techniques, Correct Positioning, Disease Process, Safety Issues Teaching Recipient: Patient Teaching Methods: Demonstration, Discussion Response to Teaching: Verbalize Understanding, Return Demonstration, Reinforcement Needed Time/GCodes Time In: 1200 Time Out: 1220 Total Billed Treatment Time: 20 Total Billed Treatment 1,EX20m KATT MARIA MAIL DELIVERER Dec 30, 2018 12:26
--- NOTE | 2018-12-30 13:09 | Physical Therapy Daily Note ---
PT Daily Note-Current Subjective Pt. agrees top Rx and states she is excited to go for a visit today in evening with family . No c/o pain, just stiffness Pain Location: No Pain Reported Mental Status Patient Orientation: Normal For Age Transfers Therapy Code Descriptions/Definitions Functional [place] Measure: 0=Not Assessed/NA 4=Minimal Assistance 1=Total Assistance 5=Supervision or Setup 2=Maximal Assistance 6=Modified [place] 3=Moderate Assistance 7=Complete [place] Therapy Quality Codes: 6 Independent with activity with or without an assistive device 5 Patient requires set up or clean up by helper. Patient completes activity by themselves 4 Supervision or touching assist (CGA). [place] provide cues , steadying assist 3 The helper provides less than half the effort to complete the activity 2 The helper provides more than half the effort to complete the activity 1 Dependent. The helper does all the effort to complete an activity 7 Patient refused to complete or attempt activity 9 The patient did not perform the activity before the current illness or injury 88 Not attempted due to Medical conditions or safety concerns Transfers (B, C, W/C) (FIM): 6 Scootin Rollin Supine to/from Sit: 6 Sit to/from Stand: 6 Bed to/from Chair: 6 pt. uses RLE to assist LLE in out bed 50% time. Weight Bearing Right Lower Extremity: Right Full Weight Bearing Left Lower Extremity: Left Weight Bearing/Tolerated Gait Training Does the Patient Walk?: Yes Gait (FIM): 6 Distance (FIM): 3=150 ft (170x2) Gait Level of Assist: 6 Gait Persons Needed: 0 Gait Assistive Device: FWW Stair Training Stair Training: Handrails/: 2 handrails Stairs (FIM): 5 #of Steps: 8 Stairs: Pattern: Step to Level of Assist: 5 instruction and sequence only Exercises Supine Ex: Bridging, Ankle pumps, Quad Set, Glut sets, Heel Slides, Short Arc Quads, Scooting, Straight leg raise, Hip abd/add Supine Reps: 15 Seated Therapy Exercises: Ankle pumps, Sit to stand, Long arc quads, Hip abd/add Seated Reps: 10 NuStep Minutes: 10 NuStep Workload: 4 Treatments toileted indep Assessment Current Status: Good Progress meets goals, wants to talk of plans for DC PT Short Term Goals Short Term Goals Time Frame: Dec 25, 2018 Transfers (B,C,W/C) (FIM): 4 Gait (FIM): 4 PT Long-Term Goals Long-Term Goals PT Long-Term Goals Time Frame: Jan 03, 2019 Transfers (B,C,W/C) (FIM): 7 Sit to Lying (QC): 6 Lying-Sitting on Side/Bed(QC): 6 Sit to Stand (QC): 6 Rollin Roll Left to Right (QC): 6 Chair/Rxb-py-Sakae Xfer(QC): 6 Car Transfer (QC): 6 Does the Patient Walk: Yes Gait (FIM): 6 Gait distance (FIM): 3=150 ft Walk 10 feet (QC): 6 Walk 10ft-Uneven Surface(QC): 6 Walk 50ft with 2 Turns (QC): 6 Walk 150 ft (QC): 6 Gait Assistive Device: FWW Does the Pt use WC or Scooter?: No Stairs (FIM): 5 # of Steps: 4 (household distance) 1 Step (curb) (QC): 6 4 Steps (QC): 6 12 Steps (QC): 6 Picking up an Object (QC): 88 PT Plan Treatment/Plan Treatment Plan: Continue Plan of Care Treatment Plan: Bed Mobility, Education, Functional Activity Lucy, Functional Strength, Group Therapy, Gait, Safety, Therapeutic Exercise, Transfers Treatment Duration: Jan 03, 2019 Frequency: At least 5 of 7 days/Wk (IRF) Estimated Hrs Per Day: 1.5 hours per day Patient and/or Family Agrees t: Yes Safety Risks/Education Patient Education: Gait Training, Transfer Techniques, Steps, Correct Positioning, Disease Process, Safety Issues Teaching Recipient: Patient Teaching Methods: Demonstration, Discussion Response to Teaching: Verbalize Understanding, Return Demonstration, Reinforcement Needed Time/GCodes Time In: 1015 Time Out: 1100 Total Billed Treatment Time: 45 Total Billed Treatment 1,FA25m,GT15m,EX20m KATT MARIA DEVELOPER AUTOMATIC Dec 30, 2018 13:08
--- NOTE | 2018-12-30 15:14 | NUR ---
DELAY IN CO-SIGNING HEPARIN, COMPUTER WOULD NOT FILE SIGNATURES, KEPT COMING UP INVALID SIGNATURE. STEF JONES FROM IT CAME UP & WORKED ON THE COMPUTER PART. HEPARIN WAS GIVEN AT SCHEDULED TIME, & CO-SIGNED BY Gale LLANES RN.
--- NOTE | 2018-12-30 16:15 | NUR ---
Discharge planning Patient is pending discharge home tomorrow, 12/31/18. She will have a day pass this evening. IMM signed and [facility] patient choice formed signed. Patient and spouse verbalize understanding of discharge plan. Patient reports she has received excellent care while on the rehab unit. Referral for [facility] sent to [facility].
[2018-12-30 16:35] VITALS: BP 170/77
--- NOTE | 2018-12-30 20:16 | PM&R Progress Note ---
Subjective HPI/CC On Admission Date Seen by Provider: Dec 30, 2018 Time Seen by Provider: 09:00 Chief complaint: Debility following left intertrochanteric hip fracture History of present illness: This is a 70-year-old white female clinic patient of Dr. Wills who presents following a fall at home resulted in intertrochanteric left hip fracture undergoing an uncomplicated repair the following day. 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 Her hemoglobin remains low at 7.7 but did not require a transfusion while on fourth floor. She has not had a bowel movement since she was admitted. Most medications from home were restarted and at this current time her son and community theater actor are at the bedside. Apparently she was at home and went out to get her mail when 1 of her dogs knocked her over. She sees a cut and print machine operator at . She is insulin-dependent for her diabetes management. We took care of her for 3 weeks in inpatient rehab following an elective right shoulder replacement so she is familiar with the routine of rehab and will be monitored closely considering her significant comorbidities. Her prior level of functioning is sometimes use of a cane but is independent with her ADLs at home. Subjective/Events-last exam Day pass this afternoon at 5 for her granddaughters birthday alliance party Using CPAP at night Less incontinence noted in the morning Hgb maintained at 8.7 Creatinine at 2.63 Chronic ulcer on her buttock form her hospital stay at 5 years ago but no active drainage Getting closer an closer to going home Receiving Aranesp and completed the iron infusions Now relying on Tylenol TID. Check meds and labs Reviewed therapy notes Conferred with chief service dispatcher of Systems Musculoskeletal: leg pain Objective Exam Vital Signs Vital Signs Date Time Temp Pulse Resp B/P (MAP) Pulse Ox O2 Delivery O2 Flow Rate FiO2 12/30/18 16:35 36.6 85 16 170/77 99 Room Air Capillary Refill : Less Than 3 Seconds General Appearance: No Apparent Distress, WD/WN, Chronically ill HEENT: PERRL/EOMI, Normal ENT Inspection, Pharynx Normal, Moist Mucous Membranes Neck: Full Range of Motion, Normal Inspection, Non Tender, Supple Respiratory: Chest Non Tender, Lungs Clear, Normal Breath Sounds, No Accessory Muscle Use, No Respiratory Distress Cardiovascular: Regular Rate, Rhythm, No Edema, No Gallop, No JVD, No Murmur Gastrointestinal: Normal Bowel Sounds, No Organomegaly, No Pulsatile Mass, Non Tender, Soft Back: Normal Inspection, No CVA Tenderness, No Vertebral Tenderness Extremity: Normal Capillary Refill, Normal Inspection, Normal Range of Motion (limited ROM left leg), Non Tender, No Calf Tenderness, No Pedal Edema Neurologic/Psychiatric: Alert, Oriented x3, No Motor/Sensory Deficits, Normal Mood/Affect, financial administrative assistant II-XII Norm as Tested, Abnormal Gait Skin: Normal Color, Warm/Dry Lymphatic: No Adenopathy Results/Procedures Lab Laboratory Tests 12/30/18 05:50 Patient resulted labs reviewed. FIM Transfers Therapy Code Descriptions/Definitions Functional [place] Measure: 0=Not Assessed/NA 4=Minimal Assistance 1=Total Assistance 5=Supervision or Setup 2=Maximal Assistance 6=Modified [place] 3=Moderate Assistance 7=Complete [place] Therapy Quality Codes: 6 Independent with activity with or without an assistive device 5 Patient requires set up or clean up by helper. Patient completes activity by themselves 4 Supervision or touching assist (CGA). [place] provide cues , steadying assist 3 The helper provides less than half the effort to complete the activity 2 The helper provides more than half the effort to complete the activity 1 Dependent. The helper does all the effort to complete an activity 7 Patient refused to complete or attempt activity 9 The patient did not perform the activity before the current illness or injury 88 Not attempted due to Medical conditions or safety concerns Transfers (B, C, W/C) (FIM): 6 Scootin Rollin Roll Left to Right (QC): 5 Supine to/from Sit: 6 Sit to/from Stand: 6 Sit to Lying (QC): 3 Sit to Stand (QC): 5 Chair/Pwb-eo-Hswzc Xfer(QC): 5 Bed to/from Chair: 6 Car Transfer (QC): 4 Gait Training Does the Patient Walk?: Yes Gait (FIM): 6 Distance (FIM): 3=150 ft (170x2) Distance: 150' Walk 10 feet (QC): 5 Walk 50 ft with 2 Turns(QC): 5 Walk 150 ft (QC): 5 Walking 10ft/uneven surface-QC: 88 Gait Level of Assist: 6 Gait Persons Needed: 0 Gait Assistive Device: FWW Wheelchair Training Does the Pt Use a Wheelchair?: No Wheelchair (FIM): 5 Wheelchair Distance: 3=150 ft (160x2) Wheelchair Level of Assist: 5 Type of Wheelchair: Manual Stair Training Stair Training: Handrails/: 2 handrails Stairs (FIM): 5 #of Steps: 8 1 Step (curb) (QC): 88 4 Steps (QC): 88 12 Steps (QC): 88 Stairs: Pattern: Step to Level of Assist: 5 Balance Picking up an Object (QC): 88 Mental Status/Objective Comprehension: 7 Expression: 7 Social Interaction: 7 Problem Solvin Memory: 7 ADL-Treatment Feedin (Pt finishing breakfast at start of session. Pt reported she was able to open containers, cut food, and bring food to mouth independently.) Eating (QC): 6 Groomin (Mod I seated in w/c at sink. Pt washed face, brushed teeth, brushed hair, and washed hands.) Oral Hygiene (QC): 6 Bathin (SBA for safety during stand at grab bars. Min verbal cues for hand placement during stand. Pt completed shower seated on shower chair.) Bathing Location: L Arm, R Arm, L Upper Leg, R Upper Leg, L Lower Leg (including foot), R Lower Leg (including foot), Chest, Abdomen, Buttocks, Perineal Area Shower/Bathe Self (QC): 4 Upper Extremity Dressin (Mod I secondary to increased time required to gather clothes, pt gathered clothing and transported them to bathroom using FWW. Pt donned/doffed dust puller shirt and bra.) Upper Body Dressing (QC): 6 Lower Extremity Dressin (SBA for safety during standing for clothing management at grab bars. Pt donned/doffed 8/8 (pants/underwear/shoes). Pt demo'd correct use of dressing stick/digital strategist/long handled shoe horns without cues.) Lower Body Dressing (QC): 4 On/Off Footwear (QC): 6 Toiletin (Mod I, pt completed 06/23) Toileting Hygiene (QC): 6 Toilet/Commode Transfer: 6 Toilet Transfer (QC): 6 Shower: 5 (SBA for safety, Pt used grab bars to sit to and stand from shower chair with min verbal cues for hand placement during stand.) Assessment/Plan Assessment and Plan Assess & Plan/Chief Complaint Plan: IRF protocol Pain meds to continue BM regimen to be maintained since resolved now Home meds IS DM management ADA diet Heparin for DVT PPx Venofer Iron level reviewed Consult Dr Rebolledo for Aranesp and his expertise is appreciated Monitor right arm midline infiltration site which appears resolved now Review progress Sunday for DC plans Day pass tonight (1) Intertrochanteric fracture of left femur Status: Acute (2) Fall from ground level Status: Acute (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
[2018-12-30] MEDS: BACLOFEN 10 MG (LIORESAL) TAB PO PRN (20:58)
[2018-12-31] MEDS: LEVOTHYROXINE 75 MCG (LEVOTHROID) TABLET PO SCH (06:06)
[2018-12-31] MEDS: SODIUM BICARBONATE 650 MG TABLET (NON-FORMULARY) PO SCH (06:06)
[2018-12-31 06:14] VITALS: BP 162/72
[2018-12-31] MEDS: DOCUSATE SODIUM 100 MG (COLACE) CAP PO SCH (08:12)
[2018-12-31] MEDS: FUROSEMIDE 40 MG (LASIX) TAB PO SCH (08:13)
[2018-12-31] MEDS: SENNA W/DOCUSATE (SENOKOT S) TABLET PO SCH (08:13)
[2018-12-31] MEDS: meTOprolol TARTRATE 25 MG (LOPRESSOR) TABLET PO SCH (08:13)
[2018-12-31] MEDS: ALLOPURINOL 100 MG (ZYLOPRIM) TAB PO SCH (08:13)
[2018-12-31] MEDS: amLODIPine 5 MG (NORVASC) TAB PO SCH (08:13)
[2018-12-31] MEDS: POLYETHYLENE GLYCOL 17 GM (MIRALAX) PACK PO SCH (08:13)
[2018-12-31] MEDS: DARBEPOETIN 25 MCG/ML (ARANESP) 1 ML HOSPITAL SC SCH (08:14)
[2018-12-31] MEDS: PANTOPRAZOLE 40 MG (PROTONIX) TAB PO SCH (08:19)
[2018-12-31] MEDS ORDERED: ACHD5005 PO (08:50)
[2018-12-31] MEDS ORDERED: AMLO5TAB9 PO (08:50)
--- NOTE | 2018-12-31 08:54 | Discharge Summary ---
Discharge Summary Reconcile Patient Problems Problems Reviewed?: Yes Instructions for Patient Via [facility], Assessment/Instructions Dr Wills in 1 week Physician to follow Patient: DR Greg Wills Discharge Diet for Home: No Restrictions Hospital Course Date of Admission: Dec 14, 2018 at 09:20 Admission Diagnosis : Family Physician/Provider: Greg Wills MD Date of Discharge: 12/31/18 Discharge Diagnosis: Left hip fracture Hospital Course: Patient was admitted to IRF after sustaining a left hip fracture s/p fall at home. She required 17 days in IRF and participated in all therapies and received Aranesp per Dr Rebolledo for anemia. Patient had no decompensation during hospital course and was able to DC home with . Labs and Pending Lab Test: none Home Meds Active Hydrocodone/Acetaminophen 5/325mg Tablet (Acetaminophen/Hydrocodone Bitart) 1 Tab Tab 1 Tab PO Q4H PRN Amlodipine Besylate 5 Mg Tablet 5 Mg PO DAILY Reported Benadryl (Diphenhydramine HCl) 25 Mg Capsule 50 Mg PO HS PRN Tylenol Extra Strength (Acetaminophen) 500 Mg Tablet 1,000 Mg PO Q4H PRN Cyanocobalamin Injection (Cyanocobalamin) 1,000 Mcg/Ml Inj 1,000 Mcg IM MONTHLY Baclofen 10 Mg Tablet 10 Mg PO Q6H PRN Ondansetron Odt (Ondansetron) 4 Mg Tab.rapdis 4 Mg PO Q6H PRN Rituxan (Rituximab) 100 Mg/10 Ml Conc IV EVERY 6 MONTHS Sodium Bicarbonate 650 Mg Tablet 650 Mg PO MOWEFR Tums (Calcium Carbonate) 300 Mg Tab.chew 300 Mg PO TIDPC Melatonin 3 Mg Tablet 3 Mg PO HS Super B-50 Complex (Vitamin B Complex) 1 Each Capsule 1 Cap PO DAILY Vitamin D3 (Cholecalciferol (Vitamin D3)) 1,000 Unit Capsule 1,000 Unit PO DAILY Pantoprazole Sodium 40 Mg Tablet.dr 40 Mg PO BID Senna-S Tablet (Sennosides/Docusate Sodium) 1 Each Tablet 1 Tab PO BID Allopurinol 100 Mg Tablet 100 Mg PO DAILY Furosemide 20 Mg Tablet 20 Mg PO DAILY Levemir Flextouch (Insulin Detemir) 100 Unit/1 Ml Insuln.pen 10 Units SC DAILY Levothyroxine Sodium 75 Mcg Tablet 75 Mcg PO DAILY Metoprolol Tartrate 25 Mg Tablet 25 Mg PO BID Patient Allergies: Coded Allergies: Iodinated Contrast- Oral and IV Dye (Verified Allergy, Unknown, 12/11/18) Height (Feet): 5 Height (Inches): 7.00 Weight (Pounds): 189 Weight (Ounces): 9.6 Home Health Need/Face to Face Date of Face to Face: Dec 31, 2018 Clinical Findings: Generalized weakness and fatigue, Immune-compromised, Instab ility, Muscle weakness, Pain with ambulation, Shortness of breath, Unsteady gait I have seen Pt [id number]: Yes Discharged To: Home Diagnosis/Conditions: Left hip fracture Patient is Homebound due to: CognItive deficits, Eric fall risk due to instabilty, Muscle weakness, Pain w/ambulation Homebound Status Due to the above stated illness, injury or surgical procedure (medical condition or diagnosis) and associated clinical findings, the patient is homebound because of his/her inability to leave home except with aid of a supportive device and/or person AND leaving the home requires a considerable and taxing effort or is medically contraindicated. Pt req the following assistanc: Walker Home Health Nursing Orders Home Health Services Order: Nursing Services, Die Attacher-Evaluate & Treat, Physical Therapy-Evaluate & Treat Home Health Infusion Therapy Line Start Date: Dec 17, 2018 Certify Stmt I certify that this patient is under my care and that I, a nurse practitioner or a physician; a preschool assistant working with me, had a face to face encounter that - meets the physician face to face encounter requirements with this patient as dated. BRAYAN BLOCK DO Dec 31, 2018 08:54
--- NOTE | 2018-12-31 08:56 | Discharge Summary ---
Diagnosis/Chief Complaint Date of Admission Dec 14, 2018 at 09:20 Date of Discharge Discharge Date: Dec 31, 2018 Discharge Diagnosis Plan: IRF protocol Pain meds to continue BM regimen to be maintained since resolved now Home meds IS DM management ADA diet Heparin for DVT PPx Venofer Iron level reviewed Consult Dr Rebolledo for Aranesp and his expertise is appreciated Monitor right arm midline infiltration site which appears resolved now Review progress Sunday for DC plans Day pass Sunday night (1) Intertrochanteric fracture of left femur Status: Acute (2) Fall from ground level Status: Acute (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 (4) CKD (chronic kidney disease) stage 4, GFR 15-29 ml/min Status: Chronic (5) MPA (microscopic polyangiitis) Status: Chronic (6) Type 2 diabetes mellitus Status: Chronic (7) GERD (gastroesophageal reflux disease) Status: Chronic (8) Essential hypertension Status: Chronic (9) Gout Status: Chronic (10) Constipation Status: Acute (11) CHF (congestive heart failure) Status: Acute (12) Anemia Status: Acute Discharge Summary Discharge Physical Examination Allergies: Coded Allergies: Iodinated Contrast- Oral and IV Dye (Verified Allergy, Unknown, 12/11/18) Vitals & I&Os Vital Signs Date Time Temp Pulse Resp B/P (MAP) Pulse Ox O2 Delivery O2 Flow Rate FiO2 12/31/18 09:00 Room Air 12/31/18 06:14 36.7 73 16 162/72 18 General Appearance: Alert, Oriented X3, Cooperative Respiratory: Clear to Auscultation Cardiovascular: Regular Rate, Normal S1, Normal S2 Abdominal: Normal Bowel Sounds Neuro: Normal Gait, Normal Speech, Strength at 5/5 X4 Ext Hospital Course Was the Problem List Reviewed?: Yes Hospital course: Pt had an uncomplicated hospital course for 17 days. Anemia was managed with a consultation with hematology Dr. Raya who initiated Aranesp with good results. Iron infusions were completed. Midline was place due to poor vascular access and that was discontinued. Bowels regained normalcy after narcotic bowel post-op constipation resolved after a few days after her being on aggressive medications. Bowels remain normal throughout the hospital course. Pa in was well controlled on Tylenol, I did prescribed a few pain pills at discharge just in case she got home and needed something but overall, she had exceeded expectations, was nearly back to her prior level off functioning although she is using a walker and she feels very comfortable with discharge to home with her with home health and the only addition medication I made w as Norvasc of 5 Mg and will have close follow-up for [place] and Dr. Diaz who repaired her left hip fracture. Labs (last 24 hrs) Laboratory Tests 12/14/18 15:38: Glucometer 128H 12/14/18 20:33: Glucometer 186H 12/15/18 05:35: Glucometer 133H 12/15/18 05:50: White Blood Count 7.4, Red Blood Count 2.31L, Hemoglobin 7.3L, Hematocrit 23L, Mean Corpuscular Volume 100H, Mean Corpuscular Hemoglobin 32, Mean Corpuscular Hemoglobin Concent 32, Red Cell Distribution Width 13.8, Platelet Count 161, Mean Platelet Volume 10.5H, Neutrophils (%) (Auto) 72, Lymphocytes (%) (Auto) 12, Monocytes (%) (Auto) 13H, Eosinophils (%) (Auto) 3, Basophils (%) (Auto) 0, Neutrophils # (Auto) 5.3, Lymphocytes # (Auto) 0.9L, Monocytes # (Auto) 1.0, Eo sinophils # (Auto) 0.2, Basophils # (Auto) 0.0, Sodium Level 139, Potassium Level 3.7, Chloride Level 106, Carbon Dioxide Level 19L, Anion Gap 14, Blood Urea Nitrogen 40H, Creatinine 2.62H, Estimat Glomerular Filtration Rate 18, BUN/Creatinine Ratio 15, Glucose Level 114H, Calcium Level 9.1, Corrected Calcium 9.7, Iron Level 15L, Total Bilirubin 0.5, Aspartate Amino Transf (AST/SGOT) 16, Alanine Aminotransferase (ALT/SGPT) < 6, Alkaline Phosphatase 102, Total Protein 5.6L, Albumin 3.2 12/15/18 11:22: Glucometer 212H 12/15/18 15:39: Glucometer 150H 12/15/18 20:44: Glucometer 180H 12/16/18 04:43: Sodium Level 141, Potassium Level 4.0, Chloride Level 106, Carbon Dioxide Level 23, Anion Gap 12, Blood Urea Nitrogen 44H, Creatinine 2.50H, Estimat Glomerular Filtration Rate 19, BUN/Creatinine Ratio 18, Glucose Level 115H, Calcium Level 9.2, Corrected Calcium 9.8, Total Bilirubin 0.6, Aspartate Amino Transf (AST/SGOT) 25, Alanine Aminotransferase (ALT/SGPT) 11, Alkaline Phosphatase 104, Total Protein 5.5L, Albumin 3.2 12/16/18 04:45: White Blood Count 6.8, Red Blood Count 2.26L, Hemoglobin 7.2L, Hematocrit 23L, Mean Corpuscular Volume 100H, Mean Corpuscular Hemoglobin 32, Mean Corpuscular Hemoglobin Concent 32, Red Cell Distribution Width 13.6, Platelet Count 175, Mean Platelet Volume 11.0H, Neutrophils (%) (Auto) 70, Lymphocytes (%) (Auto) 13, Monocytes (%) (Auto) 14H, Eosinophils (%) (Auto) 3, Basophils (%) (Auto) 0, Neutrophils # (Auto) 4.7, Lymphocytes # (Auto) 0.9L, Monocytes # (Auto) 1.0, Eosinophils # (Auto) 0.2, Basophils # (Auto) 0.0 12/16/18 11:07: Glucometer 138H 12/16/18 16:12: Glucometer 137H 12/16/18 20:58: Glucometer 227H 12/17/18 04:48: White Blood Count 6.7, Red Blood Count 2.25L, Hemoglobin 7.2L, Hematocrit 23L, Mean Corpuscular Volume 101H, Mean Corpuscular Hemoglobin 32, Mean Corpuscular Hemoglobin Concent 32, Red Cell Distribution Width 13.8, Platelet Count 194, Mean Platelet Volume 10.8H 12/17/18 05:24: Glucometer 124H 12/17/18 11:06: Glucometer 158H 12/17/18 15:32: Glucometer 158H 12/17/18 21:19: Glucometer 189H 12/18/18 05:47: Glucometer 118H 12/18/18 11:30: Glucometer 140H 12/18/18 16:41: Glucometer 163H 12/18/18 21:56: Glucometer 184H 12/19/18 05:31: Glucometer 117H 12/19/18 11:25: Glucometer 136H 12/19/18 16:42: Glucometer 114H 12/19/18 20:50: Glucometer 173H 12/20/18 05:20: Glucometer 131H 12/20/18 07:15: White Blood Count 7.2, Red Blood Count 2.42L, Hemoglobin 7.7L, Hematocrit 25L, Mean Corpuscular Volume 102H, Mean Corpuscular Hemoglobin 32, Mean Corpuscular Hemoglobin Concent 31L, Red Cell Distribution Width 13.9, Platelet Count 284, Mean Platelet Volume 10.0, Neutrophils (%) (Auto) 64, Lymphocytes (%) (Auto) 17, Monocytes (%) (Auto) 15H, Eosinophils (%) (Auto) 4, Basophils (%) (Auto) 1, Neutrophils # (Auto) 4.6, Lymphocytes # (Auto) 1.2, Monocytes # (Auto) 1.1H, Eosinophils # (Auto) 0.3, Basophils # (Auto) 0.1 12/20/18 11:06: Glucometer 134H 12/20/18 15:28: Glucometer 191H 12/21/18 05:19: Glucometer 106 12/21/18 16:31: Glucometer 157H 12/22/18 05:22: Glucometer 106 12/22/18 11:03: Glucometer 181H 12/22/18 15:48: Glucometer 174H 12/23/18 05:26: Glucometer 119H 12/23/18 07:19: White Blood Count 8.4, Red Blood Count 2.42L, Hemoglobin 7.8L, Hematocrit 25L, Mean Corpuscular Volume 104H, Mean Corpuscular Hemoglobin 32, Mean Corpuscular Hemoglobin Concent 31L, Red Cell Distribution Width 14.4, Platelet Count 348, Mean Platelet Volume 10.0, Neutrophils (%) (Auto) 70, Lymphocytes (%) (Auto) 16, Monocytes (%) (Auto) 12, Eosinophils (%) (Auto) 2, Basophils (%) (Auto) 1, Neutrophils # (Auto) 5.8, Lymphocytes # (Auto) 1.3, Monocytes # (Auto) 1.0, Eosinophils # (Auto) 0.2, Basophils # (Auto) 0.0, Sodium Level 139, Potassium Level 4.2, Chloride Level 103, Carbon Dioxide Level 26, Anion Gap 10, Blood Urea Nitrogen 49H, Creatinine 2.52H, Estimat Glomerular Filtration Rate 18, BUN/Creatinine Ratio 19, Glucose Level 111H, Calcium Level 9.7, Corrected Calcium 10.2H, Total Bilirubin 0.6, Aspartate Amino Transf (AST/SGOT) 19, Alanine Aminotransferase (ALT/SGPT) 16, Alkaline Phosphatase 142H, Total Protein 6.0L, Albumin 3.4 12/23/18 16:06: Glucometer 249H 12/24/18 05:25: Glucometer 123H 12/24/18 07:07: White Blood Count 7.8, Red Blood Count 2.42L, Hemoglobin 7.8L, Hematocrit 25L, Mean Corpuscular Volume 103H, Mean Corpuscular Hemoglobin 32, Mean Corpuscular Hemoglobin Concent 31L, Red Cell Distribution Width 14.0, Platelet Count 344, Mean Platelet Volume 10.4 12/24/18 15:28: Glucometer 234H 12/25/18 05:35: Glucometer 130H 12/26/18 09:33: Glucometer 175H 12/30/18 05:50: White Blood Count 5.0, Red Blood Count 2.72L, Hemoglobin 8.7L, Hematocrit 28L, Mean Corpuscular Volume 104H, Mean Corpuscular Hemoglobin 32, Mean Corpuscular Hemoglobin Concent 31L, Red Cell Distribution Width 13.9, Platelet Count 377, Mean Platelet Volume 9.9, Neutrophils (%) (Auto) 60, Lymphocytes (%) (Auto) 22, Monocytes (%) (Auto) 13H, Eosinophils (%) (Auto) 5, Basophils (%) (Auto) 1, Ne utrophils # (Auto) 3.0, Lymphocytes # (Auto) 1.1, Monocytes # (Auto) 0.6, Eosinophils # (Auto) 0.2, Basophils # (Auto) 0.0, Sodium Level 144, Potassium Level 4.2, Chloride Level 109H, Carbon Dioxide Level 23, Anion Gap 12, Blood Urea Nitrogen 45H, Creatinine 2.63H, Estimat Glomerular Filtration Rate 18, BUN/Creatinine Ratio 17, Glucose Level 100, Calcium Level 10.2H, Corrected Calcium 10.4H, Total Bilirubin 0.3, Aspartate Amino Transf (AST/SGOT) 14, Alanine Aminotransferase (ALT/SGPT) 12, Alkaline Phosphatase 168H, Total Protein 6.1L, Albumin 3.7 Pending Labs Laboratory Tests 12/14/18 15:38: Glucometer 128 12/14/18 20:33: Glucometer 186 12/15/18 05:35: Glucometer 133 12/15/18 05:50: White Blood Count 7.4, Red Blood Count 2.31, Hemoglobin 7.3, Hematocrit 23, Mean Corpuscular Volume 100, Mean Corpuscular Hemoglobin 32, Mean Corpuscular Hemoglobin Concent 32, Red Cell Distribution Width 13.8, Platelet Count 161, Mean Platelet Volume 10.5, Neutrophils (%) (Auto) 72, Lymphocytes (%) (Auto) 12, Monocytes (%) (Auto) 13, Eosinophils (%) (Auto) 3, Basophils (%) (Auto) 0, Neutrophils # (Auto) 5.3, Lymphocytes # (Auto) 0.9, Monocytes # (Auto) 1.0, Eos inophils # (Auto) 0.2, Basophils # (Auto) 0.0, Sodium Level 139, Potassium Level 3.7, Chloride Level 106, Carbon Dioxide Level 19, Anion Gap 14, Blood Urea Nitrogen 40, Creatinine 2.62, Estimat Glomerular Filtration Rate 18, BUN/Creatinine Ratio 15, Glucose Level 114, Calcium Level 9.1, Corrected Calcium 9.7, Iron Level 15, Total Bilirubin 0.5, Aspartate Amino Transf (AST/SGOT) 16, Alanine Aminotransferase (ALT/SGPT) < 6, Alkaline Phosphatase 102, Total Protein 5.6, Albumin 3.2 12/15/18 11:22: Glucometer 212 12/15/18 15:39: Glucometer 150 12/15/18 20:44: Glucometer 180 12/16/18 04:43: Sodium Level 141, Potassium Level 4.0, Chloride Level 106, Carbon Dioxide Level 23, Anion Gap 12, Blood Urea Nitrogen 44, Creatinine 2.50, Estimat Glomerular Filtration Rate 19, BUN/Creatinine Ratio 18, Glucose Level 115, Calcium Level 9.2, Corrected Calcium 9.8, Total Bilirubin 0.6, Aspartate Amino Transf (AST/SGOT) 25, Alanine Aminotransferase (ALT/SGPT) 11, Alkaline Phosphatase 104, Total Protein 5.5, Albumin 3.2 12/16/18 04:45: White Blood Count 6.8, Red Blood Count 2.26, Hemoglobin 7.2, Hematocrit 23, Mean Corpuscular Volume 100, Mean Corpuscular Hemoglobin 32, Mean Corpuscular Hemoglobin Concent 32, Red Cell Distribution Width 13.6, Platelet Count 175, Mean Platelet Volume 11.0, Neutrophils (%) (Auto) 70, Lymphocytes (%) (Auto) 13, Monocytes (%) (Auto) 14, Eosinophils (%) (Auto) 3, Basophils (%) (Auto) 0, Neutrophils # (Auto) 4.7, Lymphocytes # (Auto) 0.9, Monocytes # (Auto) 1.0, Eosinophils # (Auto) 0.2, Basophils # (Auto) 0.0 12/16/18 11:07: Glucometer 138 12/16/18 16:12: Glucometer 137 12/16/18 20:58: Glucometer 227 12/17/18 04:48: White Blood Count 6.7, Red Blood Count 2.25, Hemoglobin 7.2, Hematocrit 23, Mean Corpuscular Volume 101, Mean Corpuscular Hemoglobin 32, Mean Corpuscular Hemoglobin Concent 32, Red Cell Distribution Width 13.8, Platelet Count 194, Mean Platelet Volume 10.8 12/17/18 05:24: Glucometer 124 12/17/18 11:06: Glucometer 158 12/17/18 15:32: Glucometer 158 12/17/18 21:19: Glucometer 189 12/18/18 05:47: Glucometer 118 12/18/18 11:30: Glucometer 140 12/18/18 16:41: Glucometer 163 12/18/18 21:56: Glucometer 184 12/19/18 05:31: Glucometer 117 12/19/18 11:25: Glucometer 136 12/19/18 16:42: Glucometer 114 12/19/18 20:50: Glucometer 173 12/20/18 05:20: Glucometer 131 12/20/18 07:15: White Blood Count 7.2, Red Blood Count 2.42, Hemoglobin 7.7, Hematocrit 25, Mean Corpuscular Volume 102, Mean Corpuscular Hemoglobin 32, Mean Corpuscular H emoglobin Concent 31, Red Cell Distribution Width 13.9, Platelet Count 284, Mean Platelet Volume 10.0, Neutrophils (%) (Auto) 64, Lymphocytes (%) (Auto) 17, Monocytes (%) (Auto) 15, Eosinophils (%) (Auto) 4, Basophils (%) (Auto) 1, Neutrophils # (Auto) 4.6, Lymphocytes # (Auto) 1.2, Monocytes # (Auto) 1.1, Eosinophils # (Auto) 0.3, Basophils # (Auto) 0.1 12/20/18 11:06: Glucometer 134 12/20/18 15:28: Glucometer 191 12/21/18 05:19: Glucometer 106 12/21/18 16:31: Glucometer 157 12/22/18 05:22: Glucometer 106 12/22/18 11:03: Glucometer 181 12/22/18 15:48: Glucometer 174 12/23/18 05:26: Glucometer 119 12/23/18 07:19: White Blood Count 8.4, Red Blood Count 2.42, Hemoglobin 7.8, Hematocrit 25, Mean Corpuscular Volume 104, Mean Corpuscular Hemoglobin 32, Mean Corpuscular Hemoglobin Concent 31, Red Cell Distribution Width 14.4, Platelet Count 348, Mean Platelet Volume 10.0, Neutrophils (%) (Auto) 70, Lymphocytes (%) (Auto) 16, Monocytes (%) (Auto) 12, Eosinophils (%) (Auto) 2, Basophils (%) (Auto) 1, Neutrophils # (Auto) 5.8, Lymphocytes # (Auto) 1.3, Monocytes # (Auto) 1.0, Eosinophils # (Auto) 0.2, Basophils # (Auto) 0.0, Sodium Level 139, Potassium Level 4.2, Chloride Level 103, Carbon Dioxide Level 26, Anion Gap 10, Blood Urea Nitrogen 49, Creatinine 2.52, Estimat Glomerular Filtration Rate 18, BUN/Creatinine Ratio 19, Glucose Level 111, Calcium Level 9.7, Corrected Calcium 10.2, Total Bilirubin 0.6, Aspartate Amino Transf (AST/SGOT) 19, Alanine Aminotransferase (ALT/SGPT) 16, Alkaline Phosphatase 142, Total Protein 6.0, Albumin 3.4 12/23/18 16:06: Glucometer 249 12/24/18 05:25: Glucometer 123 12/24/18 07:07: White Blood Count 7.8, Red Blood Count 2.42, Hemoglobin 7.8, Hematocrit 25, Mean Corpuscular Volume 103, Mean Corpuscular Hemoglobin 32, Mean Corpuscular Hemoglobin Concent 31, Red Cell Distribution Width 14.0, Platelet Count 344, Mean Platelet Volume 10.4 12/24/18 15:28: Glucometer 234 12/25/18 05:35: Glucometer 130 12/26/18 09:33: Glucometer 175 12/30/18 05:50: White Blood Count 5.0, Red Blood Count 2.72, Hemoglobin 8.7, Hematocrit 28, Mean Corpuscular Volume 104, Mean Corpuscular Hemoglobin 32, Mean Corpuscular Hemoglobin Concent 31, Red Cell Distribution Width 13.9, Platelet Count 377, Mean Platelet Volume 9.9, Neutrophils (%) (Auto) 60, Lymphocytes (%) (Auto) 22, Monocytes (%) (Auto) 13, Eosinophils (%) (Auto) 5, Basophils (%) (Auto) 1, Neutrophils # (Auto) 3.0, Lymphocytes # (Auto) 1.1, Monocytes # (Auto) 0.6, Eosinophils # (Auto) 0.2, Basophils # (Auto) 0.0, Sodium Level 144, Potassium Level 4.2, Chloride Level 109, Carbon Dioxide Level 23, Anion Gap 12, Blood Urea Nitrogen 45, Creatinine 2.63, Estimat Glomerular Filtration Rate 18, BUN/Creatinine Ratio 17, Glucose Level 100, Calcium Level 10.2, Corrected Calcium 10.4, Total Bilirubin 0.3, Aspartate Amino Transf (AST/SGOT) 14, Alanine Aminotransferase (ALT/SGPT) 12, Alkaline Phosphatase 168, Total Protein 6.1, Albumin 3.7 Discharge Home Medications: Active Scripts Active Hydrocodone/Acetaminophen 5/325mg Tablet (Acetaminophen/Hydrocodone Bitart) 1 Tab Tab 1 Tab PO Q4H PRN Amlodipine Besylate 5 Mg Tablet 5 Mg PO DAILY Reported Benadryl (Diphenhydramine HCl) 25 Mg Capsule 50 Mg PO HS PRN Tylenol Extra Strength (Acetaminophen) 500 Mg Tablet 1,000 Mg PO Q4H PRN Cyanocobalamin Injection (Cyanocobalamin) 1,000 Mcg/Ml Inj 1,000 Mcg IM MONTHLY Baclofen 10 Mg Tablet 10 Mg PO Q6H PRN Ondansetron Odt (Ondansetron) 4 Mg Tab.rapdis 4 Mg PO Q6H PRN Rituxan (Rituximab) 100 Mg/10 Ml Conc IV EVERY 6 MONTHS Sodium Bicarbonate 650 Mg Tablet 650 Mg PO MOWEFR Tums (Calcium Carbonate) 300 Mg Tab.chew 300 Mg PO TIDPC Melatonin 3 Mg Tablet 3 Mg PO HS Super B-50 Complex (Vitamin B Complex) 1 Each Capsule 1 Cap PO DAILY Vitamin D3 (Cholecalciferol (Vitamin D3)) 1,000 Unit Capsule 1,000 Unit PO DAILY Pantoprazole Sodium 40 Mg Tablet.dr 40 Mg PO BID Senna-S Tablet (Sennosides/Docusate Sodium) 1 Each Tablet 1 Tab PO BID Allopurinol 100 Mg Tablet 100 Mg PO DAILY Furosemide 20 Mg Tablet 20 Mg PO DAILY Levemir Flextouch (Insulin Detemir) 100 Unit/1 Ml Insuln.pen 10 Units SC DAILY Levothyroxine Sodium 75 Mcg Tablet 75 Mcg PO DAILY Metoprolol Tartrate 25 Mg Tablet 25 Mg PO BID Instructions to patient/family Please see electronic discharge instructions given to patient. 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
--- NOTE | 2018-12-31 11:55 | Therapy Team Discharge Summary ---
Therapy Discharge Summary Discharge Recommendations Date of Discharge Dec 31, 2018 at 10:10 Therapy D/C Recommendations: Physical Therapy Home Care Physical Therapy Patient came to rehab following a left hip fracture repaired with IM nail. Upon evaluation patient performed bed mobility and transfer with mod to max assist, no ambulation or stairs. Patient has been performing bed mobility and transfer training, balance and endurance training, functional strengthening, stair training, gait training, and education. Patient has made fair progress but has only met her intermediate frame tender goals for bed mobility and transfers and ambulation. Now, patient performs bed mobility with mod I, supine <-> sit with mod I, sit <- > stand with mod I, transfers with mod I, car transfer mod I, ambulated 170' with a rolling walker with SBA (including 50' with at least 2 turns of 90 degrees and 10' over an uneven surface), and can go up and down 4 steps using 2 handrails with CGA. Patient has been discharged from this facility today and will be discharged from PT at this time. Occupational Therapy Decreased Activ Tolerance, Decreased UE Strength, Impaired Funct Balance, Impaired Self-Care Skills PT Travel Assistant Goals Travel Assistant Goals PT Travel Assistant Goals Time Frame: Jan 03, 2019 Transfers (B,C,W/C) (FIM): 7 Roll Left to Right (QC): 6 Sit to Lying (QC): 6 Lying-Sitting on Side/Bed(QC): 6 Sit to Stand (QC): 6 Chair/Xom-cr-Apddm Xfer(QC): 6 Car Transfer (QC): 6 Does the Patient Walk: Yes Gait (FIM): 6 Gait distance (FIM): 3=150 ft Walk 10 feet (QC): 6 Walk 10ft-Uneven Surface(QC): 6 Walk 50ft with 2 Turns (QC): 6 Walk 150 ft (QC): 6 Gait Assistive Device: FWW Does the Pt use WC or Scooter?: No Stairs (FIM): 5 # of Steps: 4 (household distance) 1 Step (curb) (QC): 6 4 Steps (QC): 6 12 Steps (QC): 6 Picking up an Object (QC): 88 OT Travel Assistant Goals Group Home Goals Time Frame: Jan 04, 2019 Eating (FIM): 7 Eating (QC): 6 Oral Hygiene (QC): 6 Grooming(FIM): 6 Bathing(FIM): 5 Shower/Bathe Self (QC): 5 Upper Body Dressing(FIM): 6 Upper Body Dressing (QC): 6 Lower Body Dressing(FIM): 5 Lower Body Dressing (QC): 5 On/Off Footwear (QC): 5 Toileting(FIM): 6 Toileting Hygiene (QC): 6 Toilet/Commode Transfer(FIM): 6 Toilet/Commode Transfer (QC): 6 Shower Transfer(FIM): 5 Additional Goals: 1-Demonstrate ADL Tasks, 2-Verbalize Understanding, 3- ImproveStrength/Lucy 1=Demonstrate adherence to instructed precautions during ADL tasks. 2=Patient will verbalize/demonstrate understanding of assistive devices/modifications for ADL. 3=Patient will improve strength/tolerance for activity to enable patient to perform ADL's. NNEKA BROTHERS PT Dec 31, 2018 11:55
--- NOTE | 2019-01-01 14:41 | Physical Therapy Daily Note ---
PT Daily Note-Current Transfers Therapy Code Descriptions/Definitions Functional [place] Measure: 0=Not Assessed/NA 4=Minimal Assistance 1=Total Assistance 5=Supervision or Setup 2=Maximal Assistance 6=Modified [place] 3=Moderate Assistance 7=Complete [place] Therapy Quality Codes: 6 Independent with activity with or without an assistive device 5 Patient requires set up or clean up by helper. Patient completes activity by themselves 4 Supervision or touching assist (CGA). [place] provide cues , steadying assist 3 The helper provides less than half the effort to complete the activity 2 The helper provides more than half the effort to complete the activity 1 Dependent. The helper does all the effort to complete an activity 7 Patient refused to complete or attempt activity 9 The patient did not perform the activity before the current illness or injury 88 Not attempted due to Medical conditions or safety concerns Transfers (B, C, W/C) (FIM): 6 Scootin Rollin Roll Left to Right (QC): 6 Supine to/from Sit: 6 Sit to/from Stand: 6 Sit to Lying (QC): 6 Sit to Stand (QC): 6 Chair/Rpe-dm-Fmmxo Xfer(QC): 6 Bed to/from Chair: 6 Car Transfer (QC): 5 Weight Bearing Right Lower Extremity: Right Full Weight Bearing Left Lower Extremity: Left Weight Bearing/Tolerated Gait Training Gait (FIM): 5 Distance (FIM): 3=150 ft (150 plus) Walk 10 feet (QC): 5 Walk 50 ft with 2 Turns(QC): 5 Walk 150 ft (QC): 5 Walking 10ft/uneven surface-QC: 5 Gait Level of Assist: 5 Gait Persons Needed: 1 Gait Assistive Device: FWW Stair Training Stair Training: Handrails/: 2 handrails Stairs (FIM): 2 #of Steps: 4 1 Step (curb) (QC): 4 4 Steps (QC): 4 Stairs: Pattern: Step to Level of Assist: 4 Balance Special Test Comments not safe to trial picking object up from floor PT Short Term Goals Short Term Goals Time Frame: Dec 25, 2018 Transfers (B,C,W/C) (FIM): 4 Gait (FIM): 4 PT Jail Goals Jail Goals PT Line Pilot Goals Time Frame: Jan 03, 2019 Transfers (B,C,W/C) (FIM): 7 Sit to Lying (QC): 6 Lying-Sitting on Side/Bed(QC): 6 Sit to Stand (QC): 6 Rollin Roll Left to Right (QC): 6 Chair/Bdo-aa-Jxztt Xfer(QC): 6 Car Transfer (QC): 6 Does the Patient Walk: Yes Gait (FIM): 6 Gait distance (FIM): 3=150 ft Walk 10 feet (QC): 6 Walk 10ft-Uneven Surface(QC): 6 Walk 50ft with 2 Turns (QC): 6 Walk 150 ft (QC): 6 Gait Assistive Device: FWW Does the Pt use WC or Scooter?: No Stairs (FIM): 5 # of Steps: 4 (household distance) 1 Step (curb) (QC): 6 4 Steps (QC): 6 12 Steps (QC): 6 Picking up an Object (QC): 88 PT Plan Treatment/Plan Treatment Plan: Bed Mobility, Education, Functional Activity Lucy, Functional Strength, Group Therapy, Gait, Safety, Therapeutic Exercise, Transfers Treatment Duration: Jan 03, 2019 Frequency: At least 5 of 7 days/Wk (IRF) Estimated Hrs Per Day: 1.5 hours per day Patient and/or Family Agrees t: Yes Time/GCodes Time In: 1440 Time Out: 1440 Total Billed Treatment Time: 0 Total Billed Treatment no Rx, no Chg , FIM and QC scores only KATT MARIA CANVAS GOODS FABRICATOR Jan 01, 2019 14:41
--- NOTE | 2019-01-03 13:33 | Therapy Team Discharge Summary ---
Therapy Discharge Summary Discharge Recommendations Date of Discharge Dec 31, 2018 at 10:10 Therapy D/C Recommendations: Physical Therapy Home Care Occupational Therapy Pt admitted to ARU following acute hospitalization for left hip fracture. On admission pt required mod assist with transfers, max assist with LE dressing, and total assist for toileting. Skilled OT intervention focused on ADL training, transfers, strengthening, and safety education. Pt made good progress with therapy and by discharge is completing bathing, LE dressing, and shower transfer with SBA and all other basic ADLs and toilet transfer with modified independence. Pt met all OT LTG. Pt discharged home with spouse. D/C ARU OT. Decreased Activ Tolerance, Decreased UE Strength, Impaired Funct Balance, Impaired Self-Care Skills PT Half-Way Goals Half-Way Goals PT Internal Audit Director Goals Time Frame: Jan 03, 2019 Transfers (B,C,W/C) (FIM): 7 Roll Left to Right (QC): 6 Sit to Lying (QC): 6 Lying-Sitting on Side/Bed(QC): 6 Sit to Stand (QC): 6 Chair/Pqr-hu-Oputj Xfer(QC): 6 Car Transfer (QC): 6 Does the Patient Walk: Yes Gait (FIM): 6 Gait distance (FIM): 3=150 ft Walk 10 feet (QC): 6 Walk 10ft-Uneven Surface(QC): 6 Walk 50ft with 2 Turns (QC): 6 Walk 150 ft (QC): 6 Gait Assistive Device: FWW Does the Pt use WC or Scooter?: No Stairs (FIM): 5 # of Steps: 4 (household distance) 1 Step (curb) (QC): 6 4 Steps (QC): 6 12 Steps (QC): 6 Picking up an Object (QC): 88 OT Internal Audit Director Goals Half-Way Goals Time Frame: Jan 04, 2019 Eating (FIM): 7 Eating (QC): 6 Oral Hygiene (QC): 6 Grooming(FIM): 6 Bathing(FIM): 5 Shower/Bathe Self (QC): 5 Upper Body Dressing(FIM): 6 Upper Body Dressing (QC): 6 Lower Body Dressing(FIM): 5 Lower Body Dressing (QC): 5 On/Off Footwear (QC): 5 Toileting(FIM): 6 Toileting Hygiene (QC): 6 Toilet/Commode Transfer(FIM): 6 Toilet/Commode Transfer (QC): 6 Shower Transfer(FIM): 5 Additional Goals: 1-Demonstrate ADL Tasks, 2-Verbalize Understanding, 3- ImproveStrength/Lucy 1=Demonstrate adherence to instructed precautions during ADL tasks. 2=Patient will verbalize/demonstrate understanding of assistive devices/modifications for ADL. 3=Patient will improve strength/tolerance for activity to enable patient to perform ADL's. MARCIA ALAMO OT Jan 03, 2019 13:33
--- NOTE | 2019-01-09 14:06 | Physician Query Clarification ---
PQ-CHF Specificity Admission Date: Dec 14, 2018 at 09:20 Discharge Date: Dec 31, 2018 at 10:10 The medical record reflects the following clinical scenario: History/Risk Factors: Acute congestive heart failure given on History and Physical Hypertension Chronic Kidney disease-Stage 4 Clinical Findings:Acute CHF given as diagnosis. Treatment: 40 mg. Lasix daily Question: Can you further specify the acuity &/or type of CHF per the clinical indicators above? Please document a response in the Progress Notes or Discharge Summary. 1. Acuity: Acute, Chronic or Acute on Chronic 2. Type: Systolic, Diastolic or Systolic & Diastolic 3. Unspecified: CHF cannot be further specified regarding type or acuity 4. Other, with explanation of clinical findings 5. Clinically undetermined, no explanation for clinical findings PHYSICIAN RESPONSE Acuity: Acute on Chronic Type: Systolic & Diastolic Please remember a lack of response to the above will prompt a phone page by CDI/Coding staff. In responding to this query, please exercise your independent professional judgment. The purpose of this communication is to more accurately reflect the complexity of your patients condition. The fact that a question is asked does not imply that any particular answer is desired or expected. Thank you for your timely response to this clarification. Requestors name: Marielle Latif [facility] Phone # ext [phone] or [phone] THIS PHYSICIAN QUERY FORM IS A PERMANENT PART OF THE MEDICAL RECORD MARIELLE LATIF Jan 09, 2019 14:06 BRAYAN BLOCK DO Jan 11, 2019 12:56
== END 2018-12-31 10:10 | disposition home health service (06) | DRG 559 ==
PROVIDERS: ADMIT Internal Medicine; ATTEND Internal Medicine
DX: S72.142D Displaced intertrochanteric fracture of left femur, subsequent encounter for closed fracture with routine healing (principal); M31.7 Microscopic polyangiitis; I13.0 Hypertensive heart and chronic kidney disease with heart failure and stage 1 through stage 4 chronic kidney disease, or unspecified chronic kidney disease; N18.4 Chronic kidney disease, stage 4 (severe); I50.43 Acute on chronic combined systolic (congestive) and diastolic (congestive) heart failure; E11.9 Type 2 diabetes mellitus without complications; E78.00 Pure hypercholesterolemia, unspecified; M06.9 Rheumatoid arthritis, unspecified; M19.91 Primary osteoarthritis, unspecified site; M10.9 Gout, unspecified; K21.9 Gastro-esophageal reflux disease without esophagitis; Z79.899 Other long term (current) drug therapy; D63.1 Anemia in chronic kidney disease; K59.03 Drug induced constipation
CPT/HCPCS: 36415; 76937; 80053; 82962; 83540; 85025; 85027; 94664

== ENCOUNTER → 2019-11-04 | Outpatient (CLI) | payer MEDICARE ==
[~2019-11-04] MED LIST changes: -ACETAMINOPHEN 500 MG TAB (TYLENOL) PO PRN; +ACHD5005 PO; -ALPRAZolam 0.25 MG (XANAX) TAB PO PRN; +AMLO5TAB9 PO; -CALCIUM CARBONATE 500 MG (TUMS) TAB.CHEW PO PRN; -DOCUSATE SODIUM 100 MG (COLACE) CAP PO PRN; -HYDROcodone/APAP 5 MG/325 MG (LORTAB) TAB PO PRN; -LOPERAMIDE 2 MG (IMODIUM) TABLET PO PRN; -MELA3TAB PO; +MELA3TAB39 PO; -MELATONIN 3 MG TABLET PO PRN; +NF-SODBICA PO; -ONDANSETRON 4 MG (ZOFRAN) ORAL DISSOLVE TAB PO PRN; -SODI650T PO; -diphenhydrAMINE 25 MG TAB (BENADRYL) PO PRN
--- NOTE | 2019-11-04 16:58 | Diagnostic Imaging Report ---
INDICATION: Postmenopausal screening. COMPARISON: 02/08/2017. FINDINGS: AP lumbar spine: [BMD (g/cm2): 1.531] [T-Score: 2.8] [Z-Score: 4.0] [BMD Previous: 1.560] [BMD % Change: -1.9] LT Hip Neck: [BMD (g/cm2): NA] [T-Score: NA] [Z-Score: NA] LT Hip Total: [BMD (g/cm2):NA] [T-Score:NA] [Z-Score: NA] [BMD Previous: NA] [BMD % Change: NA] RT Hip Neck: [BMD (g/cm2):0.809] [T-Score:-1.6] [Z-Score:-0.1] RT Hip Total: [BMD (g/cm2):0.884] [T-score:-1.0] [Z-Score:0.6] [BMD Previous:0.867] [BMD % Change:2.0] *Indicates significant change from prior examination based on 95% confidence level. World Health Organization criteria for BMD interpretation classify patients as Normal (T-score at or above -1.0), Osteopenic (T-score between -1.0 and -2.5) or Osteoporotic (T-score at or below -2.5). LIMITATIONS AND MODIFICATION: None. FRACTURE RISK (FRAX SCORE): The ten year probability of (%): Major Osteoporotic Fracture: [NA] Hip Fracture: [NA] IMPRESSION: 1. Normal bone mineral density. 2. No significant change in bone mineral density since prior examination. 3. See below National Osteoporosis Foundation guidelines on when to potentially initiate pharmacologic therapy. Based on the National Osteoporosis Foundation Guidelines, pharmacologic treatment should be initiated in any of the following, unless clinical conditions suggest otherwise: * Any patient with prior fragility fracture of the hip or vertebrae. A spine fracture indicates 5X risk for subsequent spine fracture and 2X risk for subsequent hip fracture. * Osteoporosis (T-score <-2.5). * Postmenopausal women and men age 50 and older with low bone mass/osteopenia (T-score between -1.0 and -2.5) by DXA and 10-year major osteoporotic fracture greater than 20% or a 10-year probability of hip fracture greater than 3%. These fracture risks are supplied above in the FRAX score, if applicable. * Clinician judgement and/or patient preferences may indicate treatment for people with 10-year fracture probabilities above or below these levels. Dictated by: Dictated on workstation # [id number]
== END ==
LOC: RAD 12:30
PROVIDERS: ATTEND Internal Medicine
DX: Z13.820 Encounter for screening for osteoporosis (principal); M84.68XA Pathological fracture in other disease, other site, initial encounter for fracture; M85.80 Other specified disorders of bone density and structure, unspecified site; Z87.81 Personal history of (healed) traumatic fracture; Z78.0 Asymptomatic menopausal state
CPT/HCPCS: 77080

== ENCOUNTER → 2020-05-06 | Outpatient (CLI) | payer MEDICARE ==
[~2020-05-06] MED LIST changes: +AMLO-250 PO; -AMLO5TAB9 PO; -PANT40TA3 PO; +PANT40TA52 PO
== END ==
LOC: LABNPT 06:37
PROVIDERS: ATTEND Internal Medicine
DX: Z20.822 Contact with and (suspected) exposure to COVID-19 (principal)
CPT/HCPCS: 87635

== ENCOUNTER → 2020-10-13 | Outpatient (CLI) | payer MEDICARE ==
[~2020-10-13] MED LIST changes: +RT-ALBUTEROL SULF 2.5 MG/3 ML PRE-MIX VIAL INH ONE
== END ==
LOC: RT 13:00
PROVIDERS: ATTEND Urology
DX: J47.9 Bronchiectasis, uncomplicated (principal)
CPT/HCPCS: 94060; 94726; 94729

== ENCOUNTER 2021-10-22 20:09 | Emergency (ER) | payer MEDICARE ==
[~2021-10-22] VITALS: Ht 170 cm; Wt 79.0 kg
[~2021-10-22 20:09] MED LIST changes: -RT-ALBUTEROL SULF 2.5 MG/3 ML PRE-MIX VIAL INH ONE
[2021-10-22 20:25] VITALS: BP 144/79
--- NOTE | 2021-10-22 20:32 | ED Abdominal Pain ---
General Chief Complaint: Abdominal/GI Problems Stated Complaint: CONSTIPATION Source of Information: Patient Exam Limitations: No Limitations History of Present Illness Date Seen by Provider: Oct 22, 2021 Time Seen by Provider: 20:29 Initial Comments Patient is a 81-year-old female who presents ED with with constipation. She states she has been constipated for the past 2 to 3 weeks. Started dialysis 2 weeks ago. She states she has dialysis 3 times a week. 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 Has been seen at [facility] for this. Patient has been taking Metamucil and MiraLAX. Denies of any enemas. She reports some mild lower abdominal discomfort. She states she is getting a bowel movement that is hard and about an inch long. This occurs every other day or daily. Denies of any fever, vomiting, chest pain, shortness of breath, headache, dizziness. She did vomit 1 time after dialysis. She does not think this is related to her abdominal discomfort. Patient denies of any urinary symptoms Allergies and Home Medications Allergies Coded Allergies: Iodinated Contrast- Oral and IV Dye (Verified Allergy, Unknown, 12/11/18) Patient Home Medication List Home Medication List Reviewed: Yes Acetaminophen (Tylenol Extra Strength) 500 Mg Tablet, 1,000 MG PO Q4H PRN for PAIN-MILD, (Reported) Entered as Reported by: ELADIO LUKE on 12/11/18 1615 Allopurinol (Allopurinol) 100 Mg Tablet, 100 MG PO DAILY, (Reported) Entered as Reported by: ELADIO LUKE on 12/11/18 1559 Amlodipine Besylate (Amlodipine Besylate) 5 Mg Tablet, 5 MG PO DAILY Prescribed by: BRAYAN BLOCK on 12/31/18 0850 Baclofen (Baclofen) 10 Mg Tablet, 10 MG PO Q6H PRN for MUSCLE SPASMS, (Reported) Entered as Reported by: ELADIO LUKE on 12/11/18 1609 Bisacodyl (Dulcolax) 10 Mg Supp.rect, 10 MG RC DAILY Prescribed by: NATALY GONZALEZ on 10/22/21 2210 Calcium Carbonate (Tums) 300 Mg Tab.chew, 300 MG PO TIDPC, (Reported) Entered as Reported by: ELADIO LUKE on 12/11/18 1605 Cholecalciferol (Vitamin D3) (Vitamin D3) 1,000 Unit Capsule, 1,000 UNIT PO DAILY, (Reported) Entered as Reported by: ELADIO LUKE on 12/11/18 160 Cyanocobalamin (Cyanocobalamin Injection) 1,000 Mcg/Ml Inj, 1,000 MCG IM MONTHLY, (Reported) Entered as Reported by: ELADIO LUKE on 12/11/18 1614 Diphenhydramine HCl (Benadryl) 25 Mg Capsule, 50 MG PO HS PRN for ALLERGIES, (Reported) Entered as Reported by: ELADIO LUKE on 12/11/18 161 Furosemide (Furosemide) 20 Mg Tablet, 20 MG PO DAILY, (Reported) Entered as Reported by: ELADIO LUKE on 12/11/18 155 Hydrocodone Bit/Acetaminophen (Lortab 5 Mg Tablet) 1 Tab Tab, 1 TAB PO Q4H PRN for MOD Prescribed by: BRAYAN BLOCK on 12/31/18 0850 Insulin Detemir (Levemir Flextouch) 100 Unit/1 Ml Insuln.pen, 10 UNITS SC DAILY, (Reported) Entered as Reported by: ELADIO LUKE on 12/11/18 155 Levothyroxine Sodium (Levothyroxine Sodium) 75 Mcg Tablet, 75 MCG PO DAILY, (Reported) Entered as Reported by: ELADIO LUKE on 12/11/18 155 Melatonin (Melatonin) 3 Mg Tablet, 3 MG PO HS, (Reported) Entered as Reported by: ELADIO LUKE on 12/11/18 160 Metoprolol Tartrate (Metoprolol Tartrate) 25 Mg Tablet, 25 MG PO BID, (Reported) Entered as Reported by: ELADIO LUKE on 12/11/18 155 Ondansetron (Ondansetron Odt) 4 Mg Tab.rapdis, 4 MG PO Q6H PRN for NAUSEA/VOMITING-1ST LINE, (Reported) Entered as Reported by: ELADIO LUKE on 12/11/18 160 Pantoprazole Sodium (Pantoprazole Sodium) 40 Mg Tablet.dr, 40 MG PO BID, (Reported) Entered as Reported by: ELADIO LUKE on 12/11/18 160 Rituximab (Rituxan) 100 Mg/10 Ml Conc, IV EVERY 6 MONTHS, (Reported) Entered as Reported by: ELADIO LUKE on 12/11/18 160 Sennosides/Docusate Sodium (Senna-S Tablet) 1 Each Tablet, 1 TAB PO BID, (Reported) Entered as Reported by: ELADIO LUKE on 12/11/181604 Sodium Bicarbonate (Sodium Bicarbonate) 650 Mg Tablet, 650 MG PO MoWeFr, (Reported) Entered as Reported by: ELADIO LUKE on 12/11/181604 Vitamin B Complex (Super B-50 Complex) 1 Each Capsule, 1 CAP PO DAILY, (Reported) Entered as Reported by: ELADIO LUKE on 12/11/181604 Review of Systems Review of Systems Constitutional: No chills, No diaphoresis, No malaise, No weakness EENTM: No Double Vision, No Eye Pain Respiratory: Denies Cough, Denies Orthopnea Cardiovascular: Denies Chest Pain, Denies Edema Gastrointestinal: Abdominal Pain, Constipated; Denies Diarrhea, Denies Nausea, Denies Vomiting Genitourinary: Denies Burning, Denies Discharge Musculoskeletal: No back pain, No joint pain Skin: No change in color, No change in hair/nails Psychiatric/Neurological: Denies Anxiety All Other Systems Reviewed Negative Unless Noted: Yes Past Dljcdpc-Ixvrfn-Kggprx Hx Patient Social History Tobacco Use?: No Substance use?: No Alcohol Use?: No Immunizations Up To Date Tetanus Booster (TDap): Unknown PED Vaccines UTD: Yes Influenza Vaccine Up-to-Date: Yes; Up-to-Date First/Initial COVID19 Vaccinat: unknown date Second COVID19 Vaccination Tee: unknown date Seasonal Allergies Seasonal Allergies: Yes Past Medical History Surgery/Hospitalization HX: new dialysis pt. 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 Physical Exam Vital Signs Vital Signs - First Documented 10/22/21 20:25 Pulse 87 Resp 18 B/P (MAP) 144/79 (100) Pulse Ox 98 O2 Delivery Room Air Capillary Refill : Height/Weight/BMI Height: 5'7.00" Weight: 189lbs. 9.6oz. 86.779796we; 35.2 BMI Method:Stated General Appearance: WD/WN, no apparent distress HEENT: PERRL/EOMI, normal ENT inspection, TMs normal, pharynx normal Neck: non-tender, full range of motion, supple Respiratory: chest non-tender, lungs clear, normal breath sounds, no respira tory distress, no accessory muscle use Cardiovascular: regular rate, rhythm, no edema, no gallop Gastrointestinal: normal bowel sounds, non tender, soft, no organomegaly, no pulsatile mass Extremities: normal range of motion, non-tender, normal inspection, no pedal edema, no calf tenderness Back: normal inspection, no CVA tenderness, no vertebral tenderness Neurologic/Psychiatric: 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 II-XII nml as tested, no motor/sensory deficits, alert, normal mood/affect, oriented x 3 Skin: normal color, warm/dry Progress/Results/Core Measures Results/Orders Lab Results Laboratory Tests Test 10/22/21 21:37 Range/Units White Blood Count 7.2 4.3-11.0 10^3/uL Red Blood Count 2.50 L 3.80-5.11 10^6/uL Hemoglobin 8.1 L 11.5-16.0 g/dL Hematocrit 25 L 35-52 % Mean Corpuscular Volume 101 H 80-99 fL Mean Corpuscular Hemoglobin 32 25-34 pg Mean Corpuscular Hemoglobin Concent 32 32-36 g/dL Red Cell Distribution Width 14.0 10.0-14.5 % Platelet Count 166 130-400 10^3/uL Mean Platelet Volume 10.6 9.0-12.2 fL Immature Granulocyte % (Auto) 2 % Neutrophils (%) (Auto) 70 42-75 % Lymphocytes (%) (Auto) 12 12-44 % Monocytes (%) (Auto) 13 H 0-12 % Eosinophils (%) (Auto) 2 0-10 % Basophils (%) (Auto) 1 0-10 % Neutrophils # (Auto) 5.1 1.8-7.8 10^3/uL Lymphocytes # (Auto) 0.9 L 1.0-4.0 10^3/uL Monocytes # (Auto) 0.9 0.0-1.0 10^3/uL Eosinophils # (Auto) 0.2 0.0-0.3 10^3/uL Basophils # (Auto) 0.1 0.0-0.1 10^3/uL Immature Granulocyte # (Auto) 0.2 H 0.0-0.1 10^3/uL Sodium Level 139 135-145 MMOL/L Potassium Level 3.6 3.6-5.0 MMOL/L Chloride Level 100 98-107 MMOL/L Carbon Dioxide Level 26 21-32 MMOL/L Anion Gap 13 5-14 MMOL/L Blood Urea Nitrogen 17 7-18 MG/DL Creatinine 2.48 H 0.60-1.30 MG/DL Estimat Glomerular Filtration Rate 19 BUN/Creatinine Ratio 7 Glucose Level 162 H 70-105 MG/DL Calcium Level 9.6 8.5-10.1 MG/DL Corrected Calcium 9.8 8.5-10.1 MG/DL Total Bilirubin 0.4 0.1-1.0 MG/DL Aspartate Amino Transf (AST/SGOT) 17 5-34 U/L Alanine Aminotransferase (ALT/SGPT) 14 0-55 U/L Alkaline Phosphatase 86 40-136 U/L Total Protein 5.7 L 6.4-8.2 GM/DL Albumin 3.7 3.2-4.5 GM/DL My Orders Orders - MARY CAMPOS Bisacodyl Suppository (Dulcolax Supposit (10/22/21 20:45) Cbc With Automated Diff (10/22/21 21:17) Comprehensive Metabolic Panel (10/22/21 21:17) Abdomen/Kub 1view (10/22/21 21:17) Medications Given in ED Current Medications Medications Dose Ordered Sig/Shailesh Route Start Time Stop Time Status Last Admin Dose Admin Bisacodyl 20 mg ONCE ONCE [place] 10/22/21 20:45 10/22/21 20:46 DC 10/22/21 20:46 20 MG Vital Signs/I&O 10/22/21 20:25 Pulse 87 Resp 18 B/P (MAP) 144/79 (100) Pulse Ox 98 O2 Delivery Room Air Departure Communication (PCP) Patient vital signs stable. Lab work with chronic anemia and chronic kidney disease. Electrolytes normal. Abdominal x-ray was unremarkable. Digital block did noted stool in the rectum. Was not able to successfully remove any stool. Provide a Dulcolax suppository 20 mg with successful improvement of symptoms. Patient was pain-free. She states she feels much better at this time. Discussed continue with Metamucil, MiraLAX and Dulcolax suppository as needed. If no improvement may consider Fleet enema at home. Discussed directions with medication. Outpatient follow-up with PCP in 2 to 3 days for reevaluation. Return precautions were discussed. Impression Primary Impression: Constipation Disposition: 01 HOME, SELF-CARE Condition: Stable Departure-Patient Inst. Decision time for Depature: 22:09 Referrals: SANTINO ORO MD (PCP/Family) Primary Care Physician Patient Instructions: Constipation in Adults Scripts Bisacodyl (Dulcolax) 10 Mg Supp.rect 10 MG RC DAILY, #4 SUPP.RECT Prov: MARY CAMPOS 10/22/21 MARY CAMPOS Oct 22, 2021 20:32
[2021-10-22] MEDS ORDERED: BISACODYL 10 MG SUPP (DULCOLAX) PR ONE (20:45)
[2021-10-22 21:45] LABS: BASOPHILS # (AUTO) 0.1 10^3/uL (0.0-0.1); BASOPHILS % (AUTO) 1 % (0-10); EOSINOPHILS # (AUTO) 0.2 10^3/uL (0.0-0.3); EOSINOPHILS % (AUTO) 2 % (0-10); HEMATOCRIT 25 % (35-52); HEMOGLOBIN 8.1 g/dL (11.5-16.0); LYMPHOCYTES # (AUTO) 0.9 10^3/uL (1.0-4.0); LYMPHOCYTES % (AUTO) 12 % (12-44); MEAN CORPUSCULAR HEMOGLOBIN 32 pg (25-34); MEAN CORPUSCULAR HGB CONC 32 g/dL (32-36); MEAN CORPUSCULAR VOLUME 101 fL (80-99); MEAN PLATELET VOLUME 10.6 fL (9.0-12.2); MONOCYTES # (AUTO) 0.9 10^3/uL (0.0-1.0); MONOCYTES % (AUTO) 13 % (0-12); NEUTROPHILS # (AUTO) 5.1 10^3/uL (1.8-7.8); NEUTROPHILS % (AUTO) 70 % (42-75); PLATELET COUNT 166 10^3/uL (130-400); WHITE BLOOD COUNT 7.2 10^3/uL (4.3-11.0)
[2021-10-22 21:55] LABS: ALBUMIN 3.7 GM/DL (3.2-4.5); POTASSIUM 3.6 MMOL/L (3.6-5.0)
[2021-10-22 21:56] LABS: CALCIUM 9.6 MG/DL (8.5-10.1)
[2021-10-22 21:58] LABS: TOTAL PROTEIN 5.7 GM/DL (6.4-8.2)
[2021-10-22 21:59] LABS: BILIRUBIN,TOTAL 0.4 MG/DL (0.1-1.0)
[2021-10-22 22:01] LABS: CREATININE SERUM 2.48 MG/DL (0.60-1.30)
--- NOTE | 2021-10-22 22:05 | Diagnostic Imaging Report ---
EXAM: Abdomen/KUB 1view INDICATION: Abdominal pain. Constipation. COMPARISON: CT abdomen and pelvis without contrast 03/28/2016. FINDINGS: Nonspecific small bowel gas pattern. Surgical clips in the abdomen. Moderate amount of stool throughout most of the colon. IMPRESSION: No acute radiographic finding in the abdomen. Dictated by: Dictated on workstation # [id number]
[2021-10-22] MEDS ORDERED: BISA10SU58 RC (22:10)
== END 2021-10-22 22:20 | disposition home or self-care (01) ==
LOC: EDUNIT# 20:09 → ER 20:11
DX: K59.00 Constipation, unspecified (principal); I12.9 Hypertensive chronic kidney disease with stage 1 through stage 4 chronic kidney disease, or unspecified chronic kidney disease; N18.9 Chronic kidney disease, unspecified; E11.22 Type 2 diabetes mellitus with diabetic chronic kidney disease; D63.1 Anemia in chronic kidney disease; G47.30 Sleep apnea, unspecified; Z99.89 Dependence on other enabling machines and devices; Z79.4 Long term (current) use of insulin
CPT/HCPCS: 36415; 74018; 80053; 85025; 99281

== ENCOUNTER → 2021-12-08 | Outpatient (CLI) | payer MEDICARE ==
[~2021-12-08] MED LIST changes: +BISA10SU58 RC
--- NOTE | 2021-12-08 16:51 | Diagnostic Imaging Report ---
INDICATION: Pain and swelling to the metacarpal phalangeal area. COMPARISON: None FINDINGS: Multiple radiographic views of the right hand were obtained. There is no acute fracture or dislocation. Osseous structures are intact. Note is made of moderate to advanced osteoarthritic changes greatest involving the interphalangeal joint spaces. There appears to be ankylosis at the distal 5th interphalangeal joint space, as well. No unexpected radiopaque foreign bodies are seen. IMPRESSION: 1. No acute fracture or dislocation of the right hand. 2. 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 Dictated by: Dictated on workstation # [id number]
== END ==
LOC: RAD 14:22
PROVIDERS: ATTEND Internal Medicine Rheumatology
DX: M31.31 Wegener's granulomatosis with renal involvement (principal)
CPT/HCPCS: 73130